=== PATIENT | male | born 1945 | race Caucasian/White ===

== ENCOUNTER 2016-07-10 04:55 | Inpatient (IN) ==
--- NOTE | 2016-07-10 05:59 | Pulmonology History & Physical ---
<Cisco Vasquez W - Last Filed: 07/10/16 09:34> Date of Encounter: 07/10/16 History of Present Illness HPI: Mr. Gong is a 70 year old male Medications and Allergies Albuterol Sulfate [Albuterol Inhaler] 2 puff IH Q6H 05/08/16 [History] Ipratropium [ATROVENT Inhaler] 2 puff IH Q6H 05/08/16 [History] Budesonide/Formoterol 160/4.5 [Symbicort 160/4.5] 1 puff IH BIDR #1 inhaler [Rx] CloZAPine [Clozaril] 300 mg PO HS tablet 05/20/16 [Rx] Digoxin [Lanoxin] 0.125 mg PO DAILY #30 tablet 05/20/16 [Rx] Acetaminophen [Tylenol] 650 mg PO Q6HR PRN 07/10/16 [History] Atorvastatin [Lipitor] 10 mg PO DAILY 07/10/16 [History] Azithromycin 500 mg IV DAILY 07/10/16 [History] Chlorhexidine Gluconate [Peridex] 15 ml MM BID 07/10/16 [History] Cholecalciferol (D-3) [Vitamin D] 2,000 unit PO DAILY 07/10/16 [History] Diltiazem CD (24hr) [Cardizem CD] 180 mg PO DAILY 07/10/16 [History] LORazepam [Ativan] 1 mg PO BID PRN 07/10/16 [History] LORazepam [Ativan] 1 mg PO Q6H 07/10/16 [History] Lactobacillus Acidophilus [Acidophilus Lactobacillus] 1 cap PO BID 07/10/16 [ History] Levalbuterol Neb [Xopenex Neb] 1.25 mg IH Q4H 07/10/16 [History] Levothyroxine [Synthroid] 75 mcg PO DAILY 07/10/16 [History] MethylPREDNISolone [Solu-MEDROL] 125 mg IV Q6HR 07/10/16 [History] Omeprazole [PriLOSEC] 20 mg PO DAILY 07/10/16 [History] Piperacillin Sodium/Tazobactam [Piperacil-Tazobact 3.375 gm Vl] 3.375 gm IV Q6H 07/10/16 [History] Potassium Chloride [Klor-Con 10] 10 meq PO BID 07/10/16 [History] Rivaroxaban [Xarelto] 20 mg PO DAILY 07/10/16 [History] Vancomycin/0.9 % Sod Chloride [Vanco 1 Gram/250 ml-0.9% NaCl] 1 gm IV Q12H 07/10 [History] Allergies haloperidol [From Haldol] Allergy (Verified 05/08/16 13:21) unknown patient is unresponsive at this time, can not ask. All Systems: A 10-system review of systems was performed and is negative for pertinent findings except as documented above in the HPI. Physical Examination Vital Signs: Vital Signs, Last 4 Hours Pulse Resp BP Pulse Ox 07/10/16 08:20 106 16 137/100 98 07/10/16 07:33 86 07/10/16 07:24 86 14 118/83 99 07/10/16 07:06 14 118/83 98 07/10/16 05:51 18 138/85 100 Results - Laboratory Findings CBC and BMP: 07/10/16 06:44 07/10/16 06:44 ABG ABG pH 7.36 pH Units (7.32-7.45) 07/10/16 08:57 ABG pCO2 62 mmHg (35-45) H 07/10/16 08:57 ABG pO2 122 mmHg (85-104) H 07/10/16 08:57 ABG O2 Saturation 99 % (95-98) H 07/10/16 08:57 PT/INR, D-dimer PT 13.6 Seconds (9.4-12.1) H 07/10/16 06:44 Abnormal lab findings: Abnormal lab results WBC 15.8 K/mcL (4.3-11.1) H 07/10/16 06:44 RBC 3.73 M/mcL (4.19-5.50) L 07/10/16 06:44 Hgb 11.4 g/dL (12.9-16.9) L 07/10/16 06:44 Hct 36.1 % (37.5-50.1) L 07/10/16 06:44 RDW 14.8 % (11.5-14.5) H 07/10/16 06:44 Neutrophils # 15.2 K/mcL (1.6-8.9) H 07/10/16 06:44 Lymphocytes # 0.3 K/mcL (0.6-4.6) L 07/10/16 06:44 PT 13.6 Seconds (9.4-12.1) H 07/10/16 06:44 ABG pCO2 62 mmHg (35-45) H 07/10/16 08:57 ABG pO2 122 mmHg (85-104) H 07/10/16 08:57 ABG HCO3 35.0 mEQ/L (21-27) H 07/10/16 08:57 ABG Total CO2 36.9 mEq/L (20-26) H 07/10/16 08:57 ABG O2 Saturation 99 % (95-98) H 07/10/16 08:57 ABG Base Excess 7.6 mEq/L (-2.0 to 3.0) H 07/10/16 08:57 Glucose 152 mg/dL (70-99) H 07/10/16 06:44 POC Glucose 153 (58-89) H 07/10/16 05:54 Calculated Osmolality 301 (280-300) H 07/10/16 06:44 Serum Total Protein 5.7 g/dL (6.0-8.3) L 07/10/16 06:44 Albumin 3.1 g/dL (3.5-5.0) L 07/10/16 06:44 - Attending Attestation I examined this patient and my medical decision-making was reviewed with the SCIENTIFIC RECRUITER/PA/Advanced Practice Nurse/Resident Physician. I agree with the documented findings, disposition and treatment plan as described except to the extent set forth below. I spent 40min of Critical Care time with this patient. It involved decision making of high complexity to assess, manipulate, and support vital organ system failure and/or to prevent further life threatening deterioration of the patient' s condition. The time involved in the performance of separately reportable procedures was not counted toward critical care time. Patient seen and examined at bedside Labs, radiology, chart personally reviewed. All lines examined without evidence of infection. 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 Will transition to benzo pushes PRN and will consider precedex as needed. Daily sedation holiday. Pulm: Acute on Chronic hypoxic hypercapnic respiratory failure secondary to possible HAP with COPD exacerbation start IV steroids continue bronchodilators every 4-6 hours vent management for low tidal volume ventilation strategy patient has a history of chronic CO2 retention and will aim for mild baseline respiratory acidosis acceptable oxygenation on 40% FiO2 at this time spontaneous breathing trial tomorrow Cards: History of CHF and Afib on LTA. ECG with no STEMI (trop pending) Rate controlled today otherwise hemodynamically stable. Net even to slightly negative fluid balance. restart CCB for rate control and Digoxin. FEN-GI: Nothing by mouth for now does have some bloody return from OG tube which started after placement of a G-tube possibly related to trauma with patient being anticoagulated for A. fib continue proton pump inhibitor and monitor OG output consider GI consult if continues and transition to proton inhibitor gtt Renal: Stable no acute kidney injury on admission monitor daily electrolytes sock examiner urine output with Quick catheter for strict I's and O's and well patient on respirator ID: HAP treating broadly for healthcare associated organisms patient also at risk for atypicals because he lives in community blood sputum and REsp infectious panel pending. Heme/Onc: A. fib on long-term anticoagulation with Spiriva rocks and then holding acutely for possible GI bleed continue mechanical SCDs for DVT prophylaxis monitor H&H every 6 hours Endo: Glucose monitored Integ/MSK: Skin care per ICU nursing protocol CODE: Full code patient has a guardian <Bernadine Dixon - Last Filed: 07/10/16 11:46> Date of Encounter: 07/10/16 Time of Encounter: 05:58 Assessment and Plan (1) Acute hypercapnic respiratory failure Current visit: No Status: Acute Likely due to COPD exacerbation secondary to pneumonia. Chest X-Ray 07/10/16 06:09 IMPRESSION: 1. The endotracheal tube tip is approximately 7-8 cm above the florecita. 2. The tip of the enteric tube is in the stomach though the proximal side hole is at the level of the gastroesophageal junction. The tube should be advanced approximately 3 cm. 3. Bibasilar atelectasis versus pneumonia, left greater than right. Continue to treat underlying cause antibiotics: Start date: 07/10/16: pipercillin /tazobactam, vancomyacin, levfloxacin. Continue oxygenation and ventilation support. Vent settings: Tidal volume 480, 16, PEEP 5, FiO2 60% patient is satting 100%. Spontaneous breathing trial tomorrow. Monitor with daily ABGs. Continue to monitor daily I's and O's and keep at a negative or neutral fluid balance. Daily monitoring of electrolytes for evaluation of renal function. Blood glucose checks every 6 hours with corrective low-dose insulin. Continue home medications via G-tube. Continue GI prophylaxis: Protonix IV Continue DVT prophylaxis. Nothing by mouth diet. Report from the NH was that they suspected an ileus. However, on arrival an NG tube was placed and immediately patient defecated. (2) Acute exacerbation of chronic obstructive pulmonary disease (COPD) Current visit: No Status: Acute Likely due to pneumonia. Long history of smoking more than 3 packs per day for more than 30 years. On long-term home medication inhaled ipratropium nebulizers and Symbicort. Continue to treat underlying cause antibiotics: Start date: 07/10/16: pipercillin /tazobactam, vancomyacin, levfloxacin. Continue supplemental oxygenation/ventilation support. Systemic steroid: Solu-Medrol 40 mg every 8 hours. Bronchodilator therapy: DuoNeb's every 4 hours. (3) Atrial fibrillation Current visit: Yes Status: Acute Continuous cardiac monitoring. Continue at home Antiarrhythmics: diltiazem and digoxin. Rate is currently controlled at 101. Patient is hemodynamically stable. Hold Rivaroxaban due to bleeding from NG tube. This has since resolved over the past few hours. However, we will hold today and may begin Xarelto tomorrow. ECG: Atrial fibrillation with rapid ventricular response. Ventricular rate 101 bpm, NV interval undetermined, QRS duration 180 ms, QT/QTC 280/338 ms. There are no acute ST segment elevations. Nonspecific T-wave abnormality. Troponins pending. Qualifiers: Atrial fibrillation type: paroxysmal Qualified Code(s): I48.0 - Paroxysmal atrial fibrillation (4) Pneumonia Current visit: Yes Status: Acute Patient was being treated at the NH for presumptive pneumonia with vancomycin and pipercillin/tazobactam before acute respiratory failure and transfer to the ICU. antibiotics: Start date: 07/10/16: pipercillin/tazobactam, vancomyacin, levfloxacin. Respiratory panel pending. Qualifiers: Pneumonia type: due to unspecified organism Laterality: bilateral Lung location: unspecified part of lung Qualified Code(s): J18.9 - Pneumonia, unspecified organism (5) Schizophrenia Current visit: Yes Status: Acute Patient has a history of paranoid schizophrenia with episodes of catatonia. Patient lives in a half-way at the NH in [place] and has a long history of psychiatric/mental health disorder requiring living assistance. Patient does have a court appointed guardian. Patient is currently intubated and sedated: Fentanyl/propofol. Plan: Transition to benzo diazepam and push when necessary for sedation holiday. Consider Precedex as needed. Continue home medications via G-tube to prevent psychosis. Qualifiers: Schizophrenia type: paranoid schizophrenia Qualified Code(s): F20.0 - Paranoid schizophrenia (6) DVT prophylaxis Current visit: No Status: Acute Heparin subcutaneous History of Present Illness Chief complaint: Respiratory failure HPI: Mr. Gong is a 70 year old male with a past medical history of atrial fibrillation on rivaroxiban for thromboembolism/stroke prophylaxis; diltiazem for arrhythmia and digoxin for rate control, paranoid schizophrenia with psychosis and catatonic state, BPH, gastroesophageal reflux, hypertension, hyperlipidemia, COPD, tobacco abuse disorder currently smoking 3 packs per day who was transferred from the [facility] for acute respiratory failure requiring intubation and sedation with propofol however the NH did not have any titration medication available and propofol was given IV push. Suspected pneumonia and COPD exacerbation. Patient resides at the NH in a half-way has a long history of mental health problems requiring living assistance. Patient was reportedly found in his room moaning in his bed non-responsive to sternal rub or bilateral fingernails squeeze/ Patient was not moving extremities to noxious stimuli. Patient was reported to be agitated earlier in the morning. Nursing staff reported that he had not slept for 2 days straight and was put on lorazepam just prior to event. Due to acute change in mental status wheezes on auscultation bilaterally patient was initially placed on BiPAP chest x-ray demonstrated bibasilar atelectasis versus pneumonia. Patient continued to decompensate and was intubated and sedated with propofol for transport [facility]. However, on arrival an NG tube was placed and immediately patient defecated. ROS unobtainable: due to endotracheal tube, due to mental status All Systems: A 10-system review of systems was performed and is negative for pertinent findings except as documented above in the HPI. Physical Examination General appearance: other (Intubated and sedated) Eyes: other (Pinpoint pupils) ENT: oropharynx moist Neck: supple, no lymphadenopathy, no JVD Effort: normal Inspection: normal Auscultation: bilateral: wheezes Cardiovascular: irregular rhythm (Atrial fibrillation) Gastrointestinal: normoactive bowel sounds, soft, non-tender Integumentary: normal Extremities: no cyanosis, no edema, pink and warm, pulses normal Musculoskeletal: no deformities pupils equal and round, other (Sedated) Results - Laboratory Findings CBC and BMP: 07/10/16 06:44 07/10/16 06:44 Abnormal lab findings: Abnormal lab results POC Glucose 153 (58-89) H 07/10/16 05:54 - Diagnostic Findings Chest x-ray: report reviewed, image reviewed
[2016-07-10] MEDS ORDERED: Naloxone 0.4 MG/ML INJ IVP PRN (06:07)
[2016-07-10] MEDS ORDERED: Acetaminophen 650 MG RECTAL SUPP RC PRN (06:07)
[2016-07-10] MEDS ORDERED: Acetaminophen 325 MG TABLET PO PRN (06:07)
[2016-07-10 06:51] LABS: Hematocrit 36.1 % (37.5-50.1); Hemoglobin 11.4 g/dL (12.9-16.9); Mean Corpuscular HGB Conc 31.6 g/dL (31.6-35.5); Mean Corpuscular Hemoglobin 30.6 pg (28.0-33.3); Mean Corpuscular Volume 96.8 fL (83.0-100.0); Mean Platelet Volume 9.7 fL (9.4-12.4); Platelet Count 222 K/mcL (140-400); Red Blood Count 3.73 M/mcL (4.19-5.50); Red Cell Distribution Width 14.8 % (11.5-14.5)
[2016-07-10 07:00] LABS: INR 1.3; Prothrombin Time 13.6 Seconds (9.4-12.1)
[2016-07-10] MEDS ORDERED: WATER IVPB SCH (07:00)
[2016-07-10] MEDS ORDERED: AMIKACIN IVPB SCH (07:00)
[2016-07-10] MEDS ORDERED: D5 IVPB SCH (07:00)
[2016-07-10 07:06] LABS: Alanine Aminotransferase 14 Units/L (0-55); Albumin 3.1 g/dL (3.5-5.0); Albumin/Globulin Ratio 1.2 (1.1-2.2); Alkaline Phosphatase 75 Units/L (38-126); Aspartate Amino Transferase 21 Units/L (5-34); BUN/Creatinine Ratio 17 (6-26); Bilirubin,Total 0.3 mg/dL (0.2-1.2); Blood Urea Nitrogen 13 mg/dL (8-26); Calcium 8.6 mg/dL (8.6-10.8); Carbon Dioxide 28 mEq/L (19-29); Chloride 107 mEq/L (98-109); Globulin 2.6 g/dL (2.4-3.5); Glucose 152 mg/dL (70-99); Magnesium 2.1 mg/dL (1.6-2.6); Osmolality,Calculated 301 (280-300); Phosphorous 3.7 mg/dL (2.3-4.7); Sodium 144 mEq/L (136-145); Total Protein 5.7 g/dL (6.0-8.3); eGFR For African Americans > 60 (> 60); eGFR For Non-African Americans > 60 (> 60)
[2016-07-10 07:17] LABS: Lymphocytes # 0.3 K/mcL (0.6-4.6); Monocytes # 0.3 K/mcL (0.0-1.3); Neutrophils # 15.2 K/mcL (1.6-8.9); Platelet Estimate Normal (Normal)
[2016-07-10 07:40] LABS: ABG Base Excess 7.4 mEq/L (-2.0 to 3.0); ABG HCO3 34.8 mEQ/L (21-27); ABG Oxygen Saturation 94 % (95-98); ABG PCO2 63 mmHg (35-45); ABG PH 7.35 pH Units (7.32-7.45); ABG PO2 75 mmHg (85-104); ABG TCO2 36.7 mEq/L (20-26)
[2016-07-10 07:41] LABS: Blood Gas FiO2 60 %
[2016-07-10] MEDS: FentaNYL (PF) 1,000 MCG in 0.9 % Sodium Chloride 80 ML IVC SCH ×2 (07:45→23:26)
[2016-07-10] MEDS: MethylPREDNISolone 40 MG/ML VIAL IVP SCH ×2 (07:46→18:20)
[2016-07-10] MEDS: Vancomycin 1,000 MG in D5% in Water 250 ML IVPB SCH ×2 (07:47→19:53)
[2016-07-10] MEDS: Pantoprazole 40 MG VIAL IVPB SCH (07:47)
[2016-07-10] MEDS: Piperacillin/Tazobactam 3.375 GM in D5% in Water (Mini-Bag+) 100 ML IVPB SCH ×2 (07:48→18:18)
[2016-07-10] MEDS: Levofloxacin 750 MG/150 ML 750 MG/150 ML BAG IVPB SCH (08:11)
[2016-07-10] MEDS ORDERED: dilTIAZem HCl 60 MG TABLET PO SCH (08:12)
[2016-07-10] MEDS: Ipratropium/Albuterol Neb 3 ML IH SCH ×4 (08:28→21:16)
[2016-07-10] MEDS ORDERED: *HR* Heparin 5,000 UNIT/ML VIAL SQ SCH (08:30)
[2016-07-10] MEDS ORDERED: *HR* Digoxin 0.125 MG TABLET PO SCH (09:00)
[2016-07-10 09:07] LABS: ABG Base Excess 7.6 mEq/L (-2.0 to 3.0); ABG Oxygen Saturation 99 % (95-98); ABG PCO2 62 mmHg (35-45); ABG PH 7.36 pH Units (7.32-7.45); ABG PO2 122 mmHg (85-104); ABG TCO2 36.9 mEq/L (20-26)
[2016-07-10 09:08] LABS: Blood Gas FiO2 60 %
[2016-07-10] MEDS ORDERED: Levothyroxine Sodium 100 MCG VIAL IVP SCH (11:00)
[2016-07-10] MEDS: Digoxin Oral Liquid 125 MCG/2.5 ML ORAL.SYG GTUBE SCH (11:25)
[2016-07-10] MEDS: Lacri-Lube 3.5 GM TUBE BOTH EYES SCH ×2 (11:25→20:47)
[2016-07-10] MEDS: Chlorhexidine Rinse 15 ML MOUTHWASH MM SCH ×2 (11:25→20:47)
[2016-07-10] MEDS ORDERED: Dextrose Gel 15 GM PO PRN ×2 (11:28)
[2016-07-10] MEDS ORDERED: *HR* Dextrose 50 % in Water (Syg) 50 ML SYRINGE IVP PRN (11:28)
[2016-07-10] MEDS ORDERED: D5% in Water 1,000 ML IV PRN (11:28)
[2016-07-10] MEDS: Insulin LISPRO 300 UNITS/3 ML VIAL SQ SCH ×2 (12:19→18:19)
[2016-07-10 12:50] LABS: Adenovirus Not Detected (Not Detect); Bordetella Pertussis Not Detected (Not Detect); Chlamydophila pneumoniae Not Detected (Not Detect); Coronavirus 229E Not Detected (Not Detect); Coronavirus HKU1 Not Detected (Not Detect); Coronavirus NL63 Not Detected (Not Detect); Coronavirus OC43 Not Detected (Not Detect); Human Metapneumovirus Not Detected (Not Detect); Human Rhinovirus/Enterovirus Not Detected (Not Detect); Influenza A Subtype 2009 H1 Not Detected (Not Detect); Influenza A Untypeable Not Detected (Not Detect); Influenza B Not Detected (Not Detect); Mycoplasma pneumoniae Not Detected (Not Detect); Parainfluenza Virus 1 Not Detected (Not Detect); Parainfluenza Virus 2 Not Detected (Not Detect); Parainfluenza Virus 3 Not Detected (Not Detect); Parainfluenza Virus 4 Not Detected (Not Detect); Respiratory Syncytial Virus ***DETECTED*** (Not Detect)
[2016-07-10] MEDS ORDERED: Aminoglycoside Consult 1 EACH MC ONE (12:53)
--- NOTE | 2016-07-10 14:51 | Electrocardiograph Report ---
[address] [address] Test Date: 2016-07-10 Pat Name: Vikram Gong Department: 109 Room: [facility] Gender: M [place] Recorder: : [id number] Requested By: Kj Zhang Order Number: [id number] Reading MD: Emily Hale Measurements Intervals [place] Rate: 101 P: AR: 0 QRS: 42 QRSD: 118 T: 31 QT: 280 QTc: 338 Interpretive Statements ATRIAL FIBRILLATION WITH RAPID VENTRICULAR RESPONSE MODERATE INTRAVENTRICULAR CONDUCTION DELAY NONSPECIFIC T-WAVE ABNORMALITY ABNORMAL RHYTHM ECG Electronically Signed On 07-10-2016 14:49:45 EST by Emily Hale
[2016-07-10] MEDS ORDERED: cloZAPine 100 MG TABLET PO SCH (21:00)
[2016-07-10] MEDS ORDERED: cloZAPine 100 MG TABLET GTUBE SCH (21:00)
[2016-07-10] MEDS: *HR* Midazolam HCl 2 MG/2 ML VIAL IVP PRN (21:03)
[2016-07-11] MEDS: Ipratropium/Albuterol Neb 3 ML IH SCH ×6 (01:01→20:17)
[2016-07-11] MEDS: Piperacillin/Tazobactam 3.375 GM in D5% in Water (Mini-Bag+) 100 ML IVPB SCH ×2 (01:12→08:36)
[2016-07-11] MEDS: Insulin LISPRO 300 UNITS/3 ML VIAL SQ SCH ×4 (01:13→20:24)
[2016-07-11] MEDS: MethylPREDNISolone 40 MG/ML VIAL IVP SCH ×3 (01:17→16:35)
--- NOTE | 2016-07-11 06:01 | Pulmonology Progress Note ---
<ChriscorinneCisco stroud W - Last Filed: 07/11/16 08:09> Date of Encounter: 07/11/16 Objective PUL Vital signs: Last Vital Signs Temp 97.5 F L 07/11/16 07:46 Pulse 91 07/11/16 06:00 Resp 30 07/11/16 07:05 BP 128/86 07/11/16 06:00 Pulse Ox 93 L 07/11/16 07:05 Ventilator Settings Ventilator Settings: Ventilator Settings, Last 8 Hours Ventilator Mode VC+ Ventilator Mode VC+ Ventilator Mode VC+ Ventilator Mode VC+ Ventilator Mode VC+ Ventilator Mode VC+ Ventilator Mode VC+ Ventilator Mode VC+ Ventilator Tidal Volume 480 Setting Ventilator Tidal Volume 480 Setting Ventilator Tidal Volume 480 Setting Ventilator Tidal Volume 480 Setting Ventilator Tidal Volume 480 Setting Ventilator Tidal Volume 480 Setting Ventilator Tidal Volume 480 Setting Ventilator Tidal Volume 480 Setting Ventilator Respiratory Rate 16 Setting Ventilator Respiratory Rate 16 Setting Ventilator Respiratory Rate 16 Setting Ventilator Respiratory Rate 16 Setting Ventilator Respiratory Rate 16 Setting Ventilator Respiratory Rate 16 Setting Ventilator Respiratory Rate 16 Setting Ventilator Respiratory Rate 16 Setting Actual Respiratory Rate 18 Actual Respiratory Rate 17 Actual Respiratory Rate 17 Actual Respiratory Rate 16 Actual Respiratory Rate 16 Actual Respiratory Rate 16 Actual Respiratory Rate 16 Actual Respiratory Rate 16 Positive End Expiratory 5 Pressure Positive End Expiratory 5 Pressure Positive End Expiratory 5 Pressure Positive End Expiratory 5 Pressure Positive End Expiratory 5 Pressure Positive End Expiratory 5 Pressure Positive End Expiratory 5 Pressure Positive End Expiratory 5 Pressure Peak Inspiratory Airway 21 Pressure Peak Inspiratory Airway 22 Pressure Peak Inspiratory Airway 18 Pressure Peak Inspiratory Airway 20 Pressure Peak Inspiratory Airway 25 Pressure Peak Inspiratory Airway 27 Pressure Results - Laboratory Findings CBC and BMP: 07/11/16 06:30 07/11/16 06:30 ABG ABG pH 7.37 pH Units (7.32-7.45) 07/11/16 06:23 ABG pCO2 61 mmHg (35-45) H 07/11/16 06:23 ABG pO2 79 mmHg (85-104) L 07/11/16 06:23 ABG O2 Saturation 95 % (95-98) 07/11/16 06:23 PT/INR, D-dimer PT 10.8 Seconds (9.4-12.1) 07/11/16 06:30 Abnormal lab findings: Abnormal lab results WBC 14.8 K/mcL (4.3-11.1) H 07/11/16 06:30 MCHC 31.5 g/dL (31.6-35.5) L 07/11/16 06:30 RDW 14.9 % (11.5-14.5) H 07/11/16 06:30 Neutrophils # 13.7 K/mcL (1.6-8.9) H 07/11/16 06:30 Lymphocytes # 0.3 K/mcL (0.6-4.6) L 07/11/16 06:30 ABG pCO2 61 mmHg (35-45) H 07/11/16 06:23 ABG pO2 79 mmHg (85-104) L 07/11/16 06:23 ABG HCO3 35.3 mEQ/L (21-27) H 07/11/16 06:23 ABG Total CO2 37.2 mEq/L (20-26) H 07/11/16 06:23 ABG Base Excess 8.0 mEq/L (-2.0 to 3.0) H 07/11/16 06:23 Glucose 142 mg/dL (70-99) H 07/11/16 06:30 POC Glucose 135 (58-89) H 07/11/16 05:15 Serum Total Protein 5.7 g/dL (6.0-8.3) L 07/10/16 06:44 Albumin 3.1 g/dL (3.5-5.0) L 07/10/16 06:44 RSV (PCR) DETECTED (Not Detect) A 07/10/16 10:00 - Clinical Findings Intake & Output: Intake & Output 07/10/16 07/11/16 07/11/16 23:59 07:59 15:59 Intake Total 537.2 / 537.2 162 / 162 Output Total 175 / 175 250 / 250 Balance 362.2 / 362.2 -88 / -88 Weight 73.085 kg Consult Discharge Plan - Plan Referrals: [facility],PCP [Primary Care Provider] - - Attending Attestation I examined this patient and my medical decision-making was reviewed with the PSYCHIATRY ADULT PHYSICIAN/PA/Advanced Practice Nurse/Resident Physician. I agree with the documented findings, disposition and treatment plan as described except to the extent set forth below. Patient seen and examined at bedside Labs, radiology, chart personally reviewed. All lines examined without evidence of infection. 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 transition to NCO2 later today. cont BDs and Steroids. Ok for Azithro for COPD exacerbation Cards: History of CHF and Afib on LTA. Rate stable on Tele. Net even to slightly negative volume status FEN-GI: Bedside speech/swallow eval. ADAT. 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 Heme/Onc: A. fib on long-term anticoagulation with NOAC will restart today. H/H stable. Endo: Glucose monitored Integ/MSK: Skin care per ICU nursing protocol CODE: Full code patient has a guardian Consider transfer to medical telemetry floor later in the day if no further issues <ZackBernadine Larson - Last Filed: 07/11/16 09:44> Date of Encounter: 07/11/16 Time of Encounter: 05:45 Assessment and Plan (1) Acute hypercapnic respiratory failure Current Visit: No Status: Acute Likely due to COPD exacerbation secondary to RSV pneumonia. Chest X-Ray 07/10/16 06:09 IMPRESSION: 1. The endotracheal tube tip is approximately 7-8 cm above the florecita. 2. The tip of the enteric tube is in the stomach though the proximal side hole is at the level of the gastroesophageal junction. The tube should be advanced approximately 3 cm. 3. Bibasilar atelectasis versus pneumonia, left greater than right. ID: Supportive treatment for underlying viral cause. IV antibiotics descalated: Start date: 07/10/16: pipercillin/tazobactam, vancomyacin, levfloxacin. Stop Date 07/11/16. Oral course of Azithromycin/Z-Tommie to begin today for COPD Exacerbation. Start date: 07/11/16 500 mg now then 2504 days stop date Friday07/15/16. Pulm: Continue supplemental oxygenation and BiPAP for respiratory support. Plan to transition to oxygen by nasal cannula. Cardiology: Patient has history of atrial fibrillation on long-term anticoagulation and antiarrhythmics. Patient's rate is well controlled. Restart Xarelto. Renal: Continue to monitor daily I's and O's and keep at a negative or neutral fluid balance. Daily monitoring of electrolytes for evaluation of renal function. Endocrine: Blood glucose checks every 6 hours with corrective low-dose insulin. Heme/onc: Continue DVT prophylaxis with heparin subcutaneous. Hemoglobin stable. GI/Fluids/Electrolytes: [facility] However, on arrival an NG tube was placed and immediately patient defecated. Continue GI prophylaxis: Protonix by mouth Continue home medications orally. Plan to transfer to telemetry later today. (2) Acute exacerbation of chronic obstructive pulmonary disease (COPD) Current Visit: No Status: Acute Likely due to RSV pneumonia. Long history of smoking more than 3 packs per day for more than 30 years. On long-term home medication inhaled ipratropium nebulizers and Symbicort. Oral course of Azithromycin/Z-Tommie to begin today for COPD Exacerbation. Start date: 07/11/16 500 mg now then 2504 days stop date Friday07/15/16. Continue supplemental oxygenation/ventilation support. Systemic steroid: Prednisone 40 mg daily. Bronchodilator therapy: DuoNeb's every 4 hours. (3) Atrial fibrillation Current Visit: Yes Status: Acute Continuous cardiac monitoring. Rivaroxaban was held initially due to bleeding from NG tube. This has since resolved over the past few hours. Begin Xarelto. ECG: Atrial fibrillation with rapid ventricular response. Ventricular rate 101 bpm, PA interval undetermined, QRS duration 180 ms, QT/QTC 280/338 ms. There are no acute ST segment elevations. Nonspecific T-wave abnormality. Troponin negative. Continue at home Antiarrhythmics: diltiazem and digoxin. Rate is regular and is currently controlled at 90 . Patient is hemodynamically stable. Qualifiers: Atrial fibrillation type: paroxysmal Qualified Code(s): I48.0 - Paroxysmal atrial fibrillation (4) Pneumonia Current Visit: Yes Status: Acute [facility] for presumptive [facility] with vancomycin and pipercillin/tazobactam before acute respiratory failure and transfer to the ICU. antibiotics: Start date: 07/10/16: pipercillin/tazobactam, vancomyacin, levfloxacin. De-escalate/stop date 07/11/16. Respiratory panel serology positive for respiratory syncytial virus. Qualifiers: Pneumonia type: due to unspecified organism Laterality: bilateral Lung location: unspecified part of lung Qualified Code(s): J18.9 - Pneumonia, unspecified organism (5) Schizophrenia Current Visit: Yes Status: Acute Patient has a history of paranoid schizophrenia with episodes of catatonia. Patient [facility] [place] and has a long history of psychiatric/mental health disorder requiring living assistance. Patient does have a court appointed guardian. Patient is currently extubated and responding appropriate to commands. Continue home medications by mouth to prevent psychosis. Qualifiers: Schizophrenia type: paranoid schizophrenia Qualified Code(s): F20.0 - Paranoid schizophrenia (6) DVT prophylaxis Current Visit: No Status: Acute Heparin subcutaneous Subjective Principal diagnosis: Acute hypercapnic respiratory failure Interval history: Overnight the patient became restless and was coughing and gagging over the vent. This was particularly exacerbated while patient was receiving a bath and was turned to his side propofol was increased to 15 temporarily during that time. Patient was coughing so hard that he coughed out his OG tube. Tube was reinserted and a KUB demonstrated that it was in the proper place. Propofol turned down to 5. At 5:00 this morning propofol and fentanyl were discontinued for CPAP trial. Patient was extubated and is currently on BiPAP. Fluid balance overnight was -13 mL however overall has been +500.2 mL. Vitals stable. Objective PUL Vital signs: Last Vital Signs Temp 97.6 F 07/11/16 03:00 Pulse 89 07/11/16 05:00 Resp 16 07/11/16 05:00 BP 121/77 07/11/16 05:00 Pulse Ox 94 L 07/11/16 05:00 Ventilator Settings Ventilator Settings: Ventilator Settings, Last 8 Hours Ventilator Mode VC+ Ventilator Mode VC+ Ventilator Mode VC+ Ventilator Mode VC+ Ventilator Mode VC+ Ventilator Mode VC+ Ventilator Mode VC+ Ventilator Mode VC+ Ventilator Mode VC+ Ventilator Mode VC+ Ventilator Tidal Volume 480 Setting Ventilator Tidal Volume 480 Setting Ventilator Tidal Volume 480 Setting Ventilator Tidal Volume 480 Setting Ventilator Tidal Volume 480 Setting Ventilator Tidal Volume 480 Setting Ventilator Tidal Volume 480 Setting Ventilator Tidal Volume 480 Setting Ventilator Tidal Volume 480 Setting Ventilator Tidal Volume 480 Setting Ventilator Respiratory Rate 16 Setting Ventilator Respiratory Rate 16 Setting Ventilator Respiratory Rate 16 Setting Ventilator Respiratory Rate 16 Setting Ventilator Respiratory Rate 16 Setting Ventilator Respiratory Rate 16 Setting Ventilator Respiratory Rate 16 Setting Ventilator Respiratory Rate 16 Setting Ventilator Respiratory Rate 16 Setting Ventilator Respiratory Rate 16 Setting Actual Respiratory Rate 17 Actual Respiratory Rate 17 Actual Respiratory Rate 16 Actual Respiratory Rate 16 Actual Respiratory Rate 16 Actual Respiratory Rate 16 Actual Respiratory Rate 16 Actual Respiratory Rate 16 Actual Respiratory Rate 16 Actual Respiratory Rate 16 Positive End Expiratory 5 Pressure Positive End Expiratory 5 Pressure Positive End Expiratory 5 Pressure Positive End Expiratory 5 Pressure Positive End Expiratory 5 Pressure Positive End Expiratory 5 Pressure Positive End Expiratory 5 Pressure Positive End Expiratory 5 Pressure Positive End Expiratory 5 Pressure Positive End Expiratory 5 Pressure Peak Inspiratory Airway 22 Pressure Peak Inspiratory Airway 18 Pressure Peak Inspiratory Airway 20 Pressure Peak Inspiratory Airway 25 Pressure Peak Inspiratory Airway 27 Pressure Peak Inspiratory Airway 24 Pressure Peak Inspiratory Airway 23 Pressure Results - Laboratory Findings CBC and BMP: 07/11/16 06:30 07/11/16 06:30 ABG ABG pH 7.36 pH Units (7.32-7.45) 07/10/16 08:57 ABG pCO2 62 mmHg (35-45) H 07/10/16 08:57 ABG pO2 122 mmHg (85-104) H 07/10/16 08:57 ABG O2 Saturation 99 % (95-98) H 07/10/16 08:57 PT/INR, D-dimer PT 13.6 Seconds (9.4-12.1) H 07/10/16 06:44 Abnormal lab findings: Abnormal lab results WBC 15.8 K/mcL (4.3-11.1) H 07/10/16 06:44 RBC 3.73 M/mcL (4.19-5.50) L 07/10/16 06:44 Hgb 11.4 g/dL (12.9-16.9) L 07/10/16 06:44 Hct 36.1 % (37.5-50.1) L 07/10/16 06:44 RDW 14.8 % (11.5-14.5) H 07/10/16 06:44 Neutrophils # 15.2 K/mcL (1.6-8.9) H 07/10/16 06:44 Lymphocytes # 0.3 K/mcL (0.6-4.6) L 07/10/16 06:44 PT 13.6 Seconds (9.4-12.1) H 07/10/16 06:44 ABG pCO2 62 mmHg (35-45) H 07/10/16 08:57 ABG pO2 122 mmHg (85-104) H 07/10/16 08:57 ABG HCO3 35.0 mEQ/L (21-27) H 07/10/16 08:57 ABG Total CO2 36.9 mEq/L (20-26) H 07/10/16 08:57 ABG O2 Saturation 99 % (95-98) H 07/10/16 08:57 ABG Base Excess 7.6 mEq/L (-2.0 to 3.0) H 07/10/16 08:57 Glucose 152 mg/dL (70-99) H 07/10/16 06:44 POC Glucose 135 (58-89) H 07/11/16 05:15 Calculated Osmolality 301 (280-300) H 07/10/16 06:44 Serum Total Protein 5.7 g/dL (6.0-8.3) L 07/10/16 06:44 Albumin 3.1 g/dL (3.5-5.0) L 07/10/16 06:44 RSV (PCR) DETECTED (Not Detect) A 07/10/16 10:00 - Clinical Findings Intake & Output: Intake & Output 07/10/16 07/10/16 07/11/16 15:59 23:59 07:59 Intake Total 600 / 600 537.2 / 537.2 162 / 162 Output Total 300 / 300 175 / 175 175 / 175 Balance 300 / 300 362.2 / 362.2 -13 / -13 Weight 73.085 kg
[2016-07-11] MEDS: *HR* Midazolam HCl 2 MG/2 ML VIAL IVP PRN (06:23)
[2016-07-11] MEDS: Vancomycin 1,000 MG in D5% in Water 250 ML IVPB SCH (06:30)
[2016-07-11 06:35] LABS: ABG HCO3 35.3 mEQ/L (21-27); ABG Oxygen Saturation 95 % (95-98); ABG PCO2 61 mmHg (35-45); ABG PH 7.37 pH Units (7.32-7.45); ABG PO2 79 mmHg (85-104); ABG TCO2 37.2 mEq/L (20-26); Blood Gas FiO2 40 %
[2016-07-11 06:51] LABS: Basophils % 0.1 %; Hematocrit 40.9 % (37.5-50.1); Hemoglobin 12.9 g/dL (12.9-16.9); Immature Granulocytes % 1.1 % (0-4); Lymphocytes # 0.3 K/mcL (0.6-4.6); Mean Corpuscular HGB Conc 31.5 g/dL (31.6-35.5); Mean Corpuscular Hemoglobin 30.4 pg (28.0-33.3); Mean Corpuscular Volume 96.5 fL (83.0-100.0); Mean Platelet Volume 10.2 fL (9.4-12.4); Monocytes # 0.6 K/mcL (0.0-1.3); Monocytes % 4.3 %; Neutrophils # 13.7 K/mcL (1.6-8.9); Platelet Count 239 K/mcL (140-400); Red Blood Count 4.24 M/mcL (4.19-5.50); Red Cell Distribution Width 14.9 % (11.5-14.5); Segmented Neutrophils % 92.5 %
[2016-07-11 06:56] LABS: Ionized Calcium 1.17 mmol/L (1.15-1.35)
[2016-07-11 06:57] LABS: Prothrombin Time 10.8 Seconds (9.4-12.1)
[2016-07-11 07:03] LABS: BUN/Creatinine Ratio 25 (6-26); Blood Urea Nitrogen 19 mg/dL (8-26); Carbon Dioxide 29 mEq/L (19-29); Chloride 103 mEq/L (98-109); Glucose 142 mg/dL (70-99); Magnesium 2.4 mg/dL (1.6-2.6); Osmolality,Calculated 299 (280-300); Phosphorous 2.8 mg/dL (2.3-4.7); Potassium 3.7 mEq/L (3.5-4.5); Sodium 142 mEq/L (136-145); eGFR For African Americans > 60 (> 60); eGFR For Non-African Americans > 60 (> 60)
[2016-07-11] MEDS ORDERED: Azithromycin 250 MG TABLET PO ONE (07:19)
[2016-07-11] MEDS: Levofloxacin 750 MG/150 ML 750 MG/150 ML BAG IVPB SCH (08:37)
[2016-07-11] MEDS: Pantoprazole 40 MG VIAL IVPB SCH (08:37)
[2016-07-11] MEDS: Lacri-Lube 3.5 GM TUBE BOTH EYES SCH (08:38)
[2016-07-11] MEDS ORDERED: *HR* Digoxin 0.125 MG TABLET PO SCH (09:31)
[2016-07-11] MEDS: Chlorhexidine Rinse 15 ML MOUTHWASH MM SCH (09:52)
[2016-07-11] MEDS: Digoxin Oral Liquid 125 MCG/2.5 ML ORAL.SYG GTUBE SCH (09:53)
[2016-07-11] MEDS ORDERED: *HR* LORazepam 1 MG TABLET PO PRN (10:52)
[2016-07-11] MEDS ORDERED: Furosemide 20 MG/2 ML VIAL IVP ONE ×2 (15:16→15:18)
[2016-07-11] MEDS ORDERED: *HR* LORazepam 2 MG/ML VIAL IVP ONE (15:28)
[2016-07-11] MEDS ORDERED: *HR* LORazepam 2 MG/ML VIAL ONE (15:30)
[2016-07-11] MEDS: cloZAPine 100 MG TABLET PO SCH (20:24)
[2016-07-12] MEDS: Insulin LISPRO 300 UNITS/3 ML VIAL SQ SCH ×4 (00:07→18:46)
[2016-07-12] MEDS: MethylPREDNISolone 40 MG/ML VIAL IVP SCH (00:07)
[2016-07-12] MEDS: Ipratropium/Albuterol Neb 3 ML IH SCH ×6 (00:29→20:48)
--- NOTE | 2016-07-12 06:06 | Pulmonology Progress Note ---
<Bernadine Dixon - Last Filed: 07/12/16 11:07> Date of Encounter: 07/12/16 Time of Encounter: 05:55 Assessment and Plan (1) Acute hypercapnic respiratory failure Current Visit: No Status: Acute Likely due to COPD exacerbation secondary to RSV pneumonia. Serology demonstrates RSV PCR positive. KUB X-Ray 07/10/16 23:10 IMPRESSION: The tip of the oral gastric tube is in satisfactory position in the region of the stomach. Chest X-Ray 07/12/16 07:26 IMPRESSION: No significant interval change in left basilar pleuroparenchymal disease as compared to prior. Improved aeration of the right lung base. ID: Supportive treatment for underlying viral cause. IV antibiotics descalated: Start date: 07/10/16: pipercillin/tazobactam, vancomyacin, levfloxacin. Stop Date 07/11/16. Oral course of Azithromycin/Z-Tommie to begin today for COPD Exacerbation. Start date: 07/11/16 500 mg now then 2504 days stop date Friday07/15/16. Pulm: Continue supplemental oxygenation and BiPAP for respiratory support. Plan to transition to oxygen by nasal cannula. Cardiology: Patient has history of atrial fibrillation on long-term anticoagulation and antiarrhythmics. Patient's rate is well controlled. Restart Xarelto. Renal: Continue to monitor daily I's and O's and keep at a negative or neutral fluid balance. Daily monitoring of electrolytes for evaluation of renal function. Endocrine: Blood glucose checks every 6 hours with corrective low-dose insulin. Heme/onc: Continue DVT prophylaxis with heparin subcutaneous. Hemoglobin stable. GI/Fluids/Electrolytes: [facility]. However, on arrival an NG tube was placed and immediately patient defecated. Continue GI prophylaxis: Omeprazole by mouth Continue home medications orally. Plan diabetic diet if patient can tolerate eating without desaturation and needing BiPAP. Plan to transfer to telemetry later today. (2) Acute exacerbation of chronic obstructive pulmonary disease (COPD) Current Visit: No Status: Acute Likely due to RSV pneumonia. Long history of smoking more than 3 packs per day for more than 30 years. On long-term home medication inhaled ipratropium nebulizers and Symbicort. Oral course of Azithromycin/Z-Tommie to begin today for COPD Exacerbation. Start date: 07/11/16 500 mg now then 2504 days stop date Friday07/15/16. Continue supplemental oxygenation/ventilation support. Systemic steroid: Prednisone 40 mg daily. Bronchodilator therapy: DuoNeb's every 4 hours. (3) Atrial fibrillation Current Visit: Yes Status: Acute Continuous cardiac monitoring. Rivaroxaban was held initially due to bleeding from NG tube. This has since resolved over the past few hours. Begin Xarelto. ECG: Atrial fibrillation with rapid ventricular response. Ventricular rate 101 bpm, [place] interval undetermined, QRS duration 180 ms, QT/QTC 280/338 ms. There are no acute ST segment elevations. Nonspecific T-wave abnormality. Troponin negative. Continue at home Antiarrhythmics: diltiazem and digoxin. Rate is regular and is currently controlled at 90 . Patient is hemodynamically stable. Qualifiers: Atrial fibrillation type: paroxysmal Qualified Code(s): I48.0 - Paroxysmal atrial fibrillation (4) Pneumonia Current Visit: Yes Status: Acute Patient was being treated at the [facility] for presumptive pneumonia with vancomycin and pipercillin/tazobactam before acute respiratory failure and transfer to the ICU. antibiotics: Start date: 07/10/16: pipercillin/tazobactam, vancomyacin, levfloxacin. De-escalate/stop date 07/11/16. Respiratory panel serology positive for respiratory syncytial virus. Qualifiers: Pneumonia type: due to unspecified organism Laterality: bilateral Lung location: unspecified part of lung Qualified Code(s): J18.9 - Pneumonia, unspecified organism (5) Schizophrenia Current Visit: Yes Status: Acute Patient has a history of paranoid schizophrenia with episodes of catatonia. Patient lives in a [facility] at [facility] in [place] and has a long history of psychiatric/mental health disorder requiring living assistance. Patient does have a court appointed guardian. Patient is currently extubated and responding appropriate to commands. Continue home medications by mouth to prevent psychosis. Qualifiers: Schizophrenia type: paranoid schizophrenia Qualified Code(s): F20.0 - Paranoid schizophrenia (6) DVT prophylaxis Current Visit: No Status: Acute Heparin subcutaneous Subjective Principal diagnosis: Acute hypercapnic respiratory failure Interval history: Patient tolerated BiPAP well overnight. However this morning, patient has been much less cooperative with nursing staff then he was yesterday refusing to participate in physical exam. Fluid balance overnight was -300 mL however overall has been -364 mL. Vitals stable. Overnight, midnight medication administration was difficult for nursing staff as patient was difficult to arouse and uncooperative. He became angry stating that he is upset [facility]. He demanded to know which doctor had intubated him. Patient was resting comfortably this morning on exam. Patient is on BiPAP with oxygen saturation at 95%. Patient becomes very winded and frustrated when trying to speak and quickly desaturates requiring BiPAP. Objective PUL Vital signs: Last Vital Signs Temp 97.9 F 07/12/16 04:16 Pulse 120 07/12/16 05:01 Resp 22 07/12/16 05:01 BP 115/86 07/12/16 05:01 Pulse Ox 95 07/12/16 05:01 General appearance: asleep Eyes: nonicteric ENT: oropharynx moist Neck: supple Effort: normal Auscultation: bilateral: clear Cardiovascular: regular rate and rhythm Gastrointestinal: normoactive bowel sounds, soft, non-tender Integumentary: normal Extremities: no cyanosis, no edema, pink and warm, pulses normal Musculoskeletal: no deformities non-focal exam, pupils equal and round anxious Results - Laboratory Findings CBC and BMP: 07/12/16 07:05 07/12/16 07:05 ABG ABG pH 7.37 pH Units (7.32-7.45) 07/11/16 06:23 ABG pCO2 61 mmHg (35-45) H 07/11/16 06:23 ABG pO2 79 mmHg (85-104) L 07/11/16 06:23 ABG O2 Saturation 95 % (95-98) 07/11/16 06:23 PT/INR, D-dimer PT 10.8 Seconds (9.4-12.1) 07/11/16 06:30 Abnormal lab findings: Abnormal lab results WBC 14.8 K/mcL (4.3-11.1) H 07/11/16 06:30 MCHC 31.5 g/dL (31.6-35.5) L 07/11/16 06:30 RDW 14.9 % (11.5-14.5) H 07/11/16 06:30 Neutrophils # 13.7 K/mcL (1.6-8.9) H 07/11/16 06:30 Lymphocytes # 0.3 K/mcL (0.6-4.6) L 07/11/16 06:30 ABG pCO2 61 mmHg (35-45) H 07/11/16 06:23 ABG pO2 79 mmHg (85-104) L 07/11/16 06:23 ABG HCO3 35.3 mEQ/L (21-27) H 07/11/16 06:23 ABG Total CO2 37.2 mEq/L (20-26) H 07/11/16 06:23 ABG Base Excess 8.0 mEq/L (-2.0 to 3.0) H 07/11/16 06:23 Glucose 142 mg/dL (70-99) H 07/11/16 06:30 POC Glucose 123 (58-89) H 07/12/16 04:59 Serum Total Protein 5.7 g/dL (6.0-8.3) L 07/10/16 06:44 Albumin 3.1 g/dL (3.5-5.0) L 07/10/16 06:44 RSV (PCR) DETECTED (Not Detect) A 07/10/16 10:00 - Clinical Findings Intake & Output: Intake & Output 07/11/16 07/11/16 07/12/16 15:59 23:59 07:59 Intake Total 660 / 660 0 / 0 50 / 50 Output Total 1150 / 1150 350 / 350 Balance 660 / 660 -1150 / -1150 -300 / -300 Weight 72.529 kg Consult Discharge Plan - Plan [facility]errals: [facility] Provider[facility] - <Cisco Vasquez - Last Filed: 07/12/16 13:28> Date of Encounter: 07/12/16 Objective PUL Vital signs: Last Vital Signs Temp 97.8 F 07/12/16 07:30 Pulse 129 07/12/16 08:00 Resp 22 07/12/16 08:00 BP 130/86 07/12/16 08:00 Pulse Ox 85 L 07/12/16 08:00 Results - Laboratory Findings CBC and BMP: 07/12/16 07:05 07/12/16 07:05 ABG ABG pH 7.45 pH Units (7.32-7.45) 07/12/16 07:48 ABG pCO2 57 mmHg (35-45) H 07/12/16 07:48 ABG pO2 89 mmHg (85-104) 07/12/16 07:48 ABG O2 Saturation 97 % (95-98) 07/12/16 07:48 PT/INR, D-dimer PT 10.8 Seconds (9.4-12.1) 07/11/16 06:30 Abnormal lab findings: Abnormal lab results Hgb 12.8 g/dL (12.9-16.9) L 07/12/16 07:05 MCHC 31.4 g/dL (31.6-35.5) L 07/12/16 07:05 RDW 14.6 % (11.5-14.5) H 07/12/16 07:05 Lymphocytes # 0.3 K/mcL (0.6-4.6) L 07/12/16 07:05 ABG pCO2 57 mmHg (35-45) H 07/12/16 07:48 ABG HCO3 39.6 mEQ/L (21-27) H 07/12/16 07:48 ABG Total CO2 41.3 mEq/L (20-26) H 07/12/16 07:48 ABG Base Excess 13.1 mEq/L (-2.0 to 3.0) H 07/12/16 07:48 Carbon Dioxide 35 mEq/L (19-29) H 07/12/16 07:05 BUN/Creatinine Ratio 29 (6-26) H 07/12/16 07:05 Glucose 127 mg/dL (70-99) H 07/12/16 07:05 POC Glucose 123 (58-89) H 07/12/16 04:59 Serum Total Protein 5.7 g/dL (6.0-8.3) L 07/10/16 06:44 Albumin 3.1 g/dL (3.5-5.0) L 07/10/16 06:44 RSV (PCR) DETECTED (Not Detect) A 07/10/16 10:00 - Clinical Findings Intake & Output: Intake & Output 07/11/16 07/12/16 07/12/16 23:59 07:59 15:59 Intake Total 0 / 0 50 / 50 Output Total 1150 / 1150 450 / 450 Balance -1150 / -1150 -400 / -400 Weight 72.529 kg - Attending Attestation I examined this patient and my medical decision-making was reviewed with the MEDICAL ACCOUNTANT/PA/Advanced Practice Nurse/Resident Physician. I agree with the documented findings, disposition and treatment plan as described except to the extent set forth below. Patient seen and examined at bedside Labs, radiology, chart personally reviewed. All lines examined without evidence of infection. Neuropsych: Baseline catatonic schizophrenia able to follow commands today and more alert cont home psych meds Pulm: Acute on Chronic hypoxic hypercapnic respiratory failure secondary to viral PNA with COPD exacerbation Extubated to NIPPV has had rapid periods of desat on NC (hi flow) requiring ongoing NIPPV. Likely combination of cardiogenic and non cardiogenic edema. cont steroids and bronchodilators Cards: History of CHF and Afib on LTA. Rate stable on Tele. cont diuresis goal 1 -1.5 liters as tolerated FEN-GI: Bedside speech/swallow eval passed ADAT cautiously with ongoing respiratory failure. 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 cont azithro for aninflammatory properties. Heme/Onc: A. fib on long-term anticoagulation cont Xarelto. H/H stable. Endo: Glucose monitored Integ/MSK: Skin care per ICU nursing protocol CODE: Full code patient has a guardian
[2016-07-12 07:24] LABS: BUN/Creatinine Ratio 29 (6-26); Blood Urea Nitrogen 21 mg/dL (8-26); Calcium 8.8 mg/dL (8.6-10.8); Carbon Dioxide 35 mEq/L (19-29); Chloride 101 mEq/L (98-109); Glucose 127 mg/dL (70-99); Osmolality,Calculated 299 (280-300); Potassium 3.8 mEq/L (3.5-4.5); Sodium 142 mEq/L (136-145); eGFR For African Americans > 60 (> 60); eGFR For Non-African Americans > 60 (> 60)
[2016-07-12 07:41] LABS: Basophils % 0.3 %; Hematocrit 40.8 % (37.5-50.1); Hemoglobin 12.8 g/dL (12.9-16.9); Immature Granulocytes % 1.2 % (0-4); Lymphocytes # 0.3 K/mcL (0.6-4.6); Lymphocytes % 3.7 %; Mean Corpuscular HGB Conc 31.4 g/dL (31.6-35.5); Mean Corpuscular Hemoglobin 30.2 pg (28.0-33.3); Mean Corpuscular Volume 96.2 fL (83.0-100.0); Mean Platelet Volume 10.2 fL (9.4-12.4); Monocytes # 0.5 K/mcL (0.0-1.3); Monocytes % 5.1 %; Platelet Count 218 K/mcL (140-400); Red Blood Count 4.24 M/mcL (4.19-5.50); Red Cell Distribution Width 14.6 % (11.5-14.5); Segmented Neutrophils % 89.7 %
[2016-07-12 08:03] LABS: ABG Base Excess 13.1 mEq/L (-2.0 to 3.0); ABG HCO3 39.6 mEQ/L (21-27); ABG Oxygen Saturation 97 % (95-98); ABG PCO2 57 mmHg (35-45); ABG PH 7.45 pH Units (7.32-7.45); ABG PO2 89 mmHg (85-104); ABG TCO2 41.3 mEq/L (20-26)
[2016-07-12 08:04] LABS: Blood Gas FiO2 50 %
[2016-07-12] MEDS ORDERED: *HR* Digoxin 0.125 MG TABLET PO SCH (09:00)
[2016-07-12] MEDS: Azithromycin 250 MG TABLET PO SCH (09:09)
[2016-07-12] MEDS: predniSONE 20 MG TABLET PO SCH (09:10)
[2016-07-12] MEDS ORDERED: Furosemide 20 MG/2 ML VIAL IVP ONE (10:59)
[2016-07-12] MEDS: *HR* Digoxin 0.125 MG TABLET PO SCH (13:26)
[2016-07-12 14:17] LABS: BUN/Creatinine Ratio 30 (6-26); Blood Urea Nitrogen 25 mg/dL (8-26); Calcium 9.2 mg/dL (8.6-10.8); Carbon Dioxide 36 mEq/L (19-29); Chloride 100 mEq/L (98-109); Glucose 155 mg/dL (70-99); Magnesium 2.5 mg/dL (1.6-2.6); Osmolality,Calculated 306 (280-300); Potassium 3.7 mEq/L (3.5-4.5); Sodium 144 mEq/L (136-145); eGFR For African Americans > 60 (> 60); eGFR For Non-African Americans > 60 (> 60)
[2016-07-12] MEDS ORDERED: Furosemide 40 MG/4 ML VIAL IVP ONE (16:14)
[2016-07-12] MEDS ORDERED: *HR* Rivaroxaban 10 MG TABLET PO SCH (17:00)
[2016-07-12 18:31] LABS: BUN/Creatinine Ratio 32 (6-26); Blood Urea Nitrogen 27 mg/dL (8-26); Carbon Dioxide 38 mEq/L (19-29); Chloride 99 mEq/L (98-109); Glucose 155 mg/dL (70-99); Magnesium 2.2 mg/dL (1.6-2.6); Osmolality,Calculated 310 (280-300); Potassium 3.4 mEq/L (3.5-4.5); Sodium 146 mEq/L (136-145); eGFR For African Americans > 60 (> 60); eGFR For Non-African Americans > 60 (> 60)
[2016-07-12] MEDS: cloZAPine 100 MG TABLET PO SCH (21:34)
[2016-07-13] MEDS: Ipratropium Neb 0.5 MG NEBULIZER IH SCH ×6 (00:44→20:01)
[2016-07-13] MEDS: Levalbuterol Neb 1.25 MG/3 ML IH SCH ×6 (00:44→20:01)
[2016-07-13] MEDS: Insulin LISPRO 300 UNITS/3 ML VIAL SQ SCH ×3 (02:50→12:30)
[2016-07-13 04:56] LABS: Basophils % 0.3 %; Hematocrit 38.6 % (37.5-50.1); Immature Granulocytes % 1.7 % (0-4); Lymphocytes # 0.6 K/mcL (0.6-4.6); Lymphocytes % 6.8 %; Mean Corpuscular HGB Conc 31.1 g/dL (31.6-35.5); Mean Corpuscular Hemoglobin 29.8 pg (28.0-33.3); Mean Corpuscular Volume 95.8 fL (83.0-100.0); Mean Platelet Volume 10.2 fL (9.4-12.4); Monocytes # 0.8 K/mcL (0.0-1.3); Monocytes % 8.3 %; Neutrophils # 7.7 K/mcL (1.6-8.9); Platelet Count 217 K/mcL (140-400); Red Blood Count 4.03 M/mcL (4.19-5.50); Red Cell Distribution Width 14.3 % (11.5-14.5); Segmented Neutrophils % 82.9 %
[2016-07-13 05:05] LABS: Ionized Calcium 1.11 mmol/L (1.15-1.35)
[2016-07-13 05:24] LABS: Alanine Aminotransferase 13 Units/L (0-55); Albumin 2.8 g/dL (3.5-5.0); Albumin/Globulin Ratio 1.2 (1.1-2.2); Alkaline Phosphatase 65 Units/L (38-126); Aspartate Amino Transferase 13 Units/L (5-34); BUN/Creatinine Ratio 36 (6-26); Bilirubin,Total 0.3 mg/dL (0.2-1.2); Blood Urea Nitrogen 30 mg/dL (8-26); Calcium 8.7 mg/dL (8.6-10.8); Carbon Dioxide 35 mEq/L (19-29); Chloride 99 mEq/L (98-109); Globulin 2.4 g/dL (2.4-3.5); Glucose 147 mg/dL (70-99); Magnesium 2.2 mg/dL (1.6-2.6); Osmolality,Calculated 303 (280-300); Phosphorous 3.2 mg/dL (2.3-4.7); Potassium 3.6 mEq/L (3.5-4.5); Sodium 142 mEq/L (136-145); Total Protein 5.2 g/dL (6.0-8.3); eGFR For African Americans > 60 (> 60); eGFR For Non-African Americans > 60 (> 60)
[2016-07-13] MEDS: predniSONE 20 MG TABLET PO SCH (08:25)
[2016-07-13] MEDS: Azithromycin 250 MG TABLET PO SCH (08:25)
[2016-07-13] MEDS: *HR* Digoxin 0.125 MG TABLET PO SCH (08:25)
[2016-07-13] MEDS ORDERED: Ondansetron 4 MG/2 ML VIAL IVP PRN ×2 (09:09→14:56)
--- NOTE | 2016-07-13 09:19 | Pulmonology Progress Note ---
Date of Encounter: 07/13/16 Time of Encounter: 09:18 Assessment and Plan (1) Acute exacerbation of chronic obstructive pulmonary disease (COPD) Current Visit: No Status: Acute . Neuropsych: Baseline catatonic schizophrenia able to follow commands today and more alert cont home psych meds Pulm: Acute on Chronic hypoxic hypercapnic respiratory failure secondary to viral PNA with COPD exacerbation Stable on hiflow NC. Likely combination of cardiogenic and non cardiogenic edema. cont steroids and bronchodilators Cards: History of CHF and Afib on LTA. Rate increased today increase dose of cardizem. cont dig. Goal diuresis goal 1-1.5 liters as tolerated FEN-GI: cont meals as tolerated advance Bowel regimen. 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 cont azithro x 5 days for aninflammatory properties. Heme/Onc: A. fib on long-term anticoagulation cont Xarelto. H/H stable. Endo: Glucose monitored Integ/MSK: Skin care per nursing protocol CODE: Full code patient has a guardian Medically stable for transfer to SDU. (2) Atrial fibrillation Current Visit: Yes Status: Acute Qualifiers: Atrial fibrillation type: persistent Qualified Code(s): I48.1 - Persistent atrial fibrillation (3) Pneumonia Current Visit: Yes Status: Acute Qualifiers: Pneumonia type: due to unspecified organism Laterality: bilateral Lung location: unspecified part of lung Qualified Code(s): J18.9 - Pneumonia, unspecified organism (4) Schizophrenia Current Visit: Yes Status: Acute Qualifiers: Schizophrenia type: paranoid schizophrenia Qualified Code(s): F20.0 - Paranoid schizophrenia (5) Atrial fibrillation with rapid ventricular response Current Visit: No Status: Acute Subjective Principal diagnosis: Acute hypercapnic respiratory failure Interval history: Tolerated longer periods off NIPPV now to Hi Flow. Ate prodigiously but then had an episode of emesis says he feels generally well today. Much more awake and interactive Objective PUL Vital signs: Last Vital Signs Temp 97.8 F 07/13/16 07:40 Pulse 95 07/13/16 08:00 Resp 20 07/13/16 08:00 BP 121/78 07/13/16 08:00 Pulse Ox 98 07/13/16 08:00 General appearance: no acute distress ENT: oropharynx moist Neck: supple Effort: normal Auscultation: bilateral: diminished breath sounds, rales, rhonchi Cardiovascular: irregular rhythm Gastrointestinal: normoactive bowel sounds, non-tender Extremities: no cyanosis, no edema non-focal exam affect normal Results - Laboratory Findings CBC and BMP: 07/13/16 04:37 07/13/16 04:37 ABG ABG pH 7.45 pH Units (7.32-7.45) 07/12/16 07:48 ABG pCO2 57 mmHg (35-45) H 07/12/16 07:48 ABG pO2 89 mmHg (85-104) 07/12/16 07:48 ABG O2 Saturation 97 % (95-98) 07/12/16 07:48 PT/INR, D-dimer PT 10.8 Seconds (9.4-12.1) 07/11/16 06:30 Abnormal lab findings: Abnormal lab results RBC 4.03 M/mcL (4.19-5.50) L 07/13/16 04:37 Hgb 12.0 g/dL (12.9-16.9) L 07/13/16 04:37 MCHC 31.1 g/dL (31.6-35.5) L 07/13/16 04:37 ABG pCO2 57 mmHg (35-45) H 07/12/16 07:48 ABG HCO3 39.6 mEQ/L (21-27) H 07/12/16 07:48 ABG Total CO2 41.3 mEq/L (20-26) H 07/12/16 07:48 ABG Base Excess 13.1 mEq/L (-2.0 to 3.0) H 07/12/16 07:48 Carbon Dioxide 35 mEq/L (19-29) H 07/13/16 04:37 BUN 30 mg/dL (8-26) H 07/13/16 04:37 BUN/Creatinine Ratio 36 (6-26) H 07/13/16 04:37 Glucose 147 mg/dL (70-99) H 07/13/16 04:37 POC Glucose 129 (58-89) H 07/13/16 00:19 Calculated Osmolality 303 (280-300) H 07/13/16 04:37 Ionized Calcium 1.11 mmol/L (1.15-1.35) L 07/13/16 04:37 Serum Total Protein 5.2 g/dL (6.0-8.3) L 07/13/16 04:37 Albumin 2.8 g/dL (3.5-5.0) L 07/13/16 04:37 RSV (PCR) DETECTED (Not Detect) A 07/10/16 10:00 - Clinical Findings Intake & Output: Intake & Output 07/12/16 07/13/16 07/13/16 23:59 07:59 15:59 Intake Total 960 / 960 Output Total 750 / 750 350 / 350 Balance -750 / -750 610 / 610 Weight 72.62 kg Consult Discharge Plan - Plan [facility]errals: [facility] [Primary Care Provider] -
[2016-07-13 09:55] LABS: INR 1.2; Prothrombin Time 13.5 Seconds (9.4-12.1)
[2016-07-13] MEDS ORDERED: Acetaminophen 325 MG TABLET PO PRN ×2 (14:56)
[2016-07-13] MEDS ORDERED: Acetaminophen 650 MG RECTAL SUPP RC PRN (14:56)
[2016-07-13] MEDS ORDERED: *HR* LORazepam 1 MG TABLET PO PRN ×2 (14:56)
[2016-07-13] MEDS ORDERED: D5% in Water 1,000 ML IV PRN (14:56)
[2016-07-13] MEDS ORDERED: Naloxone 0.4 MG/ML INJ IVP PRN (14:56)
[2016-07-13] MEDS ORDERED: *HR* Dextrose 50 % in Water (Syg) 50 ML SYRINGE IVP PRN (14:56)
[2016-07-13] MEDS ORDERED: Dextrose Gel 15 GM PO PRN ×2 (14:56)
[2016-07-13 15:07] LABS: BUN/Creatinine Ratio 28 (6-26); Blood Urea Nitrogen 23 mg/dL (8-26); Calcium 8.7 mg/dL (8.6-10.8); Carbon Dioxide 38 mEq/L (19-29); Chloride 99 mEq/L (98-109); Glucose 172 mg/dL (70-99); Magnesium 2.2 mg/dL (1.6-2.6); Osmolality,Calculated 304 (280-300); Potassium 3.7 mEq/L (3.5-4.5); Sodium 143 mEq/L (136-145); eGFR For African Americans > 60 (> 60); eGFR For Non-African Americans > 60 (> 60)
[2016-07-13] MEDS: *HR* Rivaroxaban 10 MG TABLET PO SCH (15:43)
[2016-07-13] MEDS ORDERED: Insulin LISPRO 300 UNITS/3 ML VIAL SQ SCH (18:00)
[2016-07-13] MEDS: Furosemide 40 MG/4 ML VIAL IVP SCH (20:40)
[2016-07-13] MEDS ORDERED: Furosemide 40 MG/4 ML VIAL IVP SCH (21:00)
[2016-07-13] MEDS: cloZAPine 100 MG TABLET PO SCH (21:12)
[2016-07-14] MEDS: Levalbuterol Neb 1.25 MG/3 ML IH SCH ×6 (00:04→20:12)
[2016-07-14] MEDS: Ipratropium Neb 0.5 MG NEBULIZER IH SCH ×6 (00:04→20:11)
[2016-07-14] MEDS: Insulin LISPRO 300 UNITS/3 ML VIAL SQ SCH ×4 (00:44→18:36)
[2016-07-14 06:25] LABS: Basophils % 0.4 %; Eosinophils # 0.1 K/mcL (0.0-0.6); Eosinophils % 0.5 %; Hematocrit 39.1 % (37.5-50.1); Immature Granulocytes % 2.1 % (0-4); Ionized Calcium 1.15 mmol/L (1.15-1.35); Lymphocytes # 1.9 K/mcL (0.6-4.6); Lymphocytes % 16.7 %; Mean Corpuscular HGB Conc 30.7 g/dL (31.6-35.5); Mean Corpuscular Hemoglobin 29.3 pg (28.0-33.3); Mean Corpuscular Volume 95.6 fL (83.0-100.0); Monocytes # 1.2 K/mcL (0.0-1.3); Monocytes % 10.9 %; Platelet Count 226 K/mcL (140-400); Red Blood Count 4.09 M/mcL (4.19-5.50); Red Cell Distribution Width 14.1 % (11.5-14.5); Segmented Neutrophils % 69.4 %
[2016-07-14 06:33] LABS: Neutrophils # 7.8 K/mcL (1.6-8.9)
[2016-07-14 06:37] LABS: BUN/Creatinine Ratio 29 (6-26); Blood Urea Nitrogen 20 mg/dL (8-26); Calcium 8.7 mg/dL (8.6-10.8); Carbon Dioxide 39 mEq/L (19-29); Chloride 98 mEq/L (98-109); Glucose 105 mg/dL (70-99); Magnesium 1.9 mg/dL (1.6-2.6); Osmolality,Calculated 299 (280-300); Potassium 3.2 mEq/L (3.5-4.5); Sodium 143 mEq/L (136-145); eGFR For African Americans > 60 (> 60); eGFR For Non-African Americans > 60 (> 60)
[2016-07-14 06:57] LABS: Large Platelets Present (Not Present); Platelet Estimate Normal (Normal); Reactive Lymphocytes Present (Not Present)
[2016-07-14] MEDS: *HR* Digoxin 0.125 MG TABLET PO SCH (08:45)
[2016-07-14] MEDS: Furosemide 40 MG/4 ML VIAL IVP SCH ×2 (08:45→20:47)
[2016-07-14] MEDS: Bisacodyl 10 MG RECTAL SUPPOSITORY RC SCH (08:46)
[2016-07-14] MEDS: predniSONE 20 MG TABLET PO SCH (08:46)
[2016-07-14] MEDS: Sennosides 8.6 MG TABLET PO SCH (08:46)
[2016-07-14] MEDS ORDERED: Bisacodyl 10 MG RECTAL SUPPOSITORY RC SCH (09:00)
[2016-07-14] MEDS ORDERED: Azithromycin 250 MG TABLET PO SCH (09:00)
[2016-07-14] MEDS ORDERED: Sennosides 8.6 MG TABLET PO SCH (09:00)
[2016-07-14] MEDS ORDERED: Potassium Chloride Elixir 20 MEQ/15 ML UDC PO ONE (13:07)
--- NOTE | 2016-07-14 13:13 | Internal Med Progress Note ---
Date of Encounter: 07/14/16 Time of Encounter: 10:00 - Assessment and plan (1) Acute exacerbation of chronic obstructive pulmonary disease (COPD) Current Visit: No Status: Acute Assessment and plan: Improved after treatment. We will continue antibiotic, steroid, and bronchial dilator. Closely monitor patient. PTOT evaluation and discharge planning (2) Atrial fibrillation Current Visit: Yes Status: Acute Assessment and plan: Rate is well controlled. On xarelto for CVA prophylaxis Qualifiers: Atrial fibrillation type: persistent Qualified Code(s): I48.1 - Persistent atrial fibrillation (3) Pneumonia Current Visit: Yes Status: Acute Assessment and plan: Has improved. Continue antibiotic treatment. Qualifiers: Pneumonia type: due to unspecified organism Laterality: bilateral Lung location: unspecified part of lung Qualified Code(s): J18.9 - Pneumonia, unspecified organism (4) Schizophrenia Current Visit: Yes Status: Acute Assessment and plan: Continue home medication Qualifiers: Schizophrenia type: paranoid schizophrenia Qualified Code(s): F20.0 - Paranoid schizophrenia (5) Acute hypercapnic respiratory failure Current Visit: No Status: Acute Assessment and plan: Due to COPD exacerbation. Improved after treatment (6) DVT prophylaxis Current Visit: No Status: Acute (7) Hypokalemia due to inadequate potassium intake Current Visit: No Status: Resolved Assessment and plan: Will place potassium supplement. Follow-up potassium level - Time Spent With Patient 25 - 35 minutes - Subjective Interval history: Patient is a 70-year-old male admitted for acute COPD exacerbation. His past medical history is significant for A. fib on xarelto, COPD, diastolic CHF, paranoid schizophrenia, BPH, hypertension, hyperlipidemia, tobacco abuse. Patient was initially admitted to ICU and was intubated. He was treated with antibiotics, steroids, bronchodilator. His condition has improved and successfully extubated. He is transferred to floor for continued treatment. I saw and examined the patient today. He is awake alert, oriented 3. In mild to no acute respiratory distress. Vital signs stable. Still need a high level oxygen to maintain oxygen saturation, will try to taper down because patient has COPD. PTOT evaluation. - Constitutional Vitals: Temp Pulse Resp BP Pulse Ox 97.8 F 90 20 106/68 94 L 07/14/16 11:33 07/14/16 11:33 07/14/16 11:33 07/14/16 11:33 07/14/16 11:33 General appearance: Present: mild distress, A&O X 3, answers questions appropriately - Head Head exam: Present: atraumatic, normocephalic - Eye Eye exam: Present: PERRL, conjuntiva pink, sclera anicteric Pupils: Present: PERRL - Neck Neck exam general surgery: Present: supple, trachea midline. Absent: lymphadenopathy - Respiratory Respiratory exam: Present: CTAB. Absent: accessory muscle use, rales, rhonchi, wheezes Additional comments: Course breath sounds bilaterally - Cardiovascular Cardiovascular exam: Present: RRR, +S1, +S2. Absent: diastolic murmur, gallop, rubs, systolic murmur - GI/Abdominal GI/Abdominal exam: Present: normal bowel sounds, soft, no peritoneal signs. Absent: distended, tenderness - Extremities Exam Extremities exam: Present: warm, radial pulses palpable and symetrical. Absent : calf tenderness, cyanotic, pedal edema - Neurological Exam Neurological exam: Present: CN II-XII intact, oriented X3, no focal deficits. Absent: pronater drift, facial droop, speech deficit - Skin Skin exam: Present: dry, intact Internal Medicine: Result - Labs CBC & Chem 7: 07/14/16 05:35 07/14/16 05:35 Labs: Short CBC 07/14/16 Range/Units 05:35 WBC 11.2 H (4.3-11.1) K/mcL Hgb 12.0 L (12.9-16.9) g/dL Hct 39.1 (37.5-50.1) % Plt Count 226 (140-400) K/mcL Neutrophils # 7.8 (1.6-8.9) K/mcL BMP 07/13/16 07/14/16 14:35 05:35 Sodium 143 143 Potassium 3.7 3.2 L Chloride 99 98 Carbon Dioxide 38 H 39 H BUN 23 20 Creatinine 0.83 0.70 L Glucose 172 H 105 H Calcium 8.7 8.7 - ABG Interpretation ABG results: ABG ABG pH 7.45 pH Units (7.32-7.45) 07/12/16 07:48 ABG pCO2 57 mmHg (35-45) H 07/12/16 07:48 ABG pO2 89 mmHg (85-104) 07/12/16 07:48 ABG O2 Saturation 97 % (95-98) 07/12/16 07:48 PT/INR, D-dimer PT 13.5 Seconds (9.4-12.1) H 07/13/16 09:33 Consult Discharge Plan - Plan [facility]errals: [facility] [Primary Care Provider] -
[2016-07-14] MEDS: levoFLOXacin 500 MG TABLET PO SCH (13:36)
[2016-07-14] MEDS: *HR* Rivaroxaban 10 MG TABLET PO SCH (17:06)
[2016-07-14] MEDS: Budesonide/Formoterol 160/4.5 MDI IH SCH (20:12)
[2016-07-14] MEDS: Chlorhexidine Rinse 15 ML MOUTHWASH MM SCH ×2 (20:46→21:01)
[2016-07-14] MEDS: cloZAPine 100 MG TABLET PO SCH (20:46)
[2016-07-14] MEDS: Lactobacillus 1 EACH CAP.SPRINK PO SCH (20:47)
[2016-07-15] MEDS: Ipratropium Neb 0.5 MG NEBULIZER IH SCH ×7 (00:11→23:26)
[2016-07-15] MEDS: Levalbuterol Neb 1.25 MG/3 ML IH SCH ×7 (00:11→23:26)
[2016-07-15] MEDS: Insulin LISPRO 300 UNITS/3 ML VIAL SQ SCH ×4 (01:19→17:22)
[2016-07-15 05:40] LABS: Basophils # 0.1 K/mcL (0.0-0.2); Basophils % 0.5 %; Eosinophils # 0.1 K/mcL (0.0-0.6); Eosinophils % 0.8 %; Hematocrit 38.6 % (37.5-50.1); Hemoglobin 12.5 g/dL (12.9-16.9); Immature Granulocytes % 2.5 % (0-4); Lymphocytes # 2.1 K/mcL (0.6-4.6); Lymphocytes % 19.6 %; Mean Corpuscular HGB Conc 32.4 g/dL (31.6-35.5); Mean Corpuscular Hemoglobin 30.3 pg (28.0-33.3); Mean Corpuscular Volume 93.5 fL (83.0-100.0); Mean Platelet Volume 9.6 fL (9.4-12.4); Monocytes # 1.4 K/mcL (0.0-1.3); Monocytes % 13.2 %; Platelet Count 223 K/mcL (140-400); Red Blood Count 4.13 M/mcL (4.19-5.50); Segmented Neutrophils % 63.4 %
[2016-07-15 05:41] LABS: Neutrophils # 6.9 K/mcL (1.6-8.9)
[2016-07-15 05:49] LABS: Ionized Calcium 1.17 mmol/L (1.15-1.35)
[2016-07-15 05:54] LABS: BUN/Creatinine Ratio 21 (6-26); Blood Urea Nitrogen 17 mg/dL (8-26); Calcium 9.4 mg/dL (8.6-10.8); Carbon Dioxide 38 mEq/L (19-29); Chloride 95 mEq/L (98-109); Glucose 105 mg/dL (70-99); Osmolality,Calculated 294 (280-300); Potassium 3.2 mEq/L (3.5-4.5); Sodium 141 mEq/L (136-145); eGFR For African Americans > 60 (> 60); eGFR For Non-African Americans > 60 (> 60)
[2016-07-15 05:57] LABS: Platelet Estimate Normal (Normal); Reactive Lymphocytes Present (Not Present)
[2016-07-15] MEDS ORDERED: Potassium Chloride Elixir 20 MEQ/15 ML UDC PO ONE (07:56)
[2016-07-15] MEDS: Budesonide/Formoterol 160/4.5 MDI IH SCH ×2 (08:07→20:06)
[2016-07-15] MEDS: Chlorhexidine Rinse 15 ML MOUTHWASH MM SCH ×2 (08:29→20:19)
[2016-07-15] MEDS: Furosemide 40 MG/4 ML VIAL IVP SCH ×2 (08:29→20:20)
[2016-07-15] MEDS: Lactobacillus 1 EACH CAP.SPRINK PO SCH ×2 (08:29→20:20)
[2016-07-15] MEDS: Sennosides 8.6 MG TABLET PO SCH (08:30)
[2016-07-15] MEDS: levoFLOXacin 500 MG TABLET PO SCH (08:30)
[2016-07-15] MEDS: predniSONE 20 MG TABLET PO SCH ×2 (08:30→20:20)
[2016-07-15] MEDS: *HR* Digoxin 0.125 MG TABLET PO SCH (08:31)
[2016-07-15] MEDS: Bisacodyl 10 MG RECTAL SUPPOSITORY RC SCH (08:31)
[2016-07-15] MEDS: Cholecalciferol (D-3) 1,000 UNIT TABLET PO SCH (08:31)
--- NOTE | 2016-07-15 12:37 | Internal Med Progress Note ---
Date of Encounter: 07/15/16 Time of Encounter: 10:00 - Assessment and plan (1) Acute exacerbation of chronic obstructive pulmonary disease (COPD) Current Visit: No Status: Acute Assessment and plan: Improved after treatment. We will continue antibiotic, steroid, and bronchial dilator. Closely monitor patient. PTOT evaluation. Patient had increased wheezing today, steroid dose has increased. (2) Atrial fibrillation Current Visit: Yes Status: Acute Assessment and plan: Rate is well controlled. On xarelto for CVA prophylaxis Qualifiers: Atrial fibrillation type: persistent Qualified Code(s): I48.1 - Persistent atrial fibrillation (3) Pneumonia Current Visit: Yes Status: Acute Assessment and plan: Has improved. Continue antibiotic treatment. Qualifiers: Pneumonia type: due to unspecified organism Laterality: bilateral Lung location: unspecified part of lung Qualified Code(s): J18.9 - Pneumonia, unspecified organism (4) Schizophrenia Current Visit: Yes Status: Acute Assessment and plan: Continue home medication Qualifiers: Schizophrenia type: paranoid schizophrenia Qualified Code(s): F20.0 - Paranoid schizophrenia (5) Acute hypercapnic respiratory failure Current Visit: No Status: Acute Assessment and plan: Due to COPD exacerbation. Improved after treatment (6) DVT prophylaxis Current Visit: No Status: Acute Assessment and plan: Patient is on xarelto (7) Hypokalemia due to inadequate potassium intake Current Visit: No Status: Resolved Assessment and plan: Will place potassium supplement. Follow-up potassium level - Time Spent With Patient 25 - 35 minutes - Subjective Interval history: Patient is a 70-year-old male admitted for acute COPD exacerbation. His past medical history is significant for A. fib on xarelto, COPD, diastolic CHF, paranoid schizophrenia, BPH, hypertension, hyperlipidemia, tobacco abuse. Patient was initially admitted to ICU and was intubated. He was treated with antibiotics, steroids, bronchodilator. His condition has improved and successfully extubated. He is transferred to floor for continued treatment. I saw and examined the patient today. He is awake alert, oriented 3. In mild to no acute respiratory distress. Vital signs stable. Still need a high level oxygen to maintain oxygen saturation, will try to taper down because patient has COPD. still has a wheezing, will increase the prednisone dose. PTOT evaluation. - Constitutional Vitals: Temp Pulse Resp BP Pulse Ox 98.5 F 89 16 106/77 92 L 07/15/16 11:27 07/15/16 12:05 07/15/16 11:32 07/15/16 11:32 07/15/16 11:32 General appearance: Present: mild distress, A&O X 3, answers questions appropriately - Head Head exam: Present: atraumatic, normocephalic - Eye Eye exam: Present: PERRL, conjuntiva pink, sclera anicteric Pupils: Present: PERRL - Neck Neck exam general surgery: Present: supple, trachea midline. Absent: lymphadenopathy - Respiratory Respiratory exam: Present: CTAB, wheezes (Scattered wheezes bilaterally). Absent: accessory muscle use, rales, rhonchi - Cardiovascular Cardiovascular exam: Present: RRR, +S1, +S2. Absent: diastolic murmur, gallop, rubs, systolic murmur - GI/Abdominal GI/Abdominal exam: Present: normal bowel sounds, soft, no peritoneal signs. Absent: distended, tenderness - Extremities Exam Extremities exam: Present: warm, radial pulses palpable and symetrical. Absent : calf tenderness, cyanotic, pedal edema - Neurological Exam Neurological exam: Present: CN II-XII intact, oriented X3, no focal deficits. Absent: pronater drift, facial droop, speech deficit - Skin Skin exam: Present: dry, intact Internal Medicine: Result - Labs CBC & Chem 7: 07/15/16 05:30 07/15/16 05:30 Labs: Short CBC 07/15/16 Range/Units 05:30 WBC 10.8 (4.3-11.1) K/mcL Hgb 12.5 L (12.9-16.9) g/dL Hct 38.6 (37.5-50.1) % Plt Count 223 (140-400) K/mcL Neutrophils # 6.9 (1.6-8.9) K/mcL BMP 07/15/16 05:30 Sodium 141 Potassium 3.2 L Chloride 95 L Carbon Dioxide 38 H BUN 17 Creatinine 0.81 Glucose 105 H Calcium 9.4 - ABG Interpretation ABG results: ABG ABG pH 7.45 pH Units (7.32-7.45) 07/12/16 07:48 ABG pCO2 57 mmHg (35-45) H 07/12/16 07:48 ABG pO2 89 mmHg (85-104) 07/12/16 07:48 ABG O2 Saturation 97 % (95-98) 07/12/16 07:48 PT/INR, D-dimer PT 13.5 Seconds (9.4-12.1) H 07/13/16 09:33 - VTE Documentation of Mechanical Device: Intermittent pneumatic compression device Consult Discharge Plan - Plan [facility]errals: [facility] [Primary Care Provider] -
[2016-07-15] MEDS: *HR* Rivaroxaban 10 MG TABLET PO SCH (17:21)
[2016-07-15] MEDS: cloZAPine 100 MG TABLET PO SCH (20:20)
[2016-07-16] MEDS: Insulin LISPRO 300 UNITS/3 ML VIAL SQ SCH ×3 (00:15→12:22)
[2016-07-16] MEDS: Ipratropium Neb 0.5 MG NEBULIZER IH SCH ×3 (03:38→11:42)
[2016-07-16] MEDS: Levalbuterol Neb 1.25 MG/3 ML IH SCH ×3 (03:38→11:42)
[2016-07-16 05:00] LABS: Basophils % 0.3 %; Hematocrit 39.7 % (37.5-50.1); Hemoglobin 12.9 g/dL (12.9-16.9); Lymphocytes # 0.4 K/mcL (0.6-4.6); Lymphocytes % 3.4 %; Mean Corpuscular HGB Conc 32.5 g/dL (31.6-35.5); Mean Corpuscular Hemoglobin 30.1 pg (28.0-33.3); Mean Corpuscular Volume 92.8 fL (83.0-100.0); Mean Platelet Volume 10.2 fL (9.4-12.4); Monocytes # 0.4 K/mcL (0.0-1.3); Monocytes % 3.3 %; Neutrophils # 11.6 K/mcL (1.6-8.9); Platelet Count 243 K/mcL (140-400); Red Blood Count 4.28 M/mcL (4.19-5.50); Red Cell Distribution Width 13.8 % (11.5-14.5)
[2016-07-16 05:14] LABS: BUN/Creatinine Ratio 21 (6-26); Blood Urea Nitrogen 17 mg/dL (8-26); Calcium 9.4 mg/dL (8.6-10.8); Carbon Dioxide 33 mEq/L (19-29); Chloride 93 mEq/L (98-109); Glucose 137 mg/dL (70-99); Osmolality,Calculated 288 (280-300); Potassium 3.9 mEq/L (3.5-4.5); Sodium 137 mEq/L (136-145); eGFR For African Americans > 60 (> 60); eGFR For Non-African Americans > 60 (> 60)
[2016-07-16] MEDS: Budesonide/Formoterol 160/4.5 MDI IH SCH (07:49)
[2016-07-16] MEDS: levoFLOXacin 500 MG TABLET PO SCH (08:30)
[2016-07-16] MEDS: Lactobacillus 1 EACH CAP.SPRINK PO SCH (08:30)
[2016-07-16] MEDS: predniSONE 20 MG TABLET PO SCH (08:30)
[2016-07-16] MEDS: Chlorhexidine Rinse 15 ML MOUTHWASH MM SCH (08:32)
[2016-07-16] MEDS: *HR* Digoxin 0.125 MG TABLET PO SCH (08:32)
[2016-07-16] MEDS: Sennosides 8.6 MG TABLET PO SCH (08:32)
[2016-07-16] MEDS: Cholecalciferol (D-3) 1,000 UNIT TABLET PO SCH (08:32)
[2016-07-16] MEDS: Furosemide 40 MG/4 ML VIAL IVP SCH (08:41)
[2016-07-16] MEDS: Bisacodyl 10 MG RECTAL SUPPOSITORY RC SCH (08:46)
--- NOTE | 2016-07-16 11:56 | Discharge Summary ---
Date of Encounter: 07/16/16 Time of Encounter: 11:00 - Discharge Diagnosis (1) Acute exacerbation of chronic obstructive pulmonary disease (COPD) Priority: Primary Status: Acute (2) Atrial fibrillation Priority: Secondary Status: Acute Qualifiers: Atrial fibrillation type: persistent Qualified Code(s): I48.1 - Persistent atrial fibrillation (3) Pneumonia Priority: Primary Status: Acute Qualifiers: Pneumonia type: due to unspecified organism Laterality: bilateral Lung location: unspecified part of lung Qualified Code(s): J18.9 - Pneumonia, unspecified organism (4) Schizophrenia Priority: Secondary Status: Acute Qualifiers: Schizophrenia type: paranoid schizophrenia Qualified Code(s): F20.0 - Paranoid schizophrenia (5) Acute hypercapnic respiratory failure Priority: Primary Status: Acute (6) DVT prophylaxis Priority: Secondary Status: Acute (7) Hypokalemia due to inadequate potassium intake Priority: Secondary Status: Resolved - Discharge Medications Prescriptions: Levofloxacin [Levaquin] 750 mg PO DAILY #5 tablet PredniSONE 40 mg PO BID #30 tablet Home Medications: Albuterol Sulfate [Albuterol Inhaler] 2 puff IH Q6H 05/08/16 [History] Ipratropium [ATROVENT Inhaler] 2 puff IH Q6H 05/08/16 [History] Budesonide/Formoterol 160/4.5 [Symbicort 160/4.5] 1 puff IH BIDR #1 inhaler [Rx] CloZAPine [Clozaril] 300 mg PO HS tablet 05/20/16 [Rx] Digoxin [Lanoxin] 0.125 mg PO DAILY #30 tablet 05/20/16 [Rx] Acetaminophen [Tylenol] 650 mg PO Q6HR PRN 07/10/16 [History] Atorvastatin [Lipitor] 10 mg PO DAILY 07/10/16 [History] Chlorhexidine Gluconate [Peridex] 15 ml MM BID 07/10/16 [History] Cholecalciferol (D-3) [Vitamin D] 2,000 unit PO DAILY 07/10/16 [History] Diltiazem CD (24hr) [Cardizem CD] 180 mg PO DAILY 07/10/16 [History] LORazepam [Ativan] 1 mg PO BID PRN 07/10/16 [History] LORazepam [Ativan] 1 mg PO Q6H 07/10/16 [History] Lactobacillus Acidophilus [Acidophilus Lactobacillus] 1 cap PO BID 07/10/16 [ History] Levalbuterol Neb [Xopenex Neb] 1.25 mg IH Q4H 07/10/16 [History] Levothyroxine [Synthroid] 75 mcg PO DAILY 07/10/16 [History] Omeprazole [PriLOSEC] 20 mg PO DAILY 07/10/16 [History] Potassium Chloride [Klor-Con 10] 10 meq PO BID 07/10/16 [History] Rivaroxaban [Xarelto] 20 mg PO DAILY 07/10/16 [History] Levofloxacin [Levaquin] 750 mg PO DAILY #5 tablet 07/16/16 [Rx] PredniSONE 40 mg PO BID #30 tablet 07/16/16 [Rx] Allergies/Adverse Reactions: Allergies haloperidol [From Haldol] Allergy (Verified 05/08/16 13:21) unknown patient is unresponsive at this time, can not ask. - Notes to Outpatient Provider Continue Levaquin for 5 more days, continue prednisone and gradually taper it down. Date of admission: 07/10/16 05:50 [facility] physician: [facility] Consults: 07/11/16 12:59 Consult to Rn Home Health [CONS] Routine Reason for SW Consult: Magi is a bed hold at [place] [facility] manager [facility]. 07/14/16 10:50 Consult to Occupational Therapy [CONS] Routine Comment: Evaluate, develop and implement POC Consult to Physical Therapy [CONS] Routine Comment: Evaluate, develop and implement POC Discharging clinician: Daria Man Anticipated date of discharge: 07/16/16 - Patient Status Disposition: Transfer SNF Condition: Fair Overall status at discharge: patient is progressing back to baseline - Discharge Instructions Instructions: Atrial Fibrillation (DC) Follow Up With: Emily Hale MD [Partnered Physician] - (spoke with Kelly in Cardiology office to cancel this follow up appointment and reschedule it at 11: 28am on 07-16-16) [facility]Primary Care Provider[facility] - (PT IS AT [facility]CF AT THE [place], NO PCP APPOINTMENT NEEDED) - Diet and Activity Activity: as per physical therapy Diet: diabetic diet Interval History: Mr. 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 Suspected pneumonia and COPD exacerbation. Patient resides at the [facility] in a fpc has a long history of mental health problems requiring living assistance. Patient was reportedly found in his room moaning in his bed non-responsive to sternal rub or bilateral fingernails squeeze/ Patient was not moving extremities to noxious stimuli. Patient was reported to be agitated earlier in the morning. Nursing staff reported that he had not slept for 2 days straight and was put on lorazepam just prior to event. Due to acute change in mental status wheezes on auscultation bilaterally patient was initially placed on BiPAP chest x-ray demonstrated bibasilar atelectasis versus pneumonia. Patient continued to decompensate and was intubated and sedated with propofol for transport to [facility]. Report from the [place] was that they suspected an ileus. However, on arrival an NG tube was placed and immediately patient defecated. Hospital course: Mr. Gong is a 70 year old male admitted as pneumonia and COPD exacerbation. He was intubated and admitted to ICU. Was treated with antibiotic, steroid, bronchodilator. After treatment to his condition has improved, he was extubated successfully. he was transferred to general floor for continued treatment. After treatment, his shortness of breath has improved. He is in no acute distress, no cough, oxygen saturation 93% on 3 liter oxygen, which is about his baseline. Will be discharged back to [facility] and continue physical therapy and fci care there. I saw and examined pt, he is awake, alert, oriented x 3. In no acute respiratory distress. Vital signs stable. On exam lungs are clear no wheezing or rhonchi. Labs reviewed, unremarkable. Patient will discharge to [facility] SNF today. Time spent discussing smoking cessation with patient: 3 to 10 minutes - Time Spent with Patient Total time spent providing and/or coordinating discharge services: 40 minutes Greater than 30 minutes - Constitutional Vitals: Temp Pulse Resp BP Pulse Ox 98.1 F 95 19 130/89 93 L 07/16/16 10:40 07/16/16 10:40 07/16/16 11:44 07/16/16 10:40 07/16/16 11:44 General appearance: Present: mild distress, A&O X 3, answers questions appropriately - Head Head exam: Present: atraumatic, normocephalic - Eye Eye exam: Present: PERRL, conjuntiva pink, sclera anicteric Pupils: Present: PERRL - Neck Neck exam general surgery: Present: supple, trachea midline. Absent: lymphadenopathy - Respiratory Respiratory exam: Present: CTAB. Absent: accessory muscle use, rales, rhonchi, wheezes - Cardiovascular Cardiovascular exam: Present: RRR, +S1, +S2. Absent: diastolic murmur, gallop, rubs, systolic murmur - GI/Abdominal GI/Abdominal exam: Present: normal bowel sounds, soft, no peritoneal signs. Absent: distended, tenderness - Extremities Exam Extremities exam: Present: warm, radial pulses palpable and symetrical. Absent : calf tenderness, cyanotic, pedal edema - Neurological Exam Neurological exam: Present: CN II-XII intact, oriented X3, no focal deficits. Absent: pronater drift, facial droop, speech deficit - Skin Skin exam: Present: dry, intact - VTE Documentation of Mechanical Device: Intermittent pneumatic compression device
--- NOTE | 2016-07-16 12:25 | Physician Discharge Referral ---
ExtendedCare Referral Info Transfer To: [facility] Provider in Charge after Transfer: Other - Diagnosis (1) Acute exacerbation of chronic obstructive pulmonary disease (COPD) Status: Acute (2) Atrial fibrillation Status: Acute (3) Pneumonia Status: Acute (4) Schizophrenia Status: Acute (5) Acute hypercapnic respiratory failure Status: Acute (6) DVT prophylaxis Status: Acute (7) Hypokalemia due to inadequate potassium intake Status: Resolved - Transfer Medications Prescriptions: Levofloxacin [Levaquin] 750 mg PO DAILY #5 tablet PredniSONE 40 mg PO BID #30 tablet Home Medications: Albuterol Sulfate [Albuterol Inhaler] 2 puff IH Q6H 05/08/16 [History] Ipratropium [ATROVENT Inhaler] 2 puff IH Q6H 05/08/16 [History] Budesonide/Formoterol 160/4.5 [Symbicort 160/4.5] 1 puff IH BIDR #1 inhaler [Rx] CloZAPine [Clozaril] 300 mg PO HS tablet 05/20/16 [Rx] Digoxin [Lanoxin] 0.125 mg PO DAILY #30 tablet 05/20/16 [Rx] Acetaminophen [Tylenol] 650 mg PO Q6HR PRN 07/10/16 [History] Atorvastatin [Lipitor] 10 mg PO DAILY 07/10/16 [History] Chlorhexidine Gluconate [Peridex] 15 ml MM BID 07/10/16 [History] Cholecalciferol (D-3) [Vitamin D] 2,000 unit PO DAILY 07/10/16 [History] Diltiazem CD (24hr) [Cardizem CD] 180 mg PO DAILY 07/10/16 [History] LORazepam [Ativan] 1 mg PO BID PRN 07/10/16 [History] LORazepam [Ativan] 1 mg PO Q6H 07/10/16 [History] Lactobacillus Acidophilus [Acidophilus Lactobacillus] 1 cap PO BID 07/10/16 [ History] Levalbuterol Neb [Xopenex Neb] 1.25 mg IH Q4H 07/10/16 [History] Levothyroxine [Synthroid] 75 mcg PO DAILY 07/10/16 [History] Omeprazole [PriLOSEC] 20 mg PO DAILY 07/10/16 [History] Potassium Chloride [Klor-Con 10] 10 meq PO BID 07/10/16 [History] Rivaroxaban [Xarelto] 20 mg PO DAILY 07/10/16 [History] Levofloxacin [Levaquin] 750 mg PO DAILY #5 tablet 07/16/16 [Rx] PredniSONE 40 mg PO BID #30 tablet 07/16/16 [Rx] Allergies/Adverse Reactions: Allergies haloperidol [From Haldol] Allergy (Verified 05/08/16 13:21) unknown patient is unresponsive at this time, can not ask. - Respiratory Orders Oxygen / L per min (3) Smoking Cessation: Smoking cessation has been advised. For more information, call the [place] Tobacco Quit Line at 9-979-CUOX-NOW. - Advance Directives Code Status: Full Code - Rehabiliation Orders Rehab Orders: Evaluation for Physical Therapy, Evaluation for Occupational Therapy - Diet Orders No Concentrated Sweets (Diabetes diet.) CERTIFICATION: I certify that the transfer of the above named patient to an Extended Care Facility is necessary for the continuing treatment of the diagnosis listed. The above information is true and accurate reflection of patient's current condition. Confidential - Redisclosure prohibited without a patient's written consent.
== END 2016-07-16 14:14 | DRG 208 ==
LOC: ICNU 05:50 → SUATTDRO 05:50 → 2NNU 07-13 14:36
PROVIDERS: ADMIT Hospitalist; ATTEND Internal Medicine

== ENCOUNTER 2016-11-19 09:56 | Inpatient (IN) ==
[2016-11-19] MEDS ORDERED: 0.9 % Sodium Chloride 1,000 ML IVC ONE ×3 (10:05→14:53)
[2016-11-19] MEDS ORDERED: Ipratropium/Albuterol Neb 3 ML IH ONE ×2 (10:05→12:30)
[2016-11-19 10:24] LABS: ABG Base Excess 5.2 mEq/L (-2.0 to 3.0); ABG HCO3 30.5 mEQ/L (21-27); ABG Oxygen Saturation 93 % (95-98); ABG PCO2 47 mmHg (35-45); ABG PH 7.42 pH Units (7.32-7.45); ABG PO2 66 mmHg (85-104); ABG TCO2 31.9 mEq/L (20-26); Blood Gas FiO2 36 %
[2016-11-19 10:33] LABS: Basophils % 0.1 %; Eosinophils % 0.1 %; Hematocrit 39.9 % (37.5-50.1); Hemoglobin 12.6 g/dL (12.9-16.9); Immature Granulocytes % 0.5 % (0-4); Lymphocytes # 0.4 K/mcL (0.6-4.6); Lymphocytes % 2.6 %; Mean Corpuscular HGB Conc 31.6 g/dL (31.6-35.5); Mean Corpuscular Hemoglobin 28.8 pg (28.0-33.3); Mean Corpuscular Volume 91.1 fL (83.0-100.0); Mean Platelet Volume 9.5 fL (9.4-12.4); Monocytes # 0.7 K/mcL (0.0-1.3); Monocytes % 4.9 %; Neutrophils # 13.7 K/mcL (1.6-8.9); Platelet Count 288 K/mcL (140-400); Red Blood Count 4.38 M/mcL (4.19-5.50); Red Cell Distribution Width 14.1 % (11.5-14.5); Segmented Neutrophils % 91.8 %
[2016-11-19] MEDS ORDERED: Azithromycin 500 MG in D5% in Water 250 ML IVPB ONE (10:36)
[2016-11-19 10:42] LABS: BUN/Creatinine Ratio 14 (6-26); Blood Urea Nitrogen 14 mg/dL (8-26); Calcium 9.8 mg/dL (8.6-10.8); Carbon Dioxide 30 mEq/L (19-29); Chloride 103 mEq/L (98-109); Glucose 118 mg/dL (70-99); Osmolality,Calculated 294 (280-300); Potassium 4.1 mEq/L (3.5-4.5); Sodium 141 mEq/L (136-145); eGFR For African Americans > 60 (> 60); eGFR For Non-African Americans > 60 (> 60)
--- NOTE | 2016-11-19 11:06 | Emergency Department Note ---
Disposition Clinical Impression: Community acquired pneumonia, COPD (chronic obstructive pulmonary disease), Hypoxia Disposition: Admitted As Inpatient Condition: Fair [facility] Care Provider[facility] - Forms: ED Satisfaction Letter Time of Disposition: 11:07 SOB HPI - General Chief Complaint: ED Shortness of Breath/Dyspnea Stated Complaint: FATIMAH Time Seen by Provider: 11/19/16 10:04 Source: patient, EMS Nursing Notes Reviewed: Yes Vital Signs Reviewed: Yes - History of Present Illness 71year-old male presents emergency room from the [place] assisted living for shortness of breath. The nurses upon his oxygen levels to be low today in the low 80s. Since the ER for evaluation. Patient has extensive history of COPD and pneumonia. He states he is not required to her oxygen at home. He does admit to a cough and some sputum production. Patient felt warm here. No documented fevers at home. He did have a slight low-grade temperature to 99- 100. He denies any chest pain. No lower leg pain or swelling. Pt Subjective Complaint: shortness of breath, cough Onset (ago): day(s) Severity: moderate Consistency/Duration: constant Improves with: oxygen Worsens with: exertion Known history of: COPD Associated symptoms: Reports: cough, sputum production. Denies: chest pain Treatment prior to arrival: none Cough present: Yes Cough Description: Involuntary Cough Frequency: Intermittent Sputum production: No - Related Data Home Medications Medication Instructions Recorded Confirmed Albuterol Sulfate [Albuterol 2 puff IH Q6H 05/08/16 07/10/16 Inhaler] Ipratropium [ATROVENT Inhaler] 2 puff IH Q6H 05/08/16 07/10/16 Acetaminophen [Tylenol] 650 mg PO Q6HR PRN 07/10/16 07/10/16 Atorvastatin [Lipitor] 10 mg PO DAILY 07/10/16 07/10/16 Chlorhexidine Gluconate [Peridex] 15 ml MM BID 07/10/16 07/10/16 Cholecalciferol (D-3) [Vitamin D] 2,000 unit PO DAILY 07/10/16 07/10/16 Diltiazem CD (24hr) [Cardizem CD] 180 mg PO DAILY 07/10/16 07/10/16 LORazepam [Ativan] 1 mg PO BID PRN 07/10/16 07/10/16 LORazepam [Ativan] 1 mg PO Q6H 07/10/16 07/10/16 Lactobacillus Acidophilus 1 cap PO BID 07/10/16 07/10/16 [Acidophilus Lactobacillus] Levalbuterol Neb [Xopenex Neb] 1.25 mg IH Q4H 07/10/16 07/10/16 Levothyroxine [Synthroid] 75 mcg PO DAILY 07/10/16 07/10/16 Omeprazole [PriLOSEC] 20 mg PO DAILY 07/10/16 07/10/16 Potassium Chloride [Klor-Con 10] 10 meq PO BID 07/10/16 07/10/16 Rivaroxaban [Xarelto] 20 mg PO DAILY 07/10/16 07/10/16 Previous Rx's Medication Instructions Recorded Budesonide/Formoterol 160/4.5 1 puff IH BIDR #1 inhaler 05/20/16 [Symbicort 160/4.5] Digoxin [Lanoxin] 0.125 mg PO DAILY #30 tablet 05/20/16 cloZAPine [Clozaril] 300 mg PO HS tablet 05/20/16 levoFLOXacin [Levaquin] 750 mg PO DAILY #5 tablet 07/16/16 predniSONE [PredniSONE] 40 mg PO BID #30 tablet 07/16/16 Allergies Allergy/AdvReac Type Severity Reaction Status Date / Time haloperidol [From Haldol] Allergy unknown Verified 05/08/16 13:21 Constitutional: Reports: as per HPI Eyes: Reports: as per HPI Cardiovascular: Reports: as per HPI Respiratory: Reports: cough, dyspnea, wheezes Gastrointestinal: Reports: as per HPI Genitourinary: Reports: as per HPI Musculoskeletal: Reports: as per HPI Integumentary: Reports: as per HPI Neurological: Reports: as per HPI Psychiatric: Reports: as per HPI Endocrine: Reports: as per HPI Hematological/Lymphatic: Reports: as per HPI Allergic/Immunologic: Reports: as per HPI Past Medical History - Past Medical History Medical history: Reports: COPD, GERD, hyperlipidemia, hypertension Psychiatric history: Reports: schizophrenia - Social History Smoking Status: Current every day smoker Smokeless Tobacco Status: No Alcohol use: Reports: none Drug use: Reports: none Physical Exam - General Limitations: no limitations General appearance: alert - Head Head exam: atraumatic, normocephalic - ENT ENT exam: normal exam - Neck Neck exam: Present: normal inspection - Chest Chest inspection: Present: normal inspection - Respiratory Respiratory exam: Present: wheezes, other (Bibasilar rhonchi. Rhonchi heard worse on the right lung field.) - Cardiovascular Cardiovascular exam: Present: normal rhythm, tachycardia - Abdominal Exam Abdominal exam: Present: soft, Non-Tender - Extremities Exam Extremities exam: Present: normal inspection, full ROM, normal capillary refill. Absent: tenderness, pedal edema - Back Exam Back exam: Present: normal inspection - Neurological Exam Neurological exam: Present: alert, oriented X3 - Psychiatric Psychiatric exam: Present: normal affect, normal mood - Skin Skin exam: Present: warm, dry, intact Course Course Narrative: Patient found to have a right-sided pneumonia. I started on Rocephin and Zithromax. Blood cultures obtained. Vital Signs Temperature 99.6 F 11/19/16 09:57 Pulse Rate 122 11/19/16 09:57 Respiratory Rate 26 11/19/16 09:57 Blood Pressure 86/63 11/19/16 09:57 O2 Sat by Pulse Oximetry 85 11/19/16 09:57 Temperature 99.6 F 11/19/16 09:57 Pulse Rate 123 11/19/16 10:29 Respiratory Rate 26 11/19/16 10:39 Blood Pressure 99/74 11/19/16 10:29 O2 Sat by Pulse Oximetry 91 11/19/16 10:39 Oxygen Delivery Oxygen Delivery Nasal Cannula Shortness of Breath/Dyspnea - [facility] Narrative Medical decision making narrative: Patient found to have a right-sided pneumonia, pretty extensive. Rocephin Zithromax ordered. Blood cultures obtained. White count of 15,000. Normal lactate. Blood pressure has responded to IV fluids. His troponin was negative. We will admit. - Differential Diagnosis Likely: acute exacerbation of chronic obstructive airways disease, pneumonia - Medical Records Medical records reviewed: Yes I reviewed the patient's medical records. - Lab Data Lab results reviewed: Yes I reviewed the patient's lab results. Result diagrams: 11/19/16 10:10 11/19/16 10:10 Lab Results 11/19/16 11/19/16 11/19/16 Range/Units 10:10 10:10 10:10 WBC 15.0 H (4.3-11.1) K/mcL RBC 4.38 (4.19-5.50) M/mcL Hgb 12.6 L (12.9-16.9) g/dL Hct 39.9 (37.5-50.1) % MCV 91.1 (83.0-100.0) fL MCH 28.8 (28.0-33.3) pg MCHC 31.6 (31.6-35.5) g/dL RDW 14.1 (11.5-14.5) % Plt Count 288 (140-400) K/mcL MPV 9.5 (9.4-12.4) fL Immature Gran % 0.5 (0-4) % Seg Neutrophils % 91.8 % Lymphocytes % 2.6 % Monocytes % 4.9 % Eosinophils % 0.1 % Basophils % 0.1 % Neutrophils # 13.7 H (1.6-8.9) K/mcL Lymphocytes # 0.4 L (0.6-4.6) K/mcL Monocytes # 0.7 (0.0-1.3) K/mcL Eosinophils # 0.0 (0.0-0.6) K/mcL Basophils # 0.0 (0.0-0.2) K/mcL ABG pH (7.32-7.45) pH Units ABG pCO2 (35-45) mmHg ABG pO2 (85-104) mmHg ABG HCO3 (21-27) mEQ/L ABG Total CO2 (20-26) mEq/L ABG O2 Saturation (95-98) % ABG Base Excess (-2.0 to 3.0) mEq/L Inspired O2 % Sodium 141 (136-145) mEq/L Potassium 4.1 (3.5-4.5) mEq/L Chloride 103 (98-109) mEq/L Carbon Dioxide 30 H (19-29) mEq/L BUN 14 (8-26) mg/dL Creatinine 0.97 (0.72-1.25) mg/dL Est GFR ( Amer) > 60 (> 60) Est GFR (Non-Af Amer) > 60 (> 60) BUN/Creatinine Ratio 14 (6-26) Glucose 118 H (70-99) mg/dL Calculated Osmolality 294 (280-300) Lactic Acid 1.9 (0.5-2.2) mmol/L Calcium 9.8 (8.6-10.8) mg/dL Troponin I (0-0.03) ng/mL B-Natriuretic Peptide (0-100) pg/mL 11/19/16 11/19/16 11/19/16 Range/Units 10:10 10:10 10:16 WBC (4.3-11.1) K/mcL RBC (4.19-5.50) M/mcL Hgb (12.9-16.9) g/dL Hct (37.5-50.1) % MCV (83.0-100.0) fL MCH (28.0-33.3) pg MCHC (31.6-35.5) g/dL RDW (11.5-14.5) % Plt Count (140-400) K/mcL MPV (9.4-12.4) fL Immature Gran % (0-4) % Seg Neutrophils % % Lymphocytes % % Monocytes % % Eosinophils % % Basophils % % Neutrophils # (1.6-8.9) K/mcL Lymphocytes # (0.6-4.6) K/mcL Monocytes # (0.0-1.3) K/mcL Eosinophils # (0.0-0.6) K/mcL Basophils # (0.0-0.2) K/mcL ABG pH 7.42 (7.32-7.45) pH Units ABG pCO2 47 H (35-45) mmHg ABG pO2 66 L (85-104) mmHg ABG HCO3 30.5 H (21-27) mEQ/L ABG Total CO2 31.9 H (20-26) mEq/L ABG O2 Saturation 93 L (95-98) % ABG Base Excess 5.2 H (-2.0 to 3.0) mEq/L Inspired O2 36 % Sodium (136-145) mEq/L Potassium (3.5-4.5) mEq/L Chloride (98-109) mEq/L Carbon Dioxide (19-29) mEq/L BUN (8-26) mg/dL Creatinine (0.72-1.25) mg/dL Est GFR ( Amer) (> 60) Est GFR (Non-Af Amer) (> 60) BUN/Creatinine Ratio (6-26) Glucose (70-99) mg/dL Calculated Osmolality (280-300) Lactic Acid (0.5-2.2) mmol/L Calcium (8.6-10.8) mg/dL Troponin I 0.02 (0-0.03) ng/mL B-Natriuretic Peptide 26 (0-100) pg/mL - Radiology Data Radiology results reviewed: Yes I reviewed the patient's radiology results. - EKG Data EKG attestation: Yes I reviewed and interpreted this EKG. EKG results narrative: EKG shows a rate of 126. Sinus tachycardia. Normal axis. OH intervals 157. QRS 90. QTc 469. No signs of acute ischemia as compared to previous EKG. Critical Care Time Critical Care Time: Yes Total Critical Care Time: 35 Attestation: Critical care time spent in medical resuscitation as well as medical management of his blood pressure and pneumonia.
[2016-11-19 11:21] LABS: Digoxin 0.4 ng/mL (0.8-2.0)
[2016-11-19] MEDS ORDERED: Ondansetron 4 MG/2 ML VIAL IVP PRN (11:48)
[2016-11-19] MEDS ORDERED: Naloxone 0.4 MG/ML INJ IVP PRN (11:48)
[2016-11-19] MEDS ORDERED: Acetaminophen 325 MG TABLET PO PRN ×2 (12:17→14:53)
[2016-11-19] MEDS ORDERED: *HR* HYDROcodone/Acet 5/325 mg TABLET PO PRN (12:17)
--- NOTE | 2016-11-19 12:42 | Internal Med History&Physical ---
<Reynaldo Hare - Last Filed: 11/19/16 18:14> Date of Encounter: 11/19/16 Time of Encounter: 11:00 Assessment and Plan (1) Sepsis Current visit: Yes Status: Suspected Assess: Patient presents with sepsis criteria consisting of WBC of 15.0, tachycardia ( HR of 123 bpm), and respiratory rate of 26 due to suspected streptococcal pneumoniae. Patient reports having SOB for the past week which has become worse with time as well as a cough with sputum production. CXR dated 11/19/16 shows airspace opacities in the right lung suspicious for infection with asymmetric edema considered less likely. Plan: Sepsis protocol to be followed IV Bolus of NS 1,000 IV fluids NS 125 ml/hr IV ceftriaxone 1,000 mg daily started in ED and to be continued as inpatient IV Azithromycin 500 mg daily started in ED and will continue to send patient Blood/urine/sputum cultures ordered Urinalysis ordered for legionella an strep antigens Lactic acid repeated every 4 hours Continuous cardiac monitoring ordered Vital signs ordered [id number] Supplemental O2 ordered with continuous SpO2 monitoring Bilirubin ordered stat INR/APTT ordered stat Patient to be monitored closely Qualifiers: Sepsis type: Pneumococcus Qualified Code(s): A40.3 - Sepsis due to Streptococcus pneumoniae (2) Pneumonia Current visit: Yes Status: Acute Assess: Patient presents with sepsis criteria consisting of WBC of 15.0, tachycardia ( HR of 123 bpm), and respiratory rate of 26 due to suspected streptococcal pneumoniae. Patient reports having SOB for the past week which has become worse with time as well as a cough with sputum production. CXR dated 11/19/16 shows airspace opacities in the right lung suspicious for infection with asymmetric edema considered less likely. Plan: Sepsis protocol to be followed IV ceftriaxone 1,000 mg daily started in ED and to be continued as inpatient IV Azithromycin 500 mg daily started in ED and will continue to send patient Blood/urine/sputum cultures ordered Urinalysis ordered for legionella an strep antigens Lactic acid repeated in 4 hours Continuous cardiac monitoring ordered Supplemental O2 ordered with continuous SpO2 monitoring Bilirubin ordered stat INR/APTT ordered stat Patient to be monitored closely Qualifiers: Pneumonia type: due to Pneumococcus Laterality: right Lung location: unspecified part of lung Qualified Code(s): J13 - Pneumonia due to Streptococcus pneumoniae (3) Tachycardia Current visit: Yes Status: Acute Assess: Patient presents with history of atrial fibrillation and acute sinus tachycardia related to sepsis and current hypoxia. Plan: Sepsis protocol to be followed IV ceftriaxone 1,000 mg daily started in ED and to be continued as inpatient IV Azithromycin 500 mg daily started in ED and will continue to send patient Continue patient's cardizem Continue patient's Digoxin Obtain Digoxin blood level Continuous cardiac monitoring ordered Supplemental O2 ordered with continuous SpO2 monitoring Patient to be monitored closely (4) Hypoxia Current visit: Yes Status: Acute Assess: Patient presents with SOB and hypoxia related to pneumonia caused by suspected streptococcus pneumoniae. Plan: IV ceftriaxone and Azithromycin ordered Supplemental O2 ordered w/continuous SpO2 monitoring DuoNebs ordered Continuous cardiac telemetry ordered Bed rest with bedside commode Falls precautions [id number] only (5) COPD (chronic obstructive pulmonary disease) Current visit: Yes Status: Chronic Assess: Patient presents with history of chronic obstructive pulmonary disease. Plan: DuoNebs ordered PRN Continue patient's guaifenesin Continue patient's prednisone Supplemental O2 ordered with continuous SpO2 monitoring Qualifiers: COPD type: emphysema Emphysema type: centrilobular Qualified Code(s): J43.2 - Centrilobular emphysema (6) DVT prophylaxis Current visit: Yes Status: Acute Assess: Patient to receive DVT prophylaxis due to current sepsis/inpatient diagnosis and bed rest status. Plan: Heparin 5,000 uniots SQ Q8 ordered Internal Medicine - H&P: HPI Chief complaint: SOB/Cough w/sputum Admitted From: Emergency Dept Plans for Post Hospital Care: Transfer Halfway Facility History of present illness: Mr. Gong is a 71 year old male who presents from the ED with chief complaint of shortness of breath and cough with sputum production for the past week. Patient's SPO2 upon arrival in the ED was 85% on room air. Patient is currently a poor historian due to being fatigued and stating he wants to sleep. He is alert and oriented x3. Patient states he does not use oxygen consistently where he resides at [facility] in [place]. Patient states he is currently smoking one half pack per day and has history of COPD. 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 Patient denies fever, chills, nausea, vomiting, recent illness, dizziness, falls, generalized weakness. Upon examination, patient is currently in sinus tachycardia with heart rate 123 bpm, respiratory rate of 26, white blood count of 15,000. Chest x-ray dated 11/19/16 shows airspace opacities in the right lung suspicious for infection, as well as emphysema. Asymmetric edema is considered less likely. Diagnosis for this patient is sepsis due to suspected infection from streptoccus pneumoniae. IV antibiotics started in ED consisting of 500 mg of azithromycin and 1000 mg of ceftriaxone. Patient is at high risk for further decline due to septic diagnosis and was placed as inpatient status with sepsis protocol. Blood/urine/sputum cultures ordered, duodenums ordered when necessary, repeat lactic acid and bilirubin ordered stat , INR and APTT ordered stat, supplemental O2 and continuous SPO2 monitoring ordered. Patient is to be falls precautions and up with assist due to use of walker and current bed rest status. Time spent with patient greater than 40 minutes. Past Med Surg Social Fam HX - Past Medical History Source: patient Medical history: atrial fibrillation, COPD, GERD, hyperlipidemia, hypertension, thyroid disease Psychiatric history: anxiety, depression, schizophrenia - Past Surgical History Surgical History: cataract, other (Tonsillectomy) - Social History Smoking Status: Current every day smoker Packs per day: 1/2 PPD Smokeless Tobacco Status: No Alcohol use: none (Reports he is a recovering alcoholic and has hot had a drink in several years) Drug use: none Current living situation: Shelter Activity Level: Uses cane/walker Recent Out of Country Travel Within the Last 8 Weeks: No Exposure or Possible Exposure to Illness During Travel: No - Family History Father History Unknown: Yes Race: Family Member Ethnicity: Non- Mother Race: Family Member Ethnicity: Non- Living Status: Cause of : Cancer Hx Family Respiratory Disorders: Yes (COPD) Hx Family Cancer: Yes Sister History Unknown: Yes Race: Family Member Ethnicity: Non- Living Status: Still Living Internal Medicine - H&P: Meds Albuterol Sulfate [Albuterol Inhaler] 2 puff IH Q6H 05/08/16 [History] Ipratropium [ATROVENT Inhaler] 2 puff IH Q6H 05/08/16 [History] Budesonide/Formoterol 160/4.5 [Symbicort 160/4.5] 1 puff IH BIDR #1 inhaler [Rx] Digoxin [Lanoxin] 0.125 mg PO DAILY #30 tablet 05/20/16 [Rx] cloZAPine [Clozaril] 300 mg PO HS tablet 05/20/16 [Rx] Acetaminophen [Tylenol] 650 mg PO Q6HR PRN 07/10/16 [History] Atorvastatin [Lipitor] 10 mg PO DAILY 07/10/16 [History] Chlorhexidine Gluconate [Peridex] 15 ml MM BID 07/10/16 [History] Cholecalciferol (D-3) [Vitamin D] 2,000 unit PO DAILY 07/10/16 [History] LORazepam [Ativan] 1 mg PO BID PRN 07/10/16 [History] LORazepam [Ativan] 1 mg PO Q6H 07/10/16 [History] Levalbuterol Neb [Xopenex Neb] 1.25 mg IH Q4H 07/10/16 [History] Levothyroxine [Synthroid] 75 mcg PO DAILY 07/10/16 [History] Omeprazole [PriLOSEC] 20 mg PO DAILY 07/10/16 [History] Potassium Chloride [Klor-Con 10] 10 meq PO BID 07/10/16 [History] Rivaroxaban [Xarelto] 20 mg PO DAILY 07/10/16 [History] predniSONE [PredniSONE] 40 mg PO BID #30 tablet 07/16/16 [Rx] Diltiazem HCl [Diltiazem 24Hr ER] 300 mg PO DAILY 11/19/16 [History] Guaifenesin [Tab Tussin] 400 mg PO BID 11/19/16 [History] Lisinopril [Zestril] 5 mg PO DAILY 11/19/16 [History] Mineral Oil/Petrolatum,White [Eucerin Creme] 1 appl TP DAILY 11/19/16 [History] Allergies haloperidol [From Haldol] Allergy (Verified 05/08/16 13:21) unknown patient is unresponsive at this time, can not ask. All Systems PM: A 10-system review of systems was performed and is negative for pertinent findings except as documented above in the HPI. - Constitutional Constitutional: no chills, no fever(s), no night sweats - EENT Eyes: no change in vision, no discharge, no pain, no photophobia Ears: no ear discharge, no ear pain, no tinnitus Nose, mouth and throat: no dysphagia, no nasal discharge, no neck pain, no sore throat - Breasts Breasts: as per HPI - Cardiovascular Cardiovascular ROS IM: no chest pain, no diaphoresis, no dyspnea, no lightheadedness, no palpitations, no syncope - Respiratory Respiratory: as per HPI, cough, dyspnea, dyspnea on exertion, chest congestion - Gastrointestinal Gastrointestinal: no abdominal pain, no diarrhea, no hematemesis, no hematochezia, no melena, no nausea, no vomiting - Genitourinary Genitourinary ROS male: as per HPI - Musculoskeletal Musculoskeletal ROS IM: no numbness, no tingling - Integumentary Integumentary IM: no rash, no unusual bruising - Neurological Neurological ROS: no confusion, no convulsions, no focal weakness, no numbness, no tingling, no tremor(s) - Psychiatric Psychiatric: as per HPI - Endocrine Endocrine IM: as per HPI - Hematologic/Lymphatic Hematologic/Lymphatic: no easy bruising - Allergic/Immunologic Allergic/Immunologic: as per HPI - Constitutional Vitals: Temp Pulse Resp BP Pulse Ox 99.6 F 113 24 81/47 91 11/19/16 09:57 11/19/16 12:00 11/19/16 12:00 11/19/16 12:00 11/19/16 12:00 General appearance: Present: disheveled, A&O X 3, no acute distress, answers questions appropriately - Head Head exam: Present: atraumatic, normocephalic - Eye Eye exam: Present: PERRL, conjuntiva pink, sclera anicteric Pupils: Present: PERRL - ENT ENT exam: Present: normal exam, normal external ear exam - Neck Neck exam general surgery: Present: supple, trachea midline. Absent: lymphadenopathy - Respiratory Respiratory exam: Present: decreased breath sounds, wheezes - Cardiovascular Cardiovascular exam: Present: tachycardia - GI/Abdominal GI/Abdominal exam: Present: normal bowel sounds, soft, no peritoneal signs. Absent: distended, tenderness - Rectal Rectal exam: Present: deferred - Additional comments: exam deferred. - Extremities Exam Extremities exam: Present: warm, radial pulses palpable and symetrical. Absent : calf tenderness, cyanotic, pedal edema - Back Exam Back exam: Present: normal inspection - Neurological Exam Neurological exam: Present: CN II-XII intact, oriented X3, no focal deficits. Absent: pronater drift, facial droop, speech deficit - Psychiatric Psychiatric exam: Present: anxious - Skin Skin exam: Present: dry, intact Internal Med - H&P Results - Labs CBC & Chem 7: 11/19/16 10:10 11/19/16 10:10 Labs: Short CBC 11/19/16 Range/Units 10:10 WBC 15.0 H (4.3-11.1) K/mcL Hgb 12.6 L (12.9-16.9) g/dL Hct 39.9 (37.5-50.1) % Plt Count 288 (140-400) K/mcL Neutrophils # 13.7 H (1.6-8.9) K/mcL BMP 11/19/16 10:10 Sodium 141 Potassium 4.1 Chloride 103 Carbon Dioxide 30 H BUN 14 Creatinine 0.97 Glucose 118 H Calcium 9.8 Cardiac Enzymes 11/19/16 Range/Units 10:10 Troponin I 0.02 (0-0.03) ng/mL - ABG Interpretation ABG results: 11/19/16 10:16 ABG pH 7.42 ABG pCO2 47 H ABG pO2 66 L ABG HCO3 30.5 H ABG Total CO2 31.9 H ABG O2 Saturation 93 L ABG Base Excess 5.2 H - EKG Data EKG shows normal: sinus rhythm Rate: tachycardia - EKG Data Prior EKG available for review: yes EKG comments: 11/19/16 12:49 EKG dated 07/10/16 shows atrial fibrillation with rapid ventricular response, moderate intraventricular conduction delay and nonspecific T-wave abnormality. EKG dated 11/19/16 shows sinus tachycardia. - Impressions ITS Impressions Chest X-Ray 11/19/16 10:05 IMPRESSION: 1. Airspace opacities in the right lung suspicious for infection. Asymmetric edema is considered less likely. 2. Emphysema. D/ / 11/19/2016 11:17:43 Bernadine Cruz MD / [facility] Interpreting Provider: Bernadine Cruz MD - Diagnostic Studies Chest x-ray Additional comments: Impressions Chest X-Ray 11/19/16 10:05 IMPRESSION: 1. Airspace opacities in the right lung suspicious for infection. Asymmetric edema is considered less likely. 2. Emphysema. D/ / 11/19/2016 11:17:43 Bernadine Cruz MD / [facility] Interpreting Provider: Bernadine Cruz MD <Kanika Mcmullen - Last Filed: 11/19/16 18:24> Date of Encounter: 11/19/16 Time of Encounter: 12:50 Assessment and Plan (1) Sepsis Current visit: Yes Status: Suspected Qualifiers: Sepsis type: Pneumococcus Qualified Code(s): A40.3 - Sepsis due to Streptococcus pneumoniae Internal Medicine - H&P: HPI History of present illness: Mr. Gong is a 71 year old male All Systems PM: A 10-system review of systems was performed and is negative for pertinent findings except as documented above in the HPI. - Constitutional Vitals: Temp Pulse Resp BP Pulse Ox 99.5 F 105 22 113/68 93 11/19/16 17:38 11/19/16 15:39 11/19/16 16:13 11/19/16 16:13 11/19/16 15:39 Internal Med - H&P Results - Labs CBC & Chem 7: 11/19/16 10:10 11/19/16 10:10 - Attending Attestation I examined this patient and my medical decision-making was reviewed with the nurse practitioner. I agree with the documented history of present illness, review of systems, past medical, surgical social and family histories and examination findings, disposition and treatment plan as described above except to any changes set forth below. 71-year-old male patient with history of atrial fibrillation, COPD, hypertension presented with shortness of breath, cough with sputum production going on for one week. Was hypoxic on arrival to the ER. On examination, patient is tachycardic with low blood pressure. Coarse breath sounds in right lower lobe. Also tachypneic. Chest x-ray shows right lung infiltrate. WBC count is also elevated. Severe sepsis from possible strep pneumonia: Admit inpatient. IV antibiotics. IV fluids. Monitor urine output. Trend lactate. Follow cultures. Monitor vital signs closely. Consult intensive care for evaluation. Right-sided lower lobe pneumonia with possible strep pneumoniae: IV antibiotics. Follow culture results. Atrial fibrillation: Patient currently in sinus tachycardia. Low digoxin levels. We will resume digoxin. Hold Cardizem for now due to low blood pressure. COPD exacerbation: O2 supplementation. Bronchodilators. O2 supplementation. Systemic steroids. DVT prophylaxis with subcutaneous heparin.
[2016-11-19 13:02] LABS: INR 1.2; Prothrombin Time 13.5 Seconds (9.4-12.1)
[2016-11-19 13:04] LABS: Activated Partial Thrombo Time 27.6 Seconds (26.0-36.0)
[2016-11-19] MEDS ORDERED: *HR* LORazepam 1 MG TABLET PO PRN (14:53)
[2016-11-19] MEDS ORDERED: *HR* Heparin 5,000 UNIT/ML VIAL SQ SCH (16:00)
[2016-11-19] MEDS: Ipratropium 1 PUFF INHALER IH SCH ×2 (16:56→21:21)
--- NOTE | 2016-11-19 17:41 | Pulmonology Consult Note ---
Date of Encounter: 11/19/16 Time of Encounter: 17:30 Assessment and Plan (1) Pneumonia Current Visit: Yes Status: Acute 71-year-old male [place] patient with history of schizophrenia admitted for possible right-sided pneumonia. Initial presentation ED was suggestive of early sepsis but patient responded well to initial resuscitation which included approximately 3 L of crystalloid IV fluid and antibiotics. On arrival to ICU patient is hemodynamically stable. Patient is noninteractive sooner chief complaint can be obtained. Agree with current plan for empiric coverage for community acquired pneumonia, follow-up with cultures, and holding further IV fluid. At this point it is unlikely that he would show more evidence of volume responsiveness. If not ordered, it is reasonable to obtain urine legionella and strep pneumoniae antigens. Also recommend repeat evaluation of serum lactate to assess for clearance after resuscitation. Otherwise,recommend continuing with current care and management of hemodynamics as needed. Qualifiers: Pneumonia type: due to unspecified organism Laterality: right Lung location: unspecified part of lung Qualified Code(s): J18.9 - Pneumonia, unspecified organism History of Present Illness Consult date: 11/19/16 Reason for consult: pneumonia History of present illness: Consulted for ICU management assistance for a 71-year-old male admitted to internal medicine service for pneumonia with sepsis physiology. Patient has history of schizophrenia and is not interactive during interview. By review of admission documentation, patient was admitted following 1 week of dyspnea and his inpatient residence from the [place]. Review of systems could not be obtained. Patient was treated in the ED with empiric coverage for community acquired pneumonia with Rocephin and azithromycin. Also received approximately 3 L of crystalloid fluid resuscitation for initial presentation with hypotension and tachycardia. 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 and has hot had a drink in several years) Drug use: none - Family History Father History Unknown: Yes Race: Family Member Ethnicity: Non- Mother Race: Family Member Ethnicity: Non- Living Status: Cause of : Cancer Hx Family Respiratory Disorders: Yes (COPD) Hx Family Cancer: Yes Sister History Unknown: Yes Race: Family Member Ethnicity: Non- Living Status: Still Living Medications and Allergies Albuterol Sulfate [Albuterol Inhaler] 2 puff IH Q6H 05/08/16 [History] Ipratropium [ATROVENT Inhaler] 2 puff IH Q6H 05/08/16 [History] Budesonide/Formoterol 160/4.5 [Symbicort 160/4.5] 1 puff IH BIDR #1 inhaler [Rx] Digoxin [Lanoxin] 0.125 mg PO DAILY #30 tablet 05/20/16 [Rx] cloZAPine [Clozaril] 300 mg PO HS tablet 05/20/16 [Rx] Acetaminophen [Tylenol] 650 mg PO Q6HR PRN 07/10/16 [History] Atorvastatin [Lipitor] 10 mg PO DAILY 07/10/16 [History] Chlorhexidine Gluconate [Peridex] 15 ml MM BID 07/10/16 [History] Cholecalciferol (D-3) [Vitamin D] 2,000 unit PO DAILY 07/10/16 [History] LORazepam [Ativan] 1 mg PO BID PRN 07/10/16 [History] LORazepam [Ativan] 1 mg PO Q6H 07/10/16 [History] Levalbuterol Neb [Xopenex Neb] 1.25 mg IH Q4H 07/10/16 [History] Levothyroxine [Synthroid] 75 mcg PO DAILY 07/10/16 [History] Omeprazole [PriLOSEC] 20 mg PO DAILY 07/10/16 [History] Potassium Chloride [Klor-Con 10] 10 meq PO BID 07/10/16 [History] Rivaroxaban [Xarelto] 20 mg PO DAILY 07/10/16 [History] predniSONE [PredniSONE] 40 mg PO BID #30 tablet 07/16/16 [Rx] Diltiazem HCl [Diltiazem 24Hr ER] 300 mg PO DAILY 11/19/16 [History] Guaifenesin [Tab Tussin] 400 mg PO BID 11/19/16 [History] Lisinopril [Zestril] 5 mg PO DAILY 11/19/16 [History] Mineral Oil/Petrolatum,White [Eucerin Creme] 1 appl TP DAILY 11/19/16 [History] Allergies haloperidol [From Haldol] Allergy (Verified 05/08/16 13:21) unknown patient is unresponsive at this time, can not ask. ROS unobtainable: due to mental status All Systems: A 10-system review of systems was performed and is negative for pertinent findings except as documented above in the HPI. Physical Examination Vital Signs: Vital Signs, Last 4 Hours Pulse Resp BP Pulse Ox 11/19/16 16:13 22 113/68 11/19/16 15:39 105 22 89/58 93 General appearance: other (Noninteractive) Eyes: nonicteric Effort: normal Auscultation: bilateral: clear Cardiovascular: regular rate and rhythm (Slightly tachycardic) Gastrointestinal: soft, non-tender Extremities: no cyanosis, no clubbing unable to assess due to mental status Results - Laboratory Findings CBC and BMP: 11/19/16 10:10 11/19/16 10:10 ABG ABG pH 7.42 pH Units (7.32-7.45) 11/19/16 10:16 ABG pCO2 47 mmHg (35-45) H 11/19/16 10:16 ABG pO2 66 mmHg (85-104) L 11/19/16 10:16 ABG O2 Saturation 93 % (95-98) L 11/19/16 10:16 PT/INR, D-dimer PT 13.5 Seconds (9.4-12.1) H 11/19/16 12:43 Abnormal lab findings: Abnormal lab results WBC 15.0 K/mcL (4.3-11.1) H 11/19/16 10:10 Hgb 12.6 g/dL (12.9-16.9) L 11/19/16 10:10 Neutrophils # 13.7 K/mcL (1.6-8.9) H 11/19/16 10:10 Lymphocytes # 0.4 K/mcL (0.6-4.6) L 11/19/16 10:10 PT 13.5 Seconds (9.4-12.1) H 11/19/16 12:43 ABG pCO2 47 mmHg (35-45) H 11/19/16 10:16 ABG pO2 66 mmHg (85-104) L 11/19/16 10:16 ABG HCO3 30.5 mEQ/L (21-27) H 11/19/16 10:16 ABG Total CO2 31.9 mEq/L (20-26) H 11/19/16 10:16 ABG O2 Saturation 93 % (95-98) L 11/19/16 10:16 ABG Base Excess 5.2 mEq/L (-2.0 to 3.0) H 11/19/16 10:16 Carbon Dioxide 30 mEq/L (19-29) H 11/19/16 10:10 Glucose 118 mg/dL (70-99) H 11/19/16 10:10 Lactic Acid 2.6 mmol/L (0.5-2.2) H 11/19/16 12:43 Digoxin 0.4 ng/mL (0.8-2.0) L 11/19/16 10:10 Consult Discharge Plan - Plan [facility] Provider[facility] -
[2016-11-19] MEDS: Chlorhexidine Rinse 15 ML MOUTHWASH MM SCH (20:15)
[2016-11-19] MEDS: GuaiFENesin Liq 200 MG/10 ML UDC PO SCH (20:15)
[2016-11-19] MEDS: 0.9 % Sodium Chloride 1,000 ML IVC SCH ×2 (20:16→23:45)
[2016-11-19] MEDS: cloZAPine 100 MG TABLET PO SCH (20:56)
[2016-11-19] MEDS ORDERED: predniSONE 20 MG TABLET PO SCH (21:00)
[2016-11-19] MEDS: Budesonide/Formoterol 160/4.5 MDI IH SCH (21:24)
--- NOTE | 2016-11-19 21:37 | Event Note ---
Date of Encounter: 11/19/16 Time of Encounter: 21:36 I was called and evaluated this patient as an ICU bed as needed for patient and emergency room and to evaluate if this patient can be transferred to a telemetry bed out of the ICU. Patient is able to answer questions appropriately and states that [facility] [id number]. Currently, he reports shortness of breath, cough, sputum but denies any chest pain or palpitations. He states that he also has a headache. On exam, clear breath sounds bilaterally. Not using accessory muscles of respiration. First and second heart sounds present. Tachycardia present. Labs reviewed. Patient was admitted to the ICU due to blood pressures of 80s systolic on presentation. However, patient has had a good response to fluid resuscitation after he received 3 L of crystalloids. His blood pressures over the past few hours have been more than 100. We will transfer the patient to a telemetry bed out of the ICU. TARI Nguyen
[2016-11-19 22:58] LABS: Hematocrit 33.1 % (37.5-50.1); Mean Corpuscular HGB Conc 31.4 g/dL (31.6-35.5); Mean Corpuscular Hemoglobin 28.8 pg (28.0-33.3); Mean Corpuscular Volume 91.7 fL (83.0-100.0); Mean Platelet Volume 9.3 fL (9.4-12.4); Platelet Count 254 K/mcL (140-400); Red Blood Count 3.61 M/mcL (4.19-5.50); Red Cell Distribution Width 14.3 % (11.5-14.5)
[2016-11-19 22:59] LABS: Hemoglobin 10.4 g/dL (12.9-16.9)
[2016-11-19 23:11] LABS: Lymphocytes # 1.5 K/mcL (0.6-4.6); Neutrophils # 22.1 K/mcL (1.6-8.9); Platelet Estimate Normal (Normal)
[2016-11-19] MEDS: methylPREDNISolone 125 MG/2 ML VIAL IVP SCH (23:46)
[2016-11-20] MEDS: Ipratropium 1 PUFF INHALER IH SCH ×2 (04:20→09:04)
[2016-11-20 06:34] LABS: Bilirubin,Urine Negative (Negative); Blood,Urine Negative (Negative); Clarity,Urine Clear (Clear); Color,Urine Yellow (Yellow); Glucose,Urine (UA) Normal (Normal); Ketones,Urine Trace mg/dL (Negative); Leukocyte Esterase,Urine Negative (Negative); Nitrite,Urine Negative (Negative); PH,Urine 5.5 pH Units (5.0-8.0); Protein,Urine Negative (Neg-Trace); Specific Gravity,Urine 1.016 (1.010-1.025); Urobilinogen,Urine Normal (Normal)
[2016-11-20 06:41] LABS: Amphetamine Screen,Urine Negative ng/mL (Cutoff=1000); Barbiturate Screen,Urine Negative ng/mL (Cutoff=200); Benzodiazepines Screen,Urine Negative ng/mL (Cutoff=200); Cannabinoid Screen,Urine Negative ng/mL (Cutoff = 50); Cocaine Screen,Urine Negative ng/mL (Cutoff= 300); Opiate Screen,Urine Negative ng/mL (Cutoff=300); Phencyclidine Screen,Urine Negative ng/mL (Cutoff=25)
[2016-11-20 07:18] LABS: Basophils % 0.1 %; Hematocrit 33.8 % (37.5-50.1); Hemoglobin 10.6 g/dL (12.9-16.9); Immature Granulocytes % 0.7 % (0-4); Lymphocytes # 0.3 K/mcL (0.6-4.6); Lymphocytes % 1.3 %; Mean Corpuscular HGB Conc 31.4 g/dL (31.6-35.5); Mean Corpuscular Hemoglobin 29.2 pg (28.0-33.3); Mean Corpuscular Volume 93.1 fL (83.0-100.0); Monocytes # 0.2 K/mcL (0.0-1.3); Neutrophils # 20.8 K/mcL (1.6-8.9); Platelet Count 258 K/mcL (140-400); Red Blood Count 3.63 M/mcL (4.19-5.50); Red Cell Distribution Width 14.3 % (11.5-14.5); Segmented Neutrophils % 96.9 %
[2016-11-20 07:26] LABS: Alanine Aminotransferase 9 Units/L (0-55); Albumin 2.7 g/dL (3.5-5.0); Alkaline Phosphatase 70 Units/L (38-126); Aspartate Amino Transferase 10 Units/L (5-34); BUN/Creatinine Ratio 16 (6-26); Bilirubin,Total 0.4 mg/dL (0.2-1.2); Blood Urea Nitrogen 12 mg/dL (8-26); Calcium 8.8 mg/dL (8.6-10.8); Carbon Dioxide 26 mEq/L (19-29); Chloride 107 mEq/L (98-109); Chol/HDL Ratio 2.4 (0-4.9); Cholesterol 99 mg/dL (< 200); Globulin 2.6 g/dL (2.4-3.5); Glucose 127 mg/dL (70-99); HDL Cholesterol 42 mg/dL (40-59); LDL Cholesterol,Calculated 48 mg/dL (0-99); Magnesium 1.8 mg/dL (1.6-2.6); Osmolality,Calculated 287 (280-300); Potassium 4.3 mEq/L (3.5-4.5); Sodium 138 mEq/L (136-145); Total Protein 5.3 g/dL (6.0-8.3); Triglycerides 45 mg/dL (< 150); eGFR For African Americans > 60 (> 60); eGFR For Non-African Americans > 60 (> 60)
--- NOTE | 2016-11-20 08:54 | Internal Med Progress Note ---
<Jese Leon - Last Filed: 11/20/16 09:21> Date of Encounter: 11/20/16 Time of Encounter: 08:54 - Assessment and plan (1) Acute on chronic respiratory failure with hypoxemia Current Visit: Yes Status: Acute Assessment and plan: Patient was admitted to this hospital 4 months ago this year for acute on chronic respiratory failure, secondary to acute exacerbation of COPD, during that time patient was intubated in ICU, this time patient presented to the ER with similar picture, ABG reviewed, no significant elevation of carbon dioxide, however patient remains hypoxic, currently on 4 L nasal cannula, with initial presentation of tachycardia and a history of DVT last year, although patient is on anticoagulation with Xarelto, will check CTA of chest to rule out pulmonary embolism and further assessment of his possible underlying bacterial pneumonia, will consult speech therapy for risk of aspiration, will continue to treat COPD exacerbation with IV steroid, IV antibiotics, DuoNeb [id number], and oxygen support. (2) Acute exacerbation of chronic obstructive pulmonary disease (COPD) Current Visit: Yes Status: Acute Assessment and plan: Likely secondary to underlying bacterial pneumonia, continue IV steroid, IV antibiotics, DuoNeb around the clock and oxygen support. (3) Severe sepsis Current Visit: Yes Status: Acute Assessment and plan: Likely secondary to underlying community-acquired pneumonia, lactic acidosis resolved and hypotension resolved after fluid resuscitation, patient is now out of ICU, hemodynamically stable at this time, continue IV antibiotics and IV fluid hydration. Leukocytosis has improved. (4) Community acquired pneumonia Current Visit: Yes Status: Acute Assessment and plan: Initial chest x-ray suggested a possible underlying pneumonia, will continue IV antibiotics of azithromycin and Rocephin, sputum culture sample collection pending, legionella/streptococcal pneumoniae urinary antigens negative, blood cultures pending. (5) History of atrial fibrillation Current Visit: Yes Status: Acute Assessment and plan: Patient's tachycardia has improved, likely it was due to severe sepsis and hypotension, continue IV fluid hydration, continue to treat underlying issue of infection with IV antibiotics, continue home medications of digoxin for rate control and Xarelto for chronic anticoagulation therapy. (6) History of DVT (deep vein thrombosis) Current Visit: Yes Status: Acute Assessment and plan: This was diagnosed end of last year, patient is currently on Xarelto for history of atrial fibrillation. (7) DVT prophylaxis Current Visit: Yes Status: Acute Assessment and plan: Xarelto. - Subjective Interval history: Patient seen and examined. Patient moved out from ICU to medical floor last night, no acute events overnight, patient was very sleepy this morning however patient will open his eyes to the voice, answer simple questions, arousable to sternal rub, currently satting 91% on 4 L nasal cannula, blood pressure stable. - Constitutional Vitals: Temp Pulse Resp BP Pulse Ox 97.5 F L 98 12 105/60 91 11/20/16 07:18 11/20/16 07:18 11/20/16 07:18 11/20/16 07:18 11/20/16 07:18 General appearance: Present: disheveled, A&O X 3 (But very sleepy), no acute distress, answers questions appropriately - Head Head exam: Present: atraumatic, normocephalic - Eye Eye exam: Present: PERRL, conjuntiva pink, sclera anicteric Pupils: Present: PERRL - Neck Neck exam general surgery: Present: supple, trachea midline. Absent: lymphadenopathy - Respiratory Respiratory exam: Present: decreased breath sounds (Diminished diffusely bilateral). Absent: accessory muscle use, rales, respiratory distress, rhonchi , wheezes - Cardiovascular Cardiovascular exam: Present: RRR, +S1, +S2. Absent: diastolic murmur, gallop, rubs, systolic murmur - GI/Abdominal GI/Abdominal exam: Present: normal bowel sounds, soft, no peritoneal signs. Absent: distended, tenderness - Extremities Exam Extremities exam: Present: warm, radial pulses palpable and symetrical. Absent : calf tenderness, cyanotic, pedal edema - Neurological Exam Neurological exam: Present: alert (But very sleepy), oriented X3, no focal deficits - Skin Skin exam: Present: dry, intact Internal Medicine: Result - Labs CBC & Chem 7: 11/20/16 05:43 11/20/16 05:43 Labs: Short CBC 11/19/16 11/20/16 Range/Units 22:50 05:43 WBC 24.5 H D 21.5 H (4.3-11.1) K/mcL Hgb 10.4 L D 10.6 L (12.9-16.9) g/dL Hct 33.1 L 33.8 L (37.5-50.1) % Plt Count 254 258 (140-400) K/mcL Neutrophils # 22.1 H (1.6-8.9) K/mcL BMP 11/20/16 05:43 Sodium 138 Potassium 4.3 Chloride 107 Carbon Dioxide 26 BUN 12 Creatinine 0.76 Glucose 127 H Calcium 8.8 Liver Function 11/20/16 Range/Units 05:43 Total Bilirubin 0.4 (0.2-1.2) mg/dL AST 10 (5-34) Units/L ALT 9 (0-55) Units/L Alkaline Phosphatase 70 (38-126) Units/L Albumin 2.7 L (3.5-5.0) g/dL Urine 11/20/16 Range/Units 06:20 Urine Color Yellow (Yellow) Urine Clarity Clear (Clear) Urine pH 5.5 (5.0-8.0) pH Units Ur Specific Weld 1.016 (1.010-1.025) Urine Protein Negative (Neg-Trace) mg/dL Urine Glucose (UA) Normal (Normal) mg/dL - ABG Interpretation ABG results: ABG ABG pH 7.42 pH Units (7.32-7.45) 11/19/16 10:16 ABG pCO2 47 mmHg (35-45) H 11/19/16 10:16 ABG pO2 66 mmHg (85-104) L 11/19/16 10:16 ABG O2 Saturation 93 % (95-98) L 11/19/16 10:16 PT/INR, D-dimer PT 13.5 Seconds (9.4-12.1) H 11/19/16 12:43 Consult Discharge Plan - Plan [facility]errals: [facility] [Primary Care Provider[facility] - <Beto Cotter P - Last Filed: 11/20/16 18:57> Date of Encounter: 11/20/16 - Constitutional Vitals: Temp Pulse Resp BP Pulse Ox 98 F 110 16 153/91 96 11/20/16 15:50 11/20/16 15:50 11/20/16 16:39 11/20/16 15:50 11/20/16 16:39 Internal Medicine: Result - Labs CBC & Chem 7: 11/20/16 05:43 11/20/16 05:43 Labs: Short CBC 11/19/16 11/20/16 Range/Units 22:50 05:43 WBC 24.5 H D 21.5 H (4.3-11.1) K/mcL Hgb 10.4 L D 10.6 L (12.9-16.9) g/dL Hct 33.1 L 33.8 L (37.5-50.1) % Plt Count 254 258 (140-400) K/mcL Neutrophils # 22.1 H 20.8 H (1.6-8.9) K/mcL BMP 11/20/16 05:43 Sodium 138 Potassium 4.3 Chloride 107 Carbon Dioxide 26 BUN 12 Creatinine 0.76 Glucose 127 H Calcium 8.8 Liver Function 11/20/16 Range/Units 05:43 Total Bilirubin 0.4 (0.2-1.2) mg/dL AST 10 (5-34) Units/L ALT 9 (0-55) Units/L Alkaline Phosphatase 70 (38-126) Units/L Albumin 2.7 L (3.5-5.0) g/dL Urine 11/20/16 Range/Units 06:20 Urine Color Yellow (Yellow) Urine Clarity Clear (Clear) Urine pH 5.5 (5.0-8.0) pH Units Ur Specific Weld 1.016 (1.010-1.025) Urine Protein Negative (Neg-Trace) mg/dL Urine Glucose (UA) Normal (Normal) mg/dL - ABG Interpretation ABG results: ABG ABG pH 7.42 pH Units (7.32-7.45) 11/19/16 10:16 ABG pCO2 47 mmHg (35-45) H 11/19/16 10:16 ABG pO2 66 mmHg (85-104) L 11/19/16 10:16 ABG O2 Saturation 93 % (95-98) L 11/19/16 10:16 PT/INR, D-dimer PT 13.5 Seconds (9.4-12.1) H 11/19/16 12:43 - Impressions Impressions Chest CTA 11/20/16 11:00 IMPRESSION: 1. No CT evidence of a pulmonary embolism. 2. No acute abnormality of the thoracic aorta. 3. Interval development of multiple consolidative and tree-in-bud opacities throughout both lungs, most consistent with multifocal pneumonia. However, a few of the opacities have masslike and nodular characteristics, with a 3.2 cm masslike focus of consolidative opacity within the right upper lobe. While these opacities likely represent infectious disease, developing pulmonary malignancy is not excluded. Suggest at least appropriate clinical treatment, and short-term chest CT follow-up in 6-8 weeks to ensure resolution of these opacities. Alternatively, a PET-CT could be considered for further evaluation. 4. Stable small right pleural effusion. D/ / 11/20/2016 11:58:12 Neto Calero MD / stacey Interpreting Provider: Neto Calero MD - Attending Attestation I examined this patient and my medical decision-making was reviewed with the INSTRUMENT LENS GRINDER APPRENTICE/PA/Advanced Practice Nurse/Resident Physician. I agree with the documented findings, disposition and treatment plan as described except to the extent set forth below.
[2016-11-20 08:57] LABS: Platelet Estimate Normal (Normal)
[2016-11-20] MEDS: Budesonide/Formoterol 160/4.5 MDI IH SCH ×2 (09:03→21:27)
[2016-11-20] MEDS: GuaiFENesin Liq 200 MG/10 ML UDC PO SCH ×3 (09:23→22:01)
[2016-11-20] MEDS: XAREL PO SCH (09:23)
[2016-11-20] MEDS: methylPREDNISolone 125 MG/2 ML VIAL IVP SCH ×2 (09:23→16:58)
[2016-11-20] MEDS: *HR* Digoxin 0.125 MG TABLET PO SCH (09:23)
[2016-11-20] MEDS: Chlorhexidine Rinse 15 ML MOUTHWASH MM SCH ×2 (09:23→21:56)
[2016-11-20] MEDS: Ipratropium/Albuterol Neb 3 ML IH SCH ×3 (09:30→21:28)
[2016-11-20] MEDS: Azithromycin 500 MG in D5% in Water 250 ML IVPB SCH (16:52)
[2016-11-20] MEDS: 0.9 % Sodium Chloride 1,000 ML IVC SCH (16:57)
[2016-11-20] MEDS: cloZAPine 100 MG TABLET PO SCH (21:56)
[2016-11-21] MEDS: methylPREDNISolone 125 MG/2 ML VIAL IVP SCH ×3 (01:04→16:53)
[2016-11-21] MEDS: 0.9 % Sodium Chloride 1,000 ML IVC SCH ×2 (03:00→13:29)
[2016-11-21] MEDS: Ipratropium/Albuterol Neb 3 ML IH SCH ×4 (04:07→20:42)
[2016-11-21 05:42] LABS: Basophils % 0.1 %; Hematocrit 30.7 % (37.5-50.1); Hemoglobin 9.6 g/dL (12.9-16.9); Immature Granulocytes % 1.3 % (0-4); Immature Platelets 3.6 % (1.1-6.1); Lymphocytes # 0.3 K/mcL (0.6-4.6); Lymphocytes % 1.6 %; Mean Corpuscular HGB Conc 31.3 g/dL (31.6-35.5); Mean Corpuscular Hemoglobin 28.6 pg (28.0-33.3); Mean Corpuscular Volume 91.4 fL (83.0-100.0); Mean Platelet Volume 9.6 fL (9.4-12.4); Monocytes # 0.3 K/mcL (0.0-1.3); Monocytes % 1.6 %; Platelet Count 268 K/mcL (140-400); Red Blood Count 3.36 M/mcL (4.19-5.50); Red Cell Distribution Width 13.9 % (11.5-14.5); Segmented Neutrophils % 95.4 %
[2016-11-21 05:51] LABS: Neutrophils # 17.9 K/mcL (1.6-8.9)
[2016-11-21 06:07] LABS: Hypersegmented Neutrophils Present (Not Present); Platelet Estimate Normal (Normal); Toxic Granulation Present (Not Present)
[2016-11-21] MEDS: Chlorhexidine Rinse 15 ML MOUTHWASH MM SCH ×2 (10:03→21:32)
[2016-11-21] MEDS: *HR* Digoxin 0.125 MG TABLET PO SCH (10:03)
[2016-11-21] MEDS: XAREL PO SCH (10:03)
[2016-11-21] MEDS: GuaiFENesin Liq 200 MG/10 ML UDC PO SCH ×2 (10:10→21:32)
[2016-11-21] MEDS: Budesonide/Formoterol 160/4.5 MDI IH SCH ×2 (11:32→20:42)
[2016-11-21] MEDS: Azithromycin 500 MG in D5% in Water 250 ML IVPB SCH (12:50)
--- NOTE | 2016-11-21 14:02 | Internal Med Progress Note ---
<Madi Rodriguez - Last Filed: 11/21/16 13:58> Date of Encounter: 11/21/16 Time of Encounter: 09:15 - Assessment and plan (1) Acute on chronic respiratory failure with hypoxemia Current Visit: Yes Status: Acute Assessment and plan: Patient presented to the ER in respiratory failure, requiring admission to the ICU. His respiratory status has stabilized, though he continues using 5-6 L supplemental oxygen. CTA was negative for PE, but did show multifocal pneumonia. He had previous hospitalization requiring intubation as well as A.Fib and DVT, currently on Xarelto. Will consult speech therapy for risk of aspiration Will continue to treat COPD exacerbation with solumedrol Continue: azithromycin and ceftriaxone we will consider expanding antibiotics if no improvement seen DuoNebs Oxygen support as needed wean as tolerated (2) Acute exacerbation of chronic obstructive pulmonary disease (COPD) Current Visit: No Status: Acute Assessment and plan: Likely secondary to underlying bacterial pneumonia. Continue IV steroid Continue IV antibiotics: azithromycin and ceftriaxone DuoNeb scheduled and prn Continue supplemental oxygen as needed, wean as tolerated (3) Severe sepsis Current Visit: Yes Status: Acute Assessment and plan: Likely secondary to underlying community-acquired pneumonia, lactic acidosis resolved and hypotension resolved after fluid resuscitation, patient is no longer in ICU. He remains hemodynamically stable at this time. Leukocytosis has improved. Continue IV antibiotics and IV fluid hydration (4) Community acquired pneumonia Current Visit: Yes Status: Acute Assessment and plan: Initial chest x-ray suggested a possible underlying pneumonia with chest CT showing multifocal pneumonia (w/ possible inflammatory nodules). legionella/ streptococcal pneumoniae urinary antigens negative, blood cultures pending. Continue IV antibiotics: azithromycin and ceftriaxone Sputum culture pending Plan as above (5) History of atrial fibrillation Current Visit: Yes Status: Acute Assessment and plan: Patient's tachycardia has improved, likely it was due to severe sepsis and hypotension Continue IV fluid hydration Continue to treat underlying issue of infection with IV antibiotics Continue home medications of digoxin for rate control and Xarelto for chronic anticoagulation therapy. (6) History of DVT (deep vein thrombosis) Current Visit: Yes Status: Acute Assessment and plan: This was diagnosed end of last year, patient is currently on Xarelto for history of atrial fibrillation. (7) DVT prophylaxis Current Visit: Yes Status: Acute Assessment and plan: Continue home Xarelto - Subjective Interval history: Patient seen and examined this morning, he is alert and oriented x2. He appears comfortable and is in no discomfort. He reports that he is continuing to have some fatigue, but that could be on account of not getting fully restful sleep. He has no other concerns/complaints today. - Constitutional Vitals: Temp Pulse Resp BP Pulse Ox 97.8 F 105 14 119/74 88 11/21/16 12:17 11/21/16 12:17 11/21/16 12:17 11/21/16 12:11/21/16 13:44 General appearance: Present: disheveled, A&O X 2, no acute distress, answers questions appropriately Exam: General: Cooperative, pleasant, no acute distress, alert and oriented 3, answers questions appropriately HEENT: Normocephalic, atraumatic, neck supple, trachea midline, sclera anicteric Respiratory: No accessory muscle usage, decreased breath sounds, rales auscultated diffusely Cardiovascular: tachycardia, regular rhythm, S1 and S2 present, no murmurs/rubs/ gallops/clicks appreciated GI/abdominal: Nondistended, nontender, soft, normal bowel sounds, no peritoneal signs Extremities: No calf tenderness, noncyanotic, no pedal edema appreciated, warm, lower extremity pulses palpable and symmetrical Neurological: Alert and oriented 3, no facial droop, no focal deficits Skin: Dry, intact, normal color Internal Medicine: Result - Labs CBC & Chem 7: 11/21/16 05:24 11/20/16 05:43 Labs: Short CBC 11/21/16 Range/Units 05:24 WBC 18.8 H (4.3-11.1) K/mcL Hgb 9.6 L (12.9-16.9) g/dL Hct 30.7 L (37.5-50.1) % Plt Count 268 (140-400) K/mcL Neutrophils # 17.9 H (1.6-8.9) K/mcL - ABG Interpretation ABG results: ABG ABG pH 7.42 pH Units (7.32-7.45) 11/19/16 10:16 ABG pCO2 47 mmHg (35-45) H 11/19/16 10:16 ABG pO2 66 mmHg (85-104) L 11/19/16 10:16 ABG O2 Saturation 93 % (95-98) L 11/19/16 10:16 PT/INR, D-dimer PT 13.5 Seconds (9.4-12.1) H 11/19/16 12:43 - Impressions Impressions Chest CTA 11/20/16 11:00 IMPRESSION: 1. No CT evidence of a pulmonary embolism. 2. No acute abnormality of the thoracic aorta. 3. Interval development of multiple consolidative and tree-in-bud opacities throughout both lungs, most consistent with multifocal pneumonia. However, a few of the opacities have masslike and nodular characteristics, with a 3.2 cm masslike focus of consolidative opacity within the right upper lobe. While these opacities likely represent infectious disease, developing pulmonary malignancy is not excluded. Suggest at least appropriate clinical treatment, and short-term chest CT follow-up in 6-8 weeks to ensure resolution of these opacities. Alternatively, a PET-CT could be considered for further evaluation. 4. Stable small right pleural effusion. D/ / 11/20/2016 11:58:12 Neto Calero MD / stacey Interpreting Provider: Neto Calero MD Consult Discharge Plan - Plan [facility]: [facility] [[facility] Care Provider[facility] - 12/05/16 11:15 am <Beto Cotter P - Last Filed: 11/21/16 15:22> Date of Encounter: 11/21/16 - Constitutional Vitals: Temp Pulse Resp BP Pulse Ox 97.8 F 105 14 119/74 88 11/21/16 12:17 11/21/16 12:17 11/21/16 12:17 11/21/16 12:17 11/21/16 13:44 Internal Medicine: Result - Labs CBC & Chem 7: 11/21/16 05:24 11/20/16 05:43 Labs: Short CBC 11/21/16 Range/Units 05:24 WBC 18.8 H (4.3-11.1) K/mcL Hgb 9.6 L (12.9-16.9) g/dL Hct 30.7 L (37.5-50.1) % Plt Count 268 (140-400) K/mcL Neutrophils # 17.9 H (1.6-8.9) K/mcL - ABG Interpretation ABG results: ABG ABG pH 7.42 pH Units (7.32-7.45) 11/19/16 10:16 ABG pCO2 47 mmHg (35-45) H 11/19/16 10:16 ABG pO2 66 mmHg (85-104) L 11/19/16 10:16 ABG O2 Saturation 93 % (95-98) L 11/19/16 10:16 PT/INR, D-dimer PT 13.5 Seconds (9.4-12.1) H 11/19/16 12:43 - Impressions Impressions Chest CTA 11/20/16 11:00 IMPRESSION: 1. No CT evidence of a pulmonary embolism. 2. No acute abnormality of the thoracic aorta. 3. Interval development of multiple consolidative and tree-in-bud opacities throughout both lungs, most consistent with multifocal pneumonia. However, a few of the opacities have masslike and nodular characteristics, with a 3.2 cm masslike focus of consolidative opacity within the right upper lobe. While these opacities likely represent infectious disease, developing pulmonary malignancy is not excluded. Suggest at least appropriate clinical treatment, and short-term chest CT follow-up in 6-8 weeks to ensure resolution of these opacities. Alternatively, a PET-CT could be considered for further evaluation. 4. Stable small right pleural effusion. D/ / 11/20/2016 11:58:12 Neto Calero MD / stacey Interpreting Provider: Neto Calero MD - Attending Attestation I examined this patient and my medical decision-making was reviewed with the SUPPLIER SPECIALIST/PA/Advanced Practice Nurse/Resident Physician. I agree with the documented findings, disposition and treatment plan as described except to the extent set forth below.
[2016-11-21] MEDS: cloZAPine 100 MG TABLET PO SCH (21:31)
[2016-11-22] MEDS: methylPREDNISolone 125 MG/2 ML VIAL IVP SCH ×3 (00:50→17:02)
[2016-11-22] MEDS: 0.9 % Sodium Chloride 1,000 ML IVC SCH (00:51)
[2016-11-22] MEDS: Ipratropium/Albuterol Neb 3 ML IH SCH ×4 (04:26→22:12)
[2016-11-22 06:29] LABS: Basophils % 0.1 %; Hematocrit 30.3 % (37.5-50.1); Hemoglobin 9.6 g/dL (12.9-16.9); Immature Granulocytes % 0.7 % (0-4); Lymphocytes # 0.3 K/mcL (0.6-4.6); Lymphocytes % 1.6 %; Mean Corpuscular HGB Conc 31.7 g/dL (31.6-35.5); Mean Corpuscular Hemoglobin 28.7 pg (28.0-33.3); Mean Corpuscular Volume 90.7 fL (83.0-100.0); Mean Platelet Volume 9.9 fL (9.4-12.4); Monocytes # 0.2 K/mcL (0.0-1.3); Monocytes % 1.3 %; Neutrophils # 16.5 K/mcL (1.6-8.9); Platelet Count 258 K/mcL (140-400); Red Blood Count 3.34 M/mcL (4.19-5.50); Segmented Neutrophils % 96.3 %
[2016-11-22] MEDS: GuaiFENesin Liq 200 MG/10 ML UDC PO SCH ×2 (08:45→21:11)
[2016-11-22] MEDS: Chlorhexidine Rinse 15 ML MOUTHWASH MM SCH ×2 (08:45→21:10)
[2016-11-22] MEDS: XAREL PO SCH (08:45)
[2016-11-22] MEDS: *HR* Digoxin 0.125 MG TABLET PO SCH (08:46)
[2016-11-22] MEDS: Budesonide/Formoterol 160/4.5 MDI IH SCH ×2 (10:58→22:16)
--- NOTE | 2016-11-22 11:30 | Internal Med Progress Note ---
<Madi Rodriguez - Last Filed: 11/22/16 16:05> Date of Encounter: 11/22/16 Time of Encounter: 08:30 - Assessment and plan (1) Acute on chronic respiratory failure with hypoxemia Current Visit: Yes Status: Acute Assessment and plan: Patient presented to the ER in respiratory failure, requiring admission to the ICU. His respiratory status has stabilized, though he continues using 5-6 L supplemental oxygen. CTA was negative for PE, but did show multifocal pneumonia. He had previous hospitalization requiring intubation as well as A.Fib and DVT, was on Xarelto admission. Will consult speech therapy for risk of aspiration Will continue to treat COPD exacerbation with solumedrol We will stop Azithromycin ceftriaxone, start Levaquin and Zosyn Oxygen support as needed wean as tolerated (2) Acute exacerbation of chronic obstructive pulmonary disease (COPD) Current Visit: No Status: Acute Assessment and plan: Likely secondary to underlying bacterial pneumonia. Plan as above (3) Severe sepsis Current Visit: Yes Status: Acute Assessment and plan: Likely secondary to underlying community-acquired pneumonia, lactic acidosis resolved and hypotension resolved after fluid resuscitation, patient is no longer in ICU. He remains hemodynamically stable at this time. Leukocytosis has improved. Continue IV antibiotics and IV fluid hydration (4) Community acquired pneumonia Current Visit: Yes Status: Acute Assessment and plan: Initial chest x-ray suggested a possible underlying pneumonia with chest CT showing multifocal pneumonia (w/ possible inflammatory nodules). legionella/ streptococcal pneumoniae urinary antigens negative, blood cultures pending. Continue IV antibiotics Sputum culture pending Plan as above (5) History of atrial fibrillation Current Visit: Yes Status: Acute Assessment and plan: Patient's tachycardia has improved, likely it was due to severe sepsis and hypotension Continue IV fluid hydration Continue to treat underlying issue of infection with IV antibiotics Continue home medications of digoxin for rate control Hold Xarelto due to concern of GI bleed (6) History of DVT (deep vein thrombosis) Current Visit: Yes Status: Acute Assessment and plan: This was diagnosed end of last year, patient is currently on Xarelto for history of atrial fibrillation. Holes are also due to concern of GI bleed (7) DVT prophylaxis Current Visit: Yes Status: Acute Assessment and plan: We will start EPCDs Hold Xarelto - Subjective Interval history: Patient seen and examined this morning, he is alert and oriented x2. He appears comfortable and is in no discomfort, but does not appear hungry. He reports having fatigue but no other complaints/concerns currently. He denies chest pain , shortness of breath, cough, nausea, abdominal pain. He did vomit while in the room despite not complaining of nausea previously. - Constitutional Vitals: Temp Pulse Resp BP Pulse Ox 97.7 F 100 16 139/94 96 11/22/16 07:40 11/22/16 07:40 11/22/16 10:59 11/22/16 07:40 11/22/16 10:59 General appearance: Present: disheveled, A&O X 2, no acute distress, answers questions appropriately Exam: General: Cooperative, pleasant, no acute distress, alert and oriented 2, answers questions appropriately HEENT: Normocephalic, atraumatic, neck supple, trachea midline, sclera anicteric Respiratory: Belly breathing present, decreased breath sounds, rales auscultated diffusely Cardiovascular: tachycardia, regular rhythm, S1 and S2 present, no murmurs/rubs/ gallops/clicks appreciated GI/abdominal: Abdomen protuberant, nontender, soft, normal bowel sounds, no peritoneal signs Extremities: No calf tenderness, noncyanotic, no pedal edema appreciated, warm, lower extremity pulses palpable and symmetrical Neurological: Alert and oriented 2, no facial droop, no focal deficits Skin: Dry, intact, normal color Internal Medicine: Result - Labs CBC & Chem 7: 11/22/16 05:52 11/22/16 12:52 Labs: Short CBC 11/22/16 Range/Units 05:52 WBC 17.1 H (4.3-11.1) K/mcL Hgb 9.6 L (12.9-16.9) g/dL Hct 30.3 L (37.5-50.1) % Plt Count 258 (140-400) K/mcL Neutrophils # 16.5 H (1.6-8.9) K/mcL - ABG Interpretation ABG results: ABG ABG pH 7.42 pH Units (7.32-7.45) 11/19/16 10:16 ABG pCO2 47 mmHg (35-45) H 11/19/16 10:16 ABG pO2 66 mmHg (85-104) L 11/19/16 10:16 ABG O2 Saturation 93 % (95-98) L 11/19/16 10:16 PT/INR, D-dimer PT 13.5 Seconds (9.4-12.1) H 11/19/16 12:43 Consult Discharge Plan - Plan [facility]: [facility] Care Provider[facility] - 12/05/16 11:15 am <Beto Cotter P - Last Filed: 11/22/16 16:15> Date of Encounter: 11/22/16 - Constitutional Vitals: Temp Pulse Resp BP Pulse Ox 97.4 F L 108 18 148/89 91 11/22/16 15:51 11/22/16 15:51 11/22/16 15:55 11/22/16 15:51 11/22/16 15:55 Internal Medicine: Result - Labs CBC & Chem 7: 11/22/16 05:52 11/22/16 12:52 Labs: Short CBC 11/22/16 Range/Units 05:52 WBC 17.1 H (4.3-11.1) K/mcL Hgb 9.6 L (12.9-16.9) g/dL Hct 30.3 L (37.5-50.1) % Plt Count 258 (140-400) K/mcL Neutrophils # 16.5 H (1.6-8.9) K/mcL BMP 11/22/16 12:52 Sodium 141 Potassium 3.5 Chloride 107 Carbon Dioxide 28 BUN 14 Creatinine 0.74 Glucose 146 H Calcium 8.9 - ABG Interpretation ABG results: ABG ABG pH 7.42 pH Units (7.32-7.45) 11/19/16 10:16 ABG pCO2 47 mmHg (35-45) H 11/19/16 10:16 ABG pO2 66 mmHg (85-104) L 11/19/16 10:16 ABG O2 Saturation 93 % (95-98) L 11/19/16 10:16 PT/INR, D-dimer PT 13.5 Seconds (9.4-12.1) H 11/19/16 12:43 - Impressions Impressions Abdomen/Pelvis CT 11/22/16 10:29 IMPRESSION: 1. Small bilateral pleural effusions and lower lobe atelectatic changes worse on the right with a likely pneumonic infiltrate in the right lower lobe. 2. No evidence of acute gastrointestinal abnormality. 3. Asymmetrical thickening of the urinary bladder and multiple small diverticuli are seen. Due to the asymmetric thickening anteriorly neoplasm cannot be ruled out. RECOMMENDATIONS: Cystoscopy. D/ / 11/22/2016 12:13:55 Vivienne Dsouza MD / stacey Interpreting Provider: Vivienne Dsouza MD - Attending Attestation I examined this patient and my medical decision-making was reviewed with the REHABILITATION CLERK/PA/Advanced Practice Nurse/Resident Physician. I agree with the documented findings, disposition and treatment plan as described except to the extent set forth below. GI input appreciated.
[2016-11-22] MEDS ORDERED: Artificial Tears SOLN 15 ML BOTTLE BOTH EYES PRN (11:36)
[2016-11-22] MEDS ORDERED: Levofloxacin 500 MG/100 ML 500 MG/100 ML BAG IVPB SCH (12:00)
[2016-11-22 14:13] LABS: BUN/Creatinine Ratio 19 (6-26); Blood Urea Nitrogen 14 mg/dL (8-26); Calcium 8.9 mg/dL (8.6-10.8); Carbon Dioxide 28 mEq/L (19-29); Chloride 107 mEq/L (98-109); Glucose 146 mg/dL (70-99); Osmolality,Calculated 295 (280-300); Potassium 3.5 mEq/L (3.5-4.5); Sodium 141 mEq/L (136-145); eGFR For African Americans > 60 (> 60); eGFR For Non-African Americans > 60 (> 60)
--- NOTE | 2016-11-22 16:42 | Electrocardiograph Report ---
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
[2016-11-22] MEDS: Piperacillin/Tazobactam 3.375 GM in D5% in Water (Mini-Bag+) 100 ML IVPB SCH (17:02)
[2016-11-22] MEDS ORDERED: Pantoprazole 40 MG VIAL IVP SCH (18:00)
[2016-11-22] MEDS: cloZAPine 100 MG TABLET PO SCH (21:10)
[2016-11-23] MEDS: methylPREDNISolone 125 MG/2 ML VIAL IVP SCH ×3 (00:39→17:29)
[2016-11-23] MEDS: Piperacillin/Tazobactam 3.375 GM in D5% in Water (Mini-Bag+) 100 ML IVPB SCH ×3 (00:43→17:31)
[2016-11-23] MEDS: Ipratropium/Albuterol Neb 3 ML IH SCH ×4 (04:18→22:51)
[2016-11-23] MEDS: 0.9 % Sodium Chloride 1,000 ML IVC SCH ×2 (05:43→17:28)
[2016-11-23] MEDS ORDERED: *HR* Rivaroxaban 10 MG TABLET PO SCH (06:00)
[2016-11-23 06:55] LABS: Hematocrit 32.1 % (37.5-50.1); Mean Corpuscular HGB Conc 31.2 g/dL (31.6-35.5); Mean Corpuscular Hemoglobin 28.1 pg (28.0-33.3); Mean Corpuscular Volume 90.2 fL (83.0-100.0); Mean Platelet Volume 9.8 fL (9.4-12.4); Platelet Count 256 K/mcL (140-400); Red Blood Count 3.56 M/mcL (4.19-5.50)
[2016-11-23 07:06] LABS: BUN/Creatinine Ratio 16 (6-26); Blood Urea Nitrogen 13 mg/dL (8-26); Calcium 8.8 mg/dL (8.6-10.8); Carbon Dioxide 28 mEq/L (19-29); Chloride 107 mEq/L (98-109); Glucose 171 mg/dL (70-99); Osmolality,Calculated 298 (280-300); Potassium 3.4 mEq/L (3.5-4.5); Sodium 142 mEq/L (136-145); eGFR For African Americans > 60 (> 60); eGFR For Non-African Americans > 60 (> 60)
[2016-11-23] MEDS: *HR* Digoxin 0.125 MG TABLET PO SCH (09:33)
[2016-11-23] MEDS: Pantoprazole 40 MG VIAL IVP SCH (09:34)
[2016-11-23] MEDS: GuaiFENesin Liq 200 MG/10 ML UDC PO SCH ×2 (09:35→21:50)
[2016-11-23] MEDS: Levofloxacin 750 MG/150 ML 750 MG/150 ML BAG IVPB SCH (09:37)
[2016-11-23] MEDS: Chlorhexidine Rinse 15 ML MOUTHWASH MM SCH ×2 (09:39→21:50)
[2016-11-23] MEDS: Budesonide/Formoterol 160/4.5 MDI IH SCH ×2 (10:57→22:51)
[2016-11-23 13:00] LABS: Lymphocytes # 0.6 K/mcL (0.6-4.6); Monocytes # 0.8 K/mcL (0.0-1.3); Neutrophils # 8.6 K/mcL (1.6-8.9); Platelet Estimate Normal (Normal)
[2016-11-23 13:01] LABS: Anisocytosis 1+ (Not Present)
--- NOTE | 2016-11-23 14:16 | Internal Med Progress Note ---
Date of Encounter: 11/23/16 Time of Encounter: 14:13 - Assessment and plan (1) Acute on chronic respiratory failure with hypoxemia Current Visit: Yes Status: Acute Assessment and plan: Patient presented to the ER in respiratory failure, requiring admission to the ICU. His respiratory status has stabilized, though he continues using 5-6 L supplemental oxygen. CTA was negative for PE, but did show multifocal pneumonia. He had previous hospitalization requiring intubation as well as A.Fib and DVT, was on Xarelto admission. Will consult speech therapy for risk of aspiration Will continue to treat COPD exacerbation with solumedrol We will stop Azithromycin ceftriaxone, start Levaquin and Zosyn Oxygen support as needed wean as tolerated 11/23/2016 Day 3 abx Clinically improving. Denies chest pain, shortness of breath, dizziness or diarrhea. Plan: Will continue antibiotics at this time. Continue intranasal oxygen (2) Acute exacerbation of chronic obstructive pulmonary disease (COPD) Current Visit: No Status: Acute Assessment and plan: Likely secondary to underlying bacterial pneumonia. Plan as above (3) Severe sepsis Current Visit: Yes Status: Acute Assessment and plan: Likely secondary to underlying community-acquired pneumonia, lactic acidosis resolved and hypotension resolved after fluid resuscitation, patient is no longer in ICU. He remains hemodynamically stable at this time. Leukocytosis has improved. Continue IV antibiotics and IV fluid hydration (4) Community acquired pneumonia Current Visit: Yes Status: Acute Assessment and plan: Initial chest x-ray suggested a possible underlying pneumonia, will continue IV antibiotics of azithromycin and Rocephin, sputum culture sample collection pending, legionella/streptococcal pneumoniae urinary antigens negative, blood cultures pending. - Subjective Interval history: seen and examined. patient feels much better as compare to yesterday eating well no family bedside, - Constitutional Vitals: Temp Pulse Resp BP Pulse Ox 97.7 F 142 20 146/107 97 11/23/16 05:55 11/23/16 05:55 11/23/16 10:57 11/23/16 05:55 11/23/16 10:57 General appearance: Present: disheveled, A&O X 2, no acute distress, answers questions appropriately - Head Head exam: Present: atraumatic, normocephalic - Eye Eye exam: Present: PERRL, conjuntiva pink, sclera anicteric Pupils: Present: PERRL - Neck Neck exam general surgery: Present: supple, trachea midline. Absent: lymphadenopathy - Respiratory Respiratory exam: Present: CTAB. Absent: accessory muscle use, rales, rhonchi, wheezes - Cardiovascular Cardiovascular exam: Present: RRR, +S1, +S2. Absent: diastolic murmur, gallop, rubs, systolic murmur - GI/Abdominal GI/Abdominal exam: Present: normal bowel sounds, soft, no peritoneal signs. Absent: distended, tenderness - Extremities Exam Extremities exam: Present: warm, radial pulses palpable and symetrical. Absent : calf tenderness, cyanotic, pedal edema - Neurological Exam Neurological exam: Present: CN II-XII intact, oriented X3, no focal deficits. Absent: pronater drift, facial droop, speech deficit - Skin Skin exam: Present: dry, intact Internal Medicine: Result - Labs CBC & Chem 7: 11/23/16 06:21 11/23/16 06:21 Labs: Short CBC 11/23/16 Range/Units 06:21 WBC 10.0 (4.3-11.1) K/mcL Hgb 10.0 L (12.9-16.9) g/dL Hct 32.1 L (37.5-50.1) % Plt Count 256 (140-400) K/mcL Neutrophils # 8.6 (1.6-8.9) K/mcL BMP 11/22/16 11/23/16 12:52 06:21 Sodium 141 142 Potassium 3.5 3.4 L Chloride 107 107 Carbon Dioxide 28 28 BUN 14 13 Creatinine 0.74 0.79 Glucose 146 H 171 H Calcium 8.9 8.8 - ABG Interpretation ABG results: ABG ABG pH 7.42 pH Units (7.32-7.45) 11/19/16 10:16 ABG pCO2 47 mmHg (35-45) H 11/19/16 10:16 ABG pO2 66 mmHg (85-104) L 11/19/16 10:16 ABG O2 Saturation 93 % (95-98) L 11/19/16 10:16 PT/INR, D-dimer PT 13.5 Seconds (9.4-12.1) H 11/19/16 12:43 - VTE Documentation of Mechanical Device: Intermittent pneumatic compression device Consult Discharge Plan - Plan [facility]errals: [facility]Primary Care Provider[facility] - 12/05/16 11:15 am
[2016-11-23] MEDS: cloZAPine 100 MG TABLET PO SCH (21:51)
[2016-11-24] MEDS: Piperacillin/Tazobactam 3.375 GM in D5% in Water (Mini-Bag+) 100 ML IVPB SCH ×5 (01:14→23:12)
[2016-11-24] MEDS: methylPREDNISolone 125 MG/2 ML VIAL IVP SCH ×5 (01:19→23:12)
[2016-11-24] MEDS: Ipratropium/Albuterol Neb 3 ML IH SCH ×4 (03:53→20:56)
[2016-11-24] MEDS: *HR* Digoxin 0.125 MG TABLET PO SCH (08:30)
[2016-11-24] MEDS: Pantoprazole 40 MG VIAL IVP SCH (08:32)
[2016-11-24] MEDS: 0.9 % Sodium Chloride 1,000 ML IVC SCH ×2 (08:36→19:58)
[2016-11-24] MEDS: Levofloxacin 750 MG/150 ML 750 MG/150 ML BAG IVPB SCH (08:38)
[2016-11-24] MEDS: Budesonide/Formoterol 160/4.5 MDI IH SCH ×2 (10:52→20:57)
[2016-11-24] MEDS: GuaiFENesin Liq 200 MG/10 ML UDC PO SCH ×2 (12:38→20:09)
[2016-11-24] MEDS: Chlorhexidine Rinse 15 ML MOUTHWASH MM SCH ×2 (12:38→20:09)
--- NOTE | 2016-11-24 15:19 | Internal Med Progress Note ---
Date of Encounter: 11/24/16 Time of Encounter: 15:16 - Assessment and plan (1) Acute on chronic respiratory failure with hypoxemia Current Visit: Yes Status: Acute Assessment and plan: Patient presented to the ER in respiratory failure, requiring admission to the ICU. His respiratory status has stabilized, though he continues using 5-6 L supplemental oxygen. CTA was negative for PE, but did show multifocal pneumonia. He had previous hospitalization requiring intubation as well as A.Fib and DVT, was on Xarelto admission. Will consult speech therapy for risk of aspiration Will continue to treat COPD exacerbation with solumedrol We will stop Azithromycin ceftriaxone, start Levaquin and Zosyn Oxygen support as needed wean as tolerated 11/23/2016 Day 3 abx Clinically improving. Denies chest pain, shortness of breath, dizziness or diarrhea. Plan: Will continue antibiotics at this time. Continue intranasal oxygen 11/24/2016 Day 4 antibiotics Patient feels that he is feeling much better as compared to the day of admission. Denies chest pain, shortness of breath Plan We will continue antibiotics at this time Home: Likely tomorrow (2) Acute exacerbation of chronic obstructive pulmonary disease (COPD) Current Visit: No Status: Acute Assessment and plan: Likely secondary to underlying bacterial pneumonia. Plan as above (3) Severe sepsis Current Visit: Yes Status: Acute Assessment and plan: Likely secondary to underlying community-acquired pneumonia, lactic acidosis resolved and hypotension resolved after fluid resuscitation, patient is no longer in ICU. He remains hemodynamically stable at this time. Leukocytosis has improved. Continue IV antibiotics and IV fluid hydration (4) Community acquired pneumonia Current Visit: Yes Status: Acute Assessment and plan: Initial chest x-ray suggested a possible underlying pneumonia, will continue IV antibiotics of azithromycin and Rocephin, sputum culture sample collection pending, legionella/streptococcal pneumoniae urinary antigens negative, blood cultures pending. - Subjective Interval history: seen and examined. patient feels much better as compare to yesterday eating well no family bedside, 11/24/2016 Seen and examined. Chart reviewed. Patient denies any complaint of chest pain, palpitation, shortness of breath or nausea. - Constitutional Vitals: Temp Pulse Resp BP Pulse Ox 98.0 F 105 17 155/107 96 11/24/16 08:14 11/24/16 08:14 11/24/16 10:53 11/24/16 08:14 11/24/16 10:53 General appearance: Present: disheveled, A&O X 2, no acute distress, answers questions appropriately - Head Head exam: Present: atraumatic, normocephalic - Eye Eye exam: Present: PERRL, conjuntiva pink, sclera anicteric Pupils: Present: PERRL - Neck Neck exam general surgery: Present: supple, trachea midline. Absent: lymphadenopathy - Respiratory Respiratory exam: Present: CTAB. Absent: accessory muscle use, rales, rhonchi, wheezes - Cardiovascular Cardiovascular exam: Present: RRR, +S1, +S2. Absent: diastolic murmur, gallop, rubs, systolic murmur - GI/Abdominal GI/Abdominal exam: Present: normal bowel sounds, soft, no peritoneal signs. Absent: distended, tenderness - Extremities Exam Extremities exam: Present: warm, radial pulses palpable and symetrical. Absent : calf tenderness, cyanotic, pedal edema - Neurological Exam Neurological exam: Present: CN II-XII intact, oriented X3, no focal deficits. Absent: pronater drift, facial droop, speech deficit - Skin Skin exam: Present: dry, intact Internal Medicine: Result - Labs CBC & Chem 7: 11/23/16 06:21 11/23/16 06:21 - ABG Interpretation ABG results: ABG ABG pH 7.42 pH Units (7.32-7.45) 11/19/16 10:16 ABG pCO2 47 mmHg (35-45) H 11/19/16 10:16 ABG pO2 66 mmHg (85-104) L 11/19/16 10:16 ABG O2 Saturation 93 % (95-98) L 11/19/16 10:16 PT/INR, D-dimer PT 13.5 Seconds (9.4-12.1) H 11/19/16 12:43 - VTE Documentation of Mechanical Device: Intermittent pneumatic compression device Consult Discharge Plan - Plan [facility]errals: [facility] [Primary Care Provider[facility] - 12/05/16 11:15 am
[2016-11-24] MEDS: cloZAPine 100 MG TABLET PO SCH (19:58)
[2016-11-25 03:52] LABS: Basophils % 0.1 %; Hematocrit 34.1 % (37.5-50.1); Immature Granulocytes % 1.6 % (0-4); Lymphocytes # 0.3 K/mcL (0.6-4.6); Lymphocytes % 2.5 %; Mean Corpuscular HGB Conc 32.3 g/dL (31.6-35.5); Mean Corpuscular Hemoglobin 28.9 pg (28.0-33.3); Mean Corpuscular Volume 89.7 fL (83.0-100.0); Monocytes # 0.6 K/mcL (0.0-1.3); Monocytes % 4.3 %; Neutrophils # 12.6 K/mcL (1.6-8.9); Platelet Count 266 K/mcL (140-400); Red Cell Distribution Width 13.7 % (11.5-14.5); Segmented Neutrophils % 91.5 %
[2016-11-25 04:10] LABS: Alanine Aminotransferase 13 Units/L (0-55); Albumin 2.8 g/dL (3.5-5.0); Albumin/Globulin Ratio 1.1 (1.1-2.2); Alkaline Phosphatase 62 Units/L (38-126); Aspartate Amino Transferase 12 Units/L (5-34); BUN/Creatinine Ratio 17 (6-26); Bilirubin,Total 0.4 mg/dL (0.2-1.2); Blood Urea Nitrogen 15 mg/dL (8-26); Calcium 8.9 mg/dL (8.6-10.8); Carbon Dioxide 28 mEq/L (19-29); Chloride 105 mEq/L (98-109); Globulin 2.6 g/dL (2.4-3.5); Glucose 157 mg/dL (70-99); Osmolality,Calculated 298 (280-300); Potassium 3.5 mEq/L (3.5-4.5); Sodium 142 mEq/L (136-145); Total Protein 5.4 g/dL (6.0-8.3); eGFR For African Americans > 60 (> 60); eGFR For Non-African Americans > 60 (> 60)
[2016-11-25] MEDS: Ipratropium/Albuterol Neb 3 ML IH SCH ×2 (04:59→11:22)
[2016-11-25] MEDS: methylPREDNISolone 125 MG/2 ML VIAL IVP SCH (08:19)
[2016-11-25] MEDS: Chlorhexidine Rinse 15 ML MOUTHWASH MM SCH (08:19)
[2016-11-25] MEDS: *HR* Digoxin 0.125 MG TABLET PO SCH (08:19)
[2016-11-25] MEDS: Piperacillin/Tazobactam 3.375 GM in D5% in Water (Mini-Bag+) 100 ML IVPB SCH (08:20)
[2016-11-25] MEDS: Pantoprazole 40 MG VIAL IVP SCH (08:20)
[2016-11-25] MEDS: Levofloxacin 750 MG/150 ML 750 MG/150 ML BAG IVPB SCH (08:20)
[2016-11-25] MEDS: GuaiFENesin Liq 200 MG/10 ML UDC PO SCH (08:21)
--- NOTE | 2016-11-25 09:20 | Discharge Summary ---
<Reynaldo Vaughn - Last Filed: 11/25/16 14:58> Date of Encounter: 11/25/16 Time of Encounter: 09:19 - Discharge Diagnosis (1) Acute exacerbation of chronic obstructive pulmonary disease (COPD) Priority: Primary Status: Acute (2) Acute on chronic respiratory failure with hypoxemia Priority: Primary Status: Acute (3) Community acquired pneumonia Priority: Primary Status: Acute (4) Severe sepsis Priority: Primary Status: Acute (5) Atrial fibrillation Priority: Secondary Status: Acute Qualifiers: Atrial fibrillation type: persistent Qualified Code(s): I48.1 - Persistent atrial fibrillation - Discharge Medications Prescriptions: levoFLOXacin [Levaquin] 750 mg PO DAILY #3 tablet Home Medications: Albuterol Sulfate [Albuterol Inhaler] 2 puff IH Q6H 05/08/16 [History] Ipratropium [ATROVENT Inhaler] 2 puff IH Q6H 05/08/16 [History] Budesonide/Formoterol 160/4.5 [Symbicort 160/4.5] 1 puff IH BIDR #1 inhaler [Rx] Digoxin [Lanoxin] 0.125 mg PO DAILY #30 tablet 05/20/16 [Rx] cloZAPine [Clozaril] 300 mg PO HS tablet 05/20/16 [Rx] Acetaminophen [Tylenol] 650 mg PO Q6HR PRN 07/10/16 [History] Atorvastatin [Lipitor] 10 mg PO DAILY 07/10/16 [History] Chlorhexidine Gluconate [Peridex] 15 ml MM BID 07/10/16 [History] Cholecalciferol (D-3) [Vitamin D] 2,000 unit PO DAILY 07/10/16 [History] LORazepam [Ativan] 1 mg PO BID PRN 07/10/16 [History] LORazepam [Ativan] 1 mg PO Q6H 07/10/16 [History] Levalbuterol Neb [Xopenex Neb] 1.25 mg IH Q4H 07/10/16 [History] Levothyroxine [Synthroid] 75 mcg PO DAILY 07/10/16 [History] Omeprazole [PriLOSEC] 20 mg PO DAILY 07/10/16 [History] Potassium Chloride [Klor-Con 10] 10 meq PO BID 07/10/16 [History] Rivaroxaban [Xarelto] 20 mg PO DAILY 07/10/16 [History] predniSONE [PredniSONE] 40 mg PO BID #30 tablet 07/16/16 [Rx] Diltiazem HCl [Diltiazem 24Hr ER] 300 mg PO DAILY 11/19/16 [History] Guaifenesin [Tab Tussin] 400 mg PO BID 11/19/16 [History] Lisinopril [Zestril] 5 mg PO DAILY 11/19/16 [History] Mineral Oil/Petrolatum,White [Eucerin Creme] 1 appl TP DAILY 11/19/16 [History] levoFLOXacin [Levaquin] 750 mg PO DAILY #3 tablet 11/25/16 [Rx] Allergies/Adverse Reactions: Allergies haloperidol [From Haldol] Allergy (Verified 05/08/16 13:21) unknown patient is unresponsive at this time, can not ask. Procedures/tests Complete & Pending: Procedures Performed prior 72 hours Category Date Time Status CT abd pelvis w iv no oral [CT] Routine Cat Scan 11/22/16 10:29 Completed Date of admission: 11/19/16 15:29 [facility] care physician: [facility] Consults: 11/19/16 16:31 Consult to Pulmonology [CONS] Routine Consulting Provider: [facility] [place] Reason for Consult: Severe sepsis, Hypotension Call Completed: Yes 11/20/16 09:17 Consult to Speech Therapy [CONS] Routine Comment: Evaluate, develop and implement POC Reason for Consult: aspiration risk Call Completed: No 11/21/16 10:39 Consult to Washing Machine Repairer [CONS] Routine Reason for SW Consult: discharge needs back home. 11/21/16 10:40 Consult to Physical Therapy [CONS] Routine Comment: Evaluate, develop and implement POC Reason for Consult: patient is very weak OT [Consult to Occupational Therapy] [CONS] Routine Comment: Evaluate, develop and implement POC Reason for Consult: patient is very weak Discharging clinician: Reynaldo Vaughn Anticipated date of discharge: 11/25/16 - Patient Status Disposition: Transfer Other Condition: Fair Functional capacity at discharge: uses cane/walker Overall status at discharge: patient is progressing back to baseline - Discharge Instructions Instructions: Acute Respiratory Distress Syndrome (DC), Chronic Obstructive Pulmonary Disease (DC), Pneumonia (DC) Follow Up [facility]: [facility] [Primary Care Provider] - 12/05/16 11:15 am Lexa Keyes MD [Partnered Physician] - Daniel Alvarado MD [Partnered Physician] - Additional Instructions: 1. Follow-up with your primary care provider in the next 3-5 days 2. Take all prescriptions as prescribed, any concerns or questions contact her primary care provider. 3. Return to the emergency department if: Recurrence of shortness of breath, chest pain, chest pressure, purulent or discolored sputum, fevers chills sweating or any other concerning medical symptoms or signs. Follow-up with pulmonology regarding change in lung disease and new findings of a 3.2 cm mass in the right upper lobe. Follow-up with urology given irregular thickening of bladder wall concerning findings. - Diet and Activity Activity: as per physical therapy Diet: low fat, low cholesterol, low salt diet Interval History: Mr. Gong is a 71 year old male who presents from the ED with chief complaint of shortness of breath and cough with sputum production for the past week. PMH : atrial fibrillation, COPD, GERD, hyperlipidemia, hypertension, thyroid disease. Patient's SPO2 upon arrival in the ED was 85% on room air. Primary examination, patient was in sinus tachycardia with heart rate 123 bpm, respiratory rate of 26, white blood count of 15,000. Chest x-ray dated shows airspace opacities in the right lung suspicious for infection, as well as emphysema. He was admitted with a diagnosis of sepsis due to suspected infection from streptoccus pneumoniae. IV antibiotics started in ED consisting of 500 mg of azithromycin and 1000 mg of ceftriaxone.Do to high risk for further decline due to septic diagnosis and was placed as inpatient status with sepsis protocol. Blood/urine/sputum cultures ordered, duodenums ordered when necessary, repeat lactic acid and bilirubin ordered stat, INR and APTT ordered stat, supplemental O2 and continuous SPO2 monitoring were ordered upon admission.He was admitted to the ICU. Patient was continued on IV antibiotics throughout his inpatient stay he underwent a chest CTA with no evidence of pulmonary and losing, no acute abdomen on the thoracic aorta, interval development of multiple consolidated tree-in-bud opacities throughout both lungs , most consistent with multifocal pneumonia. He was also a masslike and nodular characteristic with a 3.2 cm masslike focus of consolidated opacity within the right upper lobe. Recommended CT follow-up in 6-8 weeks outpatient. Stable small right pleural effusion. CT of the abdomen and pelvis demonstrates small bilateral pleural effusions and lower lobe atelectasis change worse on the right and likely pneumatic infiltrate in the right lower lobe. Evidence of acute gastric joel parolees. Asymmetric thickening of the urinary bladder with multiple small diverticula are seen. Due to asymmetric thickening anteriorly neoplasm cannot be ruled out. Does not patient stable leukocytosis steadily resolved and improved. His oxygen requirements returned to baseline. His electrolytes were monitored and replaced as necessary. On the patient seen and evaluate a patient bedside and deemed stable for discharge. Prior to discharge his heart rate did flip over into atrial fibrillation with RVR for which she has a history of atrial fibrillation. He was restarted on his oral dose of Cardizem 300 mg prior to discharge back to the [facility]. - He was recommended to follow-up with pulmonology regarding the masslike infiltration his right upper lobe, and changes to his lung disease. - He was recommended follow-up with urology given the asymmetric bladder wall thickening and diverticulitis bladder. Hospital course: Mr. Gong is a 71 year old male - Time Spent with Patient Total time spent providing and/or coordinating discharge services: - Constitutional Vitals: Temp Pulse Resp BP Pulse Ox 98 F 95 16 141/91 93 11/25/16 07:54 11/25/16 07:54 11/25/16 07:54 11/25/16 07:54 11/25/16 07:54 General appearance: Present: disheveled, A&O X 2, no acute distress, answers questions appropriately Exam: General: Patient alert, awake, oriented 3, interactive, in no acute distress HEENT: Normocephalic, atraumatic, pupils equal reactive to light, nasal cavity patent and open septum median position, oral mucosa moist, uvula midline, neck supple trachea midline no palpable lymphadenopathy, no thyromegaly. Chest: Symmetric bilateral correlating with respiratory effort, effort nonlabored. Cardiac: Regular rate and rhythm, positive S1, S2, no bruits appreciated bilateral carotids, Radial pulses 2+ bilateral, posterior tibial and dorsal pedal pulses 2+ bilateral. Respiratory: Diffusely diminished breath sounds with low grade expiratory wheeze Abdomen: Soft, nontender, positive bowel sounds, no palpable masses appreciated on examination Extremities: Symmetric bilateral, no erythema or edema, patient moving all 4 extremities spontaneously. Neurologic: No focal deficits appreciated on examination. Face symmetric, muscle strength symmetric bilateral upper and lower extremities. - VTE Documentation of Mechanical Device: Intermittent pneumatic compression device <Beto Cotter - Last Filed: 11/25/16 17:34> Date of Encounter: 11/25/16 - Discharge Diagnosis (1) Acute on chronic respiratory failure with hypoxemia Status: Acute (2) Acute exacerbation of chronic obstructive pulmonary disease (COPD) Status: Acute (3) Severe sepsis Status: Acute (4) Community acquired pneumonia Status: Acute Date of admission: 11/19/16 15:29 Primary care physician: PCP [facility] Consults: 11/19/16 16:31 Consult to Pulmonology [CONS] Routine Consulting Provider: Pulm [facility] [place] Reason for Consult: Severe sepsis, Hypotension Call Completed: Yes 11/20/16 09:17 Consult to Speech Therapy [CONS] Routine Comment: Evaluate, develop and implement POC Reason for Consult: aspiration risk Call Completed: No 11/21/16 10:39 Consult to Washing Machine Repairer [CONS] Routine Reason for SW Consult: discharge needs back home. 11/21/16 10:40 Consult to Physical Therapy [CONS] Routine Comment: Evaluate, develop and implement POC Reason for Consult: patient is very weak OT [Consult to Occupational Therapy] [CONS] Routine Comment: Evaluate, develop and implement POC Reason for Consult: patient is very weak Hospital course: Mr. Gong is a 71 year old male - Time Spent with Patient Total time spent providing and/or coordinating discharge services: - Constitutional Vitals: Temp Pulse Resp BP Pulse Ox 97 F L 86 18 137/97 94 11/25/16 11:30 11/25/16 11:30 11/25/16 11:30 11/25/16 11:30 11/25/16 11:30 - Attending Attestation I examined this patient and my medical decision-making was reviewed with the MANAGER NEONATAL/PA/Advanced Practice Nurse/Resident Physician. I agree with the documented findings, disposition and treatment plan as described except to the extent set forth below. Spoke to Mr. Pressley from [facility] was a social work program coordinator. Updated regarding patient's health. All questions answered
[2016-11-25] MEDS: Budesonide/Formoterol 160/4.5 MDI IH SCH (11:22)
[2016-11-25 11:30] VITALS: BP 137/97
[2016-11-25] MEDS ORDERED: Diltiazem CD (24hr) 300 MG CAPSULE PO SCH (14:00)
[2016-11-25] MEDS ORDERED: dilTIAZem HCl 60 MG TABLET PO ONE (14:00)
--- NOTE | 2016-11-25 14:13 | Physician Discharge Referral ---
<Reynaldo Vaughn - Last Filed: 11/25/16 14:11> [facility] Referral Info Transfer To: [place] Provider in Charge after Transfer: PCP Institutional Level of Care: Skilled - Diagnosis (1) Acute exacerbation of chronic obstructive pulmonary disease (COPD) Priority: Primary Status: Acute (2) Acute on chronic respiratory failure with hypoxemia Priority: Primary Status: Acute (3) Community acquired pneumonia Priority: Primary Status: Acute (4) Severe sepsis Priority: Primary Status: Acute (5) Atrial fibrillation Priority: Primary Status: Acute - Transfer Medications Prescriptions: levoFLOXacin [Levaquin] 750 mg PO DAILY #3 tablet Home Medications: Albuterol Sulfate [Albuterol Inhaler] 2 puff IH Q6H 05/08/16 [History] Ipratropium [ATROVENT Inhaler] 2 puff IH Q6H 05/08/16 [History] Budesonide/Formoterol 160/4.5 [Symbicort 160/4.5] 1 puff IH BIDR #1 inhaler [Rx] Digoxin [Lanoxin] 0.125 mg PO DAILY #30 tablet 05/20/16 [Rx] cloZAPine [Clozaril] 300 mg PO HS tablet 05/20/16 [Rx] Acetaminophen [Tylenol] 650 mg PO Q6HR PRN 07/10/16 [History] Atorvastatin [Lipitor] 10 mg PO DAILY 07/10/16 [History] Chlorhexidine Gluconate [Peridex] 15 ml MM BID 07/10/16 [History] Cholecalciferol (D-3) [Vitamin D] 2,000 unit PO DAILY 07/10/16 [History] LORazepam [Ativan] 1 mg PO BID PRN 07/10/16 [History] LORazepam [Ativan] 1 mg PO Q6H 07/10/16 [History] Levalbuterol Neb [Xopenex Neb] 1.25 mg IH Q4H 07/10/16 [History] Levothyroxine [Synthroid] 75 mcg PO DAILY 07/10/16 [History] Omeprazole [PriLOSEC] 20 mg PO DAILY 07/10/16 [History] Potassium Chloride [Klor-Con 10] 10 meq PO BID 07/10/16 [History] Rivaroxaban [Xarelto] 20 mg PO DAILY 07/10/16 [History] predniSONE [PredniSONE] 40 mg PO BID #30 tablet 07/16/16 [Rx] Diltiazem HCl [Diltiazem 24Hr ER] 300 mg PO DAILY 11/19/16 [History] Guaifenesin [Tab Tussin] 400 mg PO BID 11/19/16 [History] Lisinopril [Zestril] 5 mg PO DAILY 11/19/16 [History] Mineral Oil/Petrolatum,White [Eucerin Creme] 1 appl TP DAILY 11/19/16 [History] levoFLOXacin [Levaquin] 750 mg PO DAILY #3 tablet 11/25/16 [Rx] Allergies/Adverse Reactions: Allergies haloperidol [From Haldol] Allergy (Verified 05/08/16 13:21) unknown patient is unresponsive at this time, can not ask. - Respiratory Orders Oxygen / L per min Smoking Cessation: Smoking cessation has been advised. For more information, call the [facility] Line at 8-726-LIIQ-NOW. - Ancillary Orders May use pressure relief devices daily prn, May consult with Dentist, Digital Composer, Turf Farmer PRN - Advance Directives Living Will: No Power of Immunologist: No Code Status: Full Code - Mobility Orders Ambulate - Rehabiliation Orders Rehab Potential: Fair Rehab Orders: Evaluation for Physical Therapy, Evaluation for Occupational Therapy - Treatments Skin tear care topically daily PRN per policy, May check for fecal impaction rectally daily PRN, Fleet enema rectally every other day PRN cleansing purposes - Diet Orders Cardiac CERTIFICATION: I certify that the transfer of the above named patient to an Extended Care Facility is necessary for the continuing treatment of the diagnosis listed. The above information is true and accurate reflection of patient's current condition. Confidential - Redisclosure prohibited without a patient's written consent. <Beto Cotter - Last Filed: 11/25/16 17:34> - Diagnosis (1) Acute on chronic respiratory failure with hypoxemia Status: Acute (2) Acute exacerbation of chronic obstructive pulmonary disease (COPD) Status: Acute (3) Severe sepsis Status: Acute (4) Community acquired pneumonia Status: Acute - Respiratory Orders Smoking Cessation: Smoking cessation has been advised. For more information, call the [facility] Line at 7-374-LHBT-NOW. CERTIFICATION: I certify that the transfer of the above named patient to an Extended Care Facility is necessary for the continuing treatment of the diagnosis listed. The above information is true and accurate reflection of patient's current condition. Confidential - Redisclosure prohibited without a patient's written consent.
[2016-11-25] MEDS ORDERED: *HR* Rivaroxaban 10 MG TABLET PO SCH (17:00)
--- NOTE | 2016-11-27 08:24 | Electrocardiograph Report ---
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
== END 2016-11-25 14:28 | disposition other institution (70) | DRG 871 ==
LOC: EMEROO 09:56 → ICNU 15:29 → 3BNU 22:35 → 2NENU 11-20 14:35
PROVIDERS: ADMIT Internal Medicine; ATTEND Internal Medicine

== ENCOUNTER 2017-06-10 15:35 | Inpatient (IN) ==
[2017-06-10] MEDS ORDERED: 0.9 % Sodium Chloride 1,000 ML IVC ONE (15:58)
--- NOTE | 2017-06-10 16:08 | Emergency Department Note ---
Disposition Clinical Impression: Altered mental status Qualifiers: Altered mental status type: unspecified Qualified Code(s): R41.82 - Altered mental status, unspecified Pneumothorax Qualifiers: Pneumothorax type: unspecified pneumothorax Qualified Code(s): J93.9 - Pneumothorax, unspecified Anemia Qualifiers: Anemia type: unspecified type Qualified Code(s): D64.9 - Anemia, unspecified Disposition: Admitted As Inpatient Condition: Fair Altered Mental Status HPI - General Chief Complaint: ED Altered Mental Status Stated Complaint: altered mental status Time Seen by Provider: 06/10/17 15:45 Source: EMS Mode of arrival: EMS Limitations: no limitations Nursing Notes Reviewed: Yes Vital Signs Reviewed: Yes - History of Present Illness HPI Narrative: 71-year-old male transferred from the [place] for concerns of altered mental status. Patient's history provided via chart review. Patient poor historian. Patient was transferred due to acute change in altered mental status with a left moderate sized pneumothorax. Patient does have history of schizophrenia as well as paroxysmal A. fib not on anticoagulation and COPD. Patient is alert but intermittently answers questions. Denies any specific complaints at this time. - Related Data Home Medications Medication Instructions Recorded Confirmed Acetaminophen [Tylenol] 650 mg PO Q6HR PRN 07/10/16 06/10/17 Atorvastatin [Lipitor] 10 mg PO HS 07/10/16 06/10/17 Cholecalciferol (D-3) [Vitamin D] 4,000 unit PO DAILY 07/10/16 06/10/17 LORazepam [Ativan] 1 mg PO BID PRN 07/10/16 06/10/17 Levalbuterol Neb [Xopenex Neb] 1.25 mg IH BID 07/10/16 06/10/17 Levothyroxine [Synthroid] 37.5 mcg PO DAILY 07/10/16 06/10/17 Omeprazole [PriLOSEC] 20 mg PO DAILY 07/10/16 06/10/17 Mineral Oil/Petrolatum,White 1 appl TP DAILY 11/19/16 06/10/17 [Eucerin Creme] Budesonide/Formoterol 160/4.5 2 puff IH BIDR 06/10/17 06/10/17 [Symbicort 160/4.5] Digoxin [Lanoxin] 0.25 mg PO DAILY 06/10/17 06/10/17 Menthol/Zinc Oxide [Calmoseptine 3.5 gm TP BID 06/10/17 06/10/17 Ointment Packet] Nystatin OINT [Mycostatin] 1 appl TP BID 06/10/17 06/10/17 Oseltamivir [Tamiflu] 75 mg PO DAILY 06/10/17 06/10/17 Potassium Chloride [K-Tab ER] 20 meq PO TID 06/10/17 06/10/17 Sennosides/Docusate Sodium [Senna 2 each PO HS 06/10/17 06/10/17 Plus] predniSONE [Prednisone] 2.5 mg PO DAILY 06/10/17 06/10/17 Previous Rx's Medication Instructions Recorded cloZAPine [Clozaril] 300 mg PO HS tablet 05/20/16 Allergies Allergy/AdvReac Type Severity Reaction Status Date / Time haloperidol [From Haldol] Allergy unknown Verified 11/30/16 07:19 All systems ED: reviewed and negative except as stated. Constitutional: Reports: as per HPI. Denies: fever Eyes: Reports: as per HPI ENT ED: Reports: as per HPI Cardiovascular: Reports: as per HPI. Denies: chest pain Respiratory: Reports: as per HPI. Denies: cough Gastrointestinal: Reports: as per HPI. Denies: abdominal pain, nausea, vomiting Genitourinary: Reports: as per HPI Musculoskeletal: Reports: as per HPI Integumentary: Reports: as per HPI Neurological: Reports: as per HPI Psychiatric: Reports: as per HPI Endocrine: Reports: as per HPI Hematological/Lymphatic: Reports: as per HPI Past Medical History - Past Medical History Medical history: Reports: atrial fibrillation, COPD, GERD, hyperlipidemia, hypertension, thyroid disease Surgical history: Reports: cataract, other (Tonsillectomy) Psychiatric history: Reports: anxiety, depression, schizophrenia - Social History Smoking Status: Current every day smoker Smokeless Tobacco Status: No Alcohol use: Reports: none Drug use: Reports: none Physical Exam - General Limitations: no limitations General appearance: lethargic - Head Head exam: atraumatic, normocephalic, normal inspection - Eye Eye exam: Present: normal appearance, EOMI. Absent: scleral icterus - ENT ENT exam: normal exam, mucous membranes moist - Neck Neck exam: Present: normal inspection. Absent: tenderness - Chest Chest inspection: Present: normal inspection - Respiratory Respiratory exam: Present: other (Diminished left-sided breath sounds). Absent : respiratory distress - Cardiovascular Cardiovascular exam: Present: regular rate, normal rhythm - Abdominal Exam Abdominal exam: Present: soft, Non-Tender. Absent: tenderness, distention, guarding, rebound, rigidity - Extremities Exam Extremities exam: Present: normal inspection. Absent: pedal edema - Back Exam Back exam: Present: normal inspection - Neurological Exam Neurological exam: Present: alert, CN II-XII intact - Skin Skin exam: Present: warm, dry, intact, normal color Course Course Narrative: Patient seen and examined. Patient's record review from the [place]. Patient did get a chest x-ray which showed a moderate left-sided pneumothorax. He is not hypoxic or in any type of respiratory distress. Patient did get basic lab work obtained there as well. Patient will get repeat lab work, urinalysis, CT head as well as EKG and cardiac workup. - Reevaluation(s) Reevaluation #1: Spoke with radiology. Confirm patient has a moderate size left pneumothorax with about 6 cm to the apex. Patient will need intervention with a chest tube. Time: 16:23 Reevaluation #2: Patient's resting comfortably. Time: 18:56 Vital Signs Temperature 98.3 F 06/10/17 15:37 Pulse Rate 99 06/10/17 15:37 Respiratory Rate 20 06/10/17 15:37 Blood Pressure 123/83 06/10/17 15:37 O2 Sat by Pulse Oximetry 95 06/10/17 15:37 Temperature 98.3 F 06/11/17 11:13 Pulse Rate 107 06/11/17 11:13 Respiratory Rate 18 06/11/17 11:13 Blood Pressure 121/80 06/11/17 11:13 O2 Sat by Pulse Oximetry 92 06/11/17 11:13 Oxygen Delivery Oxygen Delivery Nasal Cannula Procedures - Chest Tube Chest Tube 1 Chest Tube Location: fourth interspace Size of Tube (cm): 28 Chest Tube Prep: sterile drapes applied Local Anesthetic: lidocaine 1%, with epi Amount of Anesthesia Used (mL): 10 Incision Made With: #10 blade Post Procedure: sutured to skin, sterile dressing applied Tube Drainage: none Amount of Initial Drainage (cc's): 0 Post Procedure CXR?: Yes Patient Tolerated Procedure: Yes Altered Mental Status - MDM Narrative Medical decision making narrative: Presents from the [facility] for concerns of altered mental status and pneumothorax. Unclear what the patient's baseline mental status is. Patient does have a history of schizophrenia. Patient is alert and oriented 3 however does not know the situation. Patient had a nonfocal exam. Patient was not a stroke alert given symptom onset. Patient's pneumothorax was decompressed by Dr. Rodrigues. Post procedure chest x-ray reveals reduction in size the pneumothorax. Patient tolerated the procedure well. Patient will be admitted to the hospital service for pneumothorax management as well as altered mental status. - Lab Data Lab results reviewed: Yes I reviewed the patient's lab results. Result diagrams: 06/11/17 07:16 06/11/17 07:16 Lab Results 06/10/17 06/10/17 06/10/17 Range/Units 06:36 16:03 16:05 WBC (4.3-11.1) K/mcL RBC (4.19-5.50) M/mcL Hgb (12.9-16.9) g/dL Hct (37.5-50.1) % MCV (83.0-100.0) fL MCH (28.0-33.3) pg MCHC (31.6-35.5) g/dL RDW (11.5-14.5) % Plt Count (140-400) K/mcL MPV (9.4-12.4) fL Immature Gran % (0-4) % Seg Neutrophils % % Lymphocytes % % Monocytes % % Eosinophils % % Basophils % % Neutrophils # (1.6-8.9) K/mcL Lymphocytes # (0.6-4.6) K/mcL Monocytes # (0.0-1.3) K/mcL Eosinophils # (0.0-0.6) K/mcL Basophils # (0.0-0.2) K/mcL Nucleated RBCs/100 WBC (0) /100 WBC Hypersegmented Neuts (Not Present) Large Platelets (Not Present) Hypochromasia (Not Present) Poikilocytosis (Not Present) Anisocytosis (Not Present) Target Cells (Not Present) Ovalocytes (Not Present) PT (9.4-12.1) Seconds INR APTT (26.0-36.0) Seconds Sodium (136-145) mEq/L Potassium (3.5-5.1) mEq/L Chloride (98-107) mEq/L Carbon Dioxide (23-29) mEq/L BUN (8-23) mg/dL Creatinine (0.70-1.30) mg/dL Est GFR ( Amer) (> 60) Est GFR (Non-Af Amer) (> 60) BUN/Creatinine Ratio (6-26) Glucose (70-105) mg/dL POC Glucose (58-89) Calculated Osmolality (280-300) Lactic Acid (0.5-2.2) mmol/L Calcium (8.6-10.3) mg/dL Total Bilirubin (0.3-1.0) mg/dL Direct Bilirubin (0.0-0.2) mg/dL Indirect Bilirubin (0.0-1.2) mg/dL AST (13-39) Units/L ALT (7-52) Units/L Alkaline Phosphatase (34-104) Units/L Troponin I (< 0.04) ng/mL Serum Total Protein (6.4-8.9) g/dL Albumin (3.5-5.7) g/dL Globulin (2.4-3.5) g/dL Albumin/Globulin Ratio (1.1-2.2) Urine Color Yellow (Yellow) Urine Clarity Clear (Clear) Urine pH 5.5 (5.0-8.0) pH Units Ur Specific Ace 1.025 (1.010-1.025) Urine Protein Negative (Neg-Trace) mg/dL Urine Glucose (UA) Normal (Normal) mg/dL Urine Ketones Negative (Negative) mg/dL Urine Blood Negative (Negative) Urine Nitrite Negative (Negative) Urine Bilirubin Small H (Negative) Urine Urobilinogen Normal (Normal) mg/dL Ur Leukocyte Esterase Negative (Negative) Ur Culture Indicated? NO (NO) Stool Occult Blood Negative (Negative) Urine Opiates Screen Negative (Aybmlv=580) ng/mL Ur Barbiturates Screen Negative (Bfbwjb=915) ng/mL Ur Phencyclidine Scrn Negative (Cutoff=25) ng/mL Ur Amphetamines Screen Negative (Urnmyr=4930) ng/mL U Benzodiazepines Scrn Negative (Kyfadx=404) ng/mL Urine Cocaine Screen Negative (Cutoff= 300) ng/mL U Marijuana (THC) Screen Negative (Cutoff = 50) ng/mL Ethyl Alcohol (0-10) mg/dL 06/10/17 06/10/1706/10/18 Range/Units 16:22 16:22 16:22 WBC 11.3 H (4.3-11.1) K/mcL RBC 4.06 L (4.19-5.50) M/mcL Hgb 8.5 L (12.9-16.9) g/dL Hct 31.3 L (37.5-50.1) % MCV 77.1 L (83.0-100.0) fL MCH 20.9 L (28.0-33.3) pg MCHC 27.2 L (31.6-35.5) g/dL RDW 18.0 H (11.5-14.5) % Plt Count 371 (140-400) K/mcL MPV 10.7 (9.4-12.4) fL Immature Gran % 0.7 (0-4) % Seg Neutrophils % 81.1 % Lymphocytes % 10.1 % Monocytes % 7.3 % Eosinophils % 0.7 % Basophils % 0.1 % Neutrophils # 9.2 H (1.6-8.9) K/mcL Lymphocytes # 1.1 (0.6-4.6) K/mcL Monocytes # 0.8 (0.0-1.3) K/mcL Eosinophils # 0.1 (0.0-0.6) K/mcL Basophils # 0.0 (0.0-0.2) K/mcL Nucleated RBCs/100 WBC 0.3 H (0) /100 WBC Hypersegmented Neuts Present A (Not Present) Large Platelets Present A (Not Present) Hypochromasia Present A (Not Present) Poikilocytosis 1+ A (Not Present) Anisocytosis 2+ A (Not Present) Target Cells 1+ A (Not Present) Ovalocytes 1+ A (Not Present) PT 11.3 (9.4-12.1) Seconds INR 1.1 APTT 24.7 L (26.0-36.0) Seconds Sodium 142 (136-145) mEq/L Potassium 4.9 (3.5-5.1) mEq/L Chloride 109 H (98-107) mEq/L Carbon Dioxide 27 (23-29) mEq/L BUN 17 (8-23) mg/dL Creatinine 0.89 (0.70-1.30) mg/dL Est GFR ( Amer) > 60 (> 60) Est GFR (Non-Af Amer) > 60 (> 60) BUN/Creatinine Ratio 19 (6-26) Glucose 114 H (70-105) mg/dL POC Glucose (58-89) Calculated Osmolality 296 (280-300) Lactic Acid (0.5-2.2) mmol/L Calcium 9.3 (8.6-10.3) mg/dL Total Bilirubin 0.5 (0.3-1.0) mg/dL Direct Bilirubin 0.1 (0.0-0.2) mg/dL Indirect Bilirubin 0.4 (0.0-1.2) mg/dL AST 13 (13-39) Units/L ALT 13 (7-52) Units/L Alkaline Phosphatase 86 (34-104) Units/L Troponin I (< 0.04) ng/mL Serum Total Protein 6.1 L (6.4-8.9) g/dL Albumin 3.8 (3.5-5.7) g/dL Globulin 2.3 L (2.4-3.5) g/dL Albumin/Globulin Ratio 1.7 (1.1-2.2) Urine Color (Yellow) Urine Clarity (Clear) Urine pH (5.0-8.0) pH Units Ur Specific Ace (1.010-1.025) Urine Protein (Neg-Trace) mg/dL Urine Glucose (UA) (Normal) mg/dL Urine Ketones (Negative) mg/dL Urine Blood (Negative) Urine Nitrite (Negative) Urine Bilirubin (Negative) Urine Urobilinogen (Normal) mg/dL Ur Leukocyte Esterase (Negative) Ur Culture Indicated? (NO) Stool Occult Blood (Negative) Urine Opiates Screen (Fxvgcc=481) ng/mL Ur Barbiturates Screen (Kuioaw=118) ng/mL Ur Phencyclidine Scrn (Cutoff=25) ng/mL Ur Amphetamines Screen (Bizxda=5799) ng/mL U Benzodiazepines Scrn (Vukeab=068) ng/mL Urine Cocaine Screen (Cutoff= 300) ng/mL U Marijuana (THC) Screen (Cutoff = 50) ng/mL Ethyl Alcohol < 10 (0-10) mg/dL 06/10/17 06/10/17 06/10/17 Range/Units 16:22 16:22 16:23 WBC (4.3-11.1) K/mcL RBC (4.19-5.50) M/mcL Hgb (12.9-16.9) g/dL Hct (37.5-50.1) % MCV (83.0-100.0) fL MCH (28.0-33.3) pg MCHC (31.6-35.5) g/dL RDW (11.5-14.5) % Plt Count (140-400) K/mcL MPV (9.4-12.4) fL Immature Gran % (0-4) % Seg Neutrophils % % Lymphocytes % % Monocytes % % Eosinophils % % Basophils % % Neutrophils # (1.6-8.9) K/mcL Lymphocytes # (0.6-4.6) K/mcL Monocytes # (0.0-1.3) K/mcL Eosinophils # (0.0-0.6) K/mcL Basophils # (0.0-0.2) K/mcL Nucleated RBCs/100 WBC (0) /100 WBC Hypersegmented Neuts (Not Present) Large Platelets (Not Present) Hypochromasia (Not Present) Poikilocytosis (Not Present) Anisocytosis (Not Present) Target Cells (Not Present) Ovalocytes (Not Present) PT (9.4-12.1) Seconds INR APTT (26.0-36.0) Seconds Sodium (136-145) mEq/L Potassium (3.5-5.1) mEq/L Chloride (98-107) mEq/L Carbon Dioxide (23-29) mEq/L BUN (8-23) mg/dL Creatinine (0.70-1.30) mg/dL Est GFR ( Amer) (> 60) Est GFR (Non-Af Amer) (> 60) BUN/Creatinine Ratio (6-26) Glucose (70-105) mg/dL POC Glucose 110 H (58-89) Calculated Osmolality (280-300) Lactic Acid 1.3 (0.5-2.2) mmol/L Calcium (8.6-10.3) mg/dL Total Bilirubin (0.3-1.0) mg/dL Direct Bilirubin (0.0-0.2) mg/dL Indirect Bilirubin (0.0-1.2) mg/dL AST (13-39) Units/L ALT (7-52) Units/L Alkaline Phosphatase (34-104) Units/L Troponin I < 0.03 (< 0.04) ng/mL Serum Total Protein (6.4-8.9) g/dL Albumin (3.5-5.7) g/dL Globulin (2.4-3.5) g/dL Albumin/Globulin Ratio (1.1-2.2) Urine Color (Yellow) Urine Clarity (Clear) Urine pH (5.0-8.0) pH Units Ur Specific Ace (1.010-1.025) Urine Protein (Neg-Trace) mg/dL Urine Glucose (UA) (Normal) mg/dL Urine Ketones (Negative) mg/dL Urine Blood (Negative) Urine Nitrite (Negative) Urine Bilirubin (Negative) Urine Urobilinogen (Normal) mg/dL Ur Leukocyte Esterase (Negative) Ur Culture Indicated? (NO) Stool Occult Blood (Negative) Urine Opiates Screen (Nfqcsi=457) ng/mL Ur Barbiturates Screen (Ztaprz=898) ng/mL Ur Phencyclidine Scrn (Cutoff=25) ng/mL Ur Amphetamines Screen (Aoyimh=2904) ng/mL U Benzodiazepines Scrn (Fxpbam=652) ng/mL Urine Cocaine Screen (Cutoff= 300) ng/mL U Marijuana (THC) Screen (Cutoff = 50) ng/mL Ethyl Alcohol (0-10) mg/dL - Radiology Data Radiology results reviewed: Yes I reviewed the patient's radiology results. Head CT 06/10/17 15:58 IMPRESSION: No acute intracranial abnormality. D/ / Yon Dominguez MD / Yon Dominguez MD Interpreting Provider: Yon Dominguez MD Chest X-Ray 06/10/17 17:39 IMPRESSION: Reduction of left pneumothorax, following placement of chest tube. Left basilar atelectasis. D/ / Keny Wilson MD / Keny Wilson MD Interpreting Provider: Keny Wilson MD - EKG Data EKG attestation: Yes I reviewed and interpreted this EKG. EKG shows normal: sinus rhythm Rate: normal Rhythm: NSR [place]/QRS: normal, RBBB, IVCD Q waves: aVL When compared to previous EKG there are: no significant changes Interpretation: no acute changes Attestation Statement - Attestation Attestation: I examined this patient and my medical decision-making was reviewed with the Resident Physician. I agree with the documented findings, disposition and treatment plan as described except to the extent set forth below. 71 yo male brought to ED from [place] where he was being evaluated for AMS. They found acute pneumothorax and sent him to [facility] for further eval of AMS as well as for care of pneumothorax. CT surgeon consulted prior to placing chest tube. Chest tube placed by resident and myself after confirmation of pneumothorax with CXR and written and verbal consent obtained after discussion of risks and benefits. Pt is able to answer questions appropriately in the ED. Chest tube placed without difficulty and lung was re-expanded on rpt CXR. likely ptx from rupture of bleb from COPD. No recent trauma per pt.
[2017-06-10 16:15] LABS: Bilirubin,Urine Small (Negative); Blood,Urine Negative (Negative); Clarity,Urine Clear (Clear); Color,Urine Yellow (Yellow); Glucose,Urine (UA) Normal (Normal); Ketones,Urine Negative (Negative); Leukocyte Esterase,Urine Negative (Negative); Nitrite,Urine Negative (Negative); PH,Urine 5.5 pH Units (5.0-8.0); Protein,Urine Negative (Neg-Trace); Specific Gravity,Urine 1.025 (1.010-1.025); Urobilinogen,Urine Normal (Normal)
[2017-06-10 16:20] LABS: Amphetamine Screen,Urine Negative ng/mL (Cutoff=1000); Barbiturate Screen,Urine Negative ng/mL (Cutoff=200); Benzodiazepines Screen,Urine Negative ng/mL (Cutoff=200); Cannabinoid Screen,Urine Negative ng/mL (Cutoff = 50); Cocaine Screen,Urine Negative ng/mL (Cutoff= 300); Opiate Screen,Urine Negative ng/mL (Cutoff=300); Phencyclidine Screen,Urine Negative ng/mL (Cutoff=25)
[2017-06-10 16:39] LABS: Basophils % 0.1 %; Eosinophils # 0.1 K/mcL (0.0-0.6); Eosinophils % 0.7 %; Hematocrit 31.3 % (37.5-50.1); Hemoglobin 8.5 g/dL (12.9-16.9); Immature Granulocytes % 0.7 % (0-4); Lymphocytes # 1.1 K/mcL (0.6-4.6); Lymphocytes % 10.1 %; Mean Corpuscular HGB Conc 27.2 g/dL (31.6-35.5); Mean Corpuscular Hemoglobin 20.9 pg (28.0-33.3); Mean Corpuscular Volume 77.1 fL (83.0-100.0); Mean Platelet Volume 10.7 fL (9.4-12.4); Monocytes # 0.8 K/mcL (0.0-1.3); Monocytes % 7.3 %; Neutrophils # 9.2 K/mcL (1.6-8.9); Nucleated Red Blood Cells 0.3 /100 WBC (0); Platelet Count 371 K/mcL (140-400); Red Blood Count 4.06 M/mcL (4.19-5.50); Segmented Neutrophils % 81.1 %
[2017-06-10 16:44] LABS: INR 1.1; Prothrombin Time 11.3 Seconds (9.4-12.1)
[2017-06-10 16:47] LABS: Activated Partial Thrombo Time 24.7 Seconds (26.0-36.0)
[2017-06-10 16:49] LABS: Ethanol < 10 mg/dL (0-10)
[2017-06-10 16:56] LABS: Alanine Aminotransferase 13 Units/L (7-52); Albumin 3.8 g/dL (3.5-5.7); Albumin/Globulin Ratio 1.7 (1.1-2.2); Alkaline Phosphatase 86 Units/L (34-104); Aspartate Amino Transferase 13 Units/L (13-39); BUN/Creatinine Ratio 19 (6-26); Bilirubin,Direct 0.1 mg/dL (0.0-0.2); Bilirubin,Indirect 0.4 mg/dL (0.0-1.2); Bilirubin,Total 0.5 mg/dL (0.3-1.0); Blood Urea Nitrogen 17 mg/dL (8-23); Calcium 9.3 mg/dL (8.6-10.3); Carbon Dioxide 27 mEq/L (23-29); Chloride 109 mEq/L (98-107); Globulin 2.3 g/dL (2.4-3.5); Glucose 114 mg/dL (70-105); Osmolality,Calculated 296 (280-300); Potassium 4.9 mEq/L (3.5-5.1); Sodium 142 mEq/L (136-145); Total Protein 6.1 g/dL (6.4-8.9); eGFR For African Americans > 60 (> 60); eGFR For Non-African Americans > 60 (> 60)
[2017-06-10 17:04] LABS: Anisocytosis 2+ (Not Present); Hypochromasia Present (Not Present)
[2017-06-10 17:05] LABS: Target Cells 1+ (Not Present)
[2017-06-10 17:06] LABS: Ovalocytes 1+ (Not Present); Poikilocytosis 1+ (Not Present)
[2017-06-10 17:07] LABS: Hypersegmented Neutrophils Present (Not Present); Large Platelets Present (Not Present)
[2017-06-10] MEDS ORDERED: *HR* FentaNYL (PF) 100 MCG/2 ML VIAL IVP ONE (17:39)
[2017-06-10] MEDS ORDERED: Ondansetron 4 MG/2 ML VIAL IVP PRN (20:34)
[2017-06-10] MEDS ORDERED: Acetaminophen 325 MG TABLET PO PRN (20:34)
[2017-06-10] MEDS ORDERED: *HR* Morphine 2 MG/ML SYRINGE IVP PRN (20:34)
[2017-06-10] MEDS ORDERED: Naloxone 0.4 MG/ML INJ IVP PRN (20:34)
[2017-06-10] MEDS ORDERED: *HR* LORazepam 1 MG TABLET PO PRN (20:40)
[2017-06-10] MEDS ORDERED: Ipratropium/Albuterol Neb 3 ML IH PRN (20:40)
[2017-06-10] MEDS: Budesonide/Formoterol 160/4.5 MDI IH SCH (21:56)
[2017-06-10] MEDS: Levalbuterol Neb 1.25 MG/3 ML IH SCH (21:56)
[2017-06-10] MEDS: MENTHOL TP SCH (22:04)
[2017-06-10] MEDS: ZINC OXIDE TP SCH (22:04)
--- NOTE | 2017-06-10 22:28 | Internal Med History&Physical ---
Date of Encounter: 06/10/17 Time of Encounter: 20:00 Assessment and Plan (1) COPD (chronic obstructive pulmonary disease) Current visit: No Status: Chronic Stable, no signs of exacerbation. Cont home med and duoneb PRN. Cont pulseoxymetry Qualifiers: COPD type: emphysema Emphysema type: centrilobular Qualified Code(s): J43.2 - Centrilobular emphysema (2) DVT prophylaxis Current visit: No Status: Acute EPCD, no AC now b/o new procedure (chest tube). (3) Schizophrenia Current visit: No Status: Acute Qualifiers: Schizophrenia type: unspecified Qualified Code(s): F20.9 - Schizophrenia, unspecified (4) History of atrial fibrillation Current visit: No Status: Acute Now NSR. Not on AC in home med. (5) Acute metabolic encephalopathy Current visit: No Status: Resolved Improved now, possible due to pneumothorax. (6) Pneumothorax Current visit: Yes Status: Acute Chest tube placed. Repeat CXR shows Reduction of left pneumothorax. Will cont chest tube with negative suction. - Consult cardiothoracic surgery to help management. Qualifiers: Pneumothorax type: unspecified pneumothorax Qualified Code(s): J93.9 - Pneumothorax, unspecified Internal Medicine - H&P: HPI Chief complaint: AMS Admitted From: Home Plans for Post Hospital Care: Home History of present illness: Mr. Gong is a 71 year old male with Hx of COPD present to ER for AMS. When I saw him in ER, he is awake, alert, orieted x 3. Pt has left side chest pain for about a week, with cough and whitish sputum. No nausea, no diaphoresis. In ER, CXR shows left pneumothorax. Pt was placed chest tube in ER and admitted for further management. Past Med Surg Social Fam HX - Past Medical History Medical history: atrial fibrillation, COPD, GERD, hyperlipidemia, hypertension, thyroid disease Psychiatric history: anxiety, depression, schizophrenia - Past Surgical History Surgical History: cataract, other (Tonsillectomy) - Social History Smoking Status: Current every day smoker Smokeless Tobacco Status: No Alcohol use: none Drug use: none - Family History Father Family Member Ethnicity: Non- Mother Family Member Ethnicity: Non- Living Status: Hx Family Respiratory Disorders: Yes (COPD) Hx Family Cancer: Yes Sister Family Member Ethnicity: Non- Living Status: Still Living Internal Medicine - H&P: Meds cloZAPine [Clozaril] 300 mg PO HS tablet 05/20/16 [Rx] Acetaminophen [Tylenol] 650 mg PO Q6HR PRN 07/10/16 [History] Atorvastatin [Lipitor] 10 mg PO HS 07/10/16 [History] Cholecalciferol (D-3) [Vitamin D] 4,000 unit PO DAILY 07/10/16 [History] LORazepam [Ativan] 1 mg PO BID PRN 07/10/16 [History] Levalbuterol Neb [Xopenex Neb] 1.25 mg IH BID 07/10/16 [History] Levothyroxine [Synthroid] 37.5 mcg PO DAILY 07/10/16 [History] Omeprazole [PriLOSEC] 20 mg PO DAILY 07/10/16 [History] Mineral Oil/Petrolatum,White [Eucerin Creme] 1 appl TP DAILY 11/19/16 [History] Budesonide/Formoterol 160/4.5 [Symbicort 160/4.5] 2 puff IH BIDR 06/10/17 [ History] Digoxin [Lanoxin] 0.25 mg PO DAILY 06/10/17 [History] Menthol/Zinc Oxide [Calmoseptine Ointment Packet] 3.5 gm TP BID 06/10/17 [ History] Nystatin OINT [Mycostatin] 1 appl TP BID 06/10/17 [History] Oseltamivir [Tamiflu] 75 mg PO DAILY 06/10/17 [History] Potassium Chloride [K-Tab ER] 20 meq PO TID 06/10/17 [History] Sennosides/Docusate Sodium [Senna Plus] 2 each PO HS 06/10/17 [History] predniSONE [Prednisone] 2.5 mg PO DAILY 06/10/17 [History] 3 Allergy/AdvReac Type Severity Reaction Status Date / Time haloperidol [From Haldol] Allergy unknown Verified 11/30/16 07:19 All Systems PM: A 10-system review of systems was performed and is negative for pertinent findings except as documented above in the HPI. - Constitutional Vitals: Temp Pulse Resp BP Pulse Ox 97.9 F 104 16 137/89 97 06/10/17 21:14 06/10/17 21:14 06/10/17 22:05 06/10/17 21:14 06/10/17 22:05 General appearance: Present: A&O X 3, no acute distress, answers questions appropriately - Head Head exam: Present: atraumatic, normocephalic - Eye Eye exam: Present: PERRL, conjuntiva pink, sclera anicteric Pupils: Present: PERRL - Neck Neck exam general surgery: Present: supple, trachea midline. Absent: lymphadenopathy - Respiratory Respiratory exam: Present: CTAB, rhonchi (scattered rhonchi on left side.). Absent: accessory muscle use, rales, wheezes - Cardiovascular Cardiovascular exam: Present: RRR, +S1, +S2. Absent: diastolic murmur, gallop, rubs, systolic murmur - GI/Abdominal GI/Abdominal exam: Present: normal bowel sounds, soft, no peritoneal signs. Absent: distended, tenderness - Extremities Exam Extremities exam: Present: warm, radial pulses palpable and symmetrical. Absent : calf tenderness, cyanotic, pedal edema - Neurological Exam Neurological exam: Present: CN II-XII intact, oriented X3, no focal deficits. Absent: pronater drift, facial droop, speech deficit - Skin Skin exam: Present: dry, intact Internal Med - H&P Results - Labs CBC & Chem 7: 06/10/17 16:22 06/10/17 16:22 - EKG Data -: EKG Interpreted by Myself EKG shows normal: sinus rhythm Rate: normal
[2017-06-10] MEDS: Sennosides/Docusate Sodium TABLET PO SCH (22:39)
[2017-06-10] MEDS: cloZAPine 100 MG TABLET PO SCH (22:39)
[2017-06-10] MEDS: Nystatin OINT 15 GM TUBE TP SCH (22:40)
[2017-06-11 07:49] LABS: BUN/Creatinine Ratio 18 (6-26); Blood Urea Nitrogen 14 mg/dL (8-23); Calcium 8.9 mg/dL (8.6-10.3); Carbon Dioxide 28 mEq/L (23-29); Chloride 109 mEq/L (98-107); Magnesium 2.2 mg/dL (1.6-2.6); Potassium 4.2 mEq/L (3.5-5.1); Sodium 141 mEq/L (136-145); eGFR For African Americans > 60 (> 60); eGFR For Non-African Americans > 60 (> 60)
[2017-06-11] MEDS: MENTHOL TP SCH ×2 (08:01→20:24)
[2017-06-11] MEDS: ZINC OXIDE TP SCH ×2 (08:01→20:24)
[2017-06-11] MEDS: *HR* Digoxin 0.25 MG TABLET PO SCH (08:13)
[2017-06-11] MEDS: predniSONE 5 MG TABLET PO SCH (08:13)
[2017-06-11] MEDS: Cholecalciferol (D-3) 1,000 UNIT TABLET PO SCH (08:13)
[2017-06-11 08:26] LABS: Basophils % 0.2 %; Eosinophils % 1.5 %; Monocytes % 10.2 %
[2017-06-11 08:28] LABS: Eosinophils # 0.2 K/mcL (0.0-0.6); Hematocrit 31.3 % (37.5-50.1); Hemoglobin 8.5 g/dL (12.9-16.9); Immature Granulocytes % 0.5 % (0-4); Lymphocytes # 1.3 K/mcL (0.6-4.6); Lymphocytes % 10.6 %; Mean Corpuscular HGB Conc 27.2 g/dL (31.6-35.5); Mean Corpuscular Hemoglobin 21.1 pg (28.0-33.3); Mean Corpuscular Volume 77.7 fL (83.0-100.0); Mean Platelet Volume 11.4 fL (9.4-12.4); Monocytes # 1.2 K/mcL (0.0-1.3); Nucleated Red Blood Cells 0.2 /100 WBC (0); Platelet Count 363 K/mcL (140-400); Red Blood Count 4.03 M/mcL (4.19-5.50); Red Cell Distribution Width 18.1 % (11.5-14.5)
[2017-06-11 08:33] LABS: Glucose 118 mg/dL (70-105); Osmolality,Calculated 294 (280-300)
[2017-06-11 08:37] LABS: Neutrophils # 9.3 K/mcL (1.6-8.9)
[2017-06-11] MEDS: Budesonide/Formoterol 160/4.5 MDI IH SCH ×2 (08:40→22:19)
[2017-06-11] MEDS: Levalbuterol Neb 1.25 MG/3 ML IH SCH ×2 (08:40→22:19)
[2017-06-11 09:17] LABS: Anisocytosis 1+ (Not Present); Ovalocytes 1+ (Not Present); Platelet Estimate Normal (Normal); Poikilocytosis 1+ (Not Present)
[2017-06-11 09:18] LABS: Hypochromasia Present (Not Present)
[2017-06-11] MEDS: Nystatin OINT 15 GM TUBE TP SCH ×2 (09:29→20:24)
[2017-06-11] MEDS: *HR* HYDROcodone/Acet 5/325 mg TABLET PO PRN (10:47)
[2017-06-11] MEDS: Eucerin Cream 57 GM TUBE TP SCH (11:13)
--- NOTE | 2017-06-11 11:21 | Cardiothoracic Consult Note ---
Date of Encounter: 06/11/17 Time of Encounter: 11:19 Assessment and Plan (1) Pneumothorax Current Visit: Yes Status: Acute The patient is a 71-year-old hypertensive man with hypercholesterolemia, chronic atrial fibrillation, and COPD. Hewas transferred to [facility] emergency department from the [facility] for evaluation of his weeklong history of increasing shortness of breath, dyspnea on exertion, and productive cough. A chest x-ray revealed a left spontaneous pneumothorax the patient underwent chest tube insertion in the emergency department. This helped resolve his pneumothorax and the patient has been admitted. The patient's chest tube should remain on suction for at least 2 more days and then placed to waterseal if there is no air leak. He will be followed with daily chest x-rays. When the patient is able to tolerate water seal without change in his chest x-ray or redevelopment of a pneumothorax, the chest tube may be removed. The assessment and plan as outlined above was discussed with the patient and/or family members who expressed understanding and agreement. All questions were answered. Qualifiers: Pneumothorax type: unspecified pneumothorax Qualified Code(s): J93.9 - Pneumothorax, unspecified - History of Present Illness Consult date: 06/10/17 Requesting physician: Farrah Disla Consult reason: Chest tube management Chief complaint: Left spontaneous pneumothorax History of present illness: Mr. Gong is a 71 year old hypertensive man with hypercholesterolemia and chronic obstructive pulmonary disease. He states that during the last week he has had increasing shortness of breath, dyspnea exertion, and a productive cough. The symptoms are typically present because of his COPD; however, had become more severe during the last week. He states that the respiratory complaints were worse when he was lying in bed. He did not notice any worsening in his respiratory status with ambulation. The patient was transferred to [facility] emergency department from the [facility] for evaluation. A chest x-ray revealed a left spontaneous pneumothorax. He underwent chest tube insertion in the emergency department with resolution of the air space. I have been asked to evaluate the patient for chest tube management. Past Med Surg Social Fam HX - Past Medical History Medical history: atrial fibrillation, COPD, GERD, hyperlipidemia, hypertension, thyroid disease Psychiatric history: anxiety, depression, schizophrenia - Past Surgical History Surgical History: cataract, other (Tonsillectomy and adenoidectomy) - Social History Smoking Status: Current every day smoker Smokeless Tobacco Status: No Alcohol use: none Drug use: none - Family History Father Family Member Ethnicity: Non- Mother Family Member Ethnicity: Non- Living Status: Hx Family Respiratory Disorders: Yes (COPD) Hx Family Cancer: Yes Sister Family Member Ethnicity: Non- Living Status: Still Living Medications and Allergies cloZAPine [Clozaril] 300 mg PO HS tablet 05/20/16 [Rx] Acetaminophen [Tylenol] 650 mg PO Q6HR PRN 07/10/16 [History] Atorvastatin [Lipitor] 10 mg PO HS 07/10/16 [History] Cholecalciferol (D-3) [Vitamin D] 4,000 unit PO DAILY 07/10/16 [History] LORazepam [Ativan] 1 mg PO BID PRN 07/10/16 [History] Levalbuterol Neb [Xopenex Neb] 1.25 mg IH BID 07/10/16 [History] Levothyroxine [Synthroid] 37.5 mcg PO DAILY 07/10/16 [History] Omeprazole [PriLOSEC] 20 mg PO DAILY 07/10/16 [History] Mineral Oil/Petrolatum,White [Eucerin Creme] 1 appl TP DAILY 11/19/16 [History] Budesonide/Formoterol 160/4.5 [Symbicort 160/4.5] 2 puff IH BIDR 06/10/17 [ History] Digoxin [Lanoxin] 0.25 mg PO DAILY 06/10/17 [History] Menthol/Zinc Oxide [Calmoseptine Ointment Packet] 3.5 gm TP BID 06/10/17 [ History] Nystatin OINT [Mycostatin] 1 appl TP BID 06/10/17 [History] Oseltamivir [Tamiflu] 75 mg PO DAILY 06/10/17 [History] Potassium Chloride [K-Tab ER] 20 meq PO TID 06/10/17 [History] Sennosides/Docusate Sodium [Senna Plus] 2 each PO HS 06/10/17 [History] predniSONE [Prednisone] 2.5 mg PO DAILY 06/10/17 [History] 3 Allergy/AdvReac Type Severity Reaction Status Date / Time haloperidol [From Haldol] Allergy unknown Verified 11/30/16 07:19 All Systems Review: A 10-system review of systems was performed and is negative for pertinent findings except as documented above in the HPI. Physical Examination Vital Signs, Last 4 Hours Temp Pulse Resp BP Pulse Ox 06/11/17 11:13 98.3 F 107 18 121/80 92 06/11/17 08:42 16 93 General: Conversant, No Apparent Distress HEENT: Atraumatic, Normocephaly, Trachea midline Neck: No JVD, Normal carotid pulses Cardiac: Normal S1 and S2, No Murmur, Other (Irregular rate and rhythm (atrial fibrillation)) Lungs: Normal Breath Sounds, No Wheeze, Rales, Rhonchi Neuro: Alert and responsive, No focal deficits noted Vascular: Normal capillary refill Abdomen: Soft, Non-tender Skin: No rashes noted on visualized skin Musculoskeletal: No Chest Wall Tenderness Extremities: No Clubbing, No Cyanosis, No Edema Results 06/11/17 07:16 06/11/17 07:16 Lab Results, Last 24 hours 06/11/17 06/11/17 07:16 07:16 WBC 12.1 H Hgb 8.5 L Hct 31.3 L Plt Count 363 Sodium 141 Potassium 4.2 Chloride 109 H Carbon Dioxide 28 BUN 14 Creatinine 0.78 Glucose 118 H Calcium 8.9 Magnesium 2.2 - Imaging Chest Xray: image reviewed (Small left apical pneumothorax.) Consult Discharge Plan - Plan [facility] Care Provider[facility] -
--- NOTE | 2017-06-11 12:05 | Electrocardiograph Report ---
[place] [id number] Test Date: 2017-06-10 Pat Name: Vikram Gong Department: 102 Room: 2N03 Gender: M [employer]: : 1945 Requested By: Geoffrey Diamond Order Number: [id number] Reading MD: Julio Man DO Measurements Intervals [place] Rate: 98 P: 85 OR: 160 QRS: 80 QRSD: 90 T: 88 QT: 312 QTc: 367 Interpretive Statements SINUS RHYTHM WITH MARKED SINUS ARRHYTHMIA POSSIBLE RIGHT VENTRICULAR CONDUCTION DELAY Electronically Signed On 06-11-2017 12:03:48 EST by Julio Man DO
--- NOTE | 2017-06-11 13:29 | Electrocardiograph Report ---
[address] [address] Test Date: 2017-06-11 Pat Name: Vikram Gong Department: 110 Room: 2N03 Gender: M Admissions Representative: JANELLE : 1945 Requested By: Farrah Disla Order Number: [id number] Reading MD: Fito Hale Measurements Intervals [place] Rate: 103 P: 84 LA: 170 QRS: 43 QRSD: 85 T: 67 QT: 308 QTc: 368 Interpretive Statements SINUS TACHYCARDIA WITH FREQUENT SUPRAVENTRICULAR PREMATURE COMPLEXES POSSIBLE RIGHT VENTRICULAR CONDUCTION DELAY MODERATE ST DEPRESSION Electronically Signed On 06-11-2017 13:28:28 EST by Fito Hale
[2017-06-11] MEDS: Sennosides/Docusate Sodium TABLET PO SCH (20:22)
[2017-06-11] MEDS: cloZAPine 100 MG TABLET PO SCH (20:23)
[2017-06-12 03:37] LABS: Mean Platelet Volume 11.1 fL (9.4-12.4)
[2017-06-12 03:39] LABS: Basophils % 0.2 %; Eosinophils # 0.3 K/mcL (0.0-0.6); Hematocrit 29.6 % (37.5-50.1); Immature Granulocytes % 0.7 % (0-4); Lymphocytes # 1.2 K/mcL (0.6-4.6); Lymphocytes % 8.8 %; Mean Corpuscular Hemoglobin 20.9 pg (28.0-33.3); Mean Corpuscular Volume 77.3 fL (83.0-100.0); Monocytes # 1.2 K/mcL (0.0-1.3); Monocytes % 8.9 %; Neutrophils # 10.4 K/mcL (1.6-8.9); Nucleated Red Blood Cells 0.3 /100 WBC (0); Platelet Count 338 K/mcL (140-400); Red Blood Count 3.83 M/mcL (4.19-5.50); Red Cell Distribution Width 18.2 % (11.5-14.5); Segmented Neutrophils % 79.4 %
[2017-06-12 04:03] LABS: Anisocytosis 1+ (Not Present); Hypochromasia Present (Not Present); Ovalocytes 1+ (Not Present); Platelet Estimate Normal (Normal); Poikilocytosis 1+ (Not Present)
[2017-06-12] MEDS: *HR* Digoxin 0.25 MG TABLET PO SCH (07:53)
[2017-06-12] MEDS: Eucerin Cream 57 GM TUBE TP SCH (07:53)
[2017-06-12] MEDS: predniSONE 5 MG TABLET PO SCH (07:53)
[2017-06-12] MEDS: Cholecalciferol (D-3) 1,000 UNIT TABLET PO SCH (07:53)
--- NOTE | 2017-06-12 07:53 | Cardiothoracic Progress Note ---
Date of Encounter: 06/12/17 Time of Encounter: 07:51 - Assessment and plan (1) Pneumothorax Current Visit: Yes Status: Acute The patient remained hemodynamically stable overnight. Chest x-ray shows resolution of the pneumothorax on suction. Chest tube was placed on waterseal this morning and the chest x-ray will be repeated in the morning. If tomorrow's chest x-ray shows no pneumothorax, chest tube will be removed. The assessment and plan as outlined above was discussed with the patient and/or family members who expressed understanding and agreement. All questions were answered. Qualifiers: Pneumothorax type: unspecified pneumothorax Qualified Code(s): J93.9 - Pneumothorax, unspecified - Subjective Interval history: The patient is resting comfortably in his hospital bed. He has no complaints of shortness of breath. Vital Signs, Last 4 Hours Temp Pulse Resp BP Pulse Ox 06/12/17 07:18 98.6 F 127 20 110/101 94 Oxgyen Flow Rate Oxygen Flow Rate (LPM) 5 Clinical Data, last 8 Hours Output, Chest Tube Drainage 0 Amount [Left Mid-Axillary Chest #1] Output, Chest Tube Drainage 0 Amount [Left Mid-Axillary Chest #1] Weight 06/10/17 06/11/17 06/12/17 23:59 23:59 23:59 Weight 63.5 kg 63.4 kg - Physical Examination General: Conversant, No Apparent Distress Neck: No JVD, Normal carotid pulses Cardiac: Reg Rate and Rhythm, Normal S1 and S2, No Murmur Incision: No signs of infection, Dry/intact dressing Chest tubes: Minimal drainage, Other (No air leak) Lungs: Normal Breath Sounds, No Wheeze, Rales, Rhonchi Neuro: Alert and responsive, No focal deficits noted Vascular: Normal capillary refill Musculoskeletal: No Chest Wall Tenderness Extremities: No Clubbing, No Cyanosis, No Edema - Labs 06/12/17 03:01 06/11/17 07:16 Lab Results, Last 24 hours 06/11/17 06/11/17 06/11/17 07:16 07:16 13:02 WBC 12.1 H Hgb 8.5 L Hct 31.3 L Plt Count 363 Glucose 118 H Troponin I < 0.03 06/12/17 03:01 WBC 13.1 H Hgb 8.0 L Hct 29.6 L Plt Count 338 Glucose Troponin I - Imaging Chest Xray: image reviewed (No pneumothorax. Minimal atelectasis/infiltrates.) - VTE Documentation of Mechanical Device: Intermittent pneumatic compression device Consult Discharge Plan - Plan Referrals: [facility],PCP [Primary Care Provider] - 06/24/17 10:15 am (THIS APPOINTMENT IS IN THE DISCHARGE CLINIC IN [facility])
[2017-06-12] MEDS: MENTHOL TP SCH ×2 (07:54→23:58)
[2017-06-12] MEDS: ZINC OXIDE TP SCH ×2 (07:54→23:58)
[2017-06-12] MEDS: Nystatin OINT 15 GM TUBE TP SCH ×2 (07:54→23:57)
--- NOTE | 2017-06-12 08:34 | Internal Med Progress Note ---
Date of Encounter: 06/11/17 Time of Encounter: 14:30 - Assessment and plan (1) Pneumothorax Current Visit: Yes Status: Acute Assessment and plan: Patient presented with spontaneous left-sided pneumothorax, likely secondary to underlying COPD. Received chest tube in the emergency room, CT surgery has been consulted for assistance with chest tube management; Patient is currently doing well, saturating well on 5 L/m supplemental oxygen via nasal cannula. Pain control with PRN IV Morphine. Continue incentive spirometry, as needed bronchodilators. Telemetry monitoring. Qualifiers: Pneumothorax type: spontaneous, secondary Qualified Code(s): J93.12 - Secondary spontaneous pneumothorax (2) Hypothyroidism Current Visit: Yes Status: Chronic Assessment and plan: Continue levothyroxine. Qualifiers: Hypothyroidism type: unspecified Qualified Code(s): E03.9 - Hypothyroidism , unspecified (3) Essential hypertension Current Visit: Yes Status: Chronic (4) COPD (chronic obstructive pulmonary disease) Current Visit: Yes Status: Chronic Assessment and plan: Not in acute exacerbation. Continue chronic therapy oral prednisone, as needed bronchodilators and supplemental oxygen. Wean down FiO2 as tolerated. 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 HR noted to be increasing, likley due to pain; will start low dose beta rosa and add PRN IV Lopressor; Continue digoxin. Was supposed to be on long-term anticoagulation, which has been held since last month due to concern for anemia and GI bleed. Will check stool for occult blood and consult GI as inpatient if necessary. Continue to hold due to persistent anemia. Qualifiers: Atrial fibrillation type: persistent Qualified Code(s): I48.1 - Persistent atrial fibrillation (7) Anemia Current Visit: Yes Status: Chronic Assessment and plan: continue to monitor Hb closely; noted to be anemic with 1g drop since admission; Qualifiers: Anemia type: iron deficiency Iron deficiency anemia type: unspecified iron deficiency Qualified Code(s): D50.9 - Iron deficiency anemia, unspecified - Subjective Interval history: Reports some left-sided chest discomfort on deep breathing; improved dyspnea; no cough, fever/chills, palpitations; unable to provide detailed history, he is a resident at [place] [facility], with no immediate family; - Constitutional Vitals: Temp Pulse Resp BP Pulse Ox 98.6 F 124 20 103/79 94 06/12/17 07:18 06/12/17 08:03 06/12/17 07:18 06/12/17 08:03 06/12/17 07:18 General appearance: Present: A&O X 2, no acute distress, answers questions appropriately - Respiratory Respiratory exam: Present: decreased breath sounds (at B/L bases), CTAB. Absent : accessory muscle use, rales, rhonchi, wheezes Additional comments: left-sided chest tube in place, connected to suction - Cardiovascular Cardiovascular exam: Present: RRR, +S1, +S2. Absent: diastolic murmur, gallop, rubs, systolic murmur - GI/Abdominal GI/Abdominal exam: Present: normal bowel sounds, soft, no peritoneal signs. Absent: distended, tenderness - Extremities Exam Extremities exam: Present: full ROM, warm, radial pulses palpable and symmetrical. Absent: calf tenderness, cyanotic, pedal edema - Neurological Exam Neurological exam: Present: CN II-XII intact, oriented X3, no focal deficits. Absent: pronater drift, facial droop, speech deficit - Skin Skin exam: Present: dry, intact Internal Medicine: Result - Labs CBC & Chem 7: 06/14/17 02:29 06/13/17 03:15 Labs: Short CBC 06/11/17 06/12/17 Range/Units 07:16 03:01 WBC 12.1 H 13.1 H (4.3-11.1) K/mcL Hgb 8.5 L 8.0 L (12.9-16.9) g/dL Hct 31.3 L 29.6 L (37.5-50.1) % Plt Count 363 338 (140-400) K/mcL Neutrophils # 9.3 H 10.4 H (1.6-8.9) K/mcL BMP 06/11/17 07:16 Glucose 118 H Cardiac Enzymes 06/11/17 Range/Units 13:02 Troponin I < 0.03 (< 0.04) ng/mL - ABG Interpretation ABG results: PT/INR, D-dimer PT 11.3 Seconds (9.4-12.1) 06/10/17 16:22 - Impressions Impressions Chest X-Ray 06/11/17 09:38 IMPRESSION: Near complete resolution of the left-sided pneumothorax following large bore chest tube placement. Possible tiny amount of pleural air remaining at the left lung base. D/ / Jadiel Shahid MD / Jadiel Shahid MD Interpreting Provider: Jadiel Shahid MD Chest X-Ray 06/12/17 06:00 IMPRESSION: Stable position of left chest tube, without visible pneumothorax. Mild left basilar atelectasis. D/ / Vikram Oneal MD / Vikram Oneal MD Interpreting Provider: Vikram Oneal MD - VTE Documentation of Mechanical Device: Intermittent pneumatic compression device Consult Discharge Plan - Plan [facility]errals: [facility] [Primary Care Provider] - 06/24/17 10:15 am (THIS APPOINTMENT IS IN THE DISCHARGE CLINIC IN [facility] 31)
--- NOTE | 2017-06-12 08:37 | Internal Med Progress Note ---
Date of Encounter: 06/12/17 Time of Encounter: 08:37 - Assessment and plan (1) Pneumothorax Current Visit: Yes Status: Acute Assessment and plan: Patient presented with spontaneous left-sided pneumothorax, likely secondary to underlying COPD. Received chest tube in the emergency room, CT surgery has been consulted for assistance with chest tube management; recommend daily chest XRays and plan to switch to water seal today. Patient is currently doing well, saturating well on 5 L/m supplemental oxygen via nasal cannula. Pain control with PRN IV Morphine. Continue incentive spirometry, as needed bronchodilators. Telemetry monitoring. 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 continues to be tachycardic, likley due to pain and also noted to drink large amount of decaf coffee; continue low dose beta rosa and add PRN IV Lopressor; Continue digoxin. Was supposed to be on long- term anticoagulation, which has been held by [place] PCP since last month due to concern for anemia and GI bleed; GI consult at [place] has been since pending. Will check stool for occult blood and consult GI as inpatient if necessary. Continue to hold due to persistent anemia. Qualifiers: Atrial fibrillation type: persistent Qualified Code(s): I48.1 - Persistent atrial fibrillation (7) Anemia Current Visit: Yes Status: Chronic Assessment and plan: continue to monitor Hb; f/up stool occult blood and consult GI as needed; Qualifiers: Anemia type: iron deficiency Iron deficiency anemia type: unspecified iron deficiency Qualified Code(s): D50.9 - Iron deficiency anemia, unspecified - Subjective Interval history: Denies new complaints. Resting in bed comfortably. No chest pain, palpitations , shortness of breath. Noted to have tachycardia on telemetry monitoring. - Constitutional Vitals: Temp Pulse Resp BP Pulse Ox 98.6 F 124 20 103/79 94 06/12/17 07:18 06/12/17 08:03 06/12/17 07:18 06/12/17 08:03 06/12/17 07:18 General appearance: Present: A&O X 2, no acute distress, answers questions appropriately - Respiratory Respiratory exam: Present: CTAB. Absent: accessory muscle use, rales, rhonchi, wheezes - Cardiovascular Cardiovascular exam: Present: irregular rhythm, +S1, +S2, tachycardia. Absent: diastolic murmur, gallop, rubs, systolic murmur - GI/Abdominal GI/Abdominal exam: Present: normal bowel sounds, soft, no peritoneal signs. Absent: distended, tenderness - Extremities Exam Extremities exam: Present: full ROM, warm, radial pulses palpable and symmetrical. Absent: calf tenderness, cyanotic, pedal edema Internal Medicine: Result - Labs CBC & Chem 7: 06/14/17 02:29 06/13/17 03:15 Labs: Short CBC 06/11/17 06/12/17 Range/Units 07:16 03:01 WBC 12.1 H 13.1 H (4.3-11.1) K/mcL Hgb 8.5 L 8.0 L (12.9-16.9) g/dL Hct 31.3 L 29.6 L (37.5-50.1) % Plt Count 363 338 (140-400) K/mcL Neutrophils # 9.3 H 10.4 H (1.6-8.9) K/mcL Cardiac Enzymes 06/11/17 Range/Units 13:02 Troponin I < 0.03 (< 0.04) ng/mL - ABG Interpretation ABG results: PT/INR, D-dimer PT 11.3 Seconds (9.4-12.1) 06/10/17 16:22 - Impressions Impressions Chest X-Ray 06/11/17 09:38 IMPRESSION: Near complete resolution of the left-sided pneumothorax following large bore chest tube placement. Possible tiny amount of pleural air remaining at the left lung base. D/ / Jadiel Shahid MD / Jadiel Shahid MD Interpreting Provider: Jadiel Shahid MD Chest X-Ray 06/12/17 06:00 IMPRESSION: Stable position of left chest tube, without visible pneumothorax. Mild left basilar atelectasis. D/ / Vikram Oneal MD / Vikram Oneal MD Interpreting Provider: Vikram Oneal MD - VTE Documentation of Mechanical Device: Intermittent pneumatic compression device Consult Discharge Plan - Plan [facility]errals: [facility] [Primary Care Provider] - 06/24/17 10:15 am (THIS APPOINTMENT IS IN THE DISCHARGE CLINIC IN [facility] 31)
[2017-06-12] MEDS: Budesonide/Formoterol 160/4.5 MDI IH SCH ×2 (10:53→21:48)
[2017-06-12] MEDS: Levalbuterol Neb 1.25 MG/3 ML IH SCH ×2 (10:53→21:48)
[2017-06-12] MEDS: cloZAPine 100 MG TABLET PO SCH (20:04)
[2017-06-12] MEDS: *HR* HYDROcodone/Acet 5/325 mg TABLET PO PRN (20:05)
[2017-06-12] MEDS: Sennosides/Docusate Sodium TABLET PO SCH (20:05)
[2017-06-13 04:02] LABS: Nucleated Red Blood Cells 0.2 /100 WBC (0); Red Blood Count 3.57 M/mcL (4.19-5.50)
[2017-06-13 04:03] LABS: Basophils % 0.2 %; Eosinophils # 0.2 K/mcL (0.0-0.6); Eosinophils % 1.4 %; Hematocrit 27.4 % (37.5-50.1); Hemoglobin 7.4 g/dL (12.9-16.9); Lymphocytes # 1.3 K/mcL (0.6-4.6); Lymphocytes % 10.1 %; Mean Corpuscular Hemoglobin 20.7 pg (28.0-33.3); Mean Corpuscular Volume 76.8 fL (83.0-100.0); Mean Platelet Volume 10.9 fL (9.4-12.4); Monocytes # 1.1 K/mcL (0.0-1.3); Monocytes % 8.7 %; Platelet Count 334 K/mcL (140-400); Red Cell Distribution Width 17.8 % (11.5-14.5); Segmented Neutrophils % 78.6 %
[2017-06-13 04:08] LABS: BUN/Creatinine Ratio 18 (6-26); Blood Urea Nitrogen 13 mg/dL (8-23); Calcium 8.7 mg/dL (8.6-10.3); Carbon Dioxide 30 mEq/L (23-29); Chloride 104 mEq/L (98-107); Glucose 102 mg/dL (70-105); Osmolality,Calculated 288 (280-300); Potassium 3.9 mEq/L (3.5-5.1); Sodium 139 mEq/L (136-145); eGFR For African Americans > 60 (> 60); eGFR For Non-African Americans > 60 (> 60)
[2017-06-13 04:45] LABS: Anisocytosis 2+ (Not Present); Hypochromasia Present (Not Present); Ovalocytes 1+ (Not Present); Poikilocytosis 2+ (Not Present)
[2017-06-13 04:46] LABS: Burr Cells 1+ (Not Present); Platelet Estimate Normal (Normal)
[2017-06-13] MEDS: predniSONE 5 MG TABLET PO SCH (07:50)
[2017-06-13] MEDS: Cholecalciferol (D-3) 1,000 UNIT TABLET PO SCH (07:50)
[2017-06-13] MEDS: *HR* Digoxin 0.25 MG TABLET PO SCH (07:50)
[2017-06-13] MEDS: ZINC OXIDE TP SCH (07:51)
[2017-06-13] MEDS: Nystatin OINT 15 GM TUBE TP SCH (07:51)
[2017-06-13] MEDS: MENTHOL TP SCH (07:51)
[2017-06-13] MEDS: Eucerin Cream 57 GM TUBE TP SCH (07:51)
--- NOTE | 2017-06-13 09:34 | Cardiothoracic Progress Note ---
Date of Encounter: 06/13/17 Time of Encounter: 09:32 - Assessment and plan (1) Pneumothorax Current Visit: Yes Status: Acute The patient remained hemodynamically stable overnight. The chest tube shows no air leak. The chest x-ray shows a small right apical pneumothorax. The chest tube was removed. The assessment and plan as outlined above was discussed with the patient and/or family members who expressed understanding and agreement. All questions were answered. Qualifiers: Pneumothorax type: unspecified pneumothorax Qualified Code(s): J93.9 - Pneumothorax, unspecified - Subjective Interval history: The patient is resting comfortably in his hospital bed. He has no complaints of shortness of breath. Vital Signs, Last 4 Hours Temp Pulse Resp BP Pulse Ox 06/13/17 07:59 101 06/13/17 07:31 98.3 F 102 19 121/67 90 Oxgyen Flow Rate Oxygen Flow Rate (LPM) 5 Clinical Data, last 8 Hours Output, Chest Tube Drainage 0 Amount [Left Mid-Axillary Chest #1] Weight 06/11/17 06/12/17 06/13/17 23:59 23:59 23:59 Weight 63.4 kg 64.8 kg - Physical Examination General: Conversant, No Apparent Distress Neck: No JVD, Normal carotid pulses Cardiac: Reg Rate and Rhythm, Normal S1 and S2, No Murmur Incision: No signs of infection, Dry/intact dressing Chest tubes: Minimal drainage, Other (No air leak) Lungs: Normal Breath Sounds, No Wheeze, Rales, Rhonchi Neuro: Alert and responsive, No focal deficits noted Vascular: Normal capillary refill Musculoskeletal: No Chest Wall Tenderness Extremities: No Clubbing, No Cyanosis, No Edema - Labs 06/13/17 03:15 06/13/17 03:15 Lab Results, Last 24 hours 06/13/17 06/13/17 03:15 03:15 WBC 12.7 H Hgb 7.4 L Hct 27.4 L Plt Count 334 Sodium 139 Potassium 3.9 Chloride 104 Carbon Dioxide 30 H BUN 13 Creatinine 0.72 Glucose 102 Calcium 8.7 - Imaging Chest Xray: image reviewed (Small right apical pneumothorax.) - VTE Documentation of Mechanical Device: Intermittent pneumatic compression device Consult Discharge Plan - Plan [facility]errals: [facility] [Primary Care Provider] - 06/24/17 10:15 am (THIS APPOINTMENT IS IN THE DISCHARGE CLINIC IN [facility] 31)
[2017-06-13] MEDS: Budesonide/Formoterol 160/4.5 MDI IH SCH ×2 (10:55→22:37)
[2017-06-13] MEDS: Levalbuterol Neb 1.25 MG/3 ML IH SCH ×2 (10:55→22:37)
[2017-06-13 14:20] LABS: Folate 8.1 ng/mL (3.0-16.0)
[2017-06-13] MEDS ORDERED: 0.9 % Sodium Chloride 250 ML ONE (14:42)
[2017-06-13] MEDS: *HR* Metoprolol 5 MG/5 ML VIAL IVP PRN (15:04)
[2017-06-13 17:13] LABS: Ferritin 20 ng/ml (20-250); Iron < 10 mcg/dL (65-175); Transferrin 237 mg/dL (203-362)
[2017-06-14] MEDS: cloZAPine 100 MG TABLET PO SCH ×2 (00:34→21:33)
[2017-06-14] MEDS: Sennosides/Docusate Sodium TABLET PO SCH ×2 (00:34→21:04)
[2017-06-14] MEDS ORDERED: 0.9 % Sodium Chloride 250 ML ONE (03:36)
[2017-06-14 03:51] LABS: Mean Corpuscular HGB Conc 28.4 g/dL (31.6-35.5); Monocytes % 8.4 %; Nucleated Red Blood Cells 0.2 /100 WBC (0); Red Cell Distribution Width 18.1 % (11.5-14.5)
[2017-06-14 03:52] LABS: Basophils % 0.1 %; Eosinophils # 0.3 K/mcL (0.0-0.6); Eosinophils % 2.2 %; Hematocrit 32.7 % (37.5-50.1); Hemoglobin 9.3 g/dL (12.9-16.9); Lymphocytes # 1.4 K/mcL (0.6-4.6); Lymphocytes % 10.2 %; Mean Corpuscular Hemoglobin 21.8 pg (28.0-33.3); Mean Corpuscular Volume 76.8 fL (83.0-100.0); Mean Platelet Volume 10.9 fL (9.4-12.4); Monocytes # 1.1 K/mcL (0.0-1.3); Platelet Count 349 K/mcL (140-400); Red Blood Count 4.26 M/mcL (4.19-5.50); Segmented Neutrophils % 78.1 %
[2017-06-14 03:54] LABS: Neutrophils # 10.5 K/mcL (1.6-8.9)
[2017-06-14 04:09] LABS: Anisocytosis 1+ (Not Present); Hypochromasia Present (Not Present); Microcytosis Present (Not Present); Platelet Estimate Normal (Normal)
[2017-06-14] MEDS: Nystatin OINT 15 GM TUBE TP SCH ×3 (06:17→21:05)
--- NOTE | 2017-06-14 07:35 | Cardiothoracic Progress Note ---
Date of Encounter: 06/14/17 Time of Encounter: 07:33 - Assessment and plan (1) Pneumothorax Current Visit: Yes Status: Acute The patient remained hemodynamically stable overnight. This morning's chest x- ray shows no pneumothorax. The patient may be discharged at the hospitalist description. The patient should see me in the office in 4 weeks with a previsit chest x-ray. The assessment and plan as outlined above was discussed with the patient and/or family members who expressed understanding and agreement. All questions were answered. Qualifiers: Pneumothorax type: unspecified pneumothorax Qualified Code(s): J93.9 - Pneumothorax, unspecified - Subjective Interval history: The patient is resting comfortably in his hospital bed. He has no complaints of shortness of breath. Vital Signs, Last 4 Hours Temp Pulse Resp BP Pulse Ox 06/14/17 07:08 98.5 F 85 22 105/76 95 06/14/17 04:08 98.4 F 113/77 06/14/17 03:58 98.0 F 105 19 110/86 77 06/14/17 03:53 98.5 F 98 106/84 Oxgyen Flow Rate Oxygen Flow Rate (LPM) 5 Clinical Data, last 8 Hours Output, Urine Amount 200 Weight 06/12/17 06/13/17 06/14/17 23:59 23:59 23:59 Weight 64.8 kg 63.4 kg - Physical Examination General: Conversant, No Apparent Distress Neck: No JVD, Normal carotid pulses Cardiac: Reg Rate and Rhythm, Normal S1 and S2, No Murmur Incision: No signs of infection, Dry/intact dressing Lungs: Normal Breath Sounds, No Wheeze, Rales, Rhonchi Neuro: Alert and responsive, No focal deficits noted Vascular: Normal capillary refill Musculoskeletal: No Chest Wall Tenderness Extremities: No Clubbing, No Cyanosis, No Edema - Labs 06/14/17 02:29 06/13/17 03:15 Lab Results, Last 24 hours 06/14/17 02:29 WBC 13.4 H Hgb 9.3 L D Hct 32.7 L Plt Count 349 - Imaging Chest Xray: image reviewed (No pneumothorax. Small left pleural effusion, unchanged.) - VTE Documentation of Mechanical Device: Intermittent pneumatic compression device Consult Discharge Plan - Plan [facility]errals: [facility] [Primary Care Provider] - 01/23/18 10:15 am (THIS APPOINTMENT IS IN THE DISCHARGE CLINIC IN [place] [address])
[2017-06-14] MEDS: *HR* Digoxin 0.25 MG TABLET PO SCH (08:57)
[2017-06-14] MEDS: Eucerin Cream 57 GM TUBE TP SCH (08:57)
[2017-06-14] MEDS: predniSONE 5 MG TABLET PO SCH (08:58)
[2017-06-14] MEDS: Cholecalciferol (D-3) 1,000 UNIT TABLET PO SCH (08:58)
[2017-06-14] MEDS ORDERED: Levalbuterol Neb 1.25 MG/3 ML IH PRN (09:38)
--- NOTE | 2017-06-14 09:40 | Internal Med Progress Note ---
Date of Encounter: 06/13/17 Time of Encounter: 14:00 - Assessment and plan (1) Pneumothorax Current Visit: Yes Status: Acute Assessment and plan: Patient presented with spontaneous left-sided pneumothorax, likely secondary to underlying COPD. Received chest tube in the emergency room, CT surgery has been consulted for assistance with chest tube management; chest tube has been removed today; chest XRay shows persistent apical pneumothorax, small. Patient is currently doing well, saturating well on 5 L/m supplemental oxygen via nasal cannula. Pain control with PRN IV Morphine. Continue incentive spirometry, as needed bronchodilators. Telemetry monitoring. Qualifiers: Pneumothorax type: spontaneous, secondary Qualified Code(s): J93.12 - Secondary spontaneous pneumothorax (2) Anemia Current Visit: Yes Status: Chronic Assessment and plan: patient noted to have significant drop in Hb since admission and is now <8; will check serum iron profile, Vit B12, FA levels and give 2units PRBC transfusion; stool occult blood positive; case d/w GI- recommend outpatient f/ up with [facility] as he has no active bleeding; monitor closely; Qualifiers: Anemia type: iron deficiency Iron deficiency anemia type: unspecified iron deficiency Qualified Code(s): D50.9 - Iron deficiency anemia, unspecified (3) Hypothyroidism Current Visit: Yes Status: Chronic Qualifiers: Hypothyroidism type: unspecified Qualified Code(s): E03.9 - Hypothyroidism , unspecified (4) Essential hypertension Current Visit: Yes Status: Chronic (5) COPD (chronic obstructive pulmonary disease) Current Visit: Yes Status: Chronic Qualifiers: COPD type: emphysema Emphysema type: centrilobular Qualified Code(s): J43.2 - Centrilobular emphysema (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 continues to be tachycardic, likley due to pain and also noted to drink large amount of decaf coffee; increase beta rosa and add PRN IV Lopressor; Continue digoxin. Was supposed to be on long-term anticoagulation, which has been held by [facility] since last month due to concern for anemia and GI bleed; GI consult at [facility] has been since pending. Continue to hold due to persistent anemia. Qualifiers: Atrial fibrillation type: persistent Qualified Code(s): I48.1 - Persistent atrial fibrillation - Subjective Interval history: Denies new complaints. Resting in bed comfortably. No chest pain, palpitations , shortness of breath. Noted to have tachycardia on telemetry monitoring. - Constitutional Vitals: Temp Pulse Resp BP Pulse Ox 98.5 F 98 20 105/76 95 06/14/17 07:08 06/14/17 09:00 06/14/17 09:00 06/14/17 07:08 06/14/17 07:08 General appearance: Present: A&O X 2, no acute distress, answers questions appropriately - Respiratory Respiratory exam: Present: decreased breath sounds (at right base), CTAB. Absent: accessory muscle use, rales, rhonchi, wheezes - Cardiovascular Cardiovascular exam: Present: irregular rhythm, +S1, +S2. Absent: diastolic murmur, gallop, rubs, systolic murmur - GI/Abdominal GI/Abdominal exam: Present: normal bowel sounds, soft, no peritoneal signs. Absent: distended, tenderness - Extremities Exam Extremities exam: Present: full ROM, warm, radial pulses palpable and symmetrical. Absent: calf tenderness, cyanotic, pedal edema - Neurological Exam Neurological exam: Present: CN II-XII intact, oriented X3, no focal deficits. Absent: pronater drift, facial droop, speech deficit Internal Medicine: Result - Labs CBC & Chem 7: 06/14/17 02:29 06/13/17 03:15 Labs: Short CBC 06/14/17 Range/Units 02:29 WBC 13.4 H (4.3-11.1) K/mcL Hgb 9.3 L D (12.9-16.9) g/dL Hct 32.7 L (37.5-50.1) % Plt Count 349 (140-400) K/mcL Neutrophils # 10.5 H (1.6-8.9) K/mcL - ABG Interpretation ABG results: PT/INR, D-dimer PT 11.3 Seconds (9.4-12.1) 06/10/17 16:22 - Impressions Impressions Chest X-Ray 06/14/17 06:00 IMPRESSION: 1. No evidence of pneumothorax. 2. Thoracotomy tube removal with small residual left pleural effusion and basilar atelectasis. 3. Left mid lung atelectasis. D/ / 06/14/2017 07:25:16 Jean Claude Duckworth MD / earnold Interpreting Provider: Jean Claude Duckworth MD - VTE Documentation of Mechanical Device: Intermittent pneumatic compression device Consult Discharge Plan - Plan Referrals: [facility],PCP [Primary Care Provider] - 06/24/17 10:15 am (THIS APPOINTMENT IS IN THE DISCHARGE CLINIC IN [facility] )
--- NOTE | 2017-06-14 09:41 | Internal Med Progress Note ---
Date of Encounter: 06/14/17 Time of Encounter: 09:40 - Assessment and plan (1) Pneumothorax Current Visit: Yes Status: Acute Assessment and plan: Patient presented with spontaneous left-sided pneumothorax, likely secondary to underlying COPD. Received chest tube in the emergency room, has been followed by cardiothoracic surgery, chest tube removed on June 13. Patient is currently doing well, saturating well on 5 L/m supplemental oxygen via nasal cannula. Continue incentive spirometry, as needed bronchodilators. Telemetry monitoring. Patient may be transferred out of the stepdown unit. Qualifiers: Pneumothorax type: spontaneous, secondary Qualified Code(s): J93.12 - Secondary spontaneous pneumothorax (2) Anemia Current Visit: Yes Status: Chronic Assessment and plan: Noted to have normocytic anemia, hemoglobin improved today after receiving 2 units PRBC transfusion. Stool occult blood negative. Plan for outpatient GI follow-up at the [facility] according to the initial plan. Serum iron profile reviewed-low iron stores. Serum vitamin B12 noted to be low. Will start oral ferrous sulfate and subcutaneous vitamin B12 supplements. Continue to monitor. Qualifiers: Anemia type: iron deficiency Iron deficiency anemia type: unspecified iron deficiency Qualified Code(s): D50.9 - Iron deficiency anemia, unspecified (3) Hypothyroidism Current Visit: Yes Status: Chronic Assessment and plan: Continue levothyroxine. Qualifiers: Hypothyroidism type: unspecified Qualified Code(s): E03.9 - Hypothyroidism , unspecified (4) Essential hypertension Current Visit: Yes Status: Chronic Assessment and plan: Blood pressure appropriately controlled. Continue home medications. (5) COPD (chronic obstructive pulmonary disease) Current Visit: Yes Status: Chronic Assessment and plan: Not in acute exacerbation. Continue chronic therapy oral prednisone, as needed bronchodilators and supplemental oxygen. Wean down FiO2 as tolerated. 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 Heart rate noted to be improving. Continue digoxin and beta rosa. Was supposed to be on long-term anticoagulation, which has been held since last month due to concern for anemia and GI bleed. Continue to hold due to persistent anemia. Qualifiers: Atrial fibrillation type: persistent Qualified Code(s): I48.1 - Persistent atrial fibrillation - Subjective Interval history: Has no new complaints; sleeping soundly, wakes up to strong tactile stimulus; - Constitutional Vitals: Temp Pulse Resp BP Pulse Ox 98.5 F 98 20 105/76 95 06/14/17 07:08 06/14/17 09:00 06/14/17 09:00 06/14/17 07:08 06/14/17 07:08 General appearance: Present: A&O X 2, no acute distress, answers questions appropriately - Respiratory Respiratory exam: Present: CTAB (coarse breath sounds B/L). Absent: accessory muscle use, rales, rhonchi, wheezes - Cardiovascular Cardiovascular exam: Present: irregular rhythm, +S1, +S2. Absent: diastolic murmur, gallop, rubs, systolic murmur - GI/Abdominal GI/Abdominal exam: Present: normal bowel sounds, soft, no peritoneal signs. Absent: distended, tenderness Internal Medicine: Result - Labs CBC & Chem 7: 06/14/17 02:29 06/13/17 03:15 Labs: Short CBC 06/14/17 Range/Units 02:29 WBC 13.4 H (4.3-11.1) K/mcL Hgb 9.3 L D (12.9-16.9) g/dL Hct 32.7 L (37.5-50.1) % Plt Count 349 (140-400) K/mcL Neutrophils # 10.5 H (1.6-8.9) K/mcL - ABG Interpretation ABG results: PT/INR, D-dimer PT 11.3 Seconds (9.4-12.1) 06/10/17 16:22 - Impressions Impressions Chest X-Ray 06/14/17 06:00 IMPRESSION: 1. No evidence of pneumothorax. 2. Thoracotomy tube removal with small residual left pleural effusion and basilar atelectasis. 3. Left mid lung atelectasis. D/ / 06/14/2017 07:25:16 Jean Claude Duckworth MD / earnold Interpreting Provider: Jean Claude Duckworth MD - VTE Documentation of Mechanical Device: Intermittent pneumatic compression device Consult Discharge Plan - Plan [facility]: [facility] Provider[facility] - 06/24/17 10:15 am (THIS APPOINTMENT IS IN THE DISCHARGE CLINIC IN [place] [id number])
[2017-06-14] MEDS: Budesonide/Formoterol 160/4.5 MDI IH SCH ×2 (10:22→20:51)
[2017-06-14] MEDS: Cyanocobalamin (B-12) 1,000 MCG/ML VIAL SQ SCH (14:33)
[2017-06-14] MEDS: *HR* Metoprolol 5 MG/5 ML VIAL IVP PRN (19:29)
[2017-06-15] MEDS: predniSONE 5 MG TABLET PO SCH (08:28)
[2017-06-15] MEDS: Cholecalciferol (D-3) 1,000 UNIT TABLET PO SCH (08:29)
[2017-06-15] MEDS: *HR* Digoxin 0.25 MG TABLET PO SCH (08:29)
[2017-06-15] MEDS: Cyanocobalamin (B-12) 1,000 MCG/ML VIAL SQ SCH (08:30)
[2017-06-15] MEDS: Budesonide/Formoterol 160/4.5 MDI IH SCH ×2 (09:58→21:18)
--- NOTE | 2017-06-15 12:24 | Internal Med Progress Note ---
Date of Encounter: 06/15/17 Time of Encounter: 12:23 - Assessment and plan (1) Pneumothorax Current Visit: Yes Status: Acute Assessment and plan: Patient presented with spontaneous left-sided pneumothorax, likely secondary to underlying COPD. Received chest tube in the emergency room, CT surgery has been consulted for assistance with chest tube management; chest tube has been removed on 06/13/17; Patient had a brief episode of hypoxia today, which improved with NRB mask and currently saturating well on 2-3L/min via NC; Continue incentive spirometry, as needed bronchodilators. Telemetry monitoring. Qualifiers: Pneumothorax type: spontaneous, secondary Qualified Code(s): J93.12 - Secondary spontaneous pneumothorax (2) Anemia Current Visit: Yes Status: Chronic Assessment and plan: Noted to have normocytic anemia, hemoglobin improved after receiving 2 units PRBC transfusion. Stool occult blood negative. Plan for outpatient GI follow- up at the [facility] according to the initial plan. Serum iron profile reviewed-low iron stores. Serum vitamin B12 noted to be low. Started oral ferrous sulfate and subcutaneous vitamin B12 supplements. Continue to monitor. Qualifiers: Anemia type: iron deficiency Iron deficiency anemia type: unspecified iron deficiency Qualified Code(s): D50.9 - Iron deficiency anemia, unspecified (3) Hypothyroidism Current Visit: Yes Status: Chronic Assessment and plan: Continue levothyroxine. Qualifiers: Hypothyroidism type: unspecified Qualified Code(s): E03.9 - Hypothyroidism , unspecified (4) Essential hypertension Current Visit: Yes Status: Chronic (5) COPD (chronic obstructive pulmonary disease) Current Visit: Yes Status: Chronic Assessment and plan: Not in acute exacerbation. Continue chronic therapy oral prednisone, as needed bronchodilators and supplemental oxygen. Wean down FiO2 as tolerated. 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 Heart rate now improving. Continue beta rosa and digoxin. Was supposed to be on long-term anticoagulation, which has been held by [facility] PCP since last month due to concern for anemia and GI bleed; GI consult at [facility] has been since pending. Continue to hold due to persistent anemia. Qualifiers: Atrial fibrillation type: persistent Qualified Code(s): I48.1 - Persistent atrial fibrillation - Subjective Interval history: Denies new complaints; no chest pain, shortness of breath, palpitations; requests [employer]; noted to have hypoxia on bedside pulsoximetry, improved with NRB mask; - Constitutional Vitals: Temp Pulse Resp BP Pulse Ox 97.6 F 84 18 112/71 93 06/15/17 11:35 06/15/17 11:35 06/15/17 11:35 06/15/17 11:35 06/15/17 11:35 General appearance: Present: A&O X 2, no acute distress, answers questions appropriately - Respiratory Respiratory exam: Present: decreased breath sounds (at left base), CTAB. Absent : accessory muscle use, rales, rhonchi, wheezes - Cardiovascular Cardiovascular exam: Present: RRR, +S1, +S2. Absent: diastolic murmur, gallop, rubs, systolic murmur - GI/Abdominal GI/Abdominal exam: Present: normal bowel sounds, soft, no peritoneal signs. Absent: distended, tenderness - Extremities Exam Extremities exam: Present: full ROM, warm, radial pulses palpable and symmetrical. Absent: calf tenderness, cyanotic, pedal edema Internal Medicine: Result - Labs CBC & Chem 7: 06/14/17 02:29 06/13/17 03:15 - ABG Interpretation ABG results: PT/INR, D-dimer PT 11.3 Seconds (9.4-12.1) 06/10/17 16:22 - VTE Documentation of Mechanical Device: Intermittent pneumatic compression device Consult Discharge Plan - Plan [facility]: [facility] [Primary Care Provider[facility] - 06/24/17 10:15 am (THIS APPOINTMENT IS IN THE DISCHARGE CLINIC IN [facility] 31)
[2017-06-15] MEDS: Nystatin OINT 15 GM TUBE TP SCH ×3 (12:57→20:48)
[2017-06-15] MEDS: Eucerin Cream 57 GM TUBE TP SCH ×2 (12:57→16:00)
[2017-06-15] MEDS: cloZAPine 100 MG TABLET PO SCH (20:52)
[2017-06-15] MEDS: Sennosides/Docusate Sodium TABLET PO SCH (20:52)
[2017-06-16] MEDS: *HR* Digoxin 0.25 MG TABLET PO SCH (08:26)
[2017-06-16] MEDS: predniSONE 5 MG TABLET PO SCH (08:26)
[2017-06-16] MEDS: Cyanocobalamin (B-12) 1,000 MCG/ML VIAL SQ SCH (08:27)
[2017-06-16] MEDS: Cholecalciferol (D-3) 1,000 UNIT TABLET PO SCH (08:27)
[2017-06-16] MEDS: Eucerin Cream 57 GM TUBE TP SCH (08:35)
[2017-06-16] MEDS: Nystatin OINT 15 GM TUBE TP SCH ×2 (08:35→19:58)
[2017-06-16] MEDS: Budesonide/Formoterol 160/4.5 MDI IH SCH ×2 (10:14→20:34)
--- NOTE | 2017-06-16 11:31 | Discharge Summary ---
Date of Encounter: 06/16/17 Time of Encounter: 11:28 - Discharge Diagnosis (1) Pneumothorax Priority: Primary Status: Acute Qualifiers: Pneumothorax type: spontaneous, secondary Qualified Code(s): J93.12 - Secondary spontaneous pneumothorax (2) Anemia Priority: Primary Status: Chronic Qualifiers: Anemia type: iron deficiency Iron deficiency anemia type: unspecified iron deficiency Qualified Code(s): D50.9 - Iron deficiency anemia, unspecified (3) Hypothyroidism Priority: Secondary Status: Chronic Qualifiers: Hypothyroidism type: unspecified Qualified Code(s): E03.9 - Hypothyroidism , unspecified (4) Essential hypertension Priority: Secondary Status: Chronic (5) COPD (chronic obstructive pulmonary disease) Priority: Secondary Status: Chronic Qualifiers: COPD type: emphysema Emphysema type: centrilobular Qualified Code(s): J43.2 - Centrilobular emphysema (6) Paraphrenic schizophrenia Priority: Secondary Status: Chronic (7) Atrial fibrillation Priority: Secondary Status: Chronic Qualifiers: Atrial fibrillation type: persistent Qualified Code(s): I48.1 - Persistent atrial fibrillation - Discharge Medications Prescriptions: Ferrous Sulfate 325 mg PO BIDWM #60 tablet Metoprolol [Lopressor] 25 mg PO BID #30 tablet Home Medications: cloZAPine [Clozaril] 300 mg PO HS tablet 05/20/16 [Rx] Acetaminophen [Tylenol] 650 mg PO Q6HR PRN 07/10/16 [History] Atorvastatin [Lipitor] 10 mg PO HS 07/10/16 [History] Cholecalciferol (D-3) [Vitamin D] 4,000 unit PO DAILY 07/10/16 [History] LORazepam [Ativan] 1 mg PO BID PRN 07/10/16 [History] Levalbuterol Neb [Xopenex Neb] 1.25 mg IH BID 07/10/16 [History] Levothyroxine [Synthroid] 37.5 mcg PO DAILY 07/10/16 [History] Omeprazole [PriLOSEC] 20 mg PO DAILY 07/10/16 [History] Mineral Oil/Petrolatum,White [Eucerin Creme] 1 appl TP DAILY 11/19/16 [History] Budesonide/Formoterol 160/4.5 [Symbicort 160/4.5] 2 puff IH BIDR 06/10/17 [ History] Digoxin [Lanoxin] 0.25 mg PO DAILY 06/10/17 [History] Menthol/Zinc Oxide [Calmoseptine Ointment Packet] 3.5 gm TP BID 06/10/17 [ History] Nystatin OINT [Mycostatin] 1 appl TP BID 06/10/17 [History] Potassium Chloride [K-Tab ER] 20 meq PO TID 06/10/17 [History] Sennosides/Docusate Sodium [Senna Plus] 2 each PO HS 06/10/17 [History] predniSONE [Prednisone] 2.5 mg PO DAILY 06/10/17 [History] Ferrous Sulfate 325 mg PO BIDWM #60 tablet 06/16/17 [Rx] Metoprolol [Lopressor] 25 mg PO BID #30 tablet 06/16/17 [Rx] Allergies/Adverse Reactions: 3 Allergy/AdvReac Type Severity Reaction Status Date / Time haloperidol [From Haldol] Allergy unknown Verified 11/30/16 07:19 Date of admission: 06/10/17 20:34 [facility] care physician: [facility] Consults: 06/11/17 05:04 Consult to Nutrition [CONS] Routine Comment: Consulting Provider: NUTRITION Reason for Dietary Consult: MST Score 06/11/17 10:35 Consult to Logging Superintendent [CONS] Routine Reason for SW Consult: [facility] Discharging clinician: Farrah Disla Anticipated date of discharge: 06/16/17 - Patient Status Disposition: Transfer Merged With [facility] Condition: Fair Functional capacity at discharge: independent ambulation Overall status at discharge: patient is progressing back to baseline - Discharge Instructions Follow Up With: [facility],PCP [Primary Care Provider] - 06/24/17 10:15 am (THIS APPOINTMENT IS IN THE DISCHARGE CLINIC IN [facility] 31) - Diet and Activity Activity: resume usual activities as tolerated, wear oxygen at all times Diet: low fat, low cholesterol, low salt diet Hospital course: Mr. Gong is a 71 year old male with the above medical problems who was admitted with worsening shortness of breath and left-sided chest pain. Chest x- ray in the emergency room revealed left-sided pneumothorax. Patient received left-sided chest tube placement. Cardiothoracic surgery was consulted for chest tube management, which was subsequently removed. Serial chest x-rays were followed and the most recent chest x-ray showed resolution of plical left pneumothorax. This is thought to be secondary to his COPD. He continues to require around 4 L/m supplemental oxygen via nasal cannula, which is probably his baseline. Patient was noted to be tachycardic during his hospital stay and he was started on beta rosa, which was up titrated up. He was noted to be on long-term anticoagulation with central toe, which has been held last month due to anemia, pending GI workup according to the physician. Stool occult blood is negative during this hospitalization. However, patient is noted to have a drop in hemoglobin. Serum iron profile showed a low iron stores and vitamin B12 deficiency and he has been started on oral ferrous sulfate supplements and subcutaneous vitamin B12. He also received 2 units PRBC transfusion. He is hemodynamically and medically stable at this time for transfer back to the [facility]. - Time Spent with Patient Total time spent providing and/or coordinating discharge services: Greater than 30 minutes (45 min) - Constitutional Vitals: Temp Pulse Resp BP Pulse Ox 97.7 F 80 16 113/71 98 06/16/17 11:23 06/16/17 11:23 06/16/17 11:23 06/16/17 11:23 06/16/17 11:23 General appearance: Present: A&O X 2, no acute distress, answers questions appropriately - Respiratory Respiratory exam: Present: decreased breath sounds (at left base), CTAB. Absent : accessory muscle use, rales, rhonchi, wheezes - VTE Documentation of Mechanical Device: Intermittent pneumatic compression device
[2017-06-16] MEDS: cloZAPine 100 MG TABLET PO SCH (19:58)
[2017-06-16] MEDS: Sennosides/Docusate Sodium TABLET PO SCH (19:58)
[2017-06-17] MEDS: Budesonide/Formoterol 160/4.5 MDI IH SCH (10:34)
[2017-06-17] MEDS: predniSONE 5 MG TABLET PO SCH (10:42)
[2017-06-17] MEDS: *HR* Digoxin 0.25 MG TABLET PO SCH (10:42)
[2017-06-17] MEDS: Cholecalciferol (D-3) 1,000 UNIT TABLET PO SCH (10:42)
[2017-06-17] MEDS: Eucerin Cream 57 GM TUBE TP SCH (10:43)
[2017-06-17] MEDS: Nystatin OINT 15 GM TUBE TP SCH (10:43)
[2017-06-17 12:07] VITALS: BP 102/68
== END 2017-06-17 12:17 | DRG 199 ==
LOC: EMEROO 15:35 → 2NNU 15:35 → SUATTDRO 20:34 → 2NNU 20:58 → 2ANU 06-14 18:00
PROVIDERS: ADMIT Internal Medicine; ATTEND Internal Medicine

== ENCOUNTER 2018-05-15 23:38 | Inpatient (IN) ==
--- NOTE | 2018-05-16 00:03 | Emergency Department Note ---
Disposition Clinical Impression: GI bleed Qualifiers: GI bleed type/associated pathology: unspecified gastrointestinal hemorrhage type Qualified Code(s): K92.2 - Gastrointestinal hemorrhage, unspecified Disposition: Admitted As Inpatient Abdominal Pain HPI - General Chief Complaint: ED GI Bleed Stated Complaint: abdominal pain Time Seen by Provider: 05/15/18 23:47 Source: patient, EMS Mode of arrival: EMS Limitations: no limitations Nursing Notes Reviewed: Yes Vital Signs Reviewed: Yes - History of Present Illness HPI Narrative: 72-year-old [facility] that patient had some rectal bleeding this afternoon, [facility] and then they sent him to the emergency department because he is on Xarelto for A-fib The patient states he has a large history of hemorrhoids, he knows that they bleed. Patient is unconcerned. He states he went to the bathroom earlier today and he noticed a little bit of bright red bleeding in his depends as well as in the toilet. Patient states his bowel movements have been normal, they are brown and formed. He states he is going to the bathroom every day, today "might be a little smaller than normal but they are not loose". EMS reports that for their assessment patient was wheezing and he also had diminished sounds to his bases. Patient denies any shortness of breath. Pt denies all complaints at this time. He states he isn't sure why they sent him but he is agreeable to being seen. - Related Data Home Medications Medication Instructions Recorded Confirmed Acetaminophen [Tylenol] 650 mg PO Q6HR PRN 07/10/16 06/10/17 Atorvastatin [Lipitor] 10 mg PO HS 07/10/16 06/10/17 Cholecalciferol (D-3) [Vitamin D] 4,000 unit PO DAILY 07/10/16 06/10/17 LORazepam [Ativan] 1 mg PO BID PRN 07/10/16 06/10/17 Levalbuterol Neb [Xopenex Neb] 1.25 mg IH BID 07/10/16 06/10/17 Levothyroxine [Synthroid] 37.5 mcg PO DAILY 07/10/16 06/10/17 Omeprazole [PriLOSEC] 20 mg PO DAILY 07/10/16 06/10/17 Mineral Oil/Petrolatum,White 1 appl TP DAILY 11/19/16 06/10/17 [Eucerin Creme] Budesonide/Formoterol 160/4.5 2 puff IH BIDR 06/10/17 06/10/17 [Symbicort 160/4.5] Digoxin [Lanoxin] 0.25 mg PO DAILY 06/10/17 06/10/17 Menthol/Zinc Oxide [Calmoseptine 3.5 gm TP BID 06/10/17 06/10/17 Ointment Packet] Nystatin OINT [Mycostatin] 1 appl TP BID 06/10/17 06/10/17 Potassium Chloride [K-Tab ER] 20 meq PO TID 06/10/17 06/10/17 Sennosides/Docusate Sodium [Senna 2 each PO HS 06/10/17 06/10/17 Plus] predniSONE [Prednisone] 2.5 mg PO DAILY 06/10/17 06/10/17 Previous Rx's Medication Instructions Recorded cloZAPine [Clozaril] 300 mg PO HS tablet 05/20/16 Ferrous Sulfate 325 mg PO BIDWM #60 tablet 06/16/17 Metoprolol [Lopressor] 25 mg PO BID #30 tablet 06/16/17 Allergies Allergy/AdvReac Type Severity Reaction Status Date / Time haloperidol [From Haldol] Allergy unknown Verified 11/30/16 07:19 All systems ED: reviewed and negative except as stated. Constitutional: Denies: fever, chills Cardiovascular: Denies: chest pain, palpitations Respiratory: Denies: cough Gastrointestinal: Reports: other (girth--" has grown some in the last few weeks"). Denies: abdominal pain, nausea, vomiting, diarrhea, constipation, hematemesis, melena, hematochezia Genitourinary: Denies: urgency, dysuria Musculoskeletal: Denies: back pain Integumentary: Denies: rash Neurological: Denies: abnormal gait Endocrine: Reports: fatigue ("maybe a little") Abdominal Pain PMH - Past Medical History Medical history: Reports: atrial fibrillation, COPD, GERD, hyperlipidemia, hypertension, thyroid disease Male Surgical History: Reports: Tonsillectomy Psychiatric history: Reports: anxiety, depression, schizophrenia - Social History Smoking status: Current every day smoker Alcohol use: Reports: none Drug use: Reports: none Physical Exam - General Limitations: no limitations General appearance: alert, in no apparent distress - Head Head exam: atraumatic, normocephalic, normal inspection - Eye Eye exam: Present: normal appearance - ENT ENT exam: mucous membranes moist - Neck Neck exam: Present: normal inspection, full ROM, trachea midline - Chest Chest inspection: Present: normal inspection, symmetric chest wall rise - Respiratory Respiratory exam: Present: wheezes (Slight bilateral lower bases), other (Diminished at bases). Absent: respiratory distress, stridor, accessory muscle use, prolonged expiratory phase - Cardiovascular Cardiovascular exam: Present: irregular rhythm, normal heart sounds - Abdominal Exam Abdominal exam: Present: soft, Non-Tender, normal bowel sounds, other (proturbent). Absent: guarding, rebound, rigidity, trauma, psoas sign, mass - Rectal Exam Bolt Header present during exam: Yes Rectal exam: Present: normal rectal tone, bloody stool, hemorrhoids. Absent: decreased rectal tone, fecal impaction, tenderness - Back Exam Back exam: Present: normal inspection - Neurological Exam Neurological exam: Present: alert, oriented X3 - Psychiatric Psychiatric exam: Present: normal affect, normal mood - Skin Skin exam: Present: warm, dry, intact, normal color Course Course Narrative: Well-developed male in no acute distress. Respirations are easy and even. Patient speaking in full sentences under no distress. His vital signs are stable. Patient is nontoxic heart a, normotensive. EKG reveals sinus arrhythmia with frequent PACs with a heart rate of 84, MO interval 163 ms, QRS 85 ms, QTC 440 ms. No evidence of ischemia. Physical exam reveals appropriate color, mucous membranes are pink. Lungs are diminished with slight wheezing on expiratory phase in the bases, heart rate is irregular, no edema. Abdomen is large, protuberant, soft without tenderness. Bowel sounds are normal. Rectal exam shows loose brown stools carrie-anally noted with bright red blood, no evidence of masses, no fecal impaction, rectal tone is normal. There is loose skin around the anus potential lady noninflamed hemorrhoids. Rest of physical exam is benign. Patient did have a CBC drawn at the [facility] prior to being sent here: CBC drawn at 2136 on 05/15/18 shows white blood cell count 7.7, red blood cell count 4.33, hemoglobin 12.3, hematocrit 38.6, platelets 255. They did send recent labs, H&H 12.8/39.5 on 05/12/2018, H&H 12.1/37.8 on 05/11/18. It appears patient CBC continues to be at baseline. We will obtain basic labs except a CBC, CT of the abdomen and pelvis, chest x- ray, type and screen and reevaluate. - Reevaluation(s) Reevaluation #1: Patient has been resting quietly, coags, BMP, hepatic panel returned unremarkable. He is positive for occult stool, chest x-ray is unremarkable. CT the abdomen and pelvis shows a mildly distended colon of the sigmoid colon with wall thickening and minimal adjacent fat stranding, possibly inflammation versus neoplasm, there is also some hypodense hepatic lesions that are new. Patient resides in a long-term care facility for psychiatric illness, they are unable to perform much medical care. Patient with positive rectal bleeding, abnormal CT. We will most likely need colonoscopy and monitored. This time patient is stable, no evidence of hemorrhage. We will plan for admission to the hospital for monitoring of H&H and rectal bleeding. Patient is agreeable to plan of care. We will page the hospitalist at this time. Time: 01:20 Reevaluation #2: Spoke with hospitalist, agreeable to accept patient to the inpatient unit. Patient is agreeable to plan of care the same here. Patient remains vitally stable. We will transition her to the inpatient team at this time. Time: 01:39 Vital Signs Temperature 97.5 F L 05/15/18 23:44 Pulse Rate 82 05/15/18 23:44 Respiratory Rate 18 05/15/18 23:44 Blood Pressure 137/89 05/15/18 23:44 O2 Sat by Pulse Oximetry 98 05/15/18 23:44 Temperature 97.5 F L 05/15/18 23:44 Pulse Rate 80 05/16/18 00:00 Respiratory Rate 20 05/16/18 00:00 Blood Pressure 112/77 05/16/18 00:00 O2 Sat by Pulse Oximetry 99 05/16/18 00:00 Oxygen Delivery Oxygen Delivery Room Air Abdominal Pain - Differential Diagnosis Differential Diagnosis: Likely: other. Unlikely: abdominal pain non-specific, AAA, abdominal pain mimics ectopic , acute appendicitis, calculus of kidney, constipation, colonic obstruction, diverticulitis, diverticulosis, endometriosis, gastroenteritis, hernia, ischemic bowel, , pancreatitis, small bowel obstruction - Medical Records Medical records reviewed: Yes I reviewed the patient's medical records. - Lab Data Lab results reviewed: Yes I reviewed the patient's lab results. Result diagrams: 05/15/18 23:52 Lab Results 05/15/18 05/15/18 05/15/18 Range/Units 23:52 23:52 23:52 PT 13.6 H (9.4-12.1) Seconds INR 1.2 APTT 30.9 (26.0-36.0) Seconds Sodium 134 L (136-145) mEq/L Potassium 4.2 (3.5-5.1) mEq/L Chloride 104 (98-107) mEq/L Carbon Dioxide 23 (23-29) mEq/L BUN 11 (8-23) mg/dL Creatinine 0.95 (0.70-1.30) mg/dL Est GFR ( Amer) > 60 (> 60) Est GFR (Non-Af Amer) > 60 (> 60) BUN/Creatinine Ratio 12 (6-26) Glucose 126 H (70-105) mg/dL Calculated Osmolality 279 L (280-300) Calcium 8.9 (8.6-10.3) mg/dL Total Bilirubin 0.2 L (0.3-1.0) mg/dL Direct Bilirubin 0.1 (0.0-0.2) mg/dL Indirect Bilirubin 0.1 (0.0-1.2) mg/dL AST 17 (13-39) Units/L ALT 16 (7-52) Units/L Alkaline Phosphatase 142 H (34-104) Units/L Serum Total Protein 6.0 L (6.4-8.9) g/dL Albumin 4.0 (3.5-5.7) g/dL Globulin 2.0 L (2.4-3.5) g/dL Albumin/Globulin Ratio 2.0 (1.1-2.2) Stool Occult Bld Scrn (Negative) Blood Type A POSITIVE Antibody Screen NEGATIVE 05/16/18 Range/Units 00:32 PT (9.4-12.1) Seconds INR APTT (26.0-36.0) Seconds Sodium (136-145) mEq/L Potassium (3.5-5.1) mEq/L Chloride (98-107) mEq/L Carbon Dioxide (23-29) mEq/L BUN (8-23) mg/dL Creatinine (0.70-1.30) mg/dL Est GFR ( Amer) (> 60) Est GFR (Non-Af Amer) (> 60) BUN/Creatinine Ratio (6-26) Glucose (70-105) mg/dL Calculated Osmolality (280-300) Calcium (8.6-10.3) mg/dL Total Bilirubin (0.3-1.0) mg/dL Direct Bilirubin (0.0-0.2) mg/dL Indirect Bilirubin (0.0-1.2) mg/dL AST (13-39) Units/L ALT (7-52) Units/L Alkaline Phosphatase (34-104) Units/L Serum Total Protein (6.4-8.9) g/dL Albumin (3.5-5.7) g/dL Globulin (2.4-3.5) g/dL Albumin/Globulin Ratio (1.1-2.2) Stool Occult Bld Scrn Positive A (Negative) Blood Type Antibody Screen - Radiology Data Radiology results reviewed: Yes I reviewed the patient's radiology results. Chest X-Ray 05/15/18 23:52 IMPRESSION: No acute cardiopulmonary abnormality. Previously seen left pleural effusion has resolved. D/ / Geraldo Rosas MD / Geraldo Rosas MD Interpreting Provider: Geraldo Rosas MD Abdomen/Pelvis CT 05/16/18 23:52 IMPRESSION: Mild distension of the colon. There is relative caliber change within the sigmoid colon which shows wall thickening and minimal adjacent fat stranding. Although this finding could be due to contraction or inflammation, neoplasm should be considered. There are few bilobar hypodense hepatic lesions, not seen on the prior study, not well evaluated on this noncontrast study. A dedicated liver protocol CT or MRI would be helpful further evaluate. D/ / Bonnie Baron Cha, MD / Bonnie Baron Cha, MD Interpreting Provider: Bonnie Baron Cha, MD - EKG Data EKG attestation: Yes I reviewed and interpreted this EKG.
[2018-05-16 00:23] LABS: INR 1.2; Prothrombin Time 13.6 Seconds (9.4-12.1)
[2018-05-16 00:26] LABS: Activated Partial Thrombo Time 30.9 Seconds (26.0-36.0)
[2018-05-16 00:28] LABS: Alanine Aminotransferase 16 Units/L (7-52); Alkaline Phosphatase 142 Units/L (34-104); Aspartate Amino Transferase 17 Units/L (13-39); BUN/Creatinine Ratio 12 (6-26); Bilirubin,Direct 0.1 mg/dL (0.0-0.2); Bilirubin,Indirect 0.1 mg/dL (0.0-1.2); Bilirubin,Total 0.2 mg/dL (0.3-1.0); Blood Urea Nitrogen 11 mg/dL (8-23); Calcium 8.9 mg/dL (8.6-10.3); Carbon Dioxide 23 mEq/L (23-29); Chloride 104 mEq/L (98-107); Glucose 126 mg/dL (70-105); Osmolality,Calculated 279 (280-300); Potassium 4.2 mEq/L (3.5-5.1); Sodium 134 mEq/L (136-145); eGFR For Non-African Americans > 60 (> 60)
--- NOTE | 2018-05-16 01:46 | Emergency Department Note ---
Disposition Clinical Impression: Medication induced coagulopathy, Lesion of colon GI bleed Qualifiers: GI bleed type/associated pathology: unspecified gastrointestinal hemorrhage type Qualified Code(s): K92.2 - Gastrointestinal hemorrhage, unspecified Disposition: Admitted As Inpatient Condition: Good General Adult HPI - General Chief complaint: ED GI Bleed Stated complaint: abdominal pain Time Seen by Provider: 05/15/18 23:47 Source: patient, EMS Mode of arrival: EMS Limitations: no limitations Nursing Notes Reviewed: Yes Vital Signs Reviewed: Yes - History of Present Illness Pain Scale: 0 - Related Data Home Medications Medication Instructions Recorded Confirmed Acetaminophen [Tylenol] 650 mg PO Q6HR PRN 07/10/16 06/10/17 Atorvastatin [Lipitor] 10 mg PO HS 07/10/16 06/10/17 Cholecalciferol (D-3) [Vitamin D] 4,000 unit PO DAILY 07/10/16 06/10/17 LORazepam [Ativan] 1 mg PO BID PRN 07/10/16 06/10/17 Levalbuterol Neb [Xopenex Neb] 1.25 mg IH BID 07/10/16 06/10/17 Levothyroxine [Synthroid] 37.5 mcg PO DAILY 07/10/16 06/10/17 Omeprazole [PriLOSEC] 20 mg PO DAILY 07/10/16 06/10/17 Mineral Oil/Petrolatum,White 1 appl TP DAILY 11/19/16 06/10/17 [Eucerin Creme] Budesonide/Formoterol 160/4.5 2 puff IH BIDR 06/10/17 06/10/17 [Symbicort 160/4.5] Digoxin [Lanoxin] 0.25 mg PO DAILY 06/10/17 06/10/17 Menthol/Zinc Oxide [Calmoseptine 3.5 gm TP BID 06/10/17 06/10/17 Ointment Packet] Nystatin OINT [Mycostatin] 1 appl TP BID 06/10/17 06/10/17 Potassium Chloride [K-Tab ER] 20 meq PO TID 06/10/17 06/10/17 Sennosides/Docusate Sodium [Senna 2 each PO HS 06/10/17 06/10/17 Plus] predniSONE [Prednisone] 2.5 mg PO DAILY 06/10/17 06/10/17 Previous Rx's Medication Instructions Recorded cloZAPine [Clozaril] 300 mg PO HS tablet 05/20/16 Ferrous Sulfate 325 mg PO BIDWM #60 tablet 06/16/17 Metoprolol [Lopressor] 25 mg PO BID #30 tablet 06/16/17 Allergies Allergy/AdvReac Type Severity Reaction Status Date / Time haloperidol [From Haldol] Allergy unknown Verified 11/30/16 07:19 Constitutional: Denies: fever, chills Cardiovascular: Denies: chest pain, palpitations Respiratory: Denies: cough Gastrointestinal: Reports: other (girth--" has grown some in the last few weeks"). Denies: abdominal pain, nausea, vomiting, diarrhea, constipation, hematemesis, melena, hematochezia Genitourinary: Denies: urgency, dysuria Musculoskeletal: Denies: back pain Integumentary: Denies: rash Neurological: Denies: abnormal gait Endocrine: Reports: fatigue ("maybe a little") Past Medical History - Past Medical History Medical history: Reports: atrial fibrillation, COPD, GERD, hyperlipidemia, hyper tension, thyroid disease Surgical history: Reports: cataract, other (Tonsillectomy) Psychiatric history: Reports: anxiety, depression, schizophrenia - Social History Smoking Status: Current every day smoker Smokeless Tobacco Status: No Alcohol use: Reports: none Drug use: Reports: none Physical Exam - General Limitations: no limitations General appearance: alert, in no apparent distress Course Vital Signs Temperature 97.5 F L 05/15/18 23:44 Pulse Rate 82 05/15/18 23:44 Respiratory Rate 18 05/15/18 23:44 Blood Pressure 137/89 05/15/18 23:44 O2 Sat by Pulse Oximetry 98 05/15/18 23:44 Temperature 97.5 F L 05/15/18 23:44 Pulse Rate 80 05/16/18 00:00 Respiratory Rate 20 05/16/18 00:00 Blood Pressure 112/77 05/16/18 00:00 O2 Sat by Pulse Oximetry 99 05/16/18 00:00 Oxygen Delivery Oxygen Delivery Room Air Medical Decision Making - Medical Records Medical records reviewed: Yes I reviewed the patient's medical records. - Lab Data Lab results reviewed: Yes I reviewed the patient's lab results. Result diagrams: 05/15/18 23:52 Lab Results 12/05/15/18 05/15/18 Range/Units 23:52 23:52 23:52 PT 13.6 H (9.4-12.1) Seconds INR 1.2 APTT 30.9 (26.0-36.0) Seconds Sodium 134 L (136-145) mEq/L Potassium 4.2 (3.5-5.1) mEq/L Chloride 104 (98-107) mEq/L Carbon Dioxide 23 (23-29) mEq/L BUN 11 (8-23) mg/dL Creatinine 0.95 (0.70-1.30) mg/dL Est GFR ( Amer) > 60 (> 60) Est GFR (Non-Af Amer) > 60 (> 60) BUN/Creatinine Ratio 12 (6-26) Glucose 126 H (70-105) mg/dL Calculated Osmolality 279 L (280-300) Calcium 8.9 (8.6-10.3) mg/dL Total Bilirubin 0.2 L (0.3-1.0) mg/dL Direct Bilirubin 0.1 (0.0-0.2) mg/dL Indirect Bilirubin 0.1 (0.0-1.2) mg/dL AST 17 (13-39) Units/L ALT 16 (7-52) Units/L Alkaline Phosphatase 142 H (34-104) Units/L Serum Total Protein 6.0 L (6.4-8.9) g/dL Albumin 4.0 (3.5-5.7) g/dL Globulin 2.0 L (2.4-3.5) g/dL Albumin/Globulin Ratio 2.0 (1.1-2.2) Stool Occult Bld Scrn (Negative) Blood Type A POSITIVE Antibody Screen NEGATIVE 05/16/18 Range/Units 00:32 PT (9.4-12.1) Seconds INR APTT (26.0-36.0) Seconds Sodium (136-145) mEq/L Potassium (3.5-5.1) mEq/L Chloride (98-107) mEq/L Carbon Dioxide (23-29) mEq/L BUN (8-23) mg/dL Creatinine (0.70-1.30) mg/dL Est GFR ( Amer) (> 60) Est GFR (Non-Af Amer) (> 60) BUN/Creatinine Ratio (6-26) Glucose (70-105) mg/dL Calculated Osmolality (280-300) Calcium (8.6-10.3) mg/dL Total Bilirubin (0.3-1.0) mg/dL Direct Bilirubin (0.0-0.2) mg/dL Indirect Bilirubin (0.0-1.2) mg/dL AST (13-39) Units/L ALT (7-52) Units/L Alkaline Phosphatase (34-104) Units/L Serum Total Protein (6.4-8.9) g/dL Albumin (3.5-5.7) g/dL Globulin (2.4-3.5) g/dL Albumin/Globulin Ratio (1.1-2.2) Stool Occult Bld Scrn Positive A (Negative) Blood Type Antibody Screen - Radiology Data Radiology results reviewed: Yes I reviewed the patient's radiology results. Chest X-Ray 05/15/18 23:52 IMPRESSION: No acute cardiopulmonary abnormality. Previously seen left pleural effusion has resolved. D/ / Geraldo Rosas MD / Geraldo Rosas MD Interpreting Provider: Geraldo Rosas MD Abdomen/Pelvis CT 05/16/18 23:52 IMPRESSION: Mild distension of the colon. There is relative caliber change within the sigmoid colon which shows wall thickening and minimal adjacent fat stranding. Although this finding could be due to contraction or inflammation, neoplasm should be considered. There are few bilobar hypodense hepatic lesions, not seen on the prior study, not well evaluated on this noncontrast study. A dedicated liver protocol CT or MRI would be helpful further evaluate. D/ / Bonnie Baron Cha, MD / Bonnie Baron Cha, MD Interpreting Provider: Bonnie Baron Cha, MD - EKG Data EKG #1 EKG attestation: Yes I reviewed and interpreted this EKG. EKG results narrative: EKG shows normal sinus rhythm with frequent PACs. Ventricular rate 84. No ST segment elevation or depression. Nonspecific right ventricular conduction delay. 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 I reviewed the midlevel provider's note and agree with the documented findings, medical decision making, and plan of care. 72-year-old male transferred from the local [facility] for evaluation of rectal bleeding. Patient is a chronic [facility] the [facility]. He reportedly had some bright red rectal bleeding today. They did a CBC and referred him here for further evaluation. His hemoglobin was 12.3. Patient is very poor historian. He has some obvious abdominal distention but is unsure if this is chronic or new. He denies abdominal pain but then states sometimes it gets sore. Patient is on Xarelto. On examination patient is a well-developed well-nourished elderly male in no acute distress. He is alert and cooperative. No cyanosis or diaphoresis. Breath sounds are equal bilaterally with scattered bilateral expiratory wheezes. Heart regular rate and rhythm. Abdomen is distended and tympanic. There is mild diffuse tenderness. No guarding or rebound tenderness. Bowel sounds normal. Labs reviewed. CT showed an area in the colon of bowel wall thickening with decreased caliber concerning for neoplasm but could also be inflammatory. The hospitalist, Dr. Euceda, was consulted and accepted admission of the patient.
[2018-05-16] MEDS ORDERED: Naloxone 0.4 MG/ML INJ IVP PRN (07:50)
[2018-05-16] MEDS ORDERED: Ondansetron 4 MG/2 ML VIAL IVP PRN (07:50)
[2018-05-16 08:25] LABS: Basophils % 0.2 %; Eosinophils # 0.3 K/mcL (0.0-0.6); Eosinophils % 3.5 %; Hematocrit 39.3 % (37.5-50.1); Hemoglobin 12.3 g/dL (12.9-16.9); Immature Granulocytes % 0.5 % (0-4); Lymphocytes # 2.1 K/mcL (0.6-4.6); Lymphocytes % 24.7 %; Mean Corpuscular HGB Conc 31.3 g/dL (31.6-35.5); Mean Corpuscular Hemoglobin 28.1 pg (28.0-33.3); Mean Corpuscular Volume 89.9 fL (83.0-100.0); Mean Platelet Volume 9.8 fL (9.4-12.4); Monocytes # 0.7 K/mcL (0.0-1.3); Monocytes % 7.7 %; Neutrophils # 5.5 K/mcL (1.6-8.9); Platelet Count 250 K/mcL (140-400); Red Blood Count 4.37 M/mcL (4.19-5.50); Segmented Neutrophils % 63.4 %
--- NOTE | 2018-05-16 09:38 | Internal Med History&Physical ---
Date of Encounter: 05/16/18 Time of Encounter: 08:15 Internal Medicine - H&P: HPI Chief complaint: Rectal bleed Admitted From: Emergency Dept Plans for Post Hospital Care: Home History of present illness: Mr. Gong is a 72 year old male patient with history of schizophrenia, atrial fibrillation, COPD, hypertension, hyperlipidemia, who presented to the ER here with complaints of bright red bleeding per rectum. Patient has a history of hemorrhoids. He has not had a colonoscopy for several years. He reports that he has been having bright red bleeding per rectum for the past couple of days. He has not had any new episodes since coming in here. He denies any hematemesis or melena. No abdominal pain. No fevers or chills. No nausea or vomiting. Past Med Surg Social Fam HX - Past Medical History Attestation: Yes The following information was validated with the patient. Source: patient Medical history: atrial fibrillation, COPD, GERD, hyperlipidemia, hypertension, thyroid disease Additional medical history: PN, apnea, elective mutism, entropion mechanical, BPH Psychiatric history: anxiety, depression, schizophrenia - Past Surgical History Surgical History: cataract, other - Social History Smoking Status: Current every day smoker Smokeless Tobacco Status: No Alcohol use: none Drug use: none - Family History Father Family Member Ethnicity: Non- Mother Family Member Ethnicity: Non- Living Status: Hx Family Respiratory Disorders: Yes (COPD) Hx Family Cancer: Yes Sister Family Member Ethnicity: Non- Living Status: Still Living Internal Medicine - H&P: Meds cloZAPine [Clozaril] 300 mg PO HS tablet 05/20/16 [Rx] Acetaminophen [Tylenol] 650 mg PO Q6HR PRN 07/10/16 [History] Atorvastatin [Lipitor] 10 mg PO HS 07/10/16 [History] Cholecalciferol (D-3) [Vitamin D] 4,000 unit PO DAILY 07/10/16 [History] LORazepam [Ativan] 1 mg PO BID PRN 07/10/16 [History] Levalbuterol Neb [Xopenex Neb] 1.25 mg IH BID 07/10/16 [History] Levothyroxine [Synthroid] 37.5 mcg PO DAILY 07/10/16 [History] Omeprazole [PriLOSEC] 20 mg PO DAILY 07/10/16 [History] Mineral Oil/Petrolatum,White [Eucerin Creme] 1 appl TP DAILY 11/19/16 [History] Budesonide/Formoterol 160/4.5 [Symbicort 160/4.5] 2 puff IH BIDR 06/10/17 [History] Digoxin [Lanoxin] 0.25 mg PO DAILY 06/10/17 [History] Menthol/Zinc Oxide [Calmoseptine Ointment Packet] 3.5 gm TP BID 06/10/17 [History] Nystatin OINT [Mycostatin] 1 appl TP BID 06/10/17 [History] Potassium Chloride [K-Tab ER] 20 meq PO TID 06/10/17 [History] Sennosides/Docusate Sodium [Senna Plus] 2 each PO HS 06/10/17 [History] predniSONE [Prednisone] 2.5 mg PO DAILY 06/10/17 [History] Ferrous Sulfate 325 mg PO BIDWM #60 tablet 06/16/17 [Rx] Metoprolol [Lopressor] 25 mg PO BID #30 tablet 06/16/17 [Rx] Allergy/AdvReac Type Severity Reaction Status Date / Time haloperidol [From Haldol] Allergy unknown Verified 11/30/16 07:19 All Systems PM: A 10-system review of systems was performed and is negative for pertinent findings except as documented above in the HPI. - Constitutional Constitutional: no chills, no fever(s), no night sweats - EENT Eyes: no change in vision, no discharge, no pain, no photophobia Ears: no ear discharge, no ear pain, no tinnitus Nose, mouth and throat: no dysphagia, no nasal discharge, no neck pain, no sore throat - Cardiovascular Cardiovascular ROS IM: no chest pain, no diaphoresis, no dyspnea, no lightheadedness, no palpitations, no syncope - Respiratory Respiratory: no cough, no dyspnea, no wheezing, no excessive phlegm production - Gastrointestinal Gastrointestinal: hematochezia, no abdominal pain, no diarrhea, no hematemesis, no melena, no nausea, no vomiting - Musculoskeletal Musculoskeletal ROS IM: no numbness, no tingling - Integumentary Integumentary IM: no rash, no unusual bruising - Neurological Neurological ROS: no confusion, no convulsions, no focal weakness, no numbness, no tingling, no tremor(s) - Hematologic/Lymphatic Hematologic/Lymphatic: no easy bruising - Constitutional Vitals: Temp Pulse Resp BP Pulse Ox 97.9 F 89 16 132/87 92 05/16/18 07:43 05/16/18 07:43 05/16/18 07:43 05/16/18 07:43 05/16/18 07:43 General appearance: Present: cooperative, A&O X 3, pleasant, answers questions appropriately Exam: General: Patient is alert, no acute distress, oriented x 3 ENT: Mucous membranes moist Chest: normal inspection, symmetric chest rise Respiratory: Good respiratory effort. Normal breath sounds. No wheezing or crackles. Cardiovascular: Regular rate and rhythm. s1 and s2 normal No clicks, rubs, gallops, or murmurs. No pedal edema Abdomen: Abdomen is soft, nontender. Bowel sounds are present Musculoskeletal: Spontaneously moving all extremities Skin: warm, dry, intact. Neuro: Alert oriented x 3 normal cranial nerves, no focal deficits Psych: Patient's affect is normal Internal Med - H&P Results - Labs CBC & Chem 7: 05/16/18 08:01 05/15/18 23:52 Labs: Short CBC 05/16/18 Range/Units 08:01 WBC 8.6 (4.3-11.1) K/mcL Hgb 12.3 L (12.9-16.9) g/dL Hct 39.3 (37.5-50.1) % Plt Count 250 (140-400) K/mcL Neutrophils # 5.5 (1.6-8.9) K/mcL BMP 05/15/18 23:52 Sodium 134 L Potassium 4.2 Chloride 104 Carbon Dioxide 23 BUN 11 Creatinine 0.95 Glucose 126 H Calcium 8.9 Liver Function 05/15/18 Range/Units 23:52 Total Bilirubin 0.2 L (0.3-1.0) mg/dL Direct Bilirubin 0.1 (0.0-0.2) mg/dL AST 17 (13-39) Units/L ALT 16 (7-52) Units/L Alkaline Phosphatase 142 H (34-104) Units/L Albumin 4.0 (3.5-5.7) g/dL - Impressions ITS Impressions Chest X-Ray 05/15/18 23:52 IMPRESSION: No acute cardiopulmonary abnormality. Previously seen left pleural effusion has resolved. D/ / Geraldo Rosas MD / Geraldo Rosas MD Interpreting Provider: Geraldo Rosas MD Abdomen/Pelvis CT 05/16/18 23:52 IMPRESSION: Mild distension of the colon. There is relative caliber change within the sigmoid colon which shows wall thickening and minimal adjacent fat stranding. Although this finding could be due to contraction or inflammation, neoplasm should be considered. There are few bilobar hypodense hepatic lesions, not seen on the prior study, not well evaluated on this noncontrast study. A dedicated liver protocol CT or MRI would be helpful further evaluate. D/ / Bonnie Baron Cha, MD / Bonnie Baron Cha, MD Interpreting Provider: Bonnie Baron Cha, MD - Assessment and plan (1) GI bleed Current Visit: Yes Status: Acute Assessment and plan: Patient with acute hematochezia. CT scan of the abdomen and pelvis shows colonic wall thickening in the sigmoid colon. Discussed with GI. Plan for colonoscopy after bowel prep. Monitor hemoglobin levels. We will place patient on PPI. Hold Xarelto. Moderate risk for complications. Qualifiers: GI bleed type/associated pathology: anorectal hemorrhage Qualified Code(s): K62.5 - Hemorrhage of anus and rectum (2) COPD (chronic obstructive pulmonary disease) Current Visit: Yes Status: Chronic Assessment and plan: Not in acute exacerbation. Will place patient on bronchodilators as needed Qualifiers: COPD type: unspecified COPD Qualified Code(s): J44.9 - Chronic obstructive pulmonary disease, unspecified (3) DVT prophylaxis Current Visit: Yes Status: Acute Assessment and plan: With SCDs (4) History of atrial fibrillation Current Visit: Yes Status: Chronic Assessment and plan: Rate controlled. Was on anticoagulation with Xarelto. Hold Xarelto for now. Continue rate controlling medications. - Time Spent With Patient Total time spent is greater than 50% in coordination of care (as documented) at patient's floor/unit and/or counseling patient:
[2018-05-16] MEDS ORDERED: PEG/Electrolytes/Ascorbic Acid 1 EACH POWD.PACK PO ONE (10:44)
--- NOTE | 2018-05-16 10:50 | Internal Medicine Consult Note ---
Date of Encounter: 05/16/18 Time of Encounter: 10:48 - Assessment and Plan (1) Hematochezia Current Visit: Yes Status: Acute Assessment and plan: This certainly could be hemorrhoidal, somewhat complicated with the anticoagulation. Differential to include hemorrhoids, diverticular bleeding, I think mass is much less likely. We will go and pursue colonoscopy while he is here; provided bowel prep today, given his social status and concern for follow- up, doing this electively here in the hospital. I have discussed risks and benefits of the procedure today he has signed consent. His vital signs are stable, there has not been significant blood loss given his labs. (2) COPD (chronic obstructive pulmonary disease) Current Visit: Yes Status: Chronic Qualifiers: COPD type: unspecified COPD Qualified Code(s): J44.9 - Chronic obstructive pulmonary disease, unspecified (3) History of atrial fibrillation Current Visit: Yes Status: Chronic (4) Hypothyroidism Current Visit: No Status: Chronic Qualifiers: Hypothyroidism type: unspecified Qualified Code(s): E03.9 - Hypothyroidism, unspecified Internal Medicine - CN: HPI - Data of Consult Patient: new to practice Requesting Physician: Ramone Euceda MD - Consult Narrative Reason for consult: Hematochezia, and abnormal CAT scan History of present illness: Mr. Gong is a 72 year old male who is on the medical floor for evaluation for hematochezia. I was called by the hospitalist this morning, apparently in last couple of days this gentleman is appreciated right red per rectum, I do not get a sense it has been a significant amount. He admits it may be his hemorrhoids. This is happened remotely. He has had no weight changes no abdominal pain he really cannot recall when his last colonoscopy was. CAT scan on admission disclosed possible sigmoid wall thickening and fat stranding Past Med Surg Social Fam HX - Past Medical History Medical history: atrial fibrillation, COPD, GERD, hyperlipidemia, thyroid diseas e Additional medical history: PN, apnea, elective mutism, entropion mechanical, BPH, hypothyroid Psychiatric history: anxiety, depression, schizophrenia - Past Surgical History Surgical History: cataract, other Additional surgical history: Previous chest tube placement for spontaneous pneumothorax - Social History Smoking Status: Current every day smoker Smokeless Tobacco Status: No Alcohol use: none Drug use: none - Family History Father Family Member Ethnicity: Non- Mother Family Member Ethnicity: Non- Living Status: Hx Family Respiratory Disorders: Yes (COPD) Hx Family Cancer: Yes Sister Family Member Ethnicity: Non- Living Status: Still Living - Cardiovascular Cardiovascular ROS IM: irregular heart rhythm, no chest pain, no diaphoresis, no dyspnea, no dyspnea on exertion, no syncope - Respiratory Respiratory: no cough, no wheezing, no pain on inspiration - Gastrointestinal Gastrointestinal: hematochezia, no abdominal pain, no diarrhea, no hematemesis, no melena, no nausea - Neurological Neurological ROS: no confusion, no focal weakness Additional comments: Intermittent leg weakness, he walks with a walker. Internal Medicine - CN: Meds cloZAPine [Clozaril] 300 mg PO HS tablet 05/20/16 [Rx] Acetaminophen [Tylenol] 650 mg PO Q6HR PRN 07/10/16 [History] Atorvastatin [Lipitor] 10 mg PO HS 07/10/16 [History] Cholecalciferol (D-3) [Vitamin D] 4,000 unit PO DAILY 07/10/16 [History] LORazepam [Ativan] 1 mg PO BID PRN 07/10/16 [History] Levalbuterol Neb [Xopenex Neb] 1.25 mg IH BID 07/10/16 [History] Levothyroxine [Synthroid] 37.5 mcg PO DAILY 07/10/16 [History] Omeprazole [PriLOSEC] 20 mg PO DAILY 07/10/16 [History] Mineral Oil/Petrolatum,White [Eucerin Creme] 1 appl TP DAILY 11/19/16 [History] Budesonide/Formoterol 160/4.5 [Symbicort 160/4.5] 2 puff IH BIDR 06/10/17 [H istory] Digoxin [Lanoxin] 0.25 mg PO DAILY 06/10/17 [History] Menthol/Zinc Oxide [Calmoseptine Ointment Packet] 3.5 gm TP BID 06/10/17 [History] Nystatin OINT [Mycostatin] 1 appl TP BID 06/10/17 [History] Potassium Chloride [K-Tab ER] 20 meq PO TID 06/10/17 [History] Sennosides/Docusate Sodium [Senna Plus] 2 each PO HS 06/10/17 [History] predniSONE [Prednisone] 2.5 mg PO DAILY 06/10/17 [History] Ferrous Sulfate 325 mg PO BIDWM #60 tablet 06/16/17 [Rx] Metoprolol [Lopressor] 25 mg PO BID #30 tablet 06/16/17 [Rx] Allergy/AdvReac Type Severity Reaction Status Date / Time haloperidol [From Haldol] Allergy unknown Verified 11/30/16 07:19 Internal Med - CN: Exam - Constitutional Vitals: Temp Pulse Resp BP Pulse Ox 97.9 F 89 16 132/87 92 05/16/18 07:43 05/16/18 07:43 05/16/18 07:43 05/16/18 07:43 05/16/18 07:43 General appearance IM: Present: cooperative, disheveled, A&O X 3, pleasant, no acute distress, answers questions appropriately - Head Head exam: Present: atraumatic - Eye Additional comments: Bilateral conjunctivitis noted, with some purulence on the right eye. - Neck Neck exam general surgery: Present: full ROM, supple, trachea midline - Respiratory Respiratory exam: Present: CTAB. Absent: respiratory distress, wheezes, tachypnea - Cardiovascular Cardiovascular exam IM: Present: RRR. Absent: irregular rhythm, JVD - GI/Abdominal GI/Abdominal exam IM: Present: normal bowel sounds, no peritoneal signs. Absent: splenomegaly, tenderness - Rectal Rectal exam: Present: deferred Internal Medicine - CN: Reslt - Labs CBC & Chem 7: 05/16/18 08:01 05/15/18 23:52 Labs: Short CBC 05/16/18 Range/Units 08:01 WBC 8.6 (4.3-11.1) K/mcL Hgb 12.3 L (12.9-16.9) g/dL Hct 39.3 (37.5-50.1) % Plt Count 250 (140-400) K/mcL Neutrophils # 5.5 (1.6-8.9) K/mcL BMP 05/15/18 23:52 Sodium 134 L Potassium 4.2 Chloride 104 Carbon Dioxide 23 BUN 11 Creatinine 0.95 Glucose 126 H Calcium 8.9 Liver Function 05/15/18 Range/Units 23:52 Total Bilirubin 0.2 L (0.3-1.0) mg/dL Direct Bilirubin 0.1 (0.0-0.2) mg/dL AST 17 (13-39) Units/L ALT 16 (7-52) Units/L Alkaline Phosphatase 142 H (34-104) Units/L Albumin 4.0 (3.5-5.7) g/dL - ABG Interpretation ABG results: PT/INR, D-dimer PT 13.6 Seconds (9.4-12.1) H 05/15/18 23:52 - Impressions Impressions Chest X-Ray 05/15/18 23:52 IMPRESSION: No acute cardiopulmonary abnormality. Previously seen left pleural effusion has resolved. D/ / Geraldo Rosas MD / Geraldo Rosas MD Interpreting Provider: Geraldo Rosas MD Abdomen/Pelvis CT 05/16/18 23:52 IMPRESSION: Mild distension of the colon. There is relative caliber change within the sigmoid colon which shows wall thickening and minimal adjacent fat stranding. Although this finding could be due to contraction or inflammation, neoplasm should be considered. There are few bilobar hypodense hepatic lesions, not seen on the prior study, not well evaluated on this noncontrast study. A dedicated liver protocol CT or MRI would be helpful further evaluate. D/ / Bonnie Baron Cha, MD / Bonnie Baron Cha, MD Interpreting Provider: Bonnie Baron Cha, MD Consult Discharge Plan - Plan [facility]errals: [facility] [Primary Care Provider] -
[2018-05-17] MEDS ORDERED: *HR* Midazolam HCl 5 MG/5 ML VIAL IVP ONE (07:06)
[2018-05-17] MEDS ORDERED: *HR* FentaNYL (PF) 100 MCG/2 ML VIAL ONE (07:06)
[2018-05-17] MEDS ORDERED: Simethicone 40 MG/0.6 ML MLS IR ONE (07:14)
[2018-05-17] MEDS ORDERED: *HR* Metoprolol 5 MG/5 ML VIAL IVP ONE ×2 (07:50→12:06)
[2018-05-17] MEDS ORDERED: Gadolinium Contrast Agent (WT Based) IV PRN (08:10)
--- NOTE | 2018-05-17 08:10 | Internal Med Progress Note ---
Hospitalist Progress Note - Encounter Date of Encounter: 05/17/18 Time of Encounter: 08:08 - Subjective Interval History: Since seen and examined this morning. Colonoscopy canceled this morning due to tachycardia. Patient received Lopressor and metoprolol. Currently HR in 100s. Denies sob, chest pain. appears anxious. Denies any pain. - Exam Vitals: Temp Pulse Resp BP Pulse Ox 97.9 F 165 16 143/88 92 05/17/18 07:44 05/17/18 07:44 05/17/18 07:44 05/17/18 07:44 05/17/18 07:44 Exam: General: In no acute distress. Conversant. anxious Respiratory exam: CTAB. no accessory muscle use, rales, rhonchi, wheezes. Decreased air entry b/l Cardiovascular exam: tachycardia, irregular, +S1, +S2. no murmur, gallop, rubs. GI/Abdominal exam: Non-tender, Non-distended, normal bowel sounds, soft, no peritoneal signs. Extremities exam: full ROM, no pedal edema, warm, pulses palpable in b/l lower extremities. no calf tenderness Neurological exam: CN II-XII intact, AO X3, no focal deficits. no pronater drift, facial droop, speech deficit Skin exam: No skin rash, ulcer, purpura or ecchymosis. - Assessment and Plan (1) COPD (chronic obstructive pulmonary disease) Current Visit: Yes Status: Chronic (2) History of atrial fibrillation Current Visit: Yes Status: Chronic (3) Hypothyroidism Current Visit: No Status: Chronic (4) Hematochezia Current Visit: Yes Status: Acute - Summary of Assessment and Plan Summary of Assessment and Plan: GI bleed - Patient with acute hematochezia. - CT with colonic wall thickening in the sigmoid colon. - Colonoscopy tomorrow given Afib with RVR this morning. Keep on clear liquid. - Monitor hemoglobin. - c/w PPI. Hold Xarelto. Tachycardia - tachycardic this morning. EKG with afib with RVR - Start metoprolol q8hr. confirm home medication. Will resume once confirmed. - Hold Xarelto for now. CT with liver lesions - Will get MRI with liver protocol. COPD - Not in acute exacerbation. - start nebulizers. Will resume home meds when confirmed. DVT prophylaxis - c/w SCDs Internal Medicine: Result - Labs CBC & Chem 7: 05/16/18 08:01 05/15/18 23:52 Labs: Short CBC 05/16/18 Range/Units 08:01 WBC 8.6 (4.3-11.1) K/mcL Hgb 12.3 L (12.9-16.9) g/dL Hct 39.3 (37.5-50.1) % Plt Count 250 (140-400) K/mcL Neutrophils # 5.5 (1.6-8.9) K/mcL - ABG Interpretation ABG results: PT/INR, D-dimer PT 13.6 Seconds (9.4-12.1) H 05/15/18 23:52 Consult Discharge Plan - Plan [facility]errals: [facility] [Primary Care Provider] - (1) COPD (chronic obstructive pulmonary disease) Qualifiers: COPD type: unspecified COPD Qualified Code(s): J44.9 - Chronic obstructive pulmonary disease, unspecified (3) Hypothyroidism Qualifiers: Hypothyroidism type: unspecified Qualified Code(s): E03.9 - Hypothyroidism, unspecified
[2018-05-17] MEDS ORDERED: Ipratropium/Albuterol Neb 3 ML IH PRN (08:28)
[2018-05-17 10:22] LABS: Basophils % 0.2 %; Eosinophils # 0.2 K/mcL (0.0-0.6); Eosinophils % 1.7 %; Hematocrit 39.7 % (37.5-50.1); Hemoglobin 12.6 g/dL (12.9-16.9); Immature Granulocytes % 0.3 % (0-4); Lymphocytes # 1.9 K/mcL (0.6-4.6); Lymphocytes % 22.1 %; Mean Corpuscular HGB Conc 31.7 g/dL (31.6-35.5); Mean Corpuscular Hemoglobin 28.2 pg (28.0-33.3); Mean Corpuscular Volume 88.8 fL (83.0-100.0); Mean Platelet Volume 9.9 fL (9.4-12.4); Monocytes # 0.8 K/mcL (0.0-1.3); Monocytes % 9.1 %; Neutrophils # 5.8 K/mcL (1.6-8.9); Platelet Count 269 K/mcL (140-400); Red Blood Count 4.47 M/mcL (4.19-5.50); Red Cell Distribution Width 14.1 % (11.5-14.5); Segmented Neutrophils % 66.6 %
[2018-05-17 10:35] LABS: BUN/Creatinine Ratio 12 (6-26); Blood Urea Nitrogen 11 mg/dL (8-23); Calcium 8.7 mg/dL (8.6-10.3); Carbon Dioxide 27 mEq/L (23-29); Chloride 109 mEq/L (98-107); Glucose 100 mg/dL (70-105); Osmolality,Calculated 299 (280-300); Potassium 3.8 mEq/L (3.5-5.1); Sodium 145 mEq/L (136-145); eGFR For Non-African Americans > 60 (> 60)
[2018-05-17] MEDS: *HR* Metoprolol 5 MG/5 ML VIAL IVP PRN (10:35)
[2018-05-17] MEDS: Ipratropium/Albuterol Neb 3 ML IH SCH ×2 (11:13→21:47)
[2018-05-17] MEDS: 0.9 % Sodium Chloride 1,000 ML IVC SCH (14:50)
[2018-05-17 16:00] LABS: Hematocrit 40.9 % (37.5-50.1)
[2018-05-17] MEDS ORDERED: *HR* Metoprolol 5 MG/5 ML VIAL IVP SCH (16:00)
[2018-05-17] MEDS ORDERED: 0.9 % Sodium Chloride 500 ML IVC ONE (16:25)
[2018-05-18] MEDS: 0.9 % Sodium Chloride 1,000 ML IVC SCH ×2 (05:06→20:00)
[2018-05-18] MEDS: Ipratropium/Albuterol Neb 3 ML IH SCH ×2 (09:49→19:32)
--- NOTE | 2018-05-18 10:27 | Internal Med Progress Note ---
Hospitalist Progress Note - Encounter Date of Encounter: 05/18/18 Time of Encounter: 09:42 - Subjective Interval History: Since seen and examined this morning. No overnight events. Rate controlled on Cardizem drip. Denies sob, chest pain. appears anxious. Denies any pain. Could not get MRI done today due to claustrophobia and patient could not hold breath. - Exam Vitals: Temp Pulse Resp BP Pulse Ox 98.0 F 86 15 149/82 92 05/18/18 07:02 05/18/18 07:02 05/18/18 09:50 05/18/18 07:02 05/18/18 09:50 Exam: General: In no acute distress. Conversant. anxious Respiratory exam: CTAB. no accessory muscle use, rales, rhonchi, wheezes. Decreased air entry b/l Cardiovascular exam: RRR, +S1, +S2. no murmur, gallop, rubs. GI/Abdominal exam: Non-tender, Non-distended, normal bowel sounds, soft, no peritoneal signs. Extremities exam: full ROM, no pedal edema, warm, pulses palpable in b/l lower extremities. no calf tenderness Neurological exam: CN II-XII intact, AO X3, no focal deficits. no pronater drift, facial droop, speech deficit Skin exam: No skin rash, ulcer, purpura or ecchymosis. - Assessment and Plan (1) COPD (chronic obstructive pulmonary disease) Current Visit: Yes Status: Chronic (2) History of atrial fibrillation Current Visit: Yes Status: Chronic (3) Hypothyroidism Current Visit: No Status: Chronic (4) Hematochezia Current Visit: Yes Status: Acute - Summary of Assessment and Plan Summary of Assessment and Plan: GI bleed - Patient with acute hematochezia. - CT with colonic wall thickening in the sigmoid colon. - Hb stable - Colonoscopy planned for today. - Afib now controlled. Currently NPO. - c/w PPI. Hold Xarelto for now. Afib - c/w cardizem for now. Will resume home medication - Hold Xarelto for now. - Will get TSH in morning labs CT with liver lesions - could not get MRI done due to claustrophobia and difficulty holding breath. Patient did not want to get it done later COPD - Not in acute exacerbation. - c/w nebulizers. Will resume home meds when confirmed. DVT prophylaxis - c/w SCDs - Time Spent with Patient Total time spent is greater than 50% in coordination of care (as documented) at patient's floor/unit and/or counseling patient: Internal Medicine: Result - Labs CBC & Chem 7: 05/17/18 15:47 05/17/18 10:05 Labs: Short CBC 05/17/18 Range/Units 15:47 Hgb 13.0 (12.9-16.9) g/dL Hct 40.9 (37.5-50.1) % BMP 05/17/18 10:05 Sodium 145 Potassium 3.8 Chloride 109 H Carbon Dioxide 27 BUN 11 Creatinine 0.93 Glucose 100 Calcium 8.7 - ABG Interpretation ABG results: PT/INR, D-dimer PT 13.6 Seconds (9.4-12.1) H 05/15/18 23:52 - Impressions Impressions Abdomen MRI 05/18/18 09:00 IMPRESSION: Markedly limited exam due to breath holds and early termination by the patient. Liver lesions are not well seen on this study. Recommend repeat exam following sedation or dedicated liver CT for further evaluation. D/ / 05/18/2018 10:21:25 Pat Minor MD / mundo Interpreting Provider: Pat Minor MD Consult Discharge Plan - Plan Referrals: [facility] [Primary Care Provider] - (1) COPD (chronic obstructive pulmonary disease) Qualifiers: COPD type: unspecified COPD Qualified Code(s): J44.9 - Chronic obstructive pulmonary disease, unspecified (3) Hypothyroidism Qualifiers: Hypothyroidism type: unspecified Qualified Code(s): E03.9 - Hypothyroidism, unspecified
[2018-05-18] MEDS ORDERED: *HR* FentaNYL (PF) 100 MCG/2 ML VIAL ONE (11:19)
[2018-05-18] MEDS ORDERED: *HR* Midazolam HCl 5 MG/5 ML VIAL IVP ONE ×2 (11:20→11:55)
[2018-05-18] MEDS ORDERED: Simethicone 40 MG/0.6 ML MLS IR ONE (11:55)
[2018-05-18] MEDS ORDERED: *HR* FentaNYL (PF) 100 MCG/2 ML VIAL IVP ONE (11:55)
--- NOTE | 2018-05-18 11:56 | Pre-Sedation Evaluation ---
Pre-sedation evaluation - Pre-sedation checklist Date of procedure: 05/18/18 Procedure: Colonoscopy Recent Vitals: Last Vital Signs Temp 97.7 F 05/18/18 10:47 Pulse 90 05/18/18 11:24 Resp 16 05/18/18 11:24 BP 145/88 05/18/18 11:24 Pulse Ox 91 05/18/18 11:21 H&P (including ROS) documented in medical record: Yes Previous reaction to sedatives/anesthetics: No Dietary Status: NPO after Midnight Dentition: No loose teeth or bridges Possible difficult airway: No ASA Classification *see protocol: CLASS II-Mild systemic disease Plan of Care: Pt appropriate candidate for procedure/moderate/conscious sedation
--- NOTE | 2018-05-18 12:13 | Event Note ---
Date of Encounter: 05/18/18 Time of Encounter: 12:12 Colonoscopy findings: Near obstructing Recto-simoid mass seen. Scope could not be advanced into the sigmoid. Biopsies obtained. Most likely malignant. Will need surgical evaluation.
[2018-05-18] MEDS ORDERED: Isovue-370 500 ML INFUS..BTL IV ONE (12:58)
--- NOTE | 2018-05-18 13:36 | General Surgery Consult Note ---
Addendum entered and electronically signed by Musa Harman MD 05/21/18 08:57: signed again Addendum entered and electronically signed by Musa Harman MD 05/21/18 08:39: 05/18/18 Note reviewed. Hospice. No surgery at this time Musa Harman MD FACS Addendum entered and electronically signed by Nuria Chen 05/20/18 16:46: Assessment and plan unchanged. Note required signature. Original Note: <Nuria Chen - Last Filed: 05/18/18 13:22> Date of Encounter: 05/18/18 Time of Encounter: 13:11 Assessment and Plan (1) Lesion of colon Current Visit: Yes Status: Acute Partially obstructing recto-sigmoid mass noted on colonoscopy today, likely malignant Discussed findings with patient. He states he has no family or friends to contact. He understands that he has a colon mass that will likely require surgery. MRI w/o contrast 05/18 - Patient was unable to tolerate, resulted in early termination and limited exam Non-contrast CT abd/pelvis 05/16 - Mild distension of the colon. There is relative caliber change within the sigmoid colon which shows wall thickening and minimal adjacent fat stranding. There are few bilobar hypodense hepatic lesions, not seen on the prior study, not well evaluated on this non-contrast study Plan: Contrast CT abd/pelvis pending CEA pending Keep NPO for now History of Present Illness Consult date: 05/18/18 Reason for consult: other (Recto-sigmoid mass on Colonoscopy) History of present illness: Vikram Gong is a 72 year old male with a hx of HTN, HLD, AFib on Xarelto, COPD, schizophrenia who [facility] around midnight with a 2 day history of rectal bleeding. Patient reported a hx of hemorrhoids and had not had a colonoscopy in many years. He denies abdominal pain, hematemesis, or melena and has not had any new episodes of rectal bleeding since upon arrival. He had a liquid brown BM today. He was found to have a partially obstructing recto-sigmoid mass on colonoscopy today. Past Med Surg Social Fam HX - Past Medical History Medical history: atrial fibrillation, COPD, GERD, hyperlipidemia, thyroid disease Additional medical history: PN, apnea, elective mutism, entropion mechanical, BPH, hypothyroid Psychiatric history: anxiety, depression, schizophrenia - Past Surgical History Surgical History: cataract, other Additional surgical history: Previous chest tube placement for spontaneous pneumothorax - Social History Smoking Status: Current every day smoker Smokeless Tobacco Status: No Alcohol use: none Drug use: none - Family History Father Family Member Ethnicity: Non- Mother Family Member Ethnicity: Non- Living Status: Hx Family Respiratory Disorders: Yes (COPD) Hx Family Cancer: Yes Sister Family Member Ethnicity: Non- Living Status: Still Living Medications and Allergies RX: Acetaminophen [Tylenol] 650 mg PO Q6HR PRN 07/10/16 [History] RX: Atorvastatin [Lipitor] 10 mg PO HS 07/10/16 [History] RX: Cholecalciferol (D-3) [Vitamin D] 2,000 unit PO DAILY 07/10/16 [History] RX: Levalbuterol Neb [Xopenex Neb] 1.25 mg IH BID 07/10/16 [History] RX: Omeprazole [PriLOSEC] 20 mg PO DAILY 07/10/16 [History] RX: Mineral Oil/Petrolatum,White [Eucerin Creme] 1 appl TP TUFR 11/19/16 [History] RX: Budesonide/Formoterol 160/4.5 [Symbicort 160/4.5] 2 puff IH BIDR 06/10/17 [History] RX: Potassium Chloride [K-Tab ER] 20 meq PO TID 06/10/17 [History] RX: Sennosides/Docusate Sodium [Senna Plus] 2 tab PO HS 06/10/17 [History] Apixaban [Eliquis] 5 mg PO BID 05/17/18 [History] Multivitamin with Minerals [One-A-Day Maximum Formula] 1 tab PO DAILY 05/17/18 [History] RX: Erythromycin OPTH Oint 1 appl BOTH EYES HS 05/17/18 [History] RX: Metoprolol [Lopressor] 12.5 mg PO BID 05/17/18 [History] RX: cloZAPine [Clozapine] 175 mg PO HS 05/17/18 [History] Salicylic Acid/Sulfur [Sebex Shampoo] 1 applic TP DAILY PRN 05/17/18 [History] Allergy/AdvReac Type Severity Reaction Status Date / Time haloperidol [From Haldol] Allergy unknown Verified 05/17/18 10:23 Review of Systems All systems PM: reviewed and no additional remarkable complaints except as stated All systems PM: The remainder of the systems were reviewed and are negative - Constitutional chills General Surgery Exam Initial Vital Signs Temp Pulse Resp BP Pulse Ox 97.5 F L 82 18 137/89 98 05/15/18 23:44 05/15/18 23:44 05/15/18 23:44 05/15/18 23:44 05/15/18 23:44 - General physical appearance well developed, no distress - Eyes normal ocular movement - Neck trachea midline - Respiratory normal respiratory effort, other (decreased breath sounds bilaterally in the bases) - Cardiovascular Cardiovascular exam: Present: RRR, distant heart sounds - Abdomen Abdomen general surgery: Present: bowel sounds present, soft, non tender. Absent: masses, guarding, rebound - Integumentary Integumentary general surgery: Absent: diaphoresis, rash - Neurologic Present: CN 2-12 grossly intact - Psychiatric Psychiatric general surgery: Present: other (Difficult to gauge patient's comprehension of current medical status) Exam Initial Vital Signs Temp Pulse Resp BP Pulse Ox 97.5 F L 82 18 137/89 98 05/15/18 23:44 05/15/18 23:44 05/15/18 23:44 05/15/18 23:44 05/15/18 23:44 Results - Labs 05/17/18 15:47 05/17/18 10:05 Abnormal lab results PT 13.6 Seconds (9.4-12.1) H 05/15/18 23:52 Chloride 109 mEq/L (98-107) H 05/17/18 10:05 POC Glucose 104 mg/dL (70-99) H 05/17/18 05:35 Total Bilirubin 0.2 mg/dL (0.3-1.0) L 05/15/18 23:52 Alkaline Phosphatase 142 Units/L (34-104) H 05/15/18 23:52 Serum Total Protein 6.0 g/dL (6.4-8.9) L 05/15/18 23:52 Globulin 2.0 g/dL (2.4-3.5) L 05/15/18 23:52 Stool Occult Bld Scrn Positive (Negative) A 05/16/18 00:32 All other labs normal. Consult Discharge Plan - Plan [facility]errals[facility]Primary Care Provider[facility] - <Musa Harman - Last Filed: 05/18/18 14:56> Date of Encounter: 05/18/18 Review of Systems All systems PM: The remainder of the systems were reviewed and are negative General Surgery Exam Initial Vital Signs Temp Pulse Resp BP Pulse Ox 97.5 F L 82 18 137/89 98 05/15/18 23:44 05/15/18 23:44 05/15/18 23:44 05/15/18 23:44 05/15/18 23:44 Exam Initial Vital Signs Temp Pulse Resp BP Pulse Ox 97.5 F L 82 18 137/89 98 05/15/18 23:44 05/15/18 23:44 05/15/18 23:44 05/15/18 23:44 05/15/18 23:44 Results - Labs 05/17/18 15:47 05/17/18 10:05 Abnormal lab results PT 13.6 Seconds (9.4-12.1) H 05/15/18 23:52 Chloride 109 mEq/L (98-107) H 05/17/18 10:05 POC Glucose 104 mg/dL (70-99) H 05/17/18 05:35 Total Bilirubin 0.2 mg/dL (0.3-1.0) L 05/15/18 23:52 Alkaline Phosphatase 142 Units/L (34-104) H 05/15/18 23:52 Serum Total Protein 6.0 g/dL (6.4-8.9) L 05/15/18 23:52 Globulin 2.0 g/dL (2.4-3.5) L 05/15/18 23:52 Carcinoembryonic Ag 23.9 ng/mL (Less than 5.0) H 05/18/18 13:34 Stool Occult Bld Scrn Positive (Negative) A 05/16/18 00:32 All other labs normal. - Attending Attestation I have personally performed a face to face evaluation on this patient. I have reviewed and agree with the care plan. History and Exam by me shows: The patient is seen and evaluated. 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 This does not appear to be causing complete obstruct ion however, we were unable to perform colonoscopy pass the lesion. The lesion appears to be out of the pelvis and would likely benefit from primary surgery. We will evaluate the contrast study of the colon and make a determination whether or not bowel preparation can be performed. If we cannot perform bowel preparation sigmoid colectomy with primary anastomosis would be indicated. We will continue to follow closely. Musa Harman MD FACS
--- NOTE | 2018-05-18 14:01 | Electrocardiograph Report ---
[address] [address] Test Date: 2018-05-16 Pat Name: Vikram Gong Department: [id number] Room: 3A Gender: M [address] Operator: : 1945 Requested By: Merline Townsend Order Number: [id number] Reading MD: Julio Man Measurements Intervals [place] Rate: 84 P: 78 OK: 163 QRS: 70 QRSD: 85 T: 79 QT: 372 QTc: 440 Interpretive Statements Sinus rhythm Atrial premature complexes Possible RV conduction delay Electronically Signed On 05-18-2018 13:59:55 EST by Julio Man
[2018-05-18] MEDS: *HR* Metoprolol 5 MG/5 ML VIAL IVP PRN (14:43)
--- NOTE | 2018-05-18 15:22 | Electrocardiograph Report ---
[place] [address] Test Date: 2018-05-17 Pat Name: Vikram Gong Department: 115 Room: 3A Gender: M [employer]ra[employer] Finisher: : 1945 Requested By: Ana Lilia Minor Order Number: [id number] Reading MD: Julio Man Measurements Intervals [place] Rate: 131 P: [place]: 0 QRS: 55 QRSD: 89 T: 73 QT: 308 QTc: 385 Interpretive Statements ATRIAL FIBRILLATION WITH RAPID VENTRICULAR RESPONSE POSSIBLE RIGHT VENTRICULAR CONDUCTION DELAY ABNORMAL RHYTHM ECG Electronically Signed On 05-18-2018 15:20:58 EST by Julio Man
[2018-05-18] MEDS ORDERED: Isovue-370 500 ML INFUS..BTL PO ONE (15:41)
--- NOTE | 2018-05-18 16:44 | Oncology Inp Consult Note ---
Date of Encounter: 05/18/18 Time of Encounter: 16:00 Assessment and Plan (1) Lesion of colon Status: Acute Assessment and plan: Presented with report of hematochezia for several days Patient underwent colonoscopy 05/18/2018 which revealed a normal anal verge and rectum, located a fungating, large, partially obstructing recto-sigmoid mass in the sigmoid colon, oozing was present, no specimen obtained. Surgery has been consulted. CEA elevated 23.9 CT abdomen/pelvis pending Plan: Continue to hold Xarelto Surgery onboard, Dr. Ruano to discuss with Dr. Harman to clarify location of tumor, imaging lists sigmoid thickening and colonoscopy does note normal retroflexion view of anal verge/rectum, lists as "recto-sigmoid" mass Appears to be consistent with sigmoid mass, in which surgical intervention would be warranted Further discussion on treatment plan and adjuvant treatment is TBD, patients participation in his care appears to be limited at times, will need to clarify his performance status and wishes for further treatment - Data of Consult Patient: new to practice Consult date: 05/18/18 Requesting Physician: Ana Lilia Minor MD [facility] - Consult Narrative Reason for consult: Sigmoid mass History of present illness: Mr. Gong is a 72 year old male with past medical history significant for schizophrenia, Atrial fibrillation, COPD, HTN, hyperlipidemia, who presented to ER with complaints of BRBPR for several days, patient does take Xarelto for A- fib. Patient has not had a colonoscopy in several years. Patient denied fevers, chills, nasuea, vomiting, abdominal pain, melena or hematemesis. H&H normal and hemodynamically stable. He was admitted with consult for endoscopy. Patient underwent colonoscopy 05/18/2018 which revealed a normal anal verge and rectum, located a fungating, large, partially obstructing "recto-sigmoid" mass in the sigmoid colon, oozing was present, no specimen obtained. Surgery has been consulted. 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 He unfortunately has no family or friends. Patient himself is a very poor historian and unwilling to answer some questions. He does answer some yes/no questions today. He appears to be oriented to person, place and time and of sound mind to make decisions currently. ROS currently negative. He does not respond to questions regarding his energy, appetite or weight loss. He does not answer questions in regards to his bowel habits. States he has no personal or family history of any known cancer. Performance status is difficult to assess but patient states that he does ambulate unassisted, feeds himself, he does need help with some ADL's such as bathing. Past Med Surg Social Fam HX - Past Medical History Medical history: atrial fibrillation, COPD, GERD, hyperlipidemia, thyroid disease Additional medical history: PN, apnea, elective mutism, entropion mechanical, BPH, hypothyroid Psychiatric history: anxiety, depression, schizophrenia - Past Surgical History Surgical History: cataract, other Additional surgical history: Previous chest tube placement for spontaneous pneumothorax - Social History Smoking Status: Current every day smoker Smokeless Tobacco Status: No Alcohol use: none Drug use: none - Family History Father Family Member Ethnicity: Non- Mother Family Member Ethnicity: Non- Living Status: Hx Family Respiratory Disorders: Yes (COPD) Hx Family Cancer: Yes Sister Family Member Ethnicity: Non- Living Status: Still Living Medications and Allergies Acetaminophen [Tylenol] 650 mg PO Q6HR PRN 07/10/16 [History] Atorvastatin [Lipitor] 10 mg PO HS 07/10/16 [History] Cholecalciferol (D-3) [Vitamin D] 2,000 unit PO DAILY 07/10/16 [History] Levalbuterol Neb [Xopenex Neb] 1.25 mg IH BID 07/10/16 [History] Omeprazole [PriLOSEC] 20 mg PO DAILY 07/10/16 [History] Mineral Oil/Petrolatum,White [Eucerin Creme] 1 appl TP TUFR 11/19/16 [History] Budesonide/Formoterol 160/4.5 [Symbicort 160/4.5] 2 puff IH BIDR 06/10/17 [History] Potassium Chloride [K-Tab ER] 20 meq PO TID 06/10/17 [History] Sennosides/Docusate Sodium [Senna Plus] 2 tab PO HS 06/10/17 [History] Apixaban [Eliquis] 5 mg PO BID 05/17/18 [History] Erythromycin OPTH Oint 1 appl BOTH EYES HS 05/17/18 [History] Metoprolol [Lopressor] 12.5 mg PO BID 05/17/18 [History] Multivitamin with Minerals [One-A-Day Maximum Formula] 1 tab PO DAILY 05/17/18 [History] Salicylic Acid/Sulfur [Sebex Shampoo] 1 applic TP DAILY PRN 05/17/18 [History] cloZAPine [Clozapine] 175 mg PO HS 05/17/18 [History] Allergy/AdvReac Type Severity Reaction Status Date / Time haloperidol [From Haldol] Allergy unknown Verified 05/17/18 10:23 ROS unobtainable: due to mental status, other Constitutional: Present: as per HPI. Absent: chills, fever(s) Eyes: Present: as per HPI. Absent: change in vision Nose, mouth and throat: Present: as per HPI. Absent: dysphagia Cardiovascular: Absent: chest pain Respiratory: Absent: cough, dyspnea Gastrointestinal: Present: as per HPI, hematochezia. Absent: abdominal pain, change in bowel habits, hematemesis, nausea, vomiting Integumentary: Absent: rash, wounds Neurological: Absent: abnormal gait Psychiatric: Present: as per HPI Hematologic/Lymphatic: Present: as per HPI Oncology - Exam - Constitutional General appearance: disheveled, no acute distress, no febrile - Head Head exam: Present: atraumatic - ENT ENT exam: Present: mucous membranes moist, normal oropharynx - Respiratory Respiratory exam: Present: CTAB. Absent: respiratory distress - Cardiovascular Cardiovascular exam: Present: RRR Additional comments: distant heart sounds - GI/Abdominal GI/Abdominal exam: Present: distended, normal bowel sounds, soft. Absent: tenderness - Extremities Exam Extremities exam: Absent: calf tenderness - Neurological Exam Neurological exam: Present: alert, oriented X3, no focal deficits, strengths equal and symetr throughout - Psychiatric Psychiatric exam: Present: flat affect Additional comments: unwilling to participate in some discussion as described in HPI - Skin Skin exam: Present: dry, intact, normal color, warm Consult Discharge Plan - Plan [facility]errals: [facility]Primary Care Provider[facility] - Inpatient Charges Provider: Dr. Ga Potter
--- NOTE | 2018-05-18 16:53 | Event Note ---
Addendum entered and electronically signed by Nela Kellogg CNP 05/18/18 17:21: Reviewed procedure with Tammie Carrion, POA/guardian who is agreeable to procedure. He will fax over POA paperwork Original Note: Date of Encounter: 05/18/18 Time of Encounter: 16:51 Given that patient is already bowel prepped, we will add bowel prep ATBX, leave patient NPO, ad plan for surgical intervention tomorrow 05/19/2018. He is recommended to undergo an open sigmoid colectomy with Dr. Harman. Recommendations, risks, and benefits are reviewed with the patient and he is agreeable to proceed.
[2018-05-18] MEDS: metroNIDAZOLE 500 MG TABLET PO SCH ×2 (17:43→20:54)
[2018-05-18] MEDS: Budesonide/Formoterol 160/4.5 1 PUFF INH IH SCH (19:32)
[2018-05-18] MEDS: cloZAPine 100 MG TABLET PO SCH (20:49)
[2018-05-18] MEDS: *HR* Heparin 5,000 UNIT/ML VIAL SQ SCH (20:50)
[2018-05-19] MEDS: *HR* Heparin 5,000 UNIT/ML VIAL SQ SCH ×3 (07:07→14:01)
[2018-05-19] MEDS: Budesonide/Formoterol 160/4.5 1 PUFF INH IH SCH ×2 (07:42→21:28)
[2018-05-19] MEDS: Ipratropium/Albuterol Neb 3 ML IH SCH ×2 (07:42→21:27)
[2018-05-19] MEDS: 0.9 % Sodium Chloride 1,000 ML IVC SCH ×2 (07:47→08:33)
[2018-05-19] MEDS ORDERED: metroNIDAZOLE 500 MG TABLET PO ONE (08:14)
[2018-05-19] MEDS: metroNIDAZOLE 500 MG TABLET PO SCH (08:32)
--- NOTE | 2018-05-19 09:07 | General Surgery Progress Note ---
<Nela Kellogg Celso - Last Filed: 05/19/18 11:09> Date of Encounter: 05/19/18 Time of Encounter: 07:30 - Assessment and Plan (1) Mass of colon Current Visit: Yes Status: Acute Mr Gong was admitted on 05/15/2018 was scheduled for a G.I. bleed. A CT of the abdomen and pelvis was completed which noted distention of the colon, low density adrenal gland nodule, a few hepatic lesions with the largest measuring 2.2 cm. An MRI dedicated to the liver was attempted however the patient could not tolerate in the liver lesions were not well visualized. He underwent a colonoscopy by Dr. Field on 05/18/2018 which noted a near obstructing rectosig moid mass. Most likely malignant, there was oozing. The scope could not be advanced into the sigmoid, biopsies were obtained and are pending. His CEA was 567 pg/ml. The patient was recommended to undergo (and was tentatively scheduled for) an open (palliative) sigmoid colectomy and needle liver biopsy today with -Katina Harman. The surgery was reviewed with Tammie Carrion (patient's guardian) [phone] ([phone]) and patient. Tammie Carrion initially provided consent for the procedure as this was the recommendation by surgery for palliation. The patient has expressed that he does not want to have the surgery done. A "speaker" telephone conversation was had in the patient's room with this GROUTER HELPER, Tammie Carrion, and Mr. Gong. This GROUTER HELPER expressly explained to Tammie and Mr. Gong that the patient has a near obstructing mass, it is cancer until proven otherwise, does have some liver lesions in an elevated CEA so metastatic disease is not ruled out. The recommendation of surgery is that the patient undergo the open sigmoid colectomy and liver needle biopsy for diagnosis and palliation. Not completing the surgery will result in a painful and accelerated demise for Mr. Gong. Tammie Carrion fertilized understanding Mr. Gong stated "I know. I just don't want to have anything else done." Tammie did relay that the patient has had a significant medical history, included severe pulmonary complications in previous surgeries and has expressed previously to cam that he did not want further medical intervention. This GROUTER HELPER recommended changing code status to DNR comfort care only and referral to palliative care for hospice. The patient and Tammie are agreeable to hospice and would like for the patient to have his discomfort maximized in his last days. They would like all life sustaining or chronic condition treatment medications stopped. We will defer this to palliative care. Referral has been placed to Dr. Dupont who is agreeable to see the patient. The patient is recommended to remain on a mechanical soft or a pured diet as well as MiraLAX daily (to twice daily) as a consistent regimen to reduce pain due to obstruction. Surgery will sign off at this time.Thank you for allowing us to participate in Mr. Gong's care. (2) Liver lesion Current Visit: Yes Status: Acute (3) Goals of care, counseling/discussion Current Visit: Yes Status: Acute Subjective Patient reports: no new complaints, voiding w/o difficulty, no flatus, no bowel movement, afebrile Objective Vital Signs - Last 8 Hours Temp Pulse Resp BP Pulse Ox 05/19/18 07:42 16 98 05/19/18 06:53 97.6 F 83 15 118/77 94 05/19/18 04:42 97.9 F 103 19 121/65 95 05/19/18 02:13 97.9 F 120 20 123/67 92 Intake and Output 05/18/18 05/19/18 05/19/18 23:59 07:59 15:59 Intake Total 110 / 110 1055 / 1055 15 / 15 Output Total 0 / 0 Balance 110 / 110 1055 / 1055 15 / 15 Intake: IV Fluids 50 / 50 1055 / 1055 15 / 15 0.9 % Sodium Chloride 1,000 ML 1000 / 1000 @ 25 mls/hr IVC .Q24H [facility] Rx#: [id number] Cardizem 50 MG In 0.9 % Sodium 50 / 50 55 / 55 15 / 15 Chloride 40 ML @ 5 MG/HR 5 mls/ hr IVC .Q10H ROSA Rx#:[id number] Oral 60 / 60 0 / 0 Output: Urine 0 / 0 Other: Meal NPO Stool Size Smear Stool Consistency loose Stool Characteristics Normal for Patient # Voids 1 # Urine Diapers 1 Weight 78.6 kg Blood Glucose* 110 105 Patient Weight 05/19/18 23:59 Weight 78.6 kg - General physical appearance no distress (drowsy) - ENT normal nares, normal mucosa - Neck Neck exam: trachea midline - Respiratory normal expansion, normal respiratory effort, other (cours/wet breath sounds) - Cardiovascular Cardiovascular exam: Present: RRR - Abdomen Abdomen: Present: bowel sounds present, soft, non tender - Integumentary no rash - Neurologic normal sensation - Musculoskeletal normal posture - Psychiatric oriented to person, oriented to place, memory intact - Labs 05/19/18 09:01 05/19/18 09:01 Consult Discharge Plan - Plan [facility]errals: [facility] [Primary Care Provider] - <Musa Harman - Last Filed: 05/19/18 12:54> Date of Encounter: 05/19/18 Objective Vital Signs - Last 8 Hours Temp Pulse Resp BP Pulse Ox 05/19/18 10:34 97.9 F 66 18 125/78 92 05/19/18 07:42 16 98 05/19/18 06:53 97.6 F 83 15 118/77 94 Intake and Output 05/18/18 05/19/18 05/19/18 23:59 07:59 15:59 Intake Total 110 / 110 1055 / 1055 33 / 33 Output Total 0 / 0 Balance 110 / 110 1055 / 1055 33 / 33 Intake: IV Fluids 50 / 50 1055 / 1055 33 / 33 0.9 % Sodium Chloride 1,000 ML 1000 / 1000 @ 25 mls/hr IVC .Q24H [facility] Rx#: [id number] Cardizem 50 MG In 0.9 % Sodium 50 / 50 55 / 55 33 / 33 Chloride 40 ML @ 5 MG/HR 5 mls/ hr IVC .Q10H [facility] Rx#:[id number] Oral 60 / 60 0 / 0 0 / 0 Output: Urine 0 / 0 Other: Meal NPO NPO Stool Size Smear Stool Consistency loose Stool Characteristics Normal for Patient # Voids 1 # Urine Diapers 1 Weight 78.6 kg Blood Glucose* 110 105 Patient Weight 05/19/18 23:59 Weight 78.6 kg - Labs 05/19/18 09:01 05/19/18 09:01 Diabetes panel 05/19/18 Range/Units 09:01 Sodium 142 (136-145) mEq/L Potassium 3.2 L (3.5-5.1) mEq/L Chloride 110 H (98-107) mEq/L Carbon Dioxide 19 L (23-29) mEq/L BUN 8 (8-23) mg/dL Creatinine 0.77 (0.70-1.30) mg/dL Glucose 106 H (70-105) mg/dL Calcium 8.6 (8.6-10.3) mg/dL Thyroid panel 05/19/18 Range/Units 05:13 TSH 1.949 (0.340-5.600) mcIU/mL Calcium panel 05/19/18 Range/Units 09:01 Calcium 8.6 (8.6-10.3) mg/dL Pituitary panel 05/19/18 05/19/18 Range/Units 05:13 09:01 Sodium 142 (136-145) mEq/L Potassium 3.2 L (3.5-5.1) mEq/L Chloride 110 H (98-107) mEq/L Carbon Dioxide 19 L (23-29) mEq/L BUN 8 (8-23) mg/dL Creatinine 0.77 (0.70-1.30) mg/dL Glucose 106 H (70-105) mg/dL Calcium 8.6 (8.6-10.3) mg/dL TSH 1.949 (0.340-5.600) mcIU/mL Adrenal panel 05/19/18 Range/Units 09:01 Sodium 142 (136-145) mEq/L Potassium 3.2 L (3.5-5.1) mEq/L Chloride 110 H (98-107) mEq/L Carbon Dioxide 19 L (23-29) mEq/L BUN 8 (8-23) mg/dL Creatinine 0.77 (0.70-1.30) mg/dL Glucose 106 H (70-105) mg/dL Calcium 8.6 (8.6-10.3) mg/dL - Attending Attestation I have personally performed a face to face evaluation on this patient. I have reviewed and agree with the care plan. History and Exam by me shows: I personally met with the patient on 2 occasions. I reviewed all of the validation consultant notes. I have personally reviewed the CAT scan. The patient is adamant that he wants nothing else done and no surgery. He has a near obstructing sigmoid colon lesion that will likely progress to obstruction. He also has rectal bleeding. He will not be able to go back onto his Plavix to prevent stroke from his atrial fibrillation. After extended discussions with the patient and guardian, decision has been made to go home on hospice care. This is a reasonable decision. Musa Harman MD FACS
--- NOTE | 2018-05-19 09:15 | Internal Med Progress Note ---
<Marybel Nix - Last Filed: 05/19/18 15:42> Hospitalist Progress Note - Encounter Date of Encounter: 05/19/18 Time of Encounter: 08:20 - Subjective Interval History: Mr. Gong was seen at bedside this morning. He was resting comfortably. Vitals were reviewed she was on Cardizem drip and his rate was regular although rhythm appear to be regularly irregular. He was getting his DuoNeb treatment. Asked him about his planned surgery today and he seemed agreeable but was unsure of his ability to consent given has schizophrenia. He denied any fever, chills, nausea, emesis, abdominal pain, shortness of breath, chest pain. - Exam Vitals: Temp Pulse Resp BP Pulse Ox 97.6 F 83 16 118/77 98 05/19/18 06:53 05/19/18 06:53 05/19/18 07:42 05/19/18 06:53 05/19/18 07:42 Exam: General: Patient is alert, oriented, no acute distress, obese Head: atraumatic, normocephalic, Eye: normal appearance, PERRL, no scleral icterus, no conjunctival injection ENT: mucous membranes moist, normal external ear exam Neck: normal inspection, trachea midline, full ROM Chest: normal inspection, symmetric chest rise Respiratory: Good respiratory effort. Diffuse wheezing at all lung lobes. No crackles or rhonchi Cardiovascular: regular rate, irregular rhythm, s1 and s2, no clicks, rubs, gallops, or murmurs. Abdomen: Bowel sounds present normoactive x-4 quadrants. Abdomen is soft, nondistended, no epigastric tenderness. No guarding or rebound. Musculoskeletal: Spontaneously moving all extremities. no edema, no calf tenderness Skin: warm, dry, intact. Neuro: Alert and oriented x2. Psych: Patient's affect is normal, thought content congruent. - Assessment and Plan (1) COPD (chronic obstructive pulmonary disease) Current Visit: Yes Status: Chronic Assessment and Plan: He does have diffuse wheezing in all lung lobes. Denies any coughing, is comfortable on 2 L of supplemental oxygen Continue DuoNeb's Continue Symbicort (2) History of atrial fibrillation Current Visit: Yes Status: Chronic Assessment and Plan: Rate controlled. Was on anticoagulation with Xarelto. Hold Xarelto for now. Titrated cardizem Will transition to his oral metoprolol thereafter (3) Hematochezia Current Visit: Yes Status: Acute Assessment and Plan: On 05/15/2018 he was presented to the ED from the [place] complaining of bloody bowel movements as well as abdominal pain He has history of hemorrhoids and was not concerned about the bleeding but this time the blood in the bowel movement was more than his regular bowel movements from hemorrhoids which concerned him. He is having daily bowel movements Hematochezia is likely due to colorectal cancer suspected from the colonoscopy as well as the high carcinoembryonic antigen He and the power of sports attorney have declined surgical intervention His hemoglobin is stable, will continue to monitor CBC (4) Colon cancer Current Visit: Yes Status: Suspected Assessment and Plan: Suspected. Colonoscopy showed fungating obstructing tumor in the rectosigmoid colon, scope was not able to be passed past the lesion Carcinoembryonic antigen was noted to be high Mr. Turcios was planned for surgical intervention to remove the obstructing mass on 05/19/18 and was agreeable Today on 05/19/18 on the day of intervention he and the power of medical sports attorney declined the procedure and decided that they would rather go forth with hospice Surgery recommends mechanical soft diet, avoiding all raw vegetables Awaiting placement further recommendations by palliative care (5) HTN (hypertension) Current Visit: Yes Status: Chronic Assessment and Plan: History of hypertension is normally on Lopressor 12.5 mg twice a day at home. His blood pressure has been stable since admission and has required when necessary Lopressor We will change to by mouth medication as he is no longer planing to have surgical intervention (6) Schizophrenia Current Visit: Yes Status: Chronic Assessment and Plan: History of schizophrenia His mood has been stable since admission Continue home dose clozapine DVT Prophylaxis: Heprarin SubQ - Time Spent with Patient Total time spent is greater than 50% in coordination of care (as documented) at patient's floor/unit and/or counseling patient: Internal Medicine: Result - Labs CBC & Chem 7: 05/19/18 09:01 05/19/18 09:01 - ABG Interpretation ABG results: PT/INR, D-dimer PT 13.6 Seconds (9.4-12.1) H 05/15/18 23:52 - Impressions Impressions Abdomen MRI 05/18/18 09:00 IMPRESSION: Markedly limited exam due to breath holds and early termination by the patient. Liver lesions are not well seen on this study. Recommend repeat exam following sedation or dedicated liver CT for further evaluation. D/ / 05/18/2018 10:21:25 Pat Minor MD / mundo Interpreting Provider: Pat Minor MD Abdomen/Pelvis CT 05/18/18 15:20 IMPRESSION: Benign hepatic hemangioma in segment 2/3 measuring 19 x 12 mm stable since 2016 CT. New hypoattenuating areas in the right hepatic lobe near the gallbladder fossa and in segment 5 of the liver new since 2016 possibly representing hepatic metastatic disease given history of colon mass. Recommend MRI of the liver with and without contrast when patient is able to comply with examination. Focal circumferential wall thickening of the sigmoid colon corresponding to the mass detected on colonoscopy suspicious for colonic adenocarcinoma. No definite CT evidence of metastatic lymphadenopathy. A 4 mm nonenlarged left mesorectal fat lymph node, indeterminate. Stable benign left adrenal adenoma. D/ / 05/18/2018 16:36:45 Oleksandr Durand MD / jacquelyn Interpreting Provider: Oleksandr Durand MD Consult Discharge Plan - Plan [facility]errals: [facility] [Primary Care Provider] - <Daria Man - Last Filed: 05/19/18 17:15> Hospitalist Progress Note - Encounter Date of Encounter: 05/19/18 - Exam Vitals: Temp Pulse Resp BP Pulse Ox 97.9 F 66 18 125/78 92 05/19/18 10:34 05/19/18 10:34 05/19/18 10:34 05/19/18 10:34 05/19/18 10:34 - Assessment and Plan (1) COPD (chronic obstructive pulmonary disease) Current Visit: Yes Status: Chronic (2) History of atrial fibrillation Current Visit: Yes Status: Chronic (3) Hematochezia Current Visit: Yes Status: Acute (4) Colon cancer Current Visit: Yes Status: Suspected (5) HTN (hypertension) Current Visit: Yes Status: Chronic (6) Schizophrenia Current Visit: Yes Status: Chronic - Time Spent with Patient Total time spent is greater than 50% in coordination of care (as documented) at patient's floor/unit and/or counseling patient: Internal Medicine: Result - Labs CBC & Chem 7: 05/19/18 09:01 05/19/18 09:01 Labs: Short CBC 05/19/18 Range/Units 09:01 WBC 7.9 (4.3-11.1) K/mcL Hgb 11.5 L D (12.9-16.9) g/dL Hct 36.0 L (37.5-50.1) % Plt Count 241 (140-400) K/mcL Neutrophils # 5.1 (1.6-8.9) K/mcL BMP 05/19/18 09:01 Sodium 142 Potassium 3.2 L Chloride 110 H Carbon Dioxide 19 L BUN 8 Creatinine 0.77 Glucose 106 H Calcium 8.6 - ABG Interpretation ABG results: PT/INR, D-dimer PT 13.6 Seconds (9.4-12.1) H 05/15/18 23:52 - Attending Attestation I have seen and examined this patient independently. I have discussed with re sident physician Dr Nix regarding the management plan. Agree with the documentation. <Marybel Nix - Last Filed: 05/19/18 15:42> (1) COPD (chronic obstructive pulmonary disease) Qualifiers: COPD type: unspecified COPD Qualified Code(s): J44.9 - Chronic obstructive pulmonary disease, unspecified <Daria Man - Last Filed: 05/19/18 17:15> (1) COPD (chronic obstructive pulmonary disease) Qualifiers: COPD type: unspecified COPD Qualified Code(s): J44.9 - Chronic obstructive pulmonary disease, unspecified
[2018-05-19 09:28] LABS: Basophils % 0.3 %; Eosinophils # 0.2 K/mcL (0.0-0.6); Eosinophils % 2.5 %; Hemoglobin 11.5 g/dL (12.9-16.9); Immature Granulocytes % 0.5 % (0-4); Lymphocytes # 1.8 K/mcL (0.6-4.6); Lymphocytes % 22.4 %; Mean Corpuscular HGB Conc 31.9 g/dL (31.6-35.5); Mean Corpuscular Hemoglobin 28.4 pg (28.0-33.3); Mean Corpuscular Volume 88.9 fL (83.0-100.0); Mean Platelet Volume 10.1 fL (9.4-12.4); Monocytes # 0.8 K/mcL (0.0-1.3); Monocytes % 10.3 %; Neutrophils # 5.1 K/mcL (1.6-8.9); Platelet Count 241 K/mcL (140-400); Red Blood Count 4.05 M/mcL (4.19-5.50); Red Cell Distribution Width 14.6 % (11.5-14.5)
[2018-05-19 09:35] LABS: Thyroid Stimulating Hormone 1.949 mcIU/mL (0.340-5.600)
[2018-05-19 09:51] LABS: BUN/Creatinine Ratio 10 (6-26); Blood Urea Nitrogen 8 mg/dL (8-23); Calcium 8.6 mg/dL (8.6-10.3); Carbon Dioxide 19 mEq/L (23-29); Chloride 110 mEq/L (98-107); Glucose 106 mg/dL (70-105); Osmolality,Calculated 293 (280-300); Potassium 3.2 mEq/L (3.5-5.1); Sodium 142 mEq/L (136-145); eGFR For Non-African Americans > 60 (> 60)
--- NOTE | 2018-05-19 10:12 | Palliative - Consult Note ---
<Elisa Suero - Last Filed: 05/19/18 10:40> Date of Encounter: 05/19/18 Time of Encounter: 09:30 - Assessment and Plan (1) Mass of colon Current Visit: Yes Status: Acute Assessment and plan: Near obstructing rectosigmoid mass with hepatic lesions seen on CT scan. Patient denied surgical intervention. He would like to maximize comfort in his last days through non-surgical management. Currently denies nausea, vomiting, or pain. Multiple loose BMs yesterday. Pain currently 0/10 but will most likely increase as patient begins eating again. Plan: - mechanical soft diet as well as MiraLAX daily (to twice daily) - nausea: Zofran 4mg Q8H - pain: Oxycodone 5mg Q6H prn - discussed with POJames Carrion about placing on hospice - DISPO: placement in hospice, tolerating mechanical soft diet (2) GI bleed Current Visit: Yes Status: Acute Assessment and plan: Currently hemoglobin is stable. Patient does not need Apixaban going home on Hospice. Qualifiers: GI bleed type/associated pathology: anorectal hemorrhage Qualified Code(s): K62.5 - Hemorrhage of anus and rectum (3) Goals of care, counseling/discussion Current Visit: Yes Status: Acute Assessment and plan: Goals of care attempted to be discussed with patient. Patient is a candidate for hospice due to colonic mass with presumed mets. He did not want to discuss the plan further than stating that he did not want surgery.He stated that he was tired and just wanted to be left alone. His POA Tammie Carrion was called and discuss placement of patient into hospice, and Tammie Cariron agreed that is his wishes. She stated that he would not like to go to the [place] hospice but would like to go to a hospice center in [place], [place]. Tammie Carrion agreed that code status can be changed to DNR-CC. Once placement into hospice is obtained then patient can plan for discharge home after tolerating mechanically soft diet with symptoms controlled. Palliative-CN HPI - Data of Consult Patient: new to practice Consult date: 05/19/18 Requesting Physician: Daria Man MD [facility] - Consult Narrative Palliative Care/Comfort Measures: Palliative care Reason for consult: colon cancer, desires hospice History of present illness: Mr. Gong is a 72 year old male with a pmh of schizophrenia, atrial fibrillation, COPD, hypertension, hyperlipidemia, who presented to the ER here with complaints of bright red bleeding per rectum and was found to have a near obstructive rectosigmoid with hepatic lesions. Patient was scheduled to undergo surgery today for palliative excision of mass and when the surgical team came to take him to surgery he states that he did not want surgery and did not want further treatment. Per surgeries note, phone conversation was had between the guardian Tammie Carrion and Mr. Gong and they were both agreeable to hospice. He has been living at a half way house through the [place]. This morning at bedside, patient states reaffirmed to us that he did not want surgery and did not want further treatment. He refused to say what he was being treated for. He stated that he did not have anyone that he wanted us to contact about his care. He did not want to answer when asked about what he would like to do. He denied pain, nausea, vomiting, SOB, or constipation. CC: Daria Man MD - Time Spent with Patient Time: Total time spent is greater than 50% in coordination of care (as documented) at patient's floor/unit and/or counseling patient: Past Med Surg Social Fam HX - Past Medical History Medical history: atrial fibrillation, COPD, GERD, hyperlipidemia, thyroid disease Additional medical history: PN, apnea, elective mutism, entropion mechanical, BPH, hypothyroid Psychiatric history: anxiety, depression, schizophrenia - Past Surgical History Surgical History: cataract, other Additional surgical history: Previous chest tube placement for spontaneous pneumothorax - Social History Smoking Status: Current every day smoker Smokeless Tobacco Status: No Alcohol use: none Drug use: none Current living situation: [facility] Activity Level: Independent ambulation - Family History Father Family Member Ethnicity: Non- Mother Family Member Ethnicity: Non- Living Status: Hx Family Respiratory Disorders: Yes (COPD) Hx Family Cancer: Yes Sister Family Member Ethnicity: Non- Living Status: Still Living Medications and Allergies Acetaminophen [Tylenol] 650 mg PO Q6HR PRN 07/10/16 [History] Atorvastatin [Lipitor] 10 mg PO HS 07/10/16 [History] Cholecalciferol (D-3) [Vitamin D] 2,000 unit PO DAILY 07/10/16 [History] Levalbuterol Neb [Xopenex Neb] 1.25 mg IH BID 07/10/16 [History] Omeprazole [PriLOSEC] 20 mg PO DAILY 07/10/16 [History] Mineral Oil/Petrolatum,White [Eucerin Creme] 1 appl TP TUFR 11/19/16 [History] Budesonide/Formoterol 160/4.5 [Symbicort 160/4.5] 2 puff IH BIDR 06/10/17 [History] Potassium Chloride [K-Tab ER] 20 meq PO TID 06/10/17 [History] Sennosides/Docusate Sodium [Senna Plus] 2 tab PO HS 06/10/17 [History] Apixaban [Eliquis] 5 mg PO BID 05/17/18 [History] Erythromycin OPTH Oint 1 appl BOTH EYES HS 05/17/18 [History] Metoprolol [Lopressor] 12.5 mg PO BID 05/17/18 [History] Multivitamin with Minerals [One-A-Day Maximum Formula] 1 tab PO DAILY 05/17/18 [History] Salicylic Acid/Sulfur [Sebex Shampoo] 1 applic TP DAILY PRN 05/17/18 [History] cloZAPine [Clozapine] 175 mg PO HS 05/17/18 [History] Allergy/AdvReac Type Severity Reaction Status Date / Time haloperidol [From Haldol] Allergy unknown Verified 05/17/18 10:23 Palliative Care-Exam - Constitutional Vitals: Temp Pulse Resp BP Pulse Ox 97.6 F 83 16 118/77 98 05/19/18 06:53 05/19/18 06:53 05/19/18 07:42 05/19/18 06:53 05/19/18 07:42 General appearance: Present: disheveled, no acute distress. Absent: febrile - Head Head Exam: Present: atraumatic, normal inspection - Cardiovascular Cardiovascular exam: Present: RRR - Extremities Exam Extremities exam: Present: normal inspection. Absent: calf tenderness, joint swelling, pedal edema - Neurological Exam Neurological exam: Present: alert. Absent: speech deficit - Skin Skin exam: Present: dry, intact, normal color Internal Medicine - CN: Reslt - Labs CBC & Chem 7: 05/19/18 09:01 05/19/18 09:01 Labs: Short CBC 05/19/18 Range/Units 09:01 WBC 7.9 (4.3-11.1) K/mcL Hgb 11.5 L D (12.9-16.9) g/dL Hct 36.0 L (37.5-50.1) % Plt Count 241 (140-400) K/mcL Neutrophils # 5.1 (1.6-8.9) K/mcL BMP 05/19/18 09:01 Sodium 142 Potassium 3.2 L Chloride 110 H Carbon Dioxide 19 L BUN 8 Creatinine 0.77 Glucose 106 H Calcium 8.6 - ABG Interpretation ABG results: PT/INR, D-dimer PT 13.6 Seconds (9.4-12.1) H 05/15/18 23:52 - Impressions Impressions Abdomen MRI 05/18/18 09:00 IMPRESSION: Markedly limited exam due to breath holds and early termination by the patient. Liver lesions are not well seen on this study. Recommend repeat exam following sedation or dedicated liver CT for further evaluation. D/ / 05/18/2018 10:21:25 Pat Minor MD / mundo Interpreting Provider: Pat Minor MD Abdomen/Pelvis CT 05/18/18 15:20 IMPRESSION: Benign hepatic hemangioma in segment 2/3 measuring 19 x 12 mm stable since 2016 CT. New hypoattenuating areas in the right hepatic lobe near the gallbladder fossa and in segment 5 of the liver new since 2016 possibly representing hepatic metastatic disease given history of colon mass. Recommend MRI of the liver with and without contrast when patient is able to comply with examination. Focal circumferential wall thickening of the sigmoid colon corresponding to the mass detected on colonoscopy suspicious for colonic adenocarcinoma. No definite CT evidence of metastatic lymphadenopathy. A 4 mm nonenlarged left mesorectal fat lymph node, indeterminate. Stable benign left adrenal adenoma. D/ : / 05/18/2018 16:36:45 Oleksandr Durand MD / jacquelyn Interpreting Provider: Oleksandr Durand MD Consult Discharge Plan - Plan Referrals: [facility],PCP [Primary Care Provider] - Palliative Quality Palliative Quality: Screen for Code Status: Yes, Screen for Goals of Care: Yes, Screen for Pain: Yes, Screen for Nausea/Vomitting: Yes Code Status: 05/16/18 07:50 Resuscitation Status: Active [RES] Routine Comment: Resuscitation Status: DNR-CC <Rosa Dupont - Last Filed: 05/19/18 12:26> Date of Encounter: 05/19/18 Palliative-CN HPI - Data of Consult Requesting Physician: Daria Man MD [facility] Provider[facility] - Consult Narrative History of present illness: Mr. Gong is a 72 year old male CC: Daria Man MD - Time Spent with Patient Time: Total time spent is greater than 50% in coordination of care (as documented) at patient's floor/unit and/or counseling patient: Time with patient: 75 minutes Review of systems: Patient was not cooperative, he denied pain and SOB. Palliative Care-Exam - Constitutional Vitals: Temp Pulse Resp BP Pulse Ox 97.9 F 66 18 125/78 92 05/19/18 10:34 05/19/18 10:34 05/19/18 10:34 05/19/18 10:34 05/19/18 10:34 Internal Medicine - CN: Reslt - Labs CBC & Chem 7: 05/19/18 09:01 05/19/18 09:01 Labs: Short CBC 05/19/18 Range/Units 09:01 WBC 7.9 (4.3-11.1) K/mcL Hgb 11.5 L D (12.9-16.9) g/dL Hct 36.0 L (37.5-50.1) % Plt Count 241 (140-400) K/mcL Neutrophils # 5.1 (1.6-8.9) K/mcL BMP 05/19/18 09:01 Sodium 142 Potassium 3.2 L Chloride 110 H Carbon Dioxide 19 L BUN 8 Creatinine 0.77 Glucose 106 H Calcium 8.6 - ABG Interpretation ABG results: PT/INR, D-dimer PT 13.6 Seconds (9.4-12.1) H 05/15/18 23:52 - Impressions Impressions Abdomen/Pelvis CT 05/18/18 15:20 IMPRESSION: Benign hepatic hemangioma in segment 2/3 measuring 19 x 12 mm stable since 2016 CT. New hypoattenuating areas in the right hepatic lobe near the gallbladder fossa and in segment 5 of the liver new since 2016 possibly representing hepatic metastatic disease given history of colon mass. Recommend MRI of the liver with and without contrast when patient is able to comply with examination. Focal circumferential wall thickening of the sigmoid colon corresponding to the mass detected on colonoscopy suspicious for colonic adenocarcinoma. No definite CT evidence of metastatic lymphadenopathy. A 4 mm nonenlarged left mesorectal fat lymph node, indeterminate. Stable benign left adrenal adenoma. D/ / 05/18/2018 16:36:45 Oleksandr Durand MD / jacquelyn Interpreting Provider: Oleksandr Durand MD - Attending Attestation I performed a history and physical examination of the patient along with the resident Dr. Suero, and discussed his management with the resident. I reviewed the residents note and agree with the documented findings and plan of care, except as follow: Patient at the bedside today, was in no apparent distress, but non-cooperative. He stated he just wanted to rest, and refused to participate in the interview. He also allowed only limited physical exam. Unable to determine his functional status. GOC discusssion: attempted to engage pt on GOC discussion, asked about his refu nakia of surgery, pt stated that he did not want surgery and was aware of what the surgery was about. When asked to elaborate further, pt just closed his eyes and refused any further interaction. Called pt's guardian Mr. Tammie Carrion [phone] . He confirmed that he had a conversation with pt and surgery SABIHA Kellogg this morning. He is understanding of the pt's diagnosis, prognosis and treatment options. He states that he know Mr Gong well, and that his refusal for surgery are in line with his previously expressed wishes. Mr Carrion is agreeable for hospice. However, he had promissed to Pt to take him back to [facility] to , so he would like pt to be placed in a SNF with hospice at [facility]. Called and discussed with THOMAS Pérez, She will follow up with Mr. Carrion for further discharge planning. Pt is now DNRCC. State form filled. Further plan per resident's note. Palliative Quality Palliative Quality: If Pain Regimen Started, Initiate Bowel Regimen: Yes Code Status: 05/16/18 07:50 Resuscitation Status: Active [RES] Routine Comment: Resuscitation Status: Full Code 05/19/18 10:55 CODE [Resuscitation Status: Active] [RES] Routine Comment: Resuscitation Status: DNR-Comfort Care
[2018-05-19] MEDS ORDERED: *HR* OxyCODONE Immed Rel 5 MG TABLET PO PRN (10:44)
--- NOTE | 2018-05-19 16:33 | Oncology Inp Progress Note ---
Date of Encounter: 05/19/18 (1) Lesion of colon Current Visit: Yes Status: Acute Assessment and plan: Presented with report of hematochezia for several days Patient underwent colonoscopy 05/18/2018 which revealed a normal anal verge and rectum, located a fungating, large, partially obstructing recto-sigmoid mass in the sigmoid colon, oozing was present, no specimen obtained. Surgery has been consulted. CEA elevated 23.9 CT abdomen/pelvis pending Plan: Continue to hold [facility] onboard, Dr. Ruano to discuss with Dr. Harman to clarify location of tumor, imaging lists sigmoid thickening and colonoscopy does note normal retroflexion view of anal verge/rectum, lists as "recto-sigmoid" mass Appears to be consistent with sigmoid mass, in which surgical intervention would be warranted Further discussion on treatment plan and adjuvant treatment is TBD, patients participation in his care appears to be limited at times, will need to clarify his performance status and wishes for further treatment Oncology: Obj Data - Labs CBC & Chem 7: 05/19/18 09:01 05/19/18 09:01 Consult Discharge Plan - Plan Referrals: [facility],PCP [Primary Care Provider] - Inpatient Charges Provider: Dr. Ga Potter
--- NOTE | 2018-05-19 16:59 | Oncology Inp Consult Note ---
Date of Encounter: 05/18/18 Time of Encounter: 16:00 Assessment and Plan (1) Lesion of colon Status: Acute Assessment and plan: Colon mass, rectosigmoid in location per imaging, history of rectal bleeding CT scan showing lymphadenopathy in the rectal region, metastatic lesions possibly in the liver. We were to discuss with patient the findings on imaging and possible diagnosis and treatment. Patient was not very receptive to her communication and wanted us to return the next day. On 05/19/2018 patient stated to me that he does not want surgery, he does not want chemotherapy. He reported that he is not in pain and that he does not have any bleeding issues. Hospice is being arranged for palliative care team notes which is appropriate as patient is not able to decide on treatment either has understanding of the disease process nor treatment. Please refer to Madelaine Morales's notes for clarification in HPE documentation - Data of Consult Requesting Physician: Daria Man MD Primary [facility] Provider: [facility] - Consult Narrative Reason for consult: colon mass History of present illness: Mr. Gong is a 72 year old male with past medical history significant for schizophrenia, Atrial fibrillation, COPD, HTN, hyperlipidemia, who presented to ER with complaints of BRBPR for several days, patient does take Xarelto for A- fib. Patient has not had a colonoscopy in several years. Patient denied fevers, chills, nasuea, vomiting, abdominal pain, melena or hematemesis. H&H normal and hemodynamically stable. He was admitted with consult for endoscopy. Patient underwent colonoscopy 05/18/2018 which revealed a normal anal verge and rectum, located a fungating, large, partially obstructing "recto-sigmoid" mass in the sigmoid colon, oozing was present, no specimen obtained. Final path is pending. He had MRI of the abdomen followed by CT scan which shows new liver lesions since 2016. Past Med Surg Social Fam HX - Past Medical History Medical history: atrial fibrillation, COPD, GERD, hyperlipidemia, thyroid disease Additional medical history: PN, apnea, elective mutism, entropion mechanical, BPH, hypothyroid Psychiatric history: anxiety, depression, schizophrenia - Past Surgical History Surgical History: cataract, other Additional surgical history: Previous chest tube placement for spontaneous pneumothorax - Social History Smoking Status: Current every day smoker Smokeless Tobacco Status: No Alcohol use: none Drug use: none - Family History Father Family Member Ethnicity: Non- Mother Family Member Ethnicity: Non- Living Status: Hx Family Respiratory Disorders: Yes (COPD) Hx Family Cancer: Yes Sister Family Member Ethnicity: Non- Living Status: Still Living Medications and Allergies Acetaminophen [Tylenol] 650 mg PO Q6HR PRN 07/10/16 [History] Atorvastatin [Lipitor] 10 mg PO HS 07/10/16 [History] Cholecalciferol (D-3) [Vitamin D] 2,000 unit PO DAILY 07/10/16 [History] Levalbuterol Neb [Xopenex Neb] 1.25 mg IH BID 07/10/16 [History] Omeprazole [PriLOSEC] 20 mg PO DAILY 07/10/16 [History] Mineral Oil/Petrolatum,White [Eucerin Creme] 1 appl TP TUFR 11/19/16 [History] Budesonide/Formoterol 160/4.5 [Symbicort 160/4.5] 2 puff IH BIDR 06/10/17 [History] Potassium Chloride [K-Tab ER] 20 meq PO TID 06/10/17 [History] Sennosides/Docusate Sodium [Senna Plus] 2 tab PO HS 06/10/17 [History] Apixaban [Eliquis] 5 mg PO BID 05/17/18 [History] Erythromycin OPTH Oint 1 appl BOTH EYES HS 05/17/18 [History] Metoprolol [Lopressor] 12.5 mg PO BID 05/17/18 [History] Multivitamin with Minerals [One-A-Day Maximum Formula] 1 tab PO DAILY 05/17/18 [History] Salicylic Acid/Sulfur [Sebex Shampoo] 1 applic TP DAILY PRN 05/17/18 [History] cloZAPine [Clozapine] 175 mg PO HS 05/17/18 [History] Allergy/AdvReac Type Severity Reaction Status Date / Time haloperidol [From Haldol] Allergy unknown Verified 05/17/18 10:23 ROS unobtainable: due to mental status Constitutional: Present: weakness Respiratory: Present: dyspnea on exertion Gastrointestinal: Present: hematochezia Oncology - Exam - Constitutional General appearance: mild distress, thin - Head Head exam: Present: atraumatic, normal inspection - ENT ENT exam: Present: mucous membranes dry - Neck Neck exam: Present: full ROM - Respiratory Respiratory exam: Present: CTAB - Cardiovascular Cardiovascular exam: Present: +S1, +S2 - GI/Abdominal GI/Abdominal exam: Present: normal bowel sounds, soft - Extremities Exam Additional comments: no edema - Neurological Exam Neurological exam: Present: altered, no focal deficits - Psychiatric Psychiatric exam: Present: depressed Oncology Inpatient Results as in HPI Consult Discharge Plan - Plan [facility]errals: [facility] [Primary Care Provider] - Inpatient Charges Provider: Dr. Ga Potter Consult - Inpatient: [id number]
[2018-05-19] MEDS: cloZAPine 100 MG TABLET PO SCH (19:26)
--- NOTE | 2018-05-20 09:12 | Discharge Summary ---
<Tiago Mcpherson - Last Filed: 05/20/18 13:15> - NOTES TO OUTPATIENT PROVIDER Notes to Outpatient Provider: Patient was found to have a rectosigmoid mass on colonoscopy and he and family decided not to undergo any surgical intervention as well as chemotherapy. Patient is transitioning to hospice. Orders not resulted at time of discharge: Pending orders 05/18/18 12:11 Surgical Pathology [PTH] Routine Date of Encounter: 05/20/18 Time of Encounter: 09:10 - Discharge Diagnosis (1) Colon cancer Priority: Primary Status: Acute Qualifiers: Colon location: sigmoid Qualified Code(s): C18.7 - Malignant neoplasm of sigmoid colon (2) COPD (chronic obstructive pulmonary disease) Priority: Secondary Status: Chronic Qualifiers: COPD type: unspecified COPD Qualified Code(s): J44.9 - Chronic obstructive pulmonary disease, unspecified (3) History of atrial fibrillation Priority: Secondary Status: Chronic (4) Hematochezia Priority: Secondary Status: Resolved (5) HTN (hypertension) Priority: Secondary Status: Chronic Qualifiers: Hypertension type: essential hypertension Qualified Code(s): I10 - Essential (primary) hypertension (6) Schizophrenia Priority: Secondary Status: Chronic Qualifiers: Schizophrenia type: unspecified Qualified Code(s): F20.9 - Schizophrenia, unspecified Hospital course: Mr. Gong is a 72 year old male presented with chief complaint of rectal bleeding. He reports that he did not have colonoscopy for many years. He is also on xeralto for anticoagulation. On admission hemoglobin was 12.3. Patient did not require any blood transfusions. CT abdomen pelvis shows mild distention of the colon with caliber change in the sigmoid colon. Patient also had bilobar hypodense hepatic lesions. He underwent repeat CT abdomen pelvis with contrast that showed metastatic lesions in the liver. Colonoscopy showed malignant partially obstructing tumor in the rectosigmoid colon. General surgery was consulted and offered patient surgery for removal of mass however patient and family decided to forego therapy and patient was transitioned to hospice care. Discharge discussed with: patient, family - Time Spent with Patient Total time spent providing and/or coordinating discharge services: - Discharge Medications Home Medications: RX: Acetaminophen [Tylenol] 650 mg PO Q6HR PRN 07/10/16 [History] RX: Atorvastatin [Lipitor] 10 mg PO HS 07/10/16 [History] RX: Cholecalciferol (D-3) [Vitamin D] 2,000 unit PO DAILY 07/10/16 [History] RX: Levalbuterol Neb [Xopenex Neb] 1.25 mg IH BID 07/10/16 [History] RX: Omeprazole [PriLOSEC] 20 mg PO DAILY 07/10/16 [History] RX: Mineral Oil/Petrolatum,White [Eucerin Creme] 1 appl TP TUFR 11/19/16 [History] RX: Budesonide/Formoterol 160/4.5 [Symbicort 160/4.5] 2 puff IH BIDR 06/10/17 [History] RX: Potassium Chloride [K-Tab ER] 20 meq PO TID 06/10/17 [History] RX: Sennosides/Docusate Sodium [Senna Plus] 2 tab PO HS 06/10/17 [History] RX: Erythromycin OPTH Oint 1 appl BOTH EYES HS 05/17/18 [History] RX: Metoprolol [Lopressor] 12.5 mg PO BID 05/17/18 [History] RX: Multivitamin with Minerals [One-A-Day Maximum Formula] 1 tab PO DAILY 05/17/18 [History] RX: Salicylic Acid/Sulfur [Sebex Shampoo] 1 applic TP DAILY PRN 05/17/18 [History] RX: cloZAPine [Clozapine] 175 mg PO HS 05/17/18 [History] Allergies/Adverse Reactions: Allergy/AdvReac Type Severity Reaction Status Date / Time haloperidol [From Haldol] Allergy unknown Verified 05/17/18 10:23 Date of admission: 05/18/18 18:12 [facility] care [facility]: [facility] Consults: 05/16/18 08:56 Consult to Physician [CONS] Routine Consulting Provider: Walter Reynaga Reason for Consult: Lower GI bleed Time Notified: 08:56 Call Completed: Yes 05/19/18 08:39 Consult to Palliative Care [CONS] Stat Comment: Consulting Provider: Palliative Care Ayse Reason for Consult: colon cancer, likely metastatic, refuses any further treatment, wants hospice; spoke with Dr. Dupont Time Notified: 08:42 Call Completed: Yes Discharging clinician: Tiago Mcpherson Anticipated date of discharge: 12/19/18 - Constitutional Vitals: Temp Pulse Resp BP Pulse Ox 97.6 F 100 15 112/67 95 05/20/18 07:26 05/20/18 07:26 05/20/18 07:26 05/20/18 07:26 05/20/18 07:26 General appearance: Present: cooperative, disheveled, A&O X 3, pleasant, no acute distress, answers questions appropriately Exam: General: pleasant, without distress HEENT: Head atraumatic, normocephalic, EOMI, PERRL, absent ear discharge or trauma, Moist Mucous Membranes, uvula midline Neck: nontender to palpation, absent lymphadenopathy, Cardiovascualr: Irregular with no murmur, absent gallops or rubs, absent pedal edema, radial pulses 2 out of 4 Lungs: Clear to auscultation bilaterally, not in respiratory distress Abdomen: Soft nontender, nondistended positive bowel sounds, absent hepatomegaly Skin: warm and dry, absent rash, absent open wounds and nodules MSK: absent clubbing, cyanosis, joints without swelling Neuro: Cranial nerves II through XII intact, UE and LE sensation equal bilaterally, UE and LEstrength 5/5, alert oriented 3, Psych: good insight and judgment, appears depressed - Patient Status Disposition: Hospice - Home Condition: Good Functional capacity at discharge: independent ambulation Overall status at discharge: patient is not back to baseline - Discharge Instructions Follow Up With: [facility] [Primary Care Provider] - - Diet and Activity Activity: increase activity as tolerated Diet: advance to your usual diet, other (Mechanical soft) <Daria Man - Last Filed: 05/20/18 15:15> Date of Encounter: 05/20/18 - Discharge Diagnosis (1) COPD (chronic obstructive pulmonary disease) Status: Chronic Qualifiers: COPD type: unspecified COPD Qualified Code(s): J44.9 - Chronic obstructive pulmonary disease, unspecified (2) History of atrial fibrillation Status: Chronic (3) Hematochezia Status: Resolved (4) Colon cancer Status: Acute Qualifiers: Colon location: sigmoid Qualified Code(s): C18.7 - Malignant neoplasm of sigmoid colon (5) HTN (hypertension) Status: Chronic Qualifiers: Hypertension type: essential hypertension Qualified Code(s): I10 - Essential (primary) hypertension (6) Schizophrenia Status: Chronic Qualifiers: Schizophrenia type: unspecified Qualified Code(s): F20.9 - Schizophrenia, unspecified Hospital course: Mr. Gong is a 72 year old male - Time Spent with Patient Total time spent providing and/or coordinating discharge services: Date of admission: 05/18/18 18:12 [facility] care physician: [facility] Consults: 05/16/18 08:56 Consult to Physician [CONS] Routine Consulting Provider: Walter Reynaga Reason for Consult: Lower GI bleed Time Notified: 08:56 Call Completed: Yes 05/19/18 08:39 Consult to Palliative Care [CONS] Stat Comment: Consulting Provider: Palliative Care Cataldo Reason for Consult: colon cancer, likely metastatic, refuses any further treatment, wants hospice; spoke with Dr. Dupont Time Notified: 08:42 Call Completed: Yes - Constitutional Vitals: Temp Pulse Resp BP Pulse Ox 97.6 F 100 15 112/67 95 05/20/18 07:26 05/20/18 07:26 05/20/18 07:26 05/20/18 07:26 05/20/18 07:26 - Attending Attestation I have seen and examined this patient independently. I have discussed with resident physician Dr Mcpherson regarding the discharge plan. Agree with the documentation.
--- NOTE | 2018-05-20 09:18 | Physician Discharge Referral ---
Home Health/Hosp Referral Info Transfer to: Hospice Attending Provider: Dr. Man Provider in Charge Post Discharge: Heating Engineer - Diagnosis (1) Colon cancer Priority: Primary Status: Acute (2) COPD (chronic obstructive pulmonary disease) Priority: Secondary Status: Chronic (3) History of atrial fibrillation Priority: Secondary Status: Chronic (4) Hematochezia Priority: Secondary Status: Resolved (5) HTN (hypertension) Priority: Secondary Status: Chronic (6) Schizophrenia Priority: Secondary Status: Chronic - Respiratory Orders Smoking Cessation: Smoking cessation has been advised. For more information, call the [place] Tobacco Quit Line at 2-108-CGAL-NOW. - Diet/Nutrition Diet/Nutrition Orders: Mechanical Soft - Activity Activity Orders: Up ad theodora, Ambulate - Services Needed Following services are medically necessary services: Nursing, Home Health Aide - Transfer Medications Home Medications: Acetaminophen [Tylenol] 650 mg PO Q6HR PRN 07/10/16 [History] Atorvastatin [Lipitor] 10 mg PO HS 07/10/16 [History] Cholecalciferol (D-3) [Vitamin D] 2,000 unit PO DAILY 07/10/16 [History] Levalbuterol Neb [Xopenex Neb] 1.25 mg IH BID 07/10/16 [History] Omeprazole [PriLOSEC] 20 mg PO DAILY 07/10/16 [History] Mineral Oil/Petrolatum,White [Eucerin Creme] 1 appl TP TUFR 11/19/16 [History] Budesonide/Formoterol 160/4.5 [Symbicort 160/4.5] 2 puff IH BIDR 06/10/17 [History] Potassium Chloride [K-Tab ER] 20 meq PO TID 06/10/17 [History] Sennosides/Docusate Sodium [Senna Plus] 2 tab PO HS 06/10/17 [History] Erythromycin OPTH Oint 1 appl BOTH EYES HS 05/17/18 [History] Metoprolol [Lopressor] 12.5 mg PO BID 05/17/18 [History] Multivitamin with Minerals [One-A-Day Maximum Formula] 1 tab PO DAILY 05/17/18 [History] Salicylic Acid/Sulfur [Sebex Shampoo] 1 applic TP DAILY PRN 05/17/18 [History] cloZAPine [Clozapine] 175 mg PO HS 05/17/18 [History] Allergies/Adverse Reactions: Allergy/AdvReac Type Severity Reaction Status Date / Time haloperidol [From Haldol] Allergy unknown Verified 05/17/18 10:23 Certification: Further, I certify that my clinical findings support that this patient is homebound (i.e. absences from home require considerable and taxing effort and are for medical reasons or pentec[employer] services or infrequently or short duration when for other reasons) because: Homebound Reason: Patient requires assistance of a person or device to safely leave home, Leaving home requires considerable and taxing effort due to condition Attestation: My signature below is to certify that this patient is under my care and that I, or nurse practitioner, or a physician's water quality assistant working with me, has a [id number] encounter with this patient.
[2018-05-20] MEDS: Ipratropium/Albuterol Neb 3 ML IH SCH ×2 (10:24→22:59)
[2018-05-20] MEDS: Budesonide/Formoterol 160/4.5 1 PUFF INH IH SCH ×2 (10:24→22:59)
--- NOTE | 2018-05-20 10:53 | Event Note ---
Date of Encounter: 05/20/18 Time of Encounter: 10:50 Patient was sitting in bed, eating breakfast. He stated to be feeling well, no abdominal pain. He refused to be examined and will not communicate any further. Called THOMAS Pérez, she has been working on discharge planning. Pt has a 100% service connection with ID, and she is working in conjunction with pt's guardian to find a suitable retirement with hospice close to [facility]. Pt's GOC are clear, and no symptoms for palliative care to manage. Palliative care will sign off at this time.
[2018-05-20] MEDS: cloZAPine 100 MG TABLET PO SCH (21:46)
[2018-05-21] MEDS: Ipratropium/Albuterol Neb 3 ML IH SCH (07:55)
[2018-05-21] MEDS: Budesonide/Formoterol 160/4.5 1 PUFF INH IH SCH (07:55)
[2018-05-21 08:24] VITALS: BP 119/71
--- NOTE | 2018-05-21 09:52 | Internal Med Progress Note ---
<Tiago Mcphersonjoie - Last Filed: 05/21/18 09:50> Hospitalist Progress Note - Encounter Date of Encounter: 05/21/18 Time of Encounter: 09:50 - Subjective Interval History: no acute events overnight. Patient appears depressed. He is not very communicative and refused exam. - Exam Vitals: Temp Pulse Resp BP Pulse Ox 97.4 F L 115 15 119/71 91 05/21/18 08:18 05/21/18 08:18 05/21/18 08:18 05/21/18 08:18 05/21/18 08:18 Exam: patient refused exam - Assessment and Plan (1) Colon cancer Status: Acute Assessment and Plan: patient does not want any interventions he is awaiting placement for hospice (2) COPD (chronic obstructive pulmonary disease) Status: Chronic Assessment and Plan: He does have diffuse wheezing in all lung lobes. Denies any coughing, is comfortable on 2 L of supplemental oxygen Continue DuoNeb's Continue Symbicort (3) History of atrial fibrillation Status: Chronic Assessment and Plan: continue cardizem d/c xeralto (4) HTN (hypertension) Status: Chronic Assessment and Plan: continue home medications (5) Schizophrenia Status: Chronic Assessment and Plan: History of schizophrenia His mood has been stable since admission Continue home dose clozapine - Time Spent with Patient Total time spent is greater than 50% in coordination of care (as documented) at patient's floor/unit and/or counseling patient: Internal Medicine: Result - Labs CBC & Chem 7: 05/19/18 09:01 05/19/18 09:01 - ABG Interpretation ABG results: PT/INR, D-dimer PT 13.6 Seconds (9.4-12.1) H 05/15/18 23:52 Consult Discharge Plan - Plan [facility]errals: [facility] [Primary Care Provider] - (Will see provider at SNF. Thank you) <Daria Man - Last Filed: 05/21/18 18:29> Hospitalist Progress Note - Encounter Date of Encounter: 05/21/18 - Exam Vitals: Temp Pulse Resp BP Pulse Ox 97.4 F L 115 15 119/71 91 05/21/18 08:18 05/21/18 08:18 05/21/18 08:18 05/21/18 08:18 05/21/18 08:18 - Assessment and Plan (1) COPD (chronic obstructive pulmonary disease) Status: Chronic (2) History of atrial fibrillation Status: Chronic (3) Colon cancer Status: Acute (4) HTN (hypertension) Status: Chronic (5) Schizophrenia Status: Chronic - Time Spent with Patient Total time spent is greater than 50% in coordination of care (as documented) at patient's floor/unit and/or counseling patient: Internal Medicine: Result - Labs CBC & Chem 7: 05/19/18 09:01 05/19/18 09:01 - ABG Interpretation ABG results: PT/INR, D-dimer PT 13.6 Seconds (9.4-12.1) H 05/15/18 23:52 - Impressions Impressions Abdomen/Pelvis CT 05/18/18 15:20 IMPRESSION: Benign hepatic hemangioma in segment 2/3 measuring 19 x 12 mm stable since 2015 CT. New hypoattenuating areas in the right hepatic lobe near the gallbladder fossa and in segment 5 of the liver new since 2015 possibly representing hepatic metastatic disease given history of colon mass. Recommend MRI of the liver with and without contrast when patient is able to comply with examination. Focal circumferential wall thickening of the sigmoid colon corresponding to the mass detected on colonoscopy suspicious for colonic adenocarcinoma. No definite CT evidence of metastatic lymphadenopathy. A 4 mm nonenlarged left mesorectal fat lymph node, indeterminate. Stable benign left adrenal adenoma. D/ / 05/18/2018 16:36:45 Oleksandr Durand MD / [email or web address] Interpreting Provider: Oleksandr Durand MD - Attending Attestation I have seen and examined this patient independently. I have discussed with resident physician Dr Mcpherson regarding the management plan. Agree with the documentation. <Tiago Mcpherson - Last Filed: 05/21/18 09:50> (1) Colon cancer Qualifiers: Colon location: sigmoid Qualified Code(s): C18.7 - Malignant neoplasm of sigmoid colon (2) COPD (chronic obstructive pulmonary disease) Qualifiers: COPD type: unspecified COPD Qualified Code(s): J44.9 - Chronic obstructive pulmonary disease, unspecified (4) HTN (hypertension) Qualifiers: Hypertension type: essential hypertension Qualified Code(s): I10 - Essential (primary) hypertension (5) Schizophrenia Qualifiers: Schizophrenia type: unspecified Qualified Code(s): F20.9 - Schizophrenia, unspecified <Daria Man - Last Filed: 05/21/18 18:29> (1) COPD (chronic obstructive pulmonary disease) Qualifiers: COPD type: unspecified COPD Qualified Code(s): J44.9 - Chronic obstructive pulmonary disease, unspecified (3) Colon cancer Qualifiers: Colon location: sigmoid Qualified Code(s): C18.7 - Malignant neoplasm of sigmoid colon (4) HTN (hypertension) Qualifiers: Hypertension type: essential hypertension Qualified Code(s): I10 - Essential (primary) hypertension (5) Schizophrenia Qualifiers: Schizophrenia type: unspecified Qualified Code(s): F20.9 - Schizophrenia, unspecified
== END 2018-05-21 16:20 | disposition hospice, home (50) | DRG 375 ==
LOC: EMEROOARM 23:38 → 3ANU 23:38 → SUATTDRO 05-16 02:03 → 3ANU 05-16 02:33 → SUATTDRO 05-18 18:12
PROVIDERS: ADMIT Family Medicine; ATTEND Internal Medicine
PROC: ENDOCBX (2018-05-18 15:30)